=== PATIENT | female | born 1935 | race African-American/Black ===

== ENCOUNTER → 2017-11-21 10:13 | Outpatient (CLI) | payer MEDICARE, OTHER, SELFPAY ==
--- NOTE | 2017-11-21 10:17 | BI_ITS ---
MAMMOGRAPHY - BILATERAL SCREENING REASON FOR EXAM: Female, 82 years old. Routine annual screening examination. PERTINENT HISTORY: Non-contributory. Remote right excisional breast biopsy. TECHNIQUE: Digital bilateral breast paxton (3D mammographic acquisition) in the CC and MLO projections. 2-D mediolateral oblique (MLO) and craniocaudad (CC) views of both breasts were obtained. CAD: Full Field Digital Mammography with Computer Added Detection was performed. COMPARISON: Comparison is made with prior study dated October 03, 2016 and September 21, 2015. FINDINGS: Breast Composition: The breasts are almost entirely fatty. There are no dominant masses or suspicious calcifications. A battery pack from a pacemaker is seen in the left axillary region. Stable bilateral secretory calcifications. No other significant abnormalities are identified. There has been no significant change since the prior study. BI/SCREENING MAMM (CAD), BILAT IMPRESSION: Stable bilateral screening mammogram. Yearly follow-up mammogram recommended. (A) ASSESSMENT CATEGORY: BIRADS Category 2: Benign. A letter regarding these results will be sent to the patient by the facility within 30 days. Approximately 10% of breast cancers are not detected by mammography. A normal mammogram should not delay biopsy of a clinically suspicious abnormality. [id number] Electronically Signed: Tim Gabriel MD at 11:37 EDT Tel [phone], Service support ,
== END ==
PROVIDERS: Family Provider Family Medicine; PCP Family Medicine; Visit Provider Family Medicine
DX: Z12.31 Encounter for screening mammogram for malignant neoplasm of breast (principal)
CPT/HCPCS: 77063; 77067

== ENCOUNTER → 2017-12-25 08:49 | Outpatient (CLI) | payer MEDICARE, OTHER, SELFPAY ==
[2017-12-25 09:16] LABS: International Normalized Ratio 2.1; Prothrombin Time (Protime)PT. 23.6 SECONDS (11.7-14.9)
== END ==
PROVIDERS: Family Provider Family Medicine; PCP Family Medicine; Visit Provider Internal Medicine Cardiovascular Disease
DX: I48.91 Unspecified atrial fibrillation (principal)
CPT/HCPCS: 85610

== ENCOUNTER → 2018-01-20 14:30 | Outpatient (CLI) | payer MEDICARE, OTHER, SELFPAY | PROVIDERS: Family Provider Family Medicine; PCP Family Medicine; Visit Provider Family Medicine | DX: E55.9 Vitamin D deficiency, unspecified (principal); R63.4 Abnormal weight loss; R53.83 Other fatigue; Z51.81 Encounter for therapeutic drug level monitoring ==

== ENCOUNTER → 2018-01-21 13:55 | Outpatient (CLI) | payer MEDICARE, OTHER, SELFPAY | PROVIDERS: Family Provider Family Medicine; PCP Family Medicine; Visit Provider Family Medicine | DX: K44.9 Diaphragmatic hernia without obstruction or gangrene (principal) | CPT/HCPCS: 71046 ==

== ENCOUNTER 2018-06-10 11:36 | Emergency (ER) | payer MEDICARE, OTHER, SELFPAY ==
[2018-06-10] VITALS (7 sets, daily range): BP systolic 135–172; BP diastolic 70–85; PULSE 60–65; RESP 16–20; TEMP 36.6; O2SAT 97–100; BMI 35.4
--- NOTE | 2018-06-10 12:15 | EKG12_ITS ---
Test Reason : CHEST PAIN Blood Pressure : / mmHG Vent. Rate : 084 BPM Atrial Rate : 040 BPM P-R Int : 000 ms QRS Dur : 170 ms QT Int : 456 ms P-R-T Axes : 000 -75 092 degrees QTc Int : 538 ms Ventricular-paced rhythm with frequent Premature ventricular complexes Abnormal ECG Confirmed by CONSTANCE AGUIAR, KALE ([id number]), story editor SAMEERA WATKINS ([id number]) on 06/12/2018 3:41:21 PM Referred By: NEVIN Confirmed By:KALE NOLASCO MD
--- NOTE | 2018-06-10 12:15 | RAD_ITS ---
STUDY: X-RAY CHEST REASON FOR EXAM: Female, 83 years old. Chest pain TECHNIQUE: Single AP portable view of the chest. COMPARISON: 01/21/2018 FINDINGS: EKG leads overlie the chest The lungs are clear and expanded. There is no demonstrated pleural abnormality. Normal size heart. Normal mediastinum and arnol. Normal visualized pulmonary arteries. There is atherosclerotic calcification of the aortic arch with tortuosity. There are diffuse degenerative changes of the visualized thoracic spine. Normal visualized ribs, clavicles, and shoulders. There is no demonstrated abnormality of the visualized soft tissue structures of the upper abdomen. RAD/Chest 1 View (Portable) IMPRESSION: No acute pulmonary process Electronically Signed: Marcos Dudley MD at 12:47 EST , Service support ,
[2018-06-10 12:43] LABS: Absolute Lymphocyte Count 1.11 X10^3/ul (0.83-4.51); Absolute Neutrophil Count 1.6 X10^3/uL (2.0-7.7); Basophil# 0.01 X10^3/uL; Basophil% 0.2 % (0-1); Eosinophil# 0.12 X10^3/uL; Eosinophils% 2.6 % (0-5); Hemoglobin 12.3 g/dl (12.0-15.0); Lymphocyte # 1.11 X10^3/ul (4.0); Lymphocyte % 23.6 % (19-41); Mean Corp Hgb Conc 30.8 g/gl (32-36); Mean Corpuscular Hgb 29.7 pg (27.0-32.0); Mean Corpuscular Volume 96.6 fL (81-99); Mean Platelet Vol. 11.7 fl (6.2-12.0); Monocyte# 1.79 X10^3/uL; Monocyte% 38.1 % (0-10); Neutrophil # 1.64 X10^3/uL (2.7-7.7); Neutrophil % 34.9 % (47-70); Platelet Count 196 K/mm3 (150-450); RBC Distribution Width CV 14.2 % (11.6-14.6); RBC Distribution Width SD 49.8 fl (35.1-43.9); Red Blood Count 4.14 M/mm3 (4.2-5.4); White Blood Count 4.7 K/mm3 (4.4-11.0)
[2018-06-10 12:45] LABS: Differential Indicated SCAN CRITERIA MET; POSITIVE COUNT NO; POSITIVE DIFFERENTIAL YES; POSITIVE MORPHOLOGY NO
[2018-06-10 13:16] LABS: Anion Gap 10 (5-15); BUN 18 mg/dL (7-18); BUN/Creat Ratio 14.6 RATIO (10-20); Calcium,Total 8.1 mg/dL (8.5-10.1); Chloride 106 mmol/L (98-107); Creatinine, Serum 1.23 mg/dL (0.55-1.02); EST Glomerular Filtration Rate 44 mL/min (>60); Est Glom Filt Rate - Afr Amer 54 mL/min (>60); Estimated Creatinine Clearance 33.01 ml/min; Glucose 107 mg/dL (74-106); Potassium 3.4 mmol/L (3.5-5.1); Sodium Level 141 mmol/L (136-145)
[2018-06-10 13:42] LABS: Prothrombin Time (Protime)PT. 23.1 SECONDS (11.7-14.9)
--- NOTE | 2018-06-10 14:31 | ED.VISSUMM ---
- ER Visit Summary Date of Service: 06/10/18 Chief Complaint: Chest pain History of Present Illness: The patient is a 83 F with chest pain that started yesterday evening. It felt like a sharp pain over her right chest. It was intermittent and then recurred this morning. She did take an aspirin and felt better. Associated with some palpitations. She has a history of atrial fibrillation and a pacemaker. She takes warfarin. She denies any history of PE, coronary disease, [place], aortic disease. Physical Examination: Afebrile and vital signs are unremarkable. Alert and oriented. No acute distress. Heart was irregular. Rate controlled. Lungs clear bilaterally. Abdomen soft and nontender. Calves soft and supple. Pulses strong and equal. Skin appears normal. Test Results: EKG shows a paced rhythm at a rate of 84. CBC normal. Metabolic panel shows a potassium of 3.4, glucose 107, creatinine stable at 1.23. INR therapeutic at 2.0. Troponin normal. Chest x-ray showed no acute findings. Emergency Department Course and Treatment: Patient had an EKG, labs, chest x-ray. He was placed on a monitor. Patient felt some intermittent pain in her right chest while I was examining her that lasted several seconds. The monitor did not show any new dysrhythmias. No further pain. Her workup was all fairly unremarkable. She has no history of coronary disease. She would like to go home. I spoke with her package worker. He advised a repeat troponin and she has follow-up with him on . Patient voiced understanding and agreement. The oncoming doctor will check the results of the troponin. If it is normal, she will be discharged. Return for any new or worsening issues. Treatment Plan: As above Disposition: Discharge Impression: 1. Chest pain unclear etiology This note was generated with [employer] dictation software. It may contain incorrect words, spelling, and punctuation that were not noted in review of the chart prior to signing ED Disposition - Plan for ED Patient: Chief Complaint: Chest Pain Referrals: Radha Sigala DO [Primary Care Provider] -
--- NOTE | 2018-06-10 14:36 | ED.DCSUM_ITS ---
- ER Visit Summary Date of Service: 06/10/18 Chief Complaint: Chest pain History of Present Illness: The patient is a 83 F with chest pain that started yesterday evening. It felt like a sharp pain over her right chest. It was intermittent and then recurred this morning. She did take an aspirin and felt b taylor. Associated with some palpitations. She has a history of atrial fibrillation and a pacemaker. She takes warfarin. She denies any history of PE, coronary disease, [place], aortic disease. Physical Examination: Afebrile and vital signs are unremarkable. Alert and oriented. No acute distress. Heart was irregular. Rate controlled. Lungs clear bilaterally. Abdomen soft and nontender. Calves soft and supple. Pulses strong and equal. Skin appears normal. Test Results: EKG shows a paced rhythm at a rate of 84. CBC normal. Metabolic panel shows a potassium of 3.4, glucose 107, creatinine stable at 1.23. INR therapeutic at 2.0. Troponin normal. Chest x-ray showed no acute findings. Emergency Department Course and Treatment: Patient had an EKG, labs, chest x- ray. He was placed on a monitor. Patient felt some intermittent pain in her right chest while I was examining her that lasted several seconds. The monitor did not show any new dysrhythmias. No further pain. Her workup was all fairly unremarkable. She has no history of coronary disease. She would like to go home. I spoke with her prepared foods team leader. He advised a repeat troponin and she has follow-up with him on . Patient voiced understanding and agreement. The oncoming doctor will check the results of the troponin. If it is normal, she will be discharged. Return for any new or worsening issues. Treatment Plan: As above Disposition: Discharge Impression: 1. Chest pain unclear etiology This note was generated with [employer] dictation software. It may contain incorrect words, spelling, and punctuation that were not noted in review of the chart pr ior to signing ED Disposition - Plan for ED Patient: Chief Complaint: Chest Pain Referrals: Radha Sigala DO [Primary Care Provider] -
--- NOTE | 2018-06-10 14:36 | ED.DEP ---
ED Disposition - Plan for ED Patient: Chief Complaint: Chest Pain Instructions: ED Chest Pain Atypical Unkn Cause Referrals: Mustapha Smith MD [STAFF PHYSICIAN] -
== END 2018-06-10 17:12 | disposition home or self-care (01) ==
PROVIDERS: Emergency Provider Emergency Medicine; Family Provider Family Medicine; PCP Family Medicine
DX: R07.9 Chest pain, unspecified (principal); I48.91 Unspecified atrial fibrillation; I11.0 Hypertensive heart disease with heart failure; I50.9 Heart failure, unspecified; Z95.0 Presence of cardiac pacemaker; Z79.01 Long term (current) use of anticoagulants; Z79.82 Long term (current) use of aspirin; Z79.891 Long term (current) use of opiate analgesic; Z79.899 Other long term (current) drug therapy
CPT/HCPCS: 36415; 71045; 80048; 84484; 85025; 85610; 93005; 99285; A4216

== ENCOUNTER 2018-07-13 07:18 | Emergency (ER) | payer MEDICARE, OTHER, SELFPAY ==
[2018-06-10 11:37] VITALS: BMI 35.4
[2018-07-13 07:19] VITALS: BP 187/90; PULSE 57; RESP 20; TEMP 36.6; O2SAT 100; BMI 32.3
--- NOTE | 2018-07-13 07:28 | ED.RN ---
service secretary asked to call for ekg. pt to room 2
--- NOTE | 2018-07-13 07:33 | EKG12_ITS ---
Test Reason : CP Blood Pressure : / mmHG Vent. Rate : 070 BPM Atrial Rate : 059 BPM P-R Int : 000 ms QRS Dur : 144 ms QT Int : 446 ms P-R-T Axes : 000 -86 088 degrees QTc Int : 481 ms Ventricular-paced rhythm with frequent Premature ventricular complexes Abnormal ECG Confirmed by JESUSITA AGUIAR, DURAN ([id number]), script editor SAMEERA WATKINS ([id number]) on 07/15/2018 9:19:36 AM Referred By: OSVALDO Confirmed By:DURAN MC MD
--- NOTE | 2018-07-13 07:33 | RAD_ITS ---
STUDY: X-RAY CHEST REASON FOR EXAM: Female, 83 years old. Chest discomfort. TECHNIQUE: Single AP portable view of the chest. COMPARISON: June 10, 2018 FINDINGS: Patient has left-sided intracardiac pacemaker. Cardiac monitoring leads are present. The right lung is expanded. There is mild elevation of the left hemidiaphragm. Bronchovascular markings are prominent in both lungs. There is no demonstrated pleural abnormality. There is mild cardiac enlargement. Normal mediastinum and arnol. There is prominence of the pulmonary hilar arteries without peripheral pulmonary vascular congestion. There is atherosclerotic calcification of the aortic arch with tortuosity. There is a mild curvature of the thoracic spine with convexity towards the right. Normal visualized ribs, clavicles, and shoulders. There is no demonstrated abnormality of the visualized soft tissue structures of the upper abdomen. RAD/Chest 1 View (Portable) IMPRESSION: Mild cardiomegaly without evidence of acute cardiopulmonary disease. Electronically Signed: Mendy Goodman MD at 8:03 EST , Service support ,
[2018-07-13 07:52] VITALS: O2SAT 100
[2018-07-13] MEDS: Aspirin 81 MG TAB.CHEW 324 MG PO (07:56)
[2018-07-13 08:01] LABS: Absolute Lymphocyte Count 0.72 X10^3/ul (0.83-4.51); Absolute Neutrophil Count 1.5 X10^3/uL (2.0-7.7); Basophil# 0.01 X10^3/uL; Basophil% 0.3 % (0-1); Eosinophil# 0.07 X10^3/uL; Hematocrit 38.2 % (37-47); Hemoglobin 11.7 g/dl (12.0-15.0); Lymphocyte # 0.72 X10^3/ul (4.0); Lymphocyte % 20.3 % (19-41); Mean Corp Hgb Conc 30.6 g/gl (32-36); Mean Corpuscular Hgb 29.5 pg (27.0-32.0); Mean Corpuscular Volume 96.2 fL (81-99); Mean Platelet Vol. 11.4 fl (6.2-12.0); Monocyte# 1.27 X10^3/uL; Monocyte% 35.8 % (0-10); Neutrophil # 1.46 X10^3/uL (2.7-7.7); Platelet Count 156 K/mm3 (150-450); RBC Distribution Width CV 14.4 % (11.6-14.6); RBC Distribution Width SD 50.8 fl (35.1-43.9); Red Blood Count 3.97 M/mm3 (4.2-5.4); White Blood Count 3.6 K/mm3 (4.4-11.0)
[2018-07-13 08:02] LABS: POSITIVE COUNT NO; POSITIVE DIFFERENTIAL NO; POSITIVE MORPHOLOGY NO
--- NOTE | 2018-07-13 08:03 | ED.DCSUM_ITS ---
- ER Visit Summary Date of Service: 07/13/18 Chief Complaint: Palpitations History of Present Illness: The patient is a 83 F presenting with palpitations. Patient states intermittently for the last week when she lays down she has a shaking sensation in her chest. She denies pain with this. When she is sitting up and moving around she is asymptomatic. She denies chest pain with exertion. Denies shortness of breath. She states she is due for a pacemaker check on July 31. Denies fever or other complaints. Physical Examination: Vitals are stable. Patient is afebrile. Alert no acute distress. HEENT exam is unremarkable. Neck is supple. Lungs are clear and equal bilaterally. Heart is regular rate and rhythm. Abdomen is soft nontender nondistended. Extremities are unremarkable. Skin is warm and dry. No focal neurologic deficit. Remainder of exam is unremarkable. Emergency Department Course and Treatment: EKG is paced with PVCs rate of 70. CBC, chemistries unremarkable other than creatinine 1.25, this is at her baseline. INR 2.5. Troponin is negative. Chest x-ray shows mild cardiomegaly, no acute process. Delta troponin was obtained and is also negative. Multiple attempts were made to interrogate her pacemaker. Discussed with [employer] and their system is currently down. Discussed with Dr. Schneider and patient is advised to call the office in the morning for pacemaker check. She and family are agreeable with this plan. She is advised to return to ED for any worsening complaints. Disposition: Discharge home Impression: Palpitations This note was generated with [employer] dictation software. It may contain incorrect words, spelling, and punctuation that were not noted in review of the chart prior to signing ED Disposition - Plan for ED Patient: Instructions: ED Palpitations Referrals: Tyree Schneider MD [STAFF PHYSICIAN] - Radha Sigala DO [Primary Care Provider] -
[2018-07-13 08:09] LABS: International Normalized Ratio 2.5; Prothrombin Time (Protime)PT. 27.5 SECONDS (11.7-14.9)
[2018-07-13 08:15] LABS: Anion Gap 8 (5-15); BUN 12 mg/dL (7-18); BUN/Creat Ratio 9.6 RATIO (10-20); Calcium,Total 8.6 mg/dL (8.5-10.1); Chloride 106 mmol/L (98-107); Creatinine, Serum 1.25 mg/dL (0.55-1.02); EST Glomerular Filtration Rate 44 mL/min (>60); Est Glom Filt Rate - Afr Amer 53 mL/min (>60); Estimated Creatinine Clearance 32.48 ml/min; Glucose 115 mg/dL (74-106); Potassium 4.1 mmol/L (3.5-5.1); Sodium Level 137 mmol/L (136-145)
[2018-07-13 09:12] VITALS: BP 141/69; PULSE 61; RESP 15; O2SAT 99
--- NOTE | 2018-07-13 09:13 | ED.RN ---
ATTEMPTING TO ANALYZE PACEMAKER. HAVING ISSUES GETTING IT TO TRANSMIT TO [employer]. CALLED AND NO ASSISTANCE. THEN THE BATTERY SO NOW ANALYZING AGAIN AND WILL ATTEMPT TO SEND. PHYSICIAN AND PT AWARE OF PROCESS.
[2018-07-13 10:17] VITALS: BP 141/79; PULSE 60; RESP 14; O2SAT 100
--- NOTE | 2018-07-13 10:18 | ED.RN ---
PACEMAKER ANALYZING EQUIPMENT WAS UNSUCCESSFUL. PAGED REP AND AWAITING PHONE CALL.
--- NOTE | 2018-07-13 10:49 | EKGRS_ITS ---
Test Reason : CP Blood Pressure : / mmHG Vent. Rate : 062 BPM Atrial Rate : 054 BPM P-R Int : 000 ms QRS Dur : 142 ms QT Int : 480 ms P-R-T Axes : 000 -79 076 degrees QTc Int : 487 ms Atrial fibrillation with frequent ventricular-paced complexes Left axis deviation Non-specific intra-ventricular conduction block Cannot rule out Septal infarct , age undetermined Possible Lateral infarct , age undetermined Abnormal ECG Confirmed by JESUSITA AGUIAR, DURAN ([id number]), video editor SAMEERA WATKINS ([id number]) on 07/15/2018 9:19:51 AM Referred By: OSVALDO Confirmed By:DURAN MC MD
--- NOTE | 2018-07-13 12:29 | ED.DEP ---
ED Disposition - Plan for ED Patient: Instructions: ED Palpitations Referrals: Radha Sigala DO [Primary Care Provider] - Tyree Schneider MD [STAFF PHYSICIAN] -
[2018-07-13 12:31] VITALS: PULSE 64; RESP 18
[2018-07-13 12:47] VITALS: PULSE 68; RESP 18
== END 2018-07-13 12:47 | disposition home or self-care (01) ==
LOC: ED 08:24
PROVIDERS: Emergency Provider Emergency Medicine; Family Provider Family Medicine; PCP Family Medicine
DX: R00.2 Palpitations (principal); Z95.0 Presence of cardiac pacemaker; I48.91 Unspecified atrial fibrillation; Z72.0 Tobacco use
CPT/HCPCS: 71045; 80048; 84484; 85025; 85610; 93005; 99284; A4216

== ENCOUNTER → 2018-07-31 15:38 | Outpatient (CLI) | payer MEDICARE, OTHER, SELFPAY ==
[2018-07-23 14:08] VITALS: BMI 33.7
[2018-07-31 16:45] LABS: International Normalized Ratio 2.9; Prothrombin Time (Protime)PT. 30.2 SECONDS (11.7-14.9)
== END ==
PROVIDERS: Family Provider Family Medicine; PCP Family Medicine; Referring Provider Internal Medicine Cardiovascular Disease; Visit Provider Internal Medicine Cardiovascular Disease
DX: I48.91 Unspecified atrial fibrillation (principal)
CPT/HCPCS: 85610

== ENCOUNTER → 2018-08-06 13:12 | Outpatient (CLI) | payer MEDICARE, OTHER, SELFPAY ==
[2018-07-23 14:08] VITALS: BMI 33.7
--- NOTE | 2018-08-06 13:14 | ECHOD_ITS ---
Reason For Study: AFIB.FLUTTER Procedure This was a 2D Doppler, Color Flow transthoracic echocardiogram. The study was technically difficult. Exam performed in department. Left Ventricle Normal LV size. Left ventricular systolic function is normal. The estimated ejection fraction is 60 %. Stage 3 diastolic dysfunction. No regional wall motion abnormalities noted. Right Ventricle Normal RV size. ICD or pacer leads identified within the right ventricle. Normal systolic function. Atria The left atrium is moderately enlarged. The right atrium is mildly enlarged. Mitral Valve There is moderate mitral annular calcification. Moderate focal mitral valve thickening. Mild- Moderate (1-2+) eccentric mitral valve insufficiency. Tricuspid Valve Normal tricuspid valve. Moderate (2+) tricuspid valve insufficiency. Pulmonary artery systolic pressure is 63 mmHg. Moderate pulmonary hypertension. Aortic Valve Trisinus/trileaflet aortic valve. Pulmonic Valve Normal pulmonic valve. Great Vessels Calcified aortic root. The pulmonary artery is normal size. Normal inferior vena cava. Pericardium/Pleural No pericardial effusion. MMode/2D Measurements & Calculations LVIDd: 4.1 cm IVSd: 0.97 cm Ao root diam: 2.9 cm LVIDs: 2.9 cm LVPWd: 1.0 cm RVDd: 4.6 cm FS: 29.1 % LAV(MOD-bp): 110.2 ml LA A4 area: 31.5 cm2 RA A4 area: 23.5 cm2 LAV(MOD-bp) Indexed: 55.4 ml/m2 LAV(MOD-sp2): 94.9 ml LAV(MOD-sp4): 120.7 ml Doppler Measurements & Calculations MV E max leo: 146.2 cm/sec Ao V2 max: 124.5 cm/sec LV V1 max: 74.9 cm/sec MV A max leo: 66.2 cm/sec Ao max P.2 mmHg LV V1 max P.2 mmHg MV E/A: 2.2 PA V2 max: 102.0 cm/sec TR max leo: 372.7 cm/sec TR max P.6 mmHg Interpretation Summary Normal LV size. Left ventricular systolic function is normal. The estimated ejection fraction is 60 %. Stage 3 diastolic dysfunction. The left atrium is moderately enlarged. Mild-Moderate (1-2+) eccentric mitral valve insufficiency. Pulmonary artery systolic pressure is 63 mmHg. Moderate pulmonary hypertension. Compared to prior study, there is no significant change. Ordering Physician: Tyree Schneider Referring Physician: Radha Sigala Performed By: Micki Richmond, TITUS, RVT
== END ==
PROVIDERS: Family Provider Family Medicine; PCP Family Medicine; Referring Provider Internal Medicine Cardiovascular Disease; Visit Provider Internal Medicine Cardiovascular Disease
DX: I34.0 Nonrheumatic mitral (valve) insufficiency (principal)
CPT/HCPCS: 93306

== ENCOUNTER 2018-08-18 02:42 | Emergency (ER) | payer MEDICARE, OTHER, SELFPAY ==
[2018-07-23 14:08] VITALS: BMI 33.7
[2018-08-18 02:43] VITALS: BP 166/97; PULSE 62; RESP 18; TEMP 36.6; O2SAT 99; BMI 34.6
[2018-08-18 02:48] VITALS: RESP 18
--- NOTE | 2018-08-18 03:07 | ED.VIS.GEN ---
History of Present Illness Chief Complaint: Lower Extremity Injury Narrative: Patient stated she has chronic arthritis in her knees. She is on Coumadin for history of remote DVT. She wanted to make sure she did not have a DVT she is having worsening pain in her bilateral knees. Sometimes she feels nodules in the back side of her knees and wants to make sure they are not blood clots. She is noticed no swelling redness or warmth to her lower extremities. Comes in for further evaluation. She finished Stinnett given to her by her family doctor for chronic arthritis in her knees a few days ago. She thinks that might be related to her worsening pain. Current severity is moderate. Denies any other symptoms. No chest pain or shortness of breath. Coumadin levels were 2.9 approximately 2 and half weeks ago - Past Medical History (1) Arthritis of knee Status: Chronic (2) Chronic atrial fibrillation Status: Chronic (3) Chronic diastolic (congestive) heart failure Status: Chronic (4) Essential (primary) hypertension Status: Chronic (5) Hyperlipidemia Status: Chronic (6) Non-rheumatic tricuspid valve insufficiency Status: Chronic (7) Nonrheumatic mitral (valve) insufficiency Status: Chronic (8) Presence of permanent cardiac pacemaker Status: Chronic (9) Secondary pulmonary arterial hypertension Status: Chronic (10) Sick sinus syndrome Status: Chronic (11) History of radiofrequency ablation procedure for cardiac arrhythmia Status: Chronic Past Medical History - Allergies and Home Meds Allergies/Adverse Reactions: Allergies adhesive Allergy (Verified 08/18/18 02:47) PULLS SKIN OFF Iodinated Contrast- Oral and IV Dye [Iodinated Contrast Media - IV Dye] Allergy (Verified 08/18/18 02:47) EYES SWELL SHUT latex Adverse Reaction (Unknown, Verified 08/18/18 02:47) Unknown Primary Care Physician: Radha Sigala DO [Primary Care Provider] - Prior records reviewed: Yes Surgical History: - - Hysterectomy, cholecystectomy, partial hysterectomy, stomach surgery/hiatal hernia, pacemaker, ablation.heart cath in the past Lives: With Family Smoking Status: Never smoker Alcohol: None Drugs: None - Family History Maternal Family History: Reports: No pertinent history Paternal Family History: Reports: No pertinent history Review of Systems General: Denies: Chills, Fever, Sweats Eyes: Denies: Visual changes - bilaterally, Diplopia ENT: Denies: Rhinorrhea, Sore throat Cardiovascular: Denies: Chest pain, Palpitations Respiratory: Denies: Dyspnea, Cough, Dyspnea on exertion Gastrointestinal: Denies: Abdominal pain, Nausea, Vomiting, Diarrhea, Melena, Hematochezia Genitourinary: Denies: Dysuria, Hematuria, Frequency Musculoskeletal: Reports: Extremity Pain. Denies: Back pain, Swelling Skin: Denies: Rash, Wounds Neurological: Denies: Headache, Weakness, Numbness Physical Exam Vital Signs/Narrative: Vital Signs Temp Pulse Resp BP Pulse Ox 08/18/18 02:48 18 08/18/18 02:43 98 F 62 18 166/97 H 99 General: Well nourished, Well developed, No Acute Distress Head: Normocephalic, Atraumatic Eyes: Perrl, EOMI ENT: Moist mucous membranes, No rhinorrhea Neck: Supple, Nontender Cardiovascular: Regular rate, Regular rhythm, No murmurs Respiratory: No distress, CTA bilaterally, Chest nontender Abdomen: Soft, Nontender, Nondistended, Normal bowel sounds Back: Nontender, Normal Inspection Extremities: No edema, Tenderness - Tenderness to bilateral knees with arthritic changes seen. The areas in her popliteal region that she is feeling are varicose veins., - - No swelling or deformity. Negative Homans sign. No warmth to lower extremity. Normal pulses.. Negative for: Nontender, Edema, Calf Tenderness Skin: Normal color, No rash Neurological: Alert, Oriented x3, Cranial nerves II-XII grossly intact, Normal Strength, Normal Sensation Psychological: Normal affect, Normal Mood Diagnostic/Tx/Re-eval - Medical Decision Making Patient reassured at this time I think she is having arthritis related pains. What she is feeling her varicose veins. There is no evidence of DVT or superficial thrombophlebitis. I feel she can follow-up as an outpatient. Given one Stinnett and a short prescription ED Disposition - Plan for ED Patient: Disposition: [facility] Diagnosis: Arthritis of knee Instructions: What Is Arthritis? Prescriptions: Hydrocodone Bitart/Apap 5-325 [Stinnett 5MG-325MG] 1 tab PO Q6H PRN PRN 3 Days #10 tab PRN Reason: Pain Referrals: Radha Sigala DO [Primary Care Provider] -
[2018-08-18] MEDS: HYDROcodone Bitartrate/Apap 5/325 Tablet PO (03:17)
[2018-08-18 03:53] VITALS: BP 172/86; PULSE 60; RESP 18; O2SAT 100
== END 2018-08-18 03:54 | disposition home or self-care (01) ==
PROVIDERS: Emergency Provider Emergency Medicine; Family Provider Family Medicine; PCP Family Medicine
DX: M17.0 Bilateral primary osteoarthritis of knee (principal); Z79.01 Long term (current) use of anticoagulants; Z86.718 Personal history of other venous thrombosis and embolism; I48.2 Chronic atrial fibrillation; I11.0 Hypertensive heart disease with heart failure; I50.32 Chronic diastolic (congestive) heart failure; E78.5 Hyperlipidemia, unspecified; Z95.0 Presence of cardiac pacemaker; I15.9 Secondary hypertension, unspecified; I49.5 Sick sinus syndrome
CPT/HCPCS: 99284

== ENCOUNTER → 2018-08-21 12:00 | Outpatient (CLI) | payer MEDICARE, OTHER, SELFPAY ==
[2018-08-18 02:43] VITALS: BMI 34.6
[2018-08-21 12:26] LABS: International Normalized Ratio 2.1; Prothrombin Time (Protime)PT. 23.8 SECONDS (11.7-14.9)
== END ==
PROVIDERS: Family Provider Family Medicine; PCP Family Medicine; Referring Provider Internal Medicine Cardiovascular Disease; Visit Provider Internal Medicine Cardiovascular Disease
DX: I48.91 Unspecified atrial fibrillation (principal)
CPT/HCPCS: 85610

== ENCOUNTER → 2018-08-28 13:38 | Outpatient (CLI) | payer MEDICARE, OTHER, SELFPAY ==
[2018-08-22 10:35] VITALS: BMI 34.6
[2018-08-28 14:07] LABS: Prothrombin Time (Protime)PT. 22.6 SECONDS (11.7-14.9)
== END ==
PROVIDERS: Family Provider Family Medicine; PCP Family Medicine; Referring Provider Internal Medicine Cardiovascular Disease; Visit Provider Internal Medicine Cardiovascular Disease
DX: I48.91 Unspecified atrial fibrillation (principal)
CPT/HCPCS: 85610

== ENCOUNTER → 2018-09-25 | Outpatient (CLI) | payer MEDICARE, OTHER, SELFPAY ==
[2018-08-22 10:35] VITALS: BMI 34.6
[2018-09-25 16:22] LABS: International Normalized Ratio 2.1; Prothrombin Time (Protime)PT. 23.8 SECONDS (11.7-14.9)
== END | disposition home or self-care (01) ==
LOC: LABSPEC 15:44
PROVIDERS: Family Provider Family Medicine; PCP Family Medicine; Referring Provider Internal Medicine Cardiovascular Disease; Visit Provider Internal Medicine Cardiovascular Disease
DX: I48.91 Unspecified atrial fibrillation (principal)
CPT/HCPCS: 85610

== ENCOUNTER 2018-11-26 11:50 | Outpatient (RCR) | payer MEDICARE, OTHER, SELFPAY ==
[2018-08-22 10:35] VITALS: BMI 34.6
[2018-11-26 12:16] LABS: Prothrombin Time Fingerstick 26.5 SEC (11.9-14.4)
== END 2018-12-24 16:00 | disposition home or self-care (01) ==
LOC: LAB 11:50
PROVIDERS: Family Provider Family Medicine; PCP Family Medicine; Referring Provider Internal Medicine Cardiovascular Disease; Visit Provider Internal Medicine Cardiovascular Disease
DX: I48.2 Chronic atrial fibrillation (principal); Z79.01 Long term (current) use of anticoagulants
CPT/HCPCS: 36416; 85610

== ENCOUNTER → 2018-12-03 | Outpatient (CLI) | payer MEDICARE, OTHER, SELFPAY ==
[2018-08-22 10:35] VITALS: BMI 34.6
--- NOTE | 2018-12-03 12:55 | BI_ITS ---
MAMMOGRAPHY - BILATERAL SCREENING REASON FOR EXAM: Female, 83 years old. Routine annual screening examination. PERTINENT HISTORY: Non-contributory. Remote bilateral excisional breast biopsies. TECHNIQUE: Digital bilateral breast alfred (3D mammographic acquisition) in the CC and MLO projections. 2-D mediolateral oblique (MLO) and craniocaudad (CC) views of both breasts were obtained. CAD: Full Field Digital Mammography with Computer Added Detection was performed. COMPARISON: Comparison is made with prior study dated November 21, 2017 and October 03, 2016. FINDINGS: Breast Composition: The breasts are almost entirely fatty. There are no dominant masses or suspicious calcifications. Stable secretory type calcifications bilaterally. A battery pack from a pacemaker is seen in the left axillary region. No other significant abnormalities are identified. There has been no significant change since the prior study. BI/SCREEN MAMM (CAD) W/ALFRED BILAT IMPRESSION: Stable bilateral screening mammogram. Yearly follow-up mammogram recommended. (A) ASSESSMENT CATEGORY: BIRADS Category 2: Benign. A letter regarding these results will be sent to the patient by the facility within 30 days. Approximately 10% of breast cancers are not detected by mammography. A normal mammogram should not delay biopsy of a clinically suspicious abnormality. [id number] Electronically Signed: Tim Gabriel, at 14:36 EDT , Service support ,
== END | disposition home or self-care (01) ==
LOC: OPBI 12:54
PROVIDERS: Family Provider Family Medicine; PCP Family Medicine; Referring Provider Family Medicine; Visit Provider Family Medicine
DX: Z12.31 Encounter for screening mammogram for malignant neoplasm of breast (principal)
CPT/HCPCS: 77063; 77067

== ENCOUNTER 2019-01-07 09:45 | Outpatient (RCR) | payer MEDICARE, OTHER, SELFPAY ==
[2018-08-22 10:35] VITALS: BMI 34.6
[2019-01-07 16:30] LABS: Prothrombin Time Fingerstick 29.8 SEC (11.9-14.4)
== END 2019-01-07 11:00 | disposition home or self-care (01) ==
LOC: LAB 09:45
PROVIDERS: Family Provider Family Medicine; PCP Family Medicine; Referring Provider Internal Medicine Cardiovascular Disease; Visit Provider Internal Medicine Cardiovascular Disease
DX: I48.2 Chronic atrial fibrillation (principal); Z79.01 Long term (current) use of anticoagulants
CPT/HCPCS: 36416; 85610

== ENCOUNTER → 2019-01-15 | Outpatient (CLI) | payer MEDICARE, OTHER, SELFPAY ==
[2019-01-15 14:04] VITALS: BMI 33.3
--- NOTE | 2019-01-15 15:07 | RAD_ITS ---
STUDY: X-RAY CHEST REASON FOR EXAM: Female, 83 years old. Preop pacemaker generator change. TECHNIQUE: PA and lateral views of the chest. COMPARISON: Portable AP upright chest x-ray July 13, 2018. FINDINGS: The generator of the multilead cardiac pacemaker is again seen in the soft tissues of the left anterior chest wall. Its leads extend from the subclavian vein to the right atrium and ventricle. The lungs are clear and expanded. There is no demonstrated pleural abnormality. There is borderline cardiomegaly. Possible calcification in the mitral valve annulus. Normal mediastinum and arnol. Normal visualized pulmonary arteries. There is stable atherosclerotic ossification of the aortic arch and descending thoracic aorta. There is an increased kyphosis of the thoracic spine. Multilevel degenerative changes and mild levoscoliosis noted in the visualized lumbar spine. Normal visualized ribs, clavicles, and shoulders. A number surgical clips are again seen in the epigastrium. RAD/Chest PA and Lateral IMPRESSION: Borderline cardiac enlargement. No acute infiltrate or CHF. Multilead cardiac pacemaker unchanged. Electronically Signed: Marcos Dhillon MD at 16:30 EDT , Service support ,
== END | disposition home or self-care (01) ==
LOC: RAD 15:06
PROVIDERS: Family Provider Family Medicine; PCP Family Medicine; Referring Provider Internal Medicine Cardiovascular Disease; Visit Provider Internal Medicine Cardiovascular Disease
DX: I48.2 Chronic atrial fibrillation (principal); I49.5 Sick sinus syndrome; Z95.0 Presence of cardiac pacemaker
CPT/HCPCS: 71046

== ENCOUNTER → 2019-01-28 | Outpatient (CLI) | payer MEDICARE, OTHER, SELFPAY ==
[2019-01-15 14:04] VITALS: BMI 33.3
[2019-01-28 11:30] LABS: Bacteria 0 SEEN /hpf (None Seen); Mucous, Urine 0 SEEN /hpf (<or=2+); Red Blood Cells-Urine 0 SEEN /hpf (0-5); White Blood Cells 0 SEEN /hpf (0-5)
[2019-01-28 11:46] LABS: Color, Urine Straw (Yellow); Glucose, Dipstick Normal (Normal); Ketone-Dipstick Negative (Negative); Leukocyte Esterase-Dipstick Negative /ul (Negative); Nitrite-Dipstick Negative (Negative); Occult Blood-Urine Negative /ul (Negative); Protein-Dipstick Negative (Negative); Urine Bilirubin Dipstick Negative (Negative); Urine Clarity Clear (Clear); Urine Urobilinogen Normal (Normal)
[2019-01-28 11:55] LABS: Hematocrit 38.7 % (37-47); Hemoglobin 12.1 g/dL (12.0-15.0); Mean Corp Hgb Conc 31.3 g/dL (32-36); Mean Corpuscular Hgb 30.7 pg (27.0-32.0); Mean Corpuscular Volume 98.2 fL (81-99); Mean Platelet Vol. 11.6 fl (6.2-12.0); Platelet Count 131 K/mm3 (150-450); RBC Distribution Width CV 13.9 % (11.6-14.6); RBC Distribution Width SD 50.4 fl (35.1-43.9); Red Blood Count 3.94 M/mm3 (4.2-5.4); White Blood Count 4.2 K/mm3 (4.4-11.0)
[2019-01-28 11:59] LABS: Squamous Epithelial Cells - UA 0-5 SEEN /hpf (5-10)
[2019-01-28 12:04] LABS: International Normalized Ratio 2.1; Prothrombin Time (Protime)PT. 23.9 SECONDS (11.7-14.9)
[2019-01-28 12:30] LABS: AST(SGOT) 18 U/L (15-37); Alanine Aminotransfer ALT/SGPT 17 U/L (13-56); Albumin, Serum 4.2 g/dL (3.2-5.0); Alkaline Phosphatase 130 U/L (45-117); Anion Gap 9 (5-15); BUN 15 mg/dL (7-18); BUN/Creat Ratio 12.1 RATIO (10-20); Bilirubin, Direct 0.45 mg/dL (0.00-0.30); Calcium,Total 9.1 mg/dL (8.5-10.1); Chloride 106 mmol/L (98-107); Cholesterol 118 mg/dL (200); Creatinine, Serum 1.24 mg/dL (0.55-1.02); EST Glomerular Filtration Rate 44 mL/min (>60); Est Glom Filt Rate - Afr Amer 53 mL/min (>60); Globulin 3.4 g/dL (2.2-4.2); Glucose 109 mg/dL (74-106); High Density Lipoprotein 48 mg/dL; Potassium 4.3 mmol/L (3.5-5.1); Protein, Total 7.6 g/dL (6.4-8.2); Sodium Level 139 mmol/L (136-145); Triglycerides 59 mg/dL; Very Low Density Lipoprotein 12 mg/dL (5-40)
== END | disposition home or self-care (01) ==
LOC: LAB 10:23
PROVIDERS: Family Provider Family Medicine; PCP Family Medicine; Visit Provider Internal Medicine Cardiovascular Disease
DX: I49.5 Sick sinus syndrome (principal); I48.2 Chronic atrial fibrillation; I11.0 Hypertensive heart disease with heart failure; I50.32 Chronic diastolic (congestive) heart failure; E78.5 Hyperlipidemia, unspecified; I27.21 Secondary pulmonary arterial hypertension; I36.1 Nonrheumatic tricuspid (valve) insufficiency; Z95.0 Presence of cardiac pacemaker; Z79.01 Long term (current) use of anticoagulants
CPT/HCPCS: 36415; 80048; 80061; 80076; 81001; 83036; 85027; 85610

== ENCOUNTER 2019-02-02 09:44 | Day surgery (SDC) | payer MEDICARE, OTHER, SELFPAY ==
[2019-01-15 14:04] VITALS: BMI 33.3
--- NOTE | 2019-02-02 10:34 | PCM.HP.BLA ---
History and Physical Date of Admission: 02/02/19 History of Present Illness MARI MANUEL, is a 83 F who presents to the hospital today for a pacemaker generator change. Her PPM is nearing CHRISTOPH, recent interrogation demonstrated battery voltage of 2.82 V, CHRISTOPH is 2.81 V. She is a lady with a history of chronic persistent atrial fibrillation sick sinus syndrome status post radiofrequency ablation and permanent pacemaker implantation in 2008. She also has a history of hypertension, hyperlipidemia, and diabetes mellitus. She has not had any chest pain or shortness of breath or paroxysmal nocturnal dyspnea or pedal edema. Intake VS: See chart Allergies adhesive Allergy (Verified 01/15/19 12:48) PULLS SKIN OFF Iodinated Contrast Media [Iodinated Contrast Media - IV Dye] Allergy (Verified 01/15/19 12:48) EYES SWELL SHUT latex Adverse Reaction (Unknown, Verified 01/15/19 12:48) Unknown Medications Amlodipine [Norvasc] 10 mg PO DAILY 12/02/15 [History Confirmed 01/15/19] Aspirin [Aspirin, Baby] 81 mg PO DAILY@0800 12/02/15 [History Confirmed 01/15/19] Bimatoprost 0.01% [Lumigan 0.01%] 1 drp EACH EYE QHS 12/02/15 [History Confirmed 01/15/19] Brinzolamide [Azopt] 1 drp EACH EYE BID 12/02/15 [History Confirmed 01/15/19] Furosemide 40 mg PO DAILY 12/02/15 [History Confirmed 01/15/19] Lansoprazole [Prevacid] 30 mg PO DAILY 12/02/15 [History Confirmed 01/15/19] Lorazepam [Ativan] 1 mg PO Q8H PRN 12/02/15 [History Confirmed 01/15/19] Metoprolol Tartrate [Lopressor (beta demetrius)] 25 mg PO BID 12/02/15 [History Confirmed 01/15/19] Simvastatin [Zocor] 20 mg PO QHS 12/02/15 [History Confirmed 01/15/19] losartan 100 mg tablet PO 90 Days #90 tab 07/15/18 [History Confirmed 01/15/19] warfarin 2 mg tablet 2 mg PO Q OTHER DAY 09/26/18 [History Confirmed 01/15/19] warfarin 3 mg tablet 3 mg PO Q OTHER DAY #90 tab 11/17/18 [Rx Confirmed 01/15/19] [facility] Medical History 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) Chronic atrial fibrillation (Chronic) Non-rheumatic tricuspid valve insufficiency (Chronic) Secondary pulmonary arterial hypertension (Chronic) Sick sinus syndrome (Chronic) Essential (primary) hypertension (Chronic) Hyperlipidemia (Chronic) Arthritis (Chronic) Chronic diastolic (congestive) heart failure (Chronic) Glaucoma (Chronic) Nonrheumatic mitral (valve) insufficiency (Chronic) Obesity (Chronic) Type 2 diabetes mellitus (Chronic) 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) Cellulitis and abscess of leg (Resolved) Surgical History Presence of permanent cardiac pacemaker (Chronic 2008) History of radiofrequency ablation procedure for cardiac arrhythmia (Chronic 2008) History of herniorrhaphy (Resolved) History of hysterectomy (Resolved) Hx of cholecystectomy (Resolved) Social History (Updated 01/15/19 @ 14:25 by Tyree Schneider MD) Smoking Status: Never smoker ROS Const Const: Positive for other (little ambulation because of arthritis and decrease in vision); negative for fatigue, weakness, headache(s), frequent falls, difficulty sleeping or excessive sweating Eyes Eyes: Positive for change in vision; negative for loss of peripheral vision, transient loss of vision, blurry vision, double vision or tunnel vision ENT ENT: Negative for headache(s), dizziness, Nosebleed/epistaxis or balance problems Cardio Chest Pain: No Palpitations: No Edema: None Muscle aches with walking: None Resp Respiratory: Positive for SOB with activity; negative for SOB at rest, SOB orthopnea\SOB lying down, Cough or paroxysmal nocturnal dyspnea GI GI: Negative nausea, vomiting, heartburn or black,tarry stools : Negative for hematuria Musc Musc: Positive for joint pain; negative for muscle aches/ myalgia, muscle weakness or balance problems Skin Skin: Negative non-healing lesions, rash or unusual bruising Neuro Neuro: Negative for dizziness, lightheadedness, near syncope, syncope, orthostatic symptoms, frequent falls, headache(s), weakness, blurry vision, double vision or lack of coordination [place] Hematologic/Lymphatic: Negative for easy bleeding or easy bruising Endo Endo: Negative for fatigue, excessive sweating or increased thirst/drinking Psych Psych: Negative for anxiety or depression Allergy Allergy/Immunology: Negative for hives, Negative for rash Cardiology Exam Const Appearance: cooperative, healthy appearing, no acute distress, well developed and well groomed Nutritional Appearance: average body habitus and well nourished Orientation: alert, awake and oriented x3 Head Head: normal to inspection, normocephalic and atraumatic Ears: hearing grossly normal bilaterally and external ears normal Nose: external nose normal, nares normal, nasal mucous membranes and turbinates normal, septum normal, no nasal discharge Face and Sinus: face symmetric Mouth: oral mucosae normal, tongue normal, oropharynx normal and moist mucous membranes Teeth and gingiva: dentition normal Throat: posterior oropharynx normal, tonsils normal and uvula midline Eyes General: appearance normal, both eyes and all related structures Eyelids: eyelids normal Conjunctivae: conjunctivae normal Pupils: PERRL, normal by confrontation and accommodation normal EOM: EOM intact bilaterally Neck Neck: normal visual inspection, trachea midline and no JVD JVD: +5 Carotids: normal carotid upstroke and bounding pulses Chest Chest inspection: normal inspection of the chest, symmetric chest movement and normal respiratory effort Auscultation: Bilateral: Clear to Auscultation Cardio Palpation: normal PMI Rate: regular rate Rhythm: regular rhythm Heart sounds: S1 normal, S2 normal and normal, physiologic split S2; negative rub, gallop or murmur GI GI: normal to inspection, soft, no hepatosplenomegaly and bowel sounds present Neuro General: alert, awake, oriented x3, gait normal, moves all extremities and no focal sensory deficit Skin Skin: no rashes or lesions noted Extremities Pulses: Normal: Right Femoral Pulse, Left Femoral Pulse, Right Dorsalis Pedis Pulse, Left Dorsalis Pedis Pulse, Right Posterior Tibial Pulse, Left Posterior Tibial Pulse, Right Radial Pulse, Left Radial Pulse Lower Extremity Edema: None: Bilateral Musculoskel Musculoskeletal: No joint tenderness Psych Psychological: normal affect Assessment & Plan 1. Presence of permanent cardiac pacemaker Z95.0 Plan She does have a permanent pacemaker implanted. It was interrogated today and her presenting rhythm was atrial fibrillation and V paced at 60 bpm she was ventricular paced 92% of the time. Her battery voltage was 2.82 with elective replacement indicator at 2.81. Her generator will be changed out today. 2. Chronic atrial fibrillation I48.2 Plan She does have chronic persistent atrial fibrillation. She is on anticoagulation which she will continue on this will be held at the appropriate time prior to the generator change. 3. Essential (primary) hypertension I10 Plan This will continue to be monitored and adjusted accordingly. 4. Hyperlipidemia E78.5 Plan She does have a history of hyperlipidemia. She will continue on her current dose of statin. Lipid profile will be obtained as appropriate. 5. Diastolic dysfunction with chronic heart failure I50.32 Plan She does have a history of diastolic dysfunction and we will continue her with the Lasix 40 mg a day together with the beta-demetrius and the ARB.
[2019-02-02 11:05] LABS: Prothrombin Time Fingerstick 18.5 SEC (11.9-14.4)
--- NOTE | 2019-02-02 11:58 | CL.IE_ITS ---
Patient: MARI MANUEL Study Date: 02/02/2019 Performing: Tyree Schneider MD : [id number] Age: 83 Gender: female PROCEDURES PERFORMED [id number] REMOVAL+REPLACEMENT PACER-DUAL LEAD INDICATIONS Sinoatrial node dysfunction/Sick sinus syndrome PROCEDURE DETAILS The patient was brought to the Catheterization Lab in the postabsorptive nonsedated state. Infor med consent was obtained prior to the procedure. Local anesthetic was given subcutaneously to the le ft upper chest area with Lidocaine 2%. Incision was made to the left upper chest. PPM generator was r emoved. PPM generator was attached to the lead(s) and inserted into the pocket. PPM generator was the n interrogated by the sql programmer analyst. Device pocket was irrigated with antibiotic. Subcutaneous closure w as completed with 3-0 Vicryl. Skin closure was completed with 4-0 Vicryl. Steri-strips applied to Lt chest area. The patient tolerated the procedure well. Estimated Blood Loss: < 10 mls IMPLANTED / EX-PLANTED DEVICES EXPLANTED DEVICE(S): PPM Generator - Service Order Dispatcher Chief: [employer], Model # [id number] , Serial # [id number] IMPLANTED DEVICE(S): PPM Generator - Service Order Dispatcher Chief: [employer], Model # [id number] , Serial # [id number] DEVICE PARAMETERS DEVICE PARAMETERS: Mode - VVIR lower rate - 60 upper rate - 120 rate response off Mode- VVIR Lower rate- 60 Upper rate- 120 CONCLUSIONS / RECOMMENDATIONS Device Conclusions: Successful implantation of a dual chamber pacemaker battery change and replacemen t Device Recommendations: Follow up with Primary Care Physician PROCEDURE MEDICATIONS Versed 1 mg IV Fentanyl 25 mcg IV Versed 1 mg IV Oxygen: 2 L/min via nasal cannula Antibiotic given in appropriate timeframe. Ancef 2 Gm IV @ 02/02/2019 11:28:31 Signed By Tyree Schneider MD On 02/02/2019 11:58:56 Tyree Schneider MD
== END 2019-02-02 13:30 | disposition home or self-care (01) ==
LOC: CLSP 09:46
PROVIDERS: Family Provider Family Medicine; PCP Family Medicine; Referring Provider Internal Medicine Cardiovascular Disease; Visit Provider Internal Medicine Cardiovascular Disease
DX: Z95.0 Presence of cardiac pacemaker (principal); I48.2 Chronic atrial fibrillation; E78.5 Hyperlipidemia, unspecified; I13.0 Hypertensive heart and chronic kidney disease with heart failure and stage 1 through stage 4 chronic kidney disease, or unspecified chronic kidney disease; I50.32 Chronic diastolic (congestive) heart failure; E11.22 Type 2 diabetes mellitus with diabetic chronic kidney disease; N18.9 Chronic kidney disease, unspecified; M19.90 Unspecified osteoarthritis, unspecified site; E66.9 Obesity, unspecified; Z79.01 Long term (current) use of anticoagulants; Z79.82 Long term (current) use of aspirin; Z79.899 Other long term (current) drug therapy
CPT/HCPCS: 33228; 36416; 85610; 99152; 99153; J7040; J7050

== ENCOUNTER → 2019-02-16 | Outpatient (CLI) | payer MEDICARE, OTHER, SELFPAY ==
[2019-01-15 14:04] VITALS: BMI 33.3
[2019-02-16 12:05] LABS: Prothrombin Time (Protime)PT. 22.9 SECONDS (11.7-14.9)
[2019-02-16 12:24] LABS: ALB/GLOB Ratio 1.2 RATIO (0.9-2.4); AST(SGOT) 15 U/L (15-37); Alanine Aminotransfer ALT/SGPT 12 U/L (13-56); Albumin, Serum 4.1 g/dL (3.2-5.0); Alkaline Phosphatase 111 U/L (45-117); Anion Gap 8 (5-15); BUN 11 mg/dL (7-18); BUN/Creat Ratio 9.9 RATIO (10-20); Calcium,Total 8.9 mg/dL (8.5-10.1); Chloride 104 mmol/L (98-107); Creatinine, Serum 1.11 mg/dL (0.55-1.02); EST Glomerular Filtration Rate 50 mL/min (>60); Est Glom Filt Rate - Afr Amer 60 mL/min (>60); Globulin 3.3 g/dL (2.2-4.2); Glucose 110 mg/dL (74-106); Potassium 4.2 mmol/L (3.5-5.1); Protein, Total 7.4 g/dL (6.4-8.2); Sodium Level 140 mmol/L (136-145)
== END | disposition home or self-care (01) ==
PROVIDERS: Internal Medicine Cardiovascular Disease; Family Provider Family Medicine; PCP Family Medicine; Visit Provider Family Medicine
DX: R17 Unspecified jaundice (principal); R74.8 Abnormal levels of other serum enzymes; I48.2 Chronic atrial fibrillation; I50.32 Chronic diastolic (congestive) heart failure; I36.1 Nonrheumatic tricuspid (valve) insufficiency; I27.21 Secondary pulmonary arterial hypertension; Z79.01 Long term (current) use of anticoagulants
CPT/HCPCS: 36415; 80053; 85610

== ENCOUNTER → 2019-03-09 | Outpatient (CLI) | payer MEDICARE, OTHER, SELFPAY ==
[2019-01-15 14:04] VITALS: BMI 33.3
[2019-03-09 11:19] LABS: Prothrombin Time Fingerstick 28.6 SEC (11.9-14.4)
== END | disposition home or self-care (01) ==
LOC: LAB 08:50
PROVIDERS: Family Provider Family Medicine; PCP Family Medicine; Visit Provider Internal Medicine Cardiovascular Disease
DX: I48.20 Chronic atrial fibrillation, unspecified (principal); I50.32 Chronic diastolic (congestive) heart failure; I36.1 Nonrheumatic tricuspid (valve) insufficiency; I27.21 Secondary pulmonary arterial hypertension; Z79.01 Long term (current) use of anticoagulants
CPT/HCPCS: 36416; 85610

== ENCOUNTER 2019-03-13 09:12 | Inpatient (IN) | payer MEDICARE, OTHER, SELFPAY ==
[2019-01-15 14:04] VITALS: BMI 33.3
[2019-03-13 09:16] VITALS: BP 158/79; PULSE 76; RESP 16; TEMP 37; O2SAT 96; BMI 32.7
--- NOTE | 2019-03-13 09:36 | EKG12_ITS ---
Test Reason : WEAKNESS Blood Pressure : / mmHG Vent. Rate : 061 BPM Atrial Rate : 068 BPM P-R Int : 000 ms QRS Dur : 164 ms QT Int : 480 ms P-R-T Axes : 000 -76 099 degrees QTc Int : 483 ms Ventricular-paced rhythm Abnormal ECG Confirmed by IVELISSE AGUIAR, AVI ([id number]), video editor SAMEERA WATKINS ([id number]) on 03/20/2019 11:22:26 AM Referred By: Chucho Subramanian Confirmed By:DEMIAN OVIEDO MD
--- NOTE | 2019-03-13 09:36 | RAD_ITS ---
STUDY: X-RAY CHEST REASON FOR EXAM: Female, 83 years old. Weakness following a fall. TECHNIQUE: Single AP portable view of the chest. COMPARISON: Comparison is made with prior study January 15, 2019. FINDINGS: EKG electrodes are seen. Stable mild increased markings at the left lung base suggestive of left basilar scarring. There is no demonstrated pleural abnormality. There is borderline cardiomegaly. A left-sided dual-chamber pacemaker is seen. Normal mediastinum and arnol. Normal visualized pulmonary arteries. There is atherosclerotic calcification of the aortic arch with tortuosity. There are diffuse degenerative changes of the visualized thoracic spine. Dextroscoliosis. Normal visualized ribs, clavicles, and shoulders. There is no demonstrated abnormality of the visualized soft tissue structures of the upper abdomen. RAD/Chest 1 View (Portable) IMPRESSION: Mild stable increased markings at the left lung base suggestive of scarring. There has been no change since prior study. Electronically Signed: Tim Gabriel, at 10:25 EDT , Service support ,
--- NOTE | 2019-03-13 09:36 | CT_ITS ---
STUDY: CT BRAIN WITHOUT CONTRAST REASON FOR EXAM: Female, 83 years old. History of fall. RADIATION DOSAGE (If Supplied By Facility): CTDIvol = ( 44.99 ) mGy, DLP = ( 779.24 ) mGycm TECHNIQUE: Transaxial CT imaging of the brain was performed without administration of intravenous contrast material. Individualized dose optimization techniques were used for this CT. COMPARISON: No relevant priors. FINDINGS: Normal soft tissue structures. Normal calvarium. There is mild cerebral atrophy with widening of the extra-axial spaces and ventricular dilatation. There are areas of decreased attenuation within the white matter tracts of the supratentorial brain, consistent with microvascular disease changes. There are small punctate calcifications of the basal ganglia which are seen in the aging brain as a normal variant. Normal brainstem. Normal cerebellum. There is no intracranial hemorrhage. There are no findings of an acute ischemic infarction. Atherosclerotic calcification of the vertebral arteries and cavernous portions of the internal carotid arteries bilaterally. Normal visualized paranasal sinuses. CT/Brain/Head without Contrast IMPRESSION: Chronic involutional changes of the brain. Electronically Signed: Tim Gabriel, at 10:20 EDT , Service support ,
--- NOTE | 2019-03-13 09:37 | RAD_ITS ---
STUDY: X-RAY - RIGHT WRIST REASON FOR EXAM: Female, 83 years old. Pain following a fall. TECHNIQUE: 3 view(s) of the wrist were obtained. COMPARISON: Comparison is made with prior examination of August 30, 2016. FINDINGS: Normal visualized distal radius and ulna. There is degenerative arthrosis of the radiocarpal articulation. There is degenerative arthrosis of the distal radioulnar articulation. Avulsion fracture of the triquetrum. Normal carpal articulations. Normal carpometacarpal articulation of the thumb. Normal second through fifth carpometacarpal articulations. Normal visualized metacarpal bones. Soft tissue swelling. There are vascular calcifications. RAD/Wrist min 3 Views IMPRESSION: Avulsion fracture of the triquetrum. Electronically Signed: Tim Gabriel, at 10:32 EDT , Service support ,
--- NOTE | 2019-03-13 09:37 | CT_ITS ---
STUDY: CT CERVICAL SPINE WITHOUT CONTRAST REASON FOR EXAM: Female, 83 years old. Fall. Right leg pain. RADIATION DOSAGE (If Supplied By Facility): CTDIvol = ( 27.41 ) mGy, DLP = ( 586.91 ) mGycm TECHNIQUE: High resolution transaxial imaging was performed without contrast material. Sagittal and coronal images were reconstructed. Individualized dose optimization techniques were used for this CT. COMPARISON: None FINDINGS: Normal craniovertebral junction. Normal anterior atlantoaxial articulation. Normal odontoid process. Normal cervical lordosis. Normal vertebral bodies and posterior osseous elements. C2-3: Facet joint osteoarthritis and hypertrophy worse on the left side. Posterior spondylosis causing moderate degree of left neural foraminal stenosis. There is calcification of the posterior longitudinal ligament worse on the right side causing a mild degree of deformity of the thecal sac at that site. C3-4: Moderate degree of disc space narrowing with anterior spondylosis. Facet joint osteoarthritis and hypertrophy worse on the left side. Uncovertebral arthrosis. Moderate degree of bilateral neural foraminal stenosis worse on the left side. Calcification of the posterior longitudinal ligament worse on the right side of the midline causing deformity of the thecal sac at that site. C4-5: Minimal retrolisthesis of C4 on C5. Uncovertebral arthrosis. Bilateral neural foraminal stenosis. Calcification of the posterior longitudinal ligament worse on the left side causing a moderate degree of deformity of the thecal sac at that site. C5-6: Moderate degree of disc space narrowing. Spondylosis. Uncovertebral arthrosis. Moderate degree of bilateral neural foraminal stenosis. Calcification of the posterior longitudinal ligament causing moderate central canal stenosis. C6-7: Moderate degree of disc space narrowing and spondylosis. Bilateral neural foraminal stenosis and uncovertebral arthrosis. Central calcification of the posterior longitudinal ligament causing central spinal stenosis. Atherosclerotic changes of the carotid bifurcations bilaterally. CT/Spine Cervical without Contras IMPRESSION: Multilevel degenerative changes, as described above. Electronically Signed: Tim Gabriel, at 10:25 EDT , Service support ,
--- NOTE | 2019-03-13 09:37 | RAD_ITS ---
STUDY: X-RAY - PELVIS AND RIGHT HIP REASON FOR EXAM: Female, 83 years old. History of fall. Pain. TECHNIQUE: 3 views of the pelvis and hip. COMPARISON: None. FINDINGS: Moderate amount of fecal material is seen in the colon. Normal visualized soft tissue structures. There is narrowing with cortical sclerosis and osteophyte formation of the sacroiliac joint consistent with degenerative osteoarthritic changes. Normal bilateral superior and inferior pubic rami. There is narrowing with sclerosis of the pubic symphysis. Normal bilateral ischial tuberosities. Widening of the femoral neck. Femoral acetabular impingement should be ruled out. There is osteoarthritic spur formation of the acetabular rim. There is mild articular joint space narrowing of the hip. RAD/HIP, UNI W/ Pelvis 2-3 Views IMPRESSION: Degenerative changes. No fracture is seen. Electronically Signed: Tim Gabriel, at 10:34 EDT , Service support ,
--- NOTE | 2019-03-13 09:40 | ED.DCSUM_ITS ---
- ER Visit Summary Date of Service: 03/13/19 Chief Complaint: Frequent falls History of Present Illness: The patient is a 83 F presenting after frequent falls. Patient fell on Saturday. She states she slipped on the stairs and fell down one step. She did not hit her head or lose consciousness. She states her grandson tried to catch her and pulled on her right wrist. She was able to ambulate after the fall. This morning she states she slipped on her sheets and fell out of bed. She did not hit her head or lose consciousness. She had no injury from the fall today. She is on Coumadin. She complains of generalized weakness and fatigue. Denies chest pain or shortness of breath. Denies other c omplaints. Per EMS, patient's son is having difficulty caring for her at home. Physical Examination: Vitals are stable. Patient is afebrile. Alert no acute distress. HEENT exam is unremarkable. Neck is nontender Lungs are clear and equal bilaterally. Heart is regular rate and rhythm. Abdomen is soft nontender nondistended. Extremities diffuse right wrist tenderness, mild right anterior hip tenderness. Active full range of motion. Neurovascularly intact distally. Skin is warm and dry. No focal neurologic deficit. Remainder of exam is unremarkable. Emergency Department Course and Treatment: EKG is paced at rate of 61. CBC, chemistries unremarkable. INR 3.0. Troponin is negative. Chest x-ray shows chronic changes. CT head and neck show no acute process. Right hip x-ray shows no fracture. Right wrist x-ray shows avulsion fracture of the triquetrum. She was put in Ortho-Glass splint. She will follow-up with Dr. Gamboa. She has a scheduled upcoming appointment. She was given [place] x1. Patient was seen by social work in the ED. Family is at bedside. They feel patient may go home. She has home health care. Patient also agrees and would like to go home. Advised to follow-up with primary care physician. Advised return to ED for worsening complaints. Disposition: Discharge home Impression: Right triquetrum fracture status post fall This note was generated with [employer] dictation software. It may contain incorrect words, spelling, and punctuation that were not noted in review of the chart prior to signing ED Disposition - Plan for ED Patient: Referrals: Radha Sigala DO [Primary Care Provider] -
[2019-03-13 10:08] LABS: Absolute Lymphocyte Count 0.57 X10^3/uL (0.83-4.51); Absolute Neutrophil Count 4.1 X10^3/uL (2.0-7.7); Basophil# 0.02 X10^3/uL; Basophil% 0.2 % (0-1); Eosinophil# 0.06 X10^3/uL; Eosinophils% 0.7 % (0-5); Hematocrit 39.9 % (37-47); Hemoglobin 12.5 g/dL (12.0-15.0); Lymphocyte # 0.57 X10^3/ul (4.0); Mean Corp Hgb Conc 31.3 g/dL (32-36); Mean Corpuscular Hgb 30.1 pg (27.0-32.0); Mean Corpuscular Volume 96.1 fL (81-99); Mean Platelet Vol. 11.2 fl (6.2-12.0); Monocyte# 3.42 X10^3/uL; Monocyte% 41.7 % (0-10); NRBC Flagged by Analyzer 0 % (0-5); Neutrophil # 4.06 X10^3/uL (2.7-7.7); Neutrophil % 49.5 % (47-70); POSITIVE DIFFERENTIAL YES; Platelet Count 158 K/mm3 (150-450); RBC Distribution Width CV 12.8 % (11.6-14.6); RBC Distribution Width SD 45.3 fl (35.1-43.9); Red Blood Count 4.15 M/mm3 (4.2-5.4); White Blood Count 8.2 K/mm3 (4.4-11.0)
[2019-03-13 10:15] LABS: Prothrombin Time (Protime)PT. 31.5 SECONDS (11.7-14.9)
[2019-03-13 10:23] LABS: Anion Gap 9 (5-15); BUN 13 mg/dL (7-18); BUN/Creat Ratio 13.5 RATIO (10-20); Calcium,Total 8.9 mg/dL (8.5-10.1); Chloride 99 mmol/L (98-107); Creatinine, Serum 0.97 mg/dL (0.55-1.02); EST Glomerular Filtration Rate 59 mL/min (>60); Est Glom Filt Rate - Afr Amer 71 mL/min (>60); Estimated Creatinine Clearance 41.86 ml/min; Glucose 146 mg/dL (74-106); Potassium 3.6 mmol/L (3.5-5.1); Sodium Level 133 mmol/L (136-145)
[2019-03-13 10:35] LABS: Platelet Estimate ADEQUATE (ADEQ); Platelet Morphology LARGE; Red Cell Morphology NORM C+C NORMAL (NORM C&C)
[2019-03-13 10:42] LABS: Differential Indicated SCAN CRITERIA MET
--- NOTE | 2019-03-13 11:00 | CM.ED ---
SOCIAL WORK INFORMANT: DR. RILEY REASON FOR REFERRAL: D/C PLANNING LIVING SITUATION: PATIENT LIVES HOME WITH SON, EYAD. HOME SET UP IS 2 STORY, PATIENT HAS 1ST FLOOR SET UP. DME: WALKER, CANE, GRAB BARS, LIFE ALERT SUPPORTS/RESOURCES: OUTREACH LAB, FAMILY PRIMARY CARE/SPECIALISTS: DR. GARAZ, DR. MC, AND DR. LEONARDO MENTAL HEALTH HISTORY: NONE PER PATIENT SUBSTANCE ABUSE HISTORY: NONE PER PATIENT ASSESSMENT: MET WITH PATIENT, DAUGHTER, AND SON-IN-LAW IN ROOM. INTRODUCED ROLE AND REASON FOR REFERRAL. PATIENT STATES FELL SATURDAY ON WAY TO [facility] APPOINT[facility] AND THIS MORNING WAS UNABLE TO GET OUT OF BED D/T HER ARTHRITIS AND SILK SHEETS. PATIENT STATES I KEPT SLIDING AND MY SON HAD TO HELP ME UP. PATIENT REPORTS BED IS NOT FAR FROM THE GROUND. DISCUSSED D/C PLANNING AND PATIENT AND FAMILY REQUEST PATIENT RETURN HOME WITH HOME HEALTH SERVICES. REQUESTING REFERRAL TO [facility]. DISCUSSED WITH DR. RILEY WHO IS IN AGREEMENT WITH PLAN. REFERRAL TO BE CALLED AND FAXED TO [facility]. PLAN: HOME WITH HOME HEALTH REFERRAL Christiano BARRERA MSW, FIRE SERVICES PLUMBER.
[2019-03-13 11:20] VITALS: PULSE 82; RESP 16; O2SAT 98
--- NOTE | 2019-03-13 11:25 | CM.ED ---
SOCIAL WORK REFERRAL FOR HOME HEALTH CALLED AND FAXED TO GR[facility] WITH [facility]. Christiano BARRERA, ROOFING APPRENTICE, PROOFREADER.
[2019-03-13] MEDS: HYDROcodone Bitartrate/Apap 5/325 Tablet PO ×2 (11:33→21:07)
--- NOTE | 2019-03-13 11:35 | ED.DEP ---
ED Disposition - Plan for ED Patient: Instructions: WEAKNESS, Unk Cause, FRACTURE, Wrist [General] Referrals: Radha Sigala DO [Primary Care Provider] - Sally Gamboa DO [STAFF PHYSICIAN] -
--- NOTE | 2019-03-13 12:24 | ED.RN ---
karen hospitalist for admission pt was unable to get herself up and down to go to the bathroom
--- NOTE | 2019-03-13 12:30 | CM.ED ---
SOCIAL WORK UPDATED BY NURSING STAFF, PATIENT WAS GETTING READY TO BE DISCHARGED AND WAS UNABLE TO GET OUT OF BED BY SELF AND PUTTING WEIGHT ON FRACTURED WRIST. NURSING ALSO REPORTS WHILE IN THE RESTROOM, PATIENT WAS UNABLE TO GET OFF TOILET OR PULL UP UNDERWEAR WITHOUT ASSISTANCE. MANY CONCERNS WITH PATIENT RETURNING HOME. MET WITH PATIENT AND PATIENT'S DAUGHTER AT BEDSIDE. BOTH STATE DO NOT HAVE MONEY TO PRIVATELY PAY FOR [facility]. DISCUSSED OPTIONS. DAUGHTER FEELS PATIENT WOULD BENEFIT FROM REHAB. REQUESTING REFERRAL TO TCU. CALL TO TCU TO UPDATE ON REFERRAL, SPOKE WITH CHRISTINE. CALL TO [facility] WITH HOME HEALTH LEFT MESSAGE TO UPDATE ON PATIENT'S STATUS POST REFERRAL. PLAN: ADMIT
--- NOTE | 2019-03-13 13:04 | NURSING ---
[facility] [place], DEBILITY
--- NOTE | 2019-03-13 13:10 | HP.PCM_ITS ---
Problem List (1) Triquetral chip fracture Status: Acute Qualifiers: Encounter type: initial encounter Fracture type: closed Laterality: right Qualified Code(s): S62.111A - Displaced fracture of triquetrum [cuneiform] bone, right wrist, initial encounter for closed fracture (2) Debility Status: Acute History of Present Illness Date of Admission: 03/13/19 Chief Complaint: wrist pain The patient is a 83 year old F presents with right wrist pain. Proximately 2 days ago, patient was going on the steps of her house and then missed steps and then fell landing on her right wrist. Did okay but then yesterday pain became much more intense and today, the patient decided come to the emergency room. P rosa had an x-ray that showed a avulsion fracture of the triquetrium on the right. Is splinted in the emergency room and they were going to send the patient home but they are concerned about the patient's not be able to care for herself effectively at home and the hospital service was contacted for bring the patient in for evaluation for the transitional care unit. Patient states that is been years since she is fallen previously and has been able to care for herself at home. 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 2008, gen change 02/02/19 Essential (primary) hypertension (Chronic) Hyperlipidemia (Chronic) Medical History: Medical History (Last Reviewed 03/13/19 @ 13:15 by Chucho Subramanian DO) 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) I50.32 Chronic atrial fibrillation (Chronic) I48.2 Non-rheumatic tricuspid valve insufficiency (Chronic) I36.1 Secondary pulmonary arterial hypertension (Chronic) I27.21 Sick sinus syndrome (Chronic) I49.5 Essential (primary) hypertension (Chronic) I10 Hyperlipidemia (Chronic) E78.5 Arthritis M19.90 Chronic diastolic (congestive) heart failure I50.32 Glaucoma H40.9 Nonrheumatic mitral (valve) insufficiency I34.0 Obesity E66.9 Type 2 diabetes mellitus 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 Cellulitis and abscess of leg L03.119, L02.419 Allergies adhesive Allergy (Verified 03/13/19 09:21) PULLS SKIN OFF Iodinated Contrast Media [Iodinated Contrast Media - IV Dye] Allergy (Verified 03/13/19 09:21) EYES SWELL SHUT latex Adverse Reaction (Unknown, Verified 03/13/19 09:21) Unknown Home Medications: Ambulatory Orders Medication Instructions Recorded Amlodipine [Norvasc] 10 mg PO DAILY 12/02/15 Aspirin [Aspirin, Baby] 81 mg PO DAILY@0800 12/02/15 Bimatoprost 0.01% [Lumigan 0.01%] 1 drp EACH EYE QHS 12/02/15 Brinzolamide [Azopt] 1 drp EACH EYE BID 12/02/15 Furosemide 40 mg PO DAILY 12/02/15 Lansoprazole [Prevacid] 30 mg PO DAILY 12/02/15 Lorazepam [Ativan] 1 mg PO Q8H PRN 12/02/15 Metoprolol Tartrate [Lopressor 25 mg PO BID 12/02/15 (beta demetrius)] Simvastatin [Zocor] 20 mg PO QHS 12/02/15 losartan 100 mg tablet 100 mg PO DAILY 90 Days #90 tab 07/15/18 warfarin 3 mg tablet 3 mg PO Q OTHER DAY #90 tab 11/17/18 warfarin 2 mg tablet 2 mg PO Q OTHER DAY #90 tab 03/02/19 Surgical History: Surgical History (Last Reviewed 03/13/19 @ 13:15 by Chucho Subramanian DO) Presence of permanent cardiac pacemaker (Chronic) Onset Date: 02/02/19 Z95.0 Implant 2008, gen change 02/02/19 History of radiofrequency ablation procedure for cardiac arrhythmia Onset Date: 2008 Z98.890 History of herniorrhaphy Z98.890, Z87.19 History of hysterectomy Z90.710 Hx of cholecystectomy Z90.49 Surgical History: - - Hysterectomy, cholecystectomy, partial hysterectomy, stomach surgery/hiatal hernia, pacemaker, ablation.heart cath in the past Psychiatric History: No pertinent psych hx [employer] History: No pertinent [employer] history Smoking Status: Never smoker Tobacco Use: Secondhand - *Family History Maternal History Items: No pertinent history Paternal History Items: Heart Disease Review of Systems Constitutional: Denies: Anorexia, Chills, Fever Eyes: Denies: Blurred vision, Cataracts, Conjunctivae Inflammation, Double vision HEENT: Denies: Head Aches, Sinus Congestion, Sinus Drainage Cardiovascular: Denies: Chest Pain, Palpitations Respiratory: Denies: Cough, Shortness of breath at rest, Sputum production Gastrointestinal: Denies: Abdominal Pain, Nausea, Vomiting Genitourinary: Denies: Dysuria Musculoskeletal: Denies: Joint Pain, Joint Tenderness Skin: Denies: Dryness, Jaundice Neurological: Denies: Numbness, Tingling, Focal weakness Psychiatric: Denies: Anxiety, Depression Hematologic/ Lymphatic: Denies: Easy Bruising, Easy Bleeding Comment: All review systems are otherwise negative except for as mentioned above and in HPI. VTE Information - Inpt Only VTE Present on Admission: No VTE Mechan Device Prophylaxis: None VTE Pharm Prophylaxis ordered?: No Reason prophylaxis not ordered:: Procedure Not Indicated Patient Problems: Active and Suspected Problems (Last Reviewed 01/15/19 @ 14:21 by Tyree Schneider MD) Triquetral chip fracture (Acute) Debility (Acute) - Physical Exam General: Alert, Cooperative, No apparent distress, Well developed, Well nourished, - - Appears younger than stated age HEENT: Atraumatic, Normocephalic Oral: Moist Mucosa, No Gingival or Mucosal Lesions/ Ulcerations Neck: No Nodes, Thyroid Normal Size and Texture Lungs: Clear to auscultation, Normal air movement, No rhonchi, No wheeze, No rales Cardiovascular: Regular rate, Regular Rhythm, Normal S1, Normal S2, No murmurs Abdomen: Bowel Sounds Present, Soft, Non Tender, Non-Distended, No Hepato- splenomegaly Extremities: No edema, No Calf Tenderness, - - Redundant tissue in the lower extremities particularly in her thighs. Right wrist in a splint Skin: No rashes, No breakdown Musculoskeletal: No Muscle Wasting, Arthritic Changes Neurological: - - Moves all extremities spontaneously Psych/Mental Status: Normal Affect, Appropriate Vital Signs Temp Pulse Resp BP Pulse Ox 37.0 C 82 16 158/79 H 98 03/13/19 09:16 03/13/19 11:20 03/13/19 11:20 03/13/19 09:16 03/13/19 11:20 Oxygen Delivery Method Room Air Weight: 91.9 kg Body Mass Index (BMI) 32.7 Finger Stick Blood Glucose 141 Laboratory Tests Past 24 Hrs 03/13/19 03/13/19 03/13/19 09:54 09:54 09:54 WBC 8.2 RBC 4.15 L Hgb 12.5 Hct 39.9 MCV 96.1 MCH 30.1 MCHC 31.3 L RDW Std Deviation 45.3 H RDW Coeff of Vlad 12.8 Plt Count 158 MPV 11.2 Immature Gran % (Auto) 0.900 Neut % (Auto) 49.5 Lymph % (Auto) 7.0 L Bennett % (Auto) 41.7 H Eos % (Auto) 0.7 Baso % (Auto) 0.2 Absolute Neuts (auto) 4.1 Absolute Lymphs (auto) 0.57 L Nucleated RBC % 0 Platelet Estimate ADEQUATE Plt Morphology Comment LARGE RBC Morphology NORM C+C PT 31.5 H INR 3.0 Sodium 133 L Potassium 3.6 Chloride 99 Carbon Dioxide 25.0 Anion Gap 9 BUN 13 Creatinine 0.97 Estim Creat Clear Calc 41.86 Est GFR (MDRD) Af Amer 71 Est GFR (MDRD) Non-Af 59 L BUN/Creatinine Ratio 13.5 Glucose 146 H Calcium 8.9 Troponin I < 0.015 Assessment/Plan All Active Problems (Last Reviewed 01/15/19 @ 14:21 by Tyree Schneider MD) Triquetral chip fracture (Acute) Debility (Acute) Cellulitis of right lower leg (Resolved) 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 Triquetrium avulsion fracture * Status post mechanical fall * Splinted in the emergency room * Nonweightbearing at this point time. I have reached out to orthopedics to see about their recommendations. 2. Debility * Concern for the patient be able to care for herself effectively given her not be able to use her right wrist at this time. Patient being brought under observation status to be evaluated by a therapy services to see if she may be a candidate for a fdc facility * Discussed with patient and her daughter that she is being brought under observation status is there is no obvious medical necessity to warrant an admission status at this time. * Case management to further assess and determine disposition * Patient and daughter aware that case management will not be seeing her until the . 3. Atrial fibrillation: Stable. Anticoagulated on Coumadin. Continue with metoprolol. 4. VTE prophylaxis: Low risk as patient is observation status and already anticoagulated. 5. Advanced care planning: Discussed with the patient, patient wishes to be full CODE STATUS at this time. Case discussed with the patient's daughter at bedside. Code Visit OBSV E&M: 30805 Initial observation care L3
[2019-03-13 13:20] VITALS: BMI 32.1; BMI 32.7
[2019-03-13 14:06] VITALS: BP 150/69; PULSE 70; RESP 18; TEMP 36.8; O2SAT 100
[2019-03-13 17:45] LABS: Bedside Glucose 161 mg/dL (70-110)
[2019-03-13 19:37] VITALS: BP 146/68; PULSE 73; RESP 16; TEMP 36.8; O2SAT 100
[2019-03-13] MEDS: Acetaminophen 325 MG Tablet 650 MG PO (19:45)
[2019-03-13 21:02] VITALS: PULSE 80
[2019-03-13] MEDS: Metoprolol Tartrate 25 MG Tablet PO (21:02)
[2019-03-13] MEDS: Atorvastatin Calcium 10 MG Tablet PO (21:02)
[2019-03-13] MEDS: Timolol 0.5% 5ML OPTH.BTL 1 DRP EACH EYE (21:06)
[2019-03-13] MEDS: Latanoprost 0.005% 1 Bottle 1 DRP EACH EYE (21:06)
[2019-03-13 21:21] LABS: Bedside Glucose 135 mg/dL (70-110)
[2019-03-14] VITALS (7 sets, daily range): BP systolic 126–164; BP diastolic 59–79; PULSE 60–87; RESP 16; TEMP 36.5–36.9; O2SAT 95–100
[2019-03-14 02:16] LABS: Bedside Glucose 110 mg/dL (70-110)
[2019-03-14] MEDS: HYDROcodone Bitartrate/Apap 5/325 Tablet PO ×4 (04:20→23:19)
[2019-03-14 08:00] LABS: Bedside Glucose 99 mg/dL (70-110)
--- NOTE | 2019-03-14 09:29 | PN_ITS ---
Patient Problems: Active and Suspected Problems (Last Reviewed 03/13/19 @ 13:15 by Chucho Subramanian DO) Triquetral chip fracture (Acute) Debility (Acute) Subjective: Still with pain in her right wrist and forearm. Vitals/I&O's: Vital Signs Temp Pulse Resp BP Pulse Ox 36.5 C L 84 16 164/66 H 100 03/14/19 08:04 03/14/19 08:04 03/14/19 08:04 03/14/19 08:04 03/14/19 08:04 Oxygen Delivery Method Room Air Weight: 90.378 kg Body Mass Index (BMI) 32.1 Finger Stick Blood Glucose 141 Intake and Output for Last 24 Hours 03/12/19 03/13/19 03/14/19 23:59 23:59 23:59 Intake Total 200 / 200 400 / 400 Output Total 250 / 250 Balance -50 / -50 400 / 400 General: Alert, No apparent distress HEENT: Atraumatic, Normocephalic Oral: Moist Mucosa, No Gingival or Mucosal Lesions/ Ulcerations Extremities: No edema, No Calf Tenderness Skin: No rashes, No breakdown Musculoskeletal: Tenderness - and swelling palpated through right wrist Psych/Mental Status: Normal Affect, Appropriate Laboratory Results 03/13/19 09:54: WBC 8.2, RBC 4.15 L, Hgb 12.5, Hct 39.9, MCV 96.1, MCH 30.1, MCHC 31.3 L, RDW Std Deviation 45.3 H, RDW Coeff of Vlad 12.8, Plt Count 158, MPV 11.2, Immature Gran % (Auto) 0.900, Neut % (Auto) 49.5, Lymph % (Auto) 7.0 L, Terry % (Auto) 41.7 H, Eos % (Auto) 0.7, Baso % (Auto) 0.2, Absolute Neuts (auto) 4.1, Absolute Lymphs (auto) 0.57 L, Nucleated RBC % 0, Platelet Estimate ADEQUATE, Plt Morphology Comment LARGE, RBC Morphology NORM C+C 03/13/19 09:54: PT 31.5 H, INR 3.0 03/13/19 09:54: Sodium 133 L, Potassium 3.6, Chloride 99, Carbon Dioxide 25.0, Anion Gap 9, BUN 13, Creatinine 0.97, Estim Creat Clear Calc 41.86, Est GFR (MDRD) Af Amer 71, Est GFR (MDRD) Non-Af 59 L, BUN/Creatinine Ratio 13.5, Glucose 146 H, Calcium 8.9, Troponin I < 0.015 03/13/19 17:37: POC Glucose 161 H 03/13/19 21:15: POC Glucose 135 H 03/14/19 02:11: POC Glucose 110 03/14/19 07:53: POC Glucose 99 Current Medications Acetaminophen (Tylenol) 650 mg PO Q6H PRN PRN PRN Reason: Mild Pain (1-3)/Temp > 100.7 F Last Admin: 03/13/19 19:45 Dose: 650 mg Documented by: Hydrocodone Bitart/Acetaminophen ([place] 5mg-325mg) 1 tablet PO Q6H PRN PRN PRN Reason: moderate and severe pain Last Admin: 03/14/19 04:20 Dose: 1 tablet Documented by: Amlodipine Besylate (Norvasc) 10 mg PO DAILY [facility] Aspirin (Aspirin, Baby) 81 mg PO DAILY@0800 [facility] Atorvastatin Calcium (Lipitor) 10 mg PO QHS [facility] Last Admin: 03/13/19 21:02 Dose: 10 mg Documented by: Dextrose (D50w Syringe) 0 gm IV X1 PRN; Protocol PRN Reason: Hypoglycemia Furosemide (Lasix) 40 mg PO DAILY [facility] Glucagon () 1 mg IM .X1 PRN PRN Reason: Hypoglycemia Insulin Human Lispro (Humalog Kwikpen (Bkc)) 0 unit SC TIDAC [facility]; Protocol Last Admin: 03/14/19 08:03 Dose: Not Given Documented by: Latanoprost (Xalatan Opthalmic) 1 drop EACH EYE QHS [facility] Last Admin: 03/13/19 21:06 Dose: 1 drop Documented by: Lorazepam (Ativan) 1 mg PO Q8H PRN PRN PRN Reason: ANXIETY Losartan Potassium (Cozaar) 100 mg PO DAILY [facility] Metoprolol Tartrate (Lopressor (Beta Carlos Manuel)) 25 mg PO BID [facility] Last Admin: 03/13/19 21:02 Dose: 25 mg Documented by: Ondansetron HCl (Zofran) 4 mg IV Q8H PRN PRN PRN Reason: NAUSEA/VOMITING Pantoprazole Sodium (Protonix) 40 mg PO DAILY [facility] Senna/Docusate Sodium (Senokot-S, Rimma-Colace) 2 tablet PO BID PRN PRN PRN Reason: Constipation Timolol Maleate (Timoptic) 1 drop EACH EYE BID [facility] Last Admin: 03/13/19 21:06 Dose: 1 drop Documented by: Warfarin Sodium (Coumadin (Pbkc)) 2 mg PO MoWeSa@1700 [facility]; Protocol Warfarin Sodium (Coumadin (Pbkc)) 3 mg PO SuTuThFr@1700 [facility]; Protocol Last Admin: 03/13/19 17:15 Dose: 3 mg Documented by: STROKE Vital Signs/Narrative: Vital Signs Temp Pulse Resp BP Pulse Ox 03/14/19 08:04 36.5 C L 84 16 164/66 H 100 Medical Necessity - Tobacco Use Smoking Status: Never smoker Tobacco Use: Secondhand Assessment/Plan All Active Problems (Last Reviewed 03/13/19 @ 13:15 by Chucho Subramanian DO) Triquetral chip fracture (Acute) Debility (Acute) Cellulitis of right lower leg (Resolved) 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 Triquetrium avulsion fracture * Status post mechanical fall * Splinted in the emergency room * Nonweightbearing at this point time. * Follow-up with orthopedics as outpatient 2. Debility * Concern for the patient be able to care for herself effectively given her not be able to use her right wrist at this time. Patient being brought under observation status to be evaluated by a therapy services to see if she may be a candidate for a care home facility * Discussed with patient and her daughter that she is being brought under observation status is there is no obvious medical necessity to warrant an admission status at this time. * Case management to further assess and determine disposition * Patient and daughter aware that case management will not be seeing her until the . 3. Atrial fibrillation: Stable. Anticoagulated on Coumadin. Continue with metoprolol. 4. VTE prophylaxis: Low risk as patient is observation status and already anticoagulated. 5. Advanced care planning: Discussed with the patient, patient wishes to be full CODE STATUS at this time. Spent 35 minutes of which greater than 50% of time was counseling patient at bedside about the wrist fracture and plan for that. Also discussed in great detail about her decision on where she wishes ago. I reviewed the therapy notes that said that she was minimal assist with ambulation and transfers but though they did recommend additional therapy for her. Patient states that her daughter states that she has no choice about where to go but she disagrees with her daughter and I agree with the patient that patient is able to make her own decisions about where she wants to go. I informed patient that that if she wishes to go to a care home facility then I would keep her in the hospital until case management could run things through the insurance company to see if insurance authorization could be completed which would take her likely until next week, the . However, I told patient if she wants to go home with home care then I would not have any reason to keep her in the hospital and would need to discharge her today. Patient wishes to think about it and discuss further with her family. Code Visit OBSV E&M: 04807 Subsequent observation care L3
[2019-03-14] MEDS: amLODIPine 10 MG Tablet PO (10:39)
[2019-03-14] MEDS: Losartan Potassium 100 MG Tablet PO (10:39)
[2019-03-14] MEDS: Furosemide 40 MG Tablet PO (10:39)
[2019-03-14] MEDS: Aspirin 81 MG TAB.CHEW PO (10:40)
[2019-03-14] MEDS: Metoprolol Tartrate 25 MG Tablet PO ×2 (10:40→21:04)
[2019-03-14] MEDS: Pantoprazole Sodium 40 MG Tablet PO (10:44)
[2019-03-14] MEDS: Timolol 0.5% 5ML OPTH.BTL 1 DRP EACH EYE ×2 (10:44→21:04)
[2019-03-14 11:36] LABS: Bedside Glucose 148 mg/dL (70-110)
--- NOTE | 2019-03-14 12:33 | NURSING ---
pt on bsc and stated she is not able to have bowel movement pt using hand to assist in having a bm. nursing checked pt and stool is soft. enema given per dr urszula canales.
--- NOTE | 2019-03-14 13:54 | CM.UR ---
MS 3 Charge nurse had rounded with Linsey Subramanian, prior to my arrival to the floor this am. States that plan is to admit to SNF. has needed assistance with most ADLs. Patient changed to IP. Gaudencio Felix RN, CCM.
[2019-03-14 16:16] LABS: Bedside Glucose 133 mg/dL (70-110)
[2019-03-14] MEDS: Atorvastatin Calcium 10 MG Tablet PO (21:04)
[2019-03-14] MEDS: Latanoprost 0.005% 1 Bottle 1 DRP EACH EYE (21:05)
[2019-03-14 21:20] LABS: Bedside Glucose 142 mg/dL (70-110)
[2019-03-15] VITALS (7 sets, daily range): BP systolic 116–137; BP diastolic 53–82; PULSE 65–75; RESP 16; TEMP 36.4–36.9; O2SAT 94–100
[2019-03-15] MEDS: HYDROcodone Bitartrate/Apap 5/325 Tablet PO ×3 (06:19→22:10)
[2019-03-15 06:45] LABS: Bedside Glucose 111 mg/dL (70-110)
--- NOTE | 2019-03-15 07:54 | PN_ITS ---
Patient Problems: Active and Suspected Problems (Last Reviewed 03/13/19 @ 13:15 by Chucho Subramanian DO) Triquetral chip fracture (Acute) Debility (Acute) Subjective: Complains of left knee pain post fall. States that it is difficult to extend. Said her daughter said her knee had a bruise on it. Vitals/I&O's: Vital Signs Temp Pulse Resp BP Pulse Ox 36.8 C 65 16 116/56 L 100 03/15/19 07:51 03/15/19 07:51 03/15/19 07:51 03/15/19 07:51 03/15/19 07:51 Oxygen Delivery Method Room Air Weight: 90.378 kg Body Mass Index (BMI) 32.1 Finger Stick Blood Glucose 141 Intake and Output for Last 24 Hours 03/13/19 03/14/19 03/15/19 23:59 23:59 23:59 Intake Total 200 / 200 1200 / 1200 100 / 100 Output Total 250 / 250 Balance -50 / -50 1200 / 1200 100 / 100 General: Alert, No apparent distress HEENT: Atraumatic, Normocephalic Oral: Moist Mucosa, No Gingival or Mucosal Lesions/ Ulcerations Extremities: No edema, No Calf Tenderness, - - left wrist spinted and securred with KIMBERLEY wrap. Skin: No rashes, No breakdown Musculoskeletal: - - left knee TTP laterally Neurological: Neuro grossly intact, Sensory exam intact to light touch and pain Psych/Mental Status: Normal Affect, Appropriate Laboratory Results 03/14/19 07:53: POC Glucose 99 03/14/19 11:25: POC Glucose 148 H 03/14/19 16:09: POC Glucose 133 H 03/14/19 21:15: POC Glucose 142 H 03/15/19 06:33: POC Glucose 111 H Current Medications Acetaminophen (Tylenol) 650 mg PO Q6H PRN PRN PRN Reason: Mild Pain (1-3)/Temp > 100.7 F Last Admin: 03/13/19 19:45 Dose: 650 mg Documented by: Hydrocodone Bitart/Acetaminophen ([place] 5mg-325mg) 2 tablet PO Q6H PRN PRN PRN Reason: moderate and severe pain Last Admin: 03/15/19 06:19 Dose: 2 tablet Documented by: Amlodipine Besylate (Norvasc) 10 mg PO DAILY [facility] Last Admin: 03/14/19 10:39 Dose: 10 mg Documented by: Aspirin (Aspirin, Baby) 81 mg PO DAILY@0800 [facility] [place] Last Admin: 03/14/19 10:40 Dose: 81 mg Documented by: Atorvastatin Calcium (Lipitor) 10 mg PO QHS [facility] [place] Last Admin: 03/14/19 21:04 Dose: 10 mg Documented by: Dextrose (D50w Syringe) 0 gm IV X1 PRN; Protocol PRN Reason: Hypoglycemia Furosemide (Lasix) 40 mg PO DAILY [facility] [place] Last Admin: 03/14/19 10:39 Dose: 40 mg Documented by: Glucagon () 1 mg IM .X1 PRN PRN Reason: Hypoglycemia Insulin Human Lispro (Humalog Kwikpen (Bkc)) 0 unit SC TIDAC [facility] [place]; Protocol Last Admin: 03/15/19 06:48 Dose: Not Given Documented by: Latanoprost (Xalatan Opthalmic) 1 drop EACH EYE QHS [facility] [place] Last Admin: 03/14/19 21:05 Dose: 1 drop Documented by: Lorazepam (Ativan) 1 mg PO Q8H PRN PRN PRN Reason: ANXIETY Losartan Potassium (Cozaar) 100 mg PO DAILY [facility] [place] Last Admin: 03/14/19 10:39 Dose: 100 mg Documented by: Metoprolol Tartrate (Lopressor (Beta Carlos Manuel)) 25 mg PO BID [facility] [place] Last Admin: 03/14/19 21:04 Dose: 25 mg Documented by: Ondansetron HCl (Zofran) 4 mg IV Q8H PRN PRN PRN Reason: NAUSEA/VOMITING Pantoprazole Sodium (Protonix) 40 mg PO DAILY [facility] [place] Last Admin: 03/14/19 10:44 Dose: 40 mg Documented by: Senna/Docusate Sodium (Senokot-S, Rimma-Colace) 2 tablet PO BID PRN PRN PRN Reason: Constipation Timolol Maleate (Timoptic) 1 drop EACH EYE BID [facility] [place] Last Admin: 03/14/19 21:04 Dose: 1 drop Documented by: Warfarin Sodium (Coumadin (Pbkc)) 2 mg PO MoWeSa@1700 [facility]; Protocol Last Admin: 03/14/19 17:12 Dose: 2 mg Documented by: Warfarin Sodium (Coumadin (Pbkc)) 3 mg PO SuTuThFr@1700 [facility]; Protocol Last Admin: 03/13/19 17:15 Dose: 3 mg Documented by: STROKE Vital Signs/Narrative: Vital Signs Temp Pulse Resp BP Pulse Ox 03/15/19 07:51 36.8 C 65 16 116/56 L 100 03/15/19 06:15 36.4 C L 73 16 137/73 H 94 Medical Necessity - Tobacco Use Smoking Status: Never smoker Tobacco Use: Secondhand Assessment/Plan All Active Problems (Last Reviewed 03/13/19 @ 13:15 by Chucho Subramanian DO) Triquetral chip fracture (Acute) Debility (Acute) Cellulitis of right lower leg (Resolved) 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 Triquetrium avulsion fracture * Status post mechanical fall * Splinted in the emergency room * Nonweightbearing at this point time. * Follow-up with orthopedics as outpatient 2. Debility * Concern for the patient be able to care for herself effectively given her not be able to use her right wrist at this time. Patient being brought under observation status to be evaluated by a therapy services to see if she may be a candidate for a snf facility 3. Atrial fibrillation: Stable. Anticoagulated on Coumadin. Continue with metoprolol. 4. VTE prophylaxis: Low risk as patient is observation status and already anti coagulated. 5. Advanced care planning: Discussed with the patient, patient wishes to be full CODE STATUS at this time. 6. Left knee pain: states she had this after fall. Will check xray. Doubt frac ture since she has been able to bear weight. Will check xray 7. Dispostion: patient now decided on SNF. Patient changed to inpatient by CM on 03/14--no medical necessity warrants inpatient status. Awaiting on placement, which won't occur at least until 03/15. Patient preferring to go to TCU. Code Visit Inpatient E&M: 06415 Subs Hosp L2
--- NOTE | 2019-03-15 07:54 | RAD_ITS ---
STUDY: X-RAY - LEFT KNEE REASON FOR EXAM: Female, 83 years old. Left knee pain after falling 4 days ago TECHNIQUE: 2 view(s) of the knee. COMPARISON: None. FINDINGS: Normal visualized distal femur. Normal visualized proximal tibia and fibula. Normal proximal tibiofibular articulation. There is moderate degenerative arthrosis of the medial femorotibial compartment with moderate joint space narrowing. There is moderate degenerative arthrosis of the lateral femorotibial compartment with moderate joint space narrowing. There is severe degenerative arthrosis of the patellofemoral articulation. There is a soft tissue prominence in the suprapatellar region suggesting a small volume joint effusion. There are atherosclerotic calcifications. RAD/Knee 1 or 2 Views IMPRESSION: No fracture or malalignment. Tricompartmental osteoarthrosis. Small joint effusion. Electronically Signed: Boris Dos Santos MD ([place]) at 13:42 EDT , Service support ,
[2019-03-15] MEDS: Metoprolol Tartrate 25 MG Tablet PO ×2 (09:22→22:11)
[2019-03-15] MEDS: Timolol 0.5% 5ML OPTH.BTL 1 DRP EACH EYE ×2 (09:22→22:10)
[2019-03-15] MEDS: Losartan Potassium 100 MG Tablet PO (09:22)
[2019-03-15] MEDS: Furosemide 40 MG Tablet PO (09:22)
[2019-03-15] MEDS: amLODIPine 10 MG Tablet PO (09:23)
[2019-03-15] MEDS: Pantoprazole Sodium 40 MG Tablet PO (09:23)
[2019-03-15] MEDS: Aspirin 81 MG TAB.CHEW PO (09:23)
[2019-03-15 11:06] LABS: Bedside Glucose 147 mg/dL (70-110)
[2019-03-15 16:05] LABS: Bedside Glucose 131 mg/dL (70-110)
[2019-03-15] MEDS: Latanoprost 0.005% 1 Bottle 1 DRP EACH EYE (22:10)
[2019-03-15] MEDS: Atorvastatin Calcium 10 MG Tablet PO (22:11)
[2019-03-15 22:25] LABS: Bedside Glucose 130 mg/dL (70-110)
[2019-03-16 02:44] VITALS: BP 136/64; PULSE 53; RESP 16; TEMP 36.4; O2SAT 99
[2019-03-16] MEDS: HYDROcodone Bitartrate/Apap 5/325 Tablet PO ×2 (05:36→12:35)
[2019-03-16 06:26] LABS: Bedside Glucose 136 mg/dL (70-110)
[2019-03-16 08:10] VITALS: BP 139/61; PULSE 62; RESP 20; TEMP 37.1; O2SAT 100
--- NOTE | 2019-03-16 08:27 | PCM.PN.HOSP ---
Patient Problems: Active and Suspected Problems (Last Reviewed 03/13/19 @ 13:15 by Chucho Subramanian DO) Triquetral chip fracture (Acute) Debility (Acute) Subjective: Patient has chronic bone and joint disease with diffuse degenerative joint disease of knees, hands and wrist. Patient admitted with fall and then right wrist pain. Patient denies burning micturition but has a urinary incontinence increased frequency urgency probably secondary to diabetes mellitus type 2 Last A1c 6.0 on 01/28/2019. It was 6.6 in December 2014 and 6.7 in September 2012 Vitals/I&O's: Vital Signs Temp Pulse Resp BP Pulse Ox 97.6 F L 53 L 16 136/64 H 99 03/16/19 02:44 03/16/19 02:44 03/16/19 02:44 03/16/19 02:44 03/16/19 02:44 Oxygen Delivery Method Room Air Weight: 199 lb 4 oz Body Mass Index (BMI) 32.1 Finger Stick Blood Glucose 141 Intake and Output for Last 24 Hours 03/14/19 03/15/19 03/16/19 23:59 23:59 23:59 Intake Total 1200 / 1200 1000 / 1000 Balance 1200 / 1200 1000 / 1000 General: Alert, Oriented x3, Cooperative HEENT: Atraumatic, PERRLA, EOMI, Normocephalic Neck: Supple, No JVD, Negative Carotid Bruits Lungs: Clear to auscultation, Normal air movement, No rhonchi, No wheeze, No rales Cardiovascular: Regular rate, Regular Rhythm, Normal S1, Normal S2, Murmur - Systolic murmur over left lower sternal border [place] Abdomen: Bowel Sounds Present, Soft, Non Tender, Non-Distended Extremities: No edema, Capillary Refill Less than 3 Seconds Skin: No rashes, No breakdown Musculoskeletal: No Tenderness to Palpation of Joints or Extremities, Arthritic Changes - Bilateral knee joint valgus deformity., Tenderness - Right hand and forearm under Fernie wrap bandage Neurological: Cranial nerves II-XII grossly intact, Deep Tendon Reflexes 2+/4 and Symmetrical, Neuro grossly intact Psych/Mental Status: Normal Affect, Appropriate Laboratory Results 03/15/19 11:00: POC Glucose 147 H 03/15/19 16:00: POC Glucose 131 H 03/15/19 21:57: POC Glucose 130 H 03/16/19 06:18: POC Glucose 136 H Current Medications Acetaminophen (Tylenol) 650 mg PO Q6H PRN PRN PRN Reason: Mild Pain (1-3)/Temp > 100.7 F Last Admin: 03/13/19 19:45 Dose: 650 mg Documented by: Hydrocodone Bitart/Acetaminophen ([place] 5mg-325mg) 2 tablet PO Q6H PRN PRN PRN Reason: moderate and severe pain Last Admin: 03/16/19 05:36 Dose: 2 tablet Documented by: Amlodipine Besylate (Norvasc) 10 mg PO DAILY [facility] Last Admin: 03/15/19 09:23 Dose: 10 mg Documented by: Aspirin (Aspirin, Baby) 81 mg PO DAILY@0800 [facility] Last Admin: 03/15/19 09:23 Dose: 81 mg Documented by: Atorvastatin Calcium (Lipitor) 10 mg PO QHS [facility] Last Admin: 03/15/19 22:11 Dose: 10 mg Documented by: Dextrose (D50w Syringe) 0 gm IV X1 PRN; Protocol PRN Reason: Hypoglycemia Furosemide (Lasix) 40 mg PO DAILY [facility] Last Admin: 03/15/19 09:22 Dose: 40 mg Documented by: Glucagon () 1 mg IM .X1 PRN PRN Reason: Hypoglycemia Insulin Human Lispro (Humalog Kwikpen (Bkc)) 0 unit SC TIDAC [facility]; Protocol Last Admin: 03/16/19 06:22 Dose: Not Given Documented by: Latanoprost (Xalatan Opthalmic) 1 drop EACH EYE QHS [facility] Last Admin: 03/15/19 22:10 Dose: 1 drop Documented by: Lorazepam (Ativan) 1 mg PO Q8H PRN PRN PRN Reason: ANXIETY Losartan Potassium (Cozaar) 100 mg PO DAILY [facility] Last Admin: 03/15/19 09:22 Dose: 100 mg Documented by: Metoprolol Tartrate (Lopressor (Beta Carlos Manuel)) 25 mg PO BID [facility] Last Admin: 03/15/19 22:11 Dose: 25 mg Documented by: Ondansetron HCl (Zofran) 4 mg IV Q8H PRN PRN PRN Reason: NAUSEA/VOMITING Pantoprazole Sodium (Protonix) 40 mg PO DAILY [facility] Last Admin: 03/15/19 09:23 Dose: 40 mg Documented by: Senna/Docusate Sodium (Senokot-S, Rimma-Colace) 2 tablet PO BID PRN PRN PRN Reason: Constipation Timolol Maleate (Timoptic) 1 drop EACH EYE BID [facility] Last Admin: 03/15/19 22:10 Dose: 1 drop Documented by: Warfarin Sodium (Coumadin (Pbkc)) 2 mg PO MoWeSa@1700 [facility]; Protocol Last Admin: 03/14/19 17:12 Dose: 2 mg Documented by: Warfarin Sodium (Coumadin (Pbkc)) 3 mg PO SuTuThFr@1700 [facility]; Protocol Last Admin: 03/15/19 17:50 Dose: 3 mg Documented by: Medical Necessity - Tobacco Use Smoking Status: Never smoker Tobacco Use: Secondhand Assessment/Plan All Active Problems (Last Reviewed 03/13/19 @ 13:15 by Chucho Subramanian DO) Triquetral chip fracture (Acute) Debility (Acute) Cellulitis of right lower leg (Resolved) Diabetic ulcer 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 (Resolved) Hematoma (Resolved) Nonhealing ulcer 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 (Resolved) Open wound of right lower leg (Resolved) Traumatic hematoma of right lower leg with infection (Resolved) This 83-year-old female admitted with fall and subsequent triquetral chip fracture on right wrist, debility. 1. Triquetrium avulsion fracture secondary to mechanical fall: Right wrist and forearm splinted in the ER. Pain control. PT and OT. Follow-up orthopedics as an outpatient. 2. Debility SNF placement. Patient prefers TCU. Change to inpatient on 03/14 by ed case manager; awaiting for SNF placement. 3. Atrial fibrillation: Stable. Anticoagulated on Coumadin. Continue with metoprolol. 4. Diabetes mellitus type 2: Well controlled. Last A1c 6.0 in January 2019. VTE prophylaxis:already anticoagulated. 5. Advanced care planning: Discussed with the patient, patient wishes to be full CODE STATUS at this time. 6. Left knee pain with advanced degenerative joint disease: [place]ut tricompartmental arthrosis on knee x-ray. It also shows multilevel DJD changes on cervical spine CT. 7. Dispostion: patient now decided on SNF. Laboratory Results 03/15/19 11:00: POC Glucose 147 H 03/15/19 16:00: POC Glucose 131 H 03/15/19 21:57: POC Glucose 130 H 03/16/19 06:18: POC Glucose 136 H Clinical Impression(s) from Imaging Studies Brain CT 03/13/19 09:36 IMPRESSION: Chronic involutional changes of the brain. Electronically Signed: Tim Nery, at 10:20 EDT , Service support , Chest X-Ray 03/13/19 09:36 IMPRESSION: Mild stable increased markings at the left lung base suggestive of scarring. There has been no change since prior study. Electronically Signed: Tim Gabriel, at 10:25 EDT , Service support , Cervical Spine CT 03/13/19 09:37 IMPRESSION: Multilevel degenerative changes, as described above. Electronically Signed: Tim Gabriel, at 10:25 EDT , Service support , Hip/Pelvis X-Ray 03/13/19 09:37 IMPRESSION: Degenerative changes. No fracture is seen. Wrist X-Ray 03/13/19 09:37 IMPRESSION: Avulsion fracture of the triquetrum. Knee X-Ray 03/15/19 07:54 IMPRESSION: No fracture or malalignment. Tricompartmental osteoarthrosis. Small joint effusion. Code Visit Inpatient E&M: 71703 Subs Hosp L2
--- NOTE | 2019-03-16 09:57 | CASEMGMT ---
Addendum entered by Jonna Stanley 03/16/19 09:59: Physician updated on plan for TCU tomorrow. Original Note: Social Work Note Plan is for pt to admit to TCU tomorrow. ALLEGRA placed a call to Connie in TCU and confirmed with Connie that TCU is able to accept pt tomorrow. ALLEGRA met with pt and introduced self and role at [facility]. Pt is alert and orientated x3. SW informed pt that TCU is able to accept pt tomorrow. Pt states understanding, denied additional needs or concerns at this time. Plan: TCU tomorrow Jonna Stanley RECEIVER DISPATCHER, CAPITAL EQUIPMENT SPECIALIST
[2019-03-16 10:26] VITALS: PULSE 62
[2019-03-16] MEDS: Pantoprazole Sodium 40 MG Tablet PO (10:26)
[2019-03-16] MEDS: amLODIPine 10 MG Tablet PO (10:26)
[2019-03-16] MEDS: Metoprolol Tartrate 25 MG Tablet PO ×2 (10:26→20:59)
[2019-03-16] MEDS: Furosemide 40 MG Tablet PO (10:26)
[2019-03-16] MEDS: Losartan Potassium 100 MG Tablet PO (10:26)
[2019-03-16] MEDS: Timolol 0.5% 5ML OPTH.BTL 1 DRP EACH EYE ×2 (10:27→21:00)
[2019-03-16] MEDS: Aspirin 81 MG TAB.CHEW PO (10:28)
[2019-03-16 12:46] LABS: Bedside Glucose 137 mg/dL (70-110)
[2019-03-16 14:06] VITALS: BP 129/64; PULSE 77; RESP 18; TEMP 37.2; O2SAT 100
[2019-03-16] MEDS: oxyCODONE 5 MG Tablet 10 MG PO (16:30)
[2019-03-16] MEDS: Polyethylene Glycol 3350 17 GM PACKET PO (16:32)
[2019-03-16] MEDS: Insulin Lispro 100 UNIT/ML INSULN.PEN SC (16:40)
[2019-03-16 16:41] LABS: Bedside Glucose 196 mg/dL (70-110)
[2019-03-16 20:00] VITALS: BP 130/53; PULSE 83; RESP 16; TEMP 36.7; O2SAT 96
[2019-03-16 20:59] VITALS: PULSE 78
[2019-03-16] MEDS: Atorvastatin Calcium 10 MG Tablet PO (20:59)
[2019-03-16] MEDS: Latanoprost 0.005% 1 Bottle 1 DRP EACH EYE (21:00)
[2019-03-16 22:16] LABS: Bedside Glucose 159 mg/dL (70-110)
[2019-03-17 01:45] VITALS: BP 142/70; PULSE 90; RESP 16; TEMP 36.7; O2SAT 97
[2019-03-17] MEDS: Ondansetron ODT 4 MG Tablet PO (02:02)
[2019-03-17] MEDS: oxyCODONE 5 MG Tablet 10 MG PO (02:07)
[2019-03-17 06:14] LABS: ALB/GLOB Ratio 0.7 RATIO (0.9-2.4); AST(SGOT) 28 U/L (15-37); Alanine Aminotransfer ALT/SGPT 25 U/L (13-56); Albumin, Serum 2.9 g/dL (3.2-5.0); Alkaline Phosphatase 133 U/L (45-117); Anion Gap 9 (5-15); BUN 17 mg/dL (7-18); BUN/Creat Ratio 15.5 RATIO (10-20); Calcium,Total 8.3 mg/dL (8.5-10.1); Chloride 96 mmol/L (98-107); EST Glomerular Filtration Rate 50 mL/min (>60); Est Glom Filt Rate - Afr Amer 61 mL/min (>60); Estimated Creatinine Clearance 36.91 ml/min; Glucose 137 mg/dL (74-106); Potassium 3.4 mmol/L (3.5-5.1); Protein, Total 6.9 g/dL (6.4-8.2); Sodium Level 132 mmol/L (136-145)
[2019-03-17 06:51] LABS: Bedside Glucose 124 mg/dL (70-110)
[2019-03-17] MEDS: Aspirin 81 MG TAB.CHEW PO (07:48)
[2019-03-17 07:55] VITALS: BP 134/67; PULSE 98; RESP 18; TEMP 37.1; O2SAT 93
[2019-03-17 07:56] VITALS: PULSE 98
--- NOTE | 2019-03-17 08:24 | PCM.TXEXTCAR ---
- Diet 03/13/19 13:11 Diet: Cardiac/Low Cholesterol Food consistency:: Regular Liquid Consistency:: Regular/Thin - Routine Orders/Code Status Suppository Type: Dulcolax 10mg Suppository Frequency: Daily PRN Routine Lab Work: BMP - monthly, INR - daily unitl INR therapeuctic Code Status: Full Code - Therapies Weight Bearing: Non weight bearing Extremity Affected:: Right Upper Physical Therapy: Eval and Treat Occupational Therapy: Eval and Treat - Allergies/Procedures Done in Hospital Allergies/Adverse Reactions: Allergies adhesive Allergy (Verified 03/13/19 13:42) PULLS SKIN OFF Iodinated Contrast Media [Iodinated Contrast Media - IV Dye] Allergy (Verified 03/13/19 13:42) EYES SWELL SHUT latex Adverse Reaction (Unknown, Verified 03/13/19 13:42) Unknown - Type of Care/Length of Stay Estimated LOS: Convalescent Care Less Than 30 days Type of Care Needed: Skilled Rehab Potential: Good Prognosis: Good - Additional Orders/Day of Discharge Day of Discharge: 03/17/19 - Follow Up Care Primary Care Physician: Sally Gamboa DO [STAFF PHYSICIAN] - Radha Sigala DO [Primary Care Provider] - Please Follow Up With: Belinda Monsivais MD When: in 2 weeks for Knee pain/wrist pain
[2019-03-17] MEDS: oxyCODONE 5 MG Tablet PO (08:29)
[2019-03-17] MEDS: Acetaminophen 325 MG Tablet 650 MG PO (08:30)
[2019-03-17 08:45] LABS: International Normalized Ratio 3.2
[2019-03-17] MEDS: Losartan Potassium 100 MG Tablet PO (10:09)
--- NOTE | 2019-03-17 10:09 | CASEMGMT ---
Social Work Note Pt is discharging to TCU today. Plan: TCU today Jonna Stanley MSW, TECHNICAL ADVISOR
[2019-03-17 10:10] VITALS: PULSE 98
[2019-03-17] MEDS: Polyethylene Glycol 3350 17 GM PACKET PO (10:10)
[2019-03-17] MEDS: amLODIPine 10 MG Tablet PO (10:10)
[2019-03-17] MEDS: Metoprolol Tartrate 25 MG Tablet PO (10:10)
[2019-03-17] MEDS: Furosemide 40 MG Tablet PO (10:10)
[2019-03-17] MEDS: Pantoprazole Sodium 40 MG Tablet PO (10:11)
[2019-03-17] MEDS: Timolol 0.5% 5ML OPTH.BTL 1 DRP EACH EYE (10:11)
--- NOTE | 2019-03-17 10:41 | NURSING ---
REPORT CALLED TO LETA ON TCU
--- NOTE | 2019-03-17 15:43 | DS.PCM_ITS ---
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 The patient also has severe bilateral knee arthritis with valgus deformity 1. Triquetrium avulsion fracture secondary to mechanical fall: Right wrist and forearm splinted in the ER. Pain control. PT and OT. Follow-up orthopedics as an outpatient. 2. Debility * SNF placement. Patient is being transferred to SNF, TCU today 3. Atrial fibrillation: Stable. Anticoagulated on Coumadin. Continue with metoprolol. 4. Diabetes mellitus type 2: Well controlled. Last A1c 6.0 in January 2019. VTE prophylaxis:already anticoagulated. 5. Advanced care planning: Discussed with the patient, patient wishes to be full CODE STATUS at this time. 6. Left knee pain with advanced degenerative joint disease: Bilateral tricompartmental arthrosis on knee x-ray. This might be the reason for her fall. It also shows multilevel DJD changes on cervical spine CT. Discharge medication reconciliation done. Discharge follow-up instructions completed. Discharge process discussed with the patient and all questions were answered to patient's satisfaction. Prescriptions were given for [place] along with senna S and Dulcolax suppository Total time spent, exact 35 minutes on discharge meds reconciliation, examination, review of imaging and blood test and discussion with the patient on follow-up instructions. Subjective: Patient is still complaining of bilateral knee joint pain and right wrist pain. Objective: General: Alert, Oriented x3, Cooperative HEENT: Atraumatic, PERRLA, EOMI, Normocephalic Neck: Supple, No JVD, Negative Carotid Bruits Lungs: Clear to auscultation, Normal air movement, No rhonchi, No wheeze, No rales Cardiovascular: Regular rate, Regular Rhythm, Normal S1, Normal S2,Systolic murmur over left lower sternal border and cardiac apex Abdomen: Bowel Sounds Present, Soft, Non Tender, Non-Distended Extremities: No edema, Capillary Refill Less than 3 Seconds Skin: No rashes, No breakdown Musculoskeletal: Bilateral knee joint valgus deformity with arthritis changes, Tenderness over bilateral knees and right hand and forearm under Fernie wrap bandage Neurological: Cranial nerves II-XII grossly intact, Deep Tendon Reflexes 2+/4 and Symmetrical, Neuro grossly intact Psych/Mental Status: Normal Affect, Appropriate - Physical Exam Vitals/I&O's: Vital Signs Temp Pulse Resp BP Pulse Ox 98.7 F 98 18 134/67 H 93 03/17/19 07:55 03/17/19 10:10 03/17/19 07:55 03/17/19 07:55 03/17/19 07:55 Oxygen Delivery Method Room Air Weight: 199 lb 4 oz Body Mass Index (BMI) 32.1 Finger Stick Blood Glucose 141 Intake and Output for Last 24 Hours 03/15/19 03/16/19 03/17/19 23:59 23:59 23:59 Intake Total 1000 / 1000 600 / 600 Output Total 200 / 200 Balance 1000 / 1000 400 / 400 Laboratory Results 03/16/19 16:36: POC Glucose 196 H 03/16/19 20:56: POC Glucose 159 H 03/17/19 05:20: Sodium 132 L, Potassium 3.4 L, Chloride 96 L, Carbon Dioxide 27. 0, Anion Gap 9, BUN 17, Creatinine 1.10 H, Estim Creat Clear Calc 36.91, Est GFR (MDRD) Af Amer 61, Est GFR (MDRD) Non-Af 50 L, BUN/Creatinine Ratio 15.5, Glucose 137 H, Calcium 8.3 L, Total Bilirubin 2.40 H, AST 28, ALT 25, Alkaline Phosphatase 133 H, Total Protein 6.9, Albumin 2.9 L, Globulin 4.0, Albumin/Globulin Ratio 0.7 L 03/17/19 06:44: POC Glucose 124 H 03/17/19 08:15: PT 33.0 H, INR 3.2 Home Medications: Medications to take at Discharge Amlodipine [Norvasc] 10 mg PO DAILY 12/02/15 Aspirin [Aspirin, Baby] 81 mg PO DAILY@0800 12/02/15 Bimatoprost 0.01% [Lumigan 0.01%] 1 drp EACH EYE QHS 12/02/15 Furosemide 40 mg PO DAILY 12/02/15 Lansoprazole [Prevacid] 30 mg PO DAILY 12/02/15 Lorazepam [Ativan] 1 mg PO BID PRN 12/02/15 Metoprolol Tartrate [Lopressor (beta demetrius)] 25 mg PO BID 12/02/15 Simvastatin [Zocor] 20 mg PO QHS 12/02/15 Timolol 0.5% 1 drp EACHEYE BID 03/13/19 Bisacodyl [Dulcolax] 10 mg RECTAL DAILY PRN #0 suppos. 03/17/19 Hydrocodone/Acetaminophen [Hydrocodon-Acetaminophen 5-325] 1 ea PO Q6H PRN #10 tab 03/17/19 Losartan Potassium [Cozaar] 100 mg PO DAILY 03/17/19 Polyethylene Glycol 3350 [Miralax] 17 gm PO DAILY 03/17/19 Senna/Docusate Sodium [Senokot-S] 2 tab PO BID PRN PRN tab 03/17/19 Warfarin Sodium 2 mg PO Q OTHER DAY 03/17/19 Warfarin Sodium 3 mg PO Q OTHER DAY 03/17/19 Following Prescrptions Were Given to Patient: Hydrocodone/Acetaminophen [Hydrocodon-Acetaminophen 5-325] 1 ea PO Q6H PRN #10 tab PRN Reason: Pain Score 6-10/10 Prescription Printed Primary Care Physician: Sally Gamboa DO [STAFF PHYSICIAN] - Radha Sigala DO [Primary Care Provider] - Please Follow Up With: Belinda Monsivais MD When: in 2 weeks for Knee pain/wrist pain Patient Instructions: WEAKNESS, Unk Cause, FRACTURE, Wrist [General] Medical Necessity - Tobacco Use Smoking Status: Never smoker Tobacco Use: Secondhand Meaningful Use Info Meaningful Use Diagnoses (Choose all that apply): None applicable Code Visit Inpatient E&M: 97593 [facility] Hosp
== END 2019-03-17 11:35 | DRG 563 ==
LOC: ED 09:43 → MS3 12:54
PROVIDERS: Emergency Provider Emergency Medicine; Family Provider Family Medicine; PCP Family Medicine; Visit Provider Internal Medicine
DX: S62.111A Displaced fracture of triquetrum [cuneiform] bone, right wrist, initial encounter for closed fracture (principal); I48.20 Chronic atrial fibrillation, unspecified; I50.32 Chronic diastolic (congestive) heart failure; I13.0 Hypertensive heart and chronic kidney disease with heart failure and stage 1 through stage 4 chronic kidney disease, or unspecified chronic kidney disease; W10.8XXA Fall (on) (from) other stairs and steps, initial encounter; Y92.019 Unspecified place in single-family (private) house as the place of occurrence of the external cause; R53.81 Other malaise; M17.0 Bilateral primary osteoarthritis of knee; E78.5 Hyperlipidemia, unspecified; I49.5 Sick sinus syndrome; I36.1 Nonrheumatic tricuspid (valve) insufficiency; I27.21 Secondary pulmonary arterial hypertension; Z95.0 Presence of cardiac pacemaker; Z79.01 Long term (current) use of anticoagulants; N18.9 Chronic kidney disease, unspecified; H40.9 Unspecified glaucoma; E11.22 Type 2 diabetes mellitus with diabetic chronic kidney disease
CPT/HCPCS: 36415; 70450; 71045; 72125; 73110; 73502; 73560; 80048; 80053; 82962; 84484; 85025; 85610; 93005; 97110; 97162; 97165; 99285; A4216

== ENCOUNTER 2019-03-17 11:40 | Inpatient (IN) | payer MEDICARE, OTHER, SELFPAY ==
[2019-03-17 11:47] VITALS: BMI 32.7
[2019-03-17 12:11] VITALS: BP 119/66; PULSE 61; RESP 16; TEMP 36.7; O2SAT 96
[2019-03-17 12:18] VITALS: BMI 32.1
[2019-03-17 12:21] VITALS: BMI 32.2
[2019-03-17] MEDS: HYDROcodone Bitartrate/Apap 5/325 Tablet PO ×2 (14:44→21:00)
[2019-03-17 15:05] VITALS: BP 129/65; PULSE 83; RESP 19; TEMP 37.1; O2SAT 95
--- NOTE | 2019-03-17 16:00 | NURSING ---
arrived from [facility] via bed
--- NOTE | 2019-03-17 18:09 | NURSING ---
INR 3.[address] pearson aware. Orders given to TYE Fenton to give 2 mg of coumadin instead of the scheduled 3 mg.
[2019-03-17 18:13] VITALS: PULSE 83
[2019-03-17] MEDS: Metoprolol Tartrate 25 MG Tablet PO (18:13)
[2019-03-17] MEDS: Timolol 0.5% 5ML OPTH.BTL 1 DRP EACH EYE (18:13)
--- NOTE | 2019-03-17 18:50 | NURSING ---
Dr. Ruiz notified of INR, NO to administer 2mg today and he will adjust orders this evening
--- NOTE | 2019-03-17 18:52 | NURSING ---
Dr. Ruiz aware of pt's pain, stated he will review medications and adjust accordingly
[2019-03-17] MEDS: Atorvastatin Calcium 10 MG Tablet PO (20:51)
[2019-03-17] MEDS: Latanoprost 0.005% 1 Bottle 1 DRP EACH EYE (20:52)
[2019-03-17] MEDS: Nystatin Powder 15gm Bottle 1 APPLIC TOPICAL (20:54)
[2019-03-17 21:26] LABS: Bedside Glucose 146 mg/dL (70-110)
--- NOTE | 2019-03-17 21:55 | HP.PCM_ITS ---
Problem List (1) Frequent falls Status: Acute (2) Chronic diastolic heart failure Status: Chronic (3) Atrial fibrillation Status: Chronic (4) Pulmonary HTN Status: Chronic (5) Hypertension Status: Chronic (6) Glaucoma Status: Chronic (7) GERD (gastroesophageal reflux disease) Status: Chronic (8) Anxiety Status: Chronic (9) Osteoarthritis of left knee Status: Chronic (10) Triquetral chip fracture Status: Acute Qualifiers: (11) Debility Status: Acute (12) Sick sinus syndrome Status: Chronic (13) Hyperlipidemia Status: Chronic History of Present Illness Date of Admission: 03/17/19 Chief Complaint: Here for rehabilitation, strengthening, prior to discharge home with family. The patient is a 83 year old Female with below past medical history presented to [facility] Emergency Department 03/13/2019 with frequent falls. 03/13/2019 CT brain chronic involutional changes of brain. 03/13/2019 Chest X-ray left base scarring. 03/13/2019 CT cervical spine multilevel degenerative changes. 03/13/2019 X-ray pelvis, right hip showed degenerative changes, no fracture, no dislocation. 03/13/2019 X-ray right wrist, triquetrum avulsion fracture. Fell down 1 step, grandson pulled on right wrist to try and catch her. Weakness, fatigue. EKG paced heart rate 61, CBC, BMP okay. INR 3.0, Troponin negative. Ortho glass splint applied to right wrist. Unable to care for self at home. 03/13/2019 Admit to Hospital. PT/OT for debility. 03/15/2019 X-ray left knee showed tricompartmental arthritis, small joint effusion. 03/17/2019 Admit to TCU with debility, here for rehabilitation, strengthening, prior to discharge home with family. Past Medical History Past Medical History (Chronic Problems): Chronic Problems (Last Reviewed 03/13/19 @ 13:15 by Chucho Subramanian DO) Chronic diastolic heart failure (Chronic) Atrial fibrillation (Chronic) Pulmonary HTN (Chronic) Hypertension (Chronic) Glaucoma (Chronic) GERD (gastroesophageal reflux disease) (Chronic) Anxiety (Chronic) Osteoarthritis of left knee (Chronic) 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) senior care (current) use of anticoagulants (Chronic) Chronic atrial fibrillation (Chronic) Non-rheumatic tricuspid valve insufficiency (Chronic) Secondary pulmonary arterial hypertension (Chronic) Sick sinus syndrome (Chronic) 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 2008, gen change 02/02/19 Essential (primary) hypertension (Chronic) Hyperlipidemia (Chronic) Medical History: Medical History (Last Reviewed 03/13/19 @ 13:15 by Chucho Subramanian DO) 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) I50.32 Chronic atrial fibrillation (Chronic) I48.2 Non-rheumatic tricuspid valve insufficiency (Chronic) I36.1 Secondary pulmonary arterial hypertension (Chronic) I27.21 Sick sinus syndrome (Chronic) I49.5 Essential (primary) hypertension (Chronic) I10 Hyperlipidemia (Chronic) E78.5 Arthritis M19.90 Chronic diastolic (congestive) heart failure I50.32 Glaucoma H40.9 Nonrheumatic mitral (valve) insufficiency I34.0 Obesity E66.9 Type 2 diabetes mellitus 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 Cellulitis and abscess of leg L03.119, L02.419 Allergies adhesive Allergy (Verified 03/13/19 13:42) PULLS SKIN OFF Iodinated Contrast Media [Iodinated Contrast Media - IV Dye] Allergy (Verified 03/13/19 13:42) EYES SWELL SHUT latex Adverse Reaction (Unknown, Verified 03/13/19 13:42) Unknown Home Medications: Ambulatory Orders Medication Instructions Recorded Amlodipine [Norvasc] 10 mg PO DAILY 12/02/15 Aspirin [Aspirin, Baby] 81 mg PO DAILY@0800 12/02/15 Bimatoprost 0.01% [Lumigan 0.01%] 1 drp EACH EYE QHS 12/02/15 Furosemide 40 mg PO DAILY 12/02/15 Lansoprazole [Prevacid] 30 mg PO DAILY 12/02/15 Lorazepam [Ativan] 1 mg PO BID PRN 12/02/15 Metoprolol Tartrate [Lopressor 25 mg PO BID 12/02/15 (beta carlos manuel)] Simvastatin [Zocor] 20 mg PO QHS 12/02/15 Timolol 0.5% 1 drp EACHEYE BID 03/13/19 Bisacodyl [Dulcolax] 10 mg RECTAL DAILY PRN #0 suppos. 03/17/19 Hydrocodone/Acetaminophen 1 ea PO Q6H PRN #10 tab 03/17/19 [Hydrocodon-Acetaminophen 5-325] Losartan Potassium [Cozaar] 100 mg PO DAILY 03/17/19 Polyethylene Glycol 3350 [Miralax] 17 gm PO DAILY 03/17/19 Senna/Docusate Sodium [Senokot-S] 2 tab PO BID PRN PRN tab 03/17/19 Warfarin Sodium 2 mg PO Q OTHER DAY 03/17/19 Warfarin Sodium 3 mg PO Q OTHER DAY 03/17/19 Surgical History: Surgical History (Last Reviewed 03/13/19 @ 13:15 by Chucho Subramanian DO) Presence of permanent cardiac pacemaker (Chronic) Onset Date: 02/02/19 Z95.0 Implant 2008, gen change 02/02/19 History of radiofrequency ablation procedure for cardiac arrhythmia Onset Date: 2008 Z98.89 History of herniorrhaphy Z98.890, Z87. History of hysterectomy Z90.710 Hx of cholecystectomy Z90.49 Surgical History: cholecystectomy, hysterectomy, pacemaker implantation, - - stomach surgery/hiatal hernia, ablation Psychiatric History: Anxiety ACTUARY History: No pertinent ACTUARY history Lives: With Family Smoking Status: Never smoker Tobacco Use: Secondhand Alcohol: None Drugs: None - *Family History Paternal History Items: Heart Disease Maternal History Items: No pertinent history Review of Systems Constitutional: Denies: Chills, Fever, Weight Change HEENT: Denies: Head Aches, Sinus Congestion, Sinus Drainage Cardiovascular: Denies: Chest Pain, Palpitations Respiratory: Denies: Cough, Shortness of breath at rest, Sputum production Gastrointestinal: Denies: Abdominal Pain, Nausea, Vomiting Genitourinary: Denies: Dysuria Musculoskeletal: Denies: Joint Pain, Joint Tenderness Skin: Denies: Rash, Wounds Neurological: Denies: Numbness, Tingling, Focal weakness Psychiatric: Denies: Anxiety, Depression, Homicidal Ideations, Suicidal Ideations Hematologic/ Lymphatic: Denies: Easy Bruising, Easy Bleeding VTE Information - Inpt Only VTE Present on Admission: No VTE Mechan Device Prophylaxis: Knee High DELORES Hose VTE Pharm Prophylaxis ordered?: No Reason prophylaxis not ordered:: Treatment Not Indicated Patient Problems: Active and Suspected Problems (Last Reviewed 03/13/19 @ 13:15 by Chucho Subramanian DO) Frequent falls (Acute) - Physical Exam Vitals/I&O's: Vital Signs Temp Pulse Resp BP Pulse Ox 98.7 F 83 19 H 129/65 H 95 03/17/19 15:05 03/17/19 18:13 03/17/19 15:05 03/17/19 15:05 03/17/19 15:05 Oxygen Delivery Method Room Air Weight: 90.37 kg Body Mass Index (BMI) 32.1 Finger Stick Blood Glucose 141 Intake and Output for Last 24 Hours 03/15/19 03/16/19 03/17/19 23:59 23:59 23:59 Intake Total 222 / 222 Balance 222 / 222 General: Alert, Oriented x3, Cooperative HEENT: Atraumatic, PERRLA, EOMI, Normocephalic Neck: Supple, No JVD, Negative Carotid Bruits Lungs: Clear to auscultation, Normal air movement Cardiovascular: Regular rate, No murmurs Abdomen: Bowel Sounds Present, Soft, Non Tender Extremities: No edema, Capillary Refill Less than 3 Seconds, - - Right wrist splint. Skin: No rashes, No breakdown Musculoskeletal: No Tenderness to Palpation of Joints or Extremities Neurological: Cranial nerves II-XII grossly intact Psych/Mental Status: Normal Affect, Appropriate Laboratory Results 03/17/19 21:20: POC Glucose 146 H Current Medications Hydrocodone Bitart/Acetaminophen (Lynn 5mg-325mg) 1 tablet PO Q6H PRN PRN Reason: Pain Score 6-10/10 Last Admin: 03/17/19 21:00 Dose: 1 tablet Documented by: Amlodipine Besylate (Norvasc) 10 mg PO DAILY [facility] Aspirin (Aspirin, Baby) 81 mg PO DAILY@0800 [facility] Atorvastatin Calcium (Lipitor) 10 mg PO QHS [facility] Last Admin: 03/17/19 20:51 Dose: 10 mg Documented by: Bisacodyl (Dulcolax) 10 mg RECTAL DAILY PRN PRN Reason: Severe constipation Furosemide (Lasix) 40 mg PO DAILY [facility] Latanoprost (Xalatan Opthalmic) 1 drop EACH EYE QHS [facility] Last Admin: 03/17/19 20:52 Dose: 1 drop Documented by: Lorazepam (Ativan) 1 mg PO BID PRN PRN Reason: ANXIETY Losartan Potassium (Cozaar) 100 mg PO DAILY [facility] Menthol (Bengay Vanishing Scent) 1 applic TOPICAL TID PRN PRN PRN Reason: pain Metoprolol Tartrate (Lopressor (Beta Carlos Manuel)) 25 mg PO BID [facility] Last Admin: 03/17/19 18:13 Dose: 25 mg Documented by: Nystatin (Mycostatin Powder) 1 applic TOPICAL BID [facility]; Protocol Last Admin: 03/17/19 20:54 Dose: 1 applicatio Documented by: Pantoprazole Sodium (Protonix) 40 mg PO DAILY [facility] Polyethylene Glycol (Miralax) 17 gm PO DAILY [facility] Senna/Docusate Sodium (Senokot-S, Rimma-Colace) 2 tablet PO BID PRN PRN PRN Reason: Constipation Timolol Maleate (Timoptic) 1 drop EACH EYE BID [facility] Last Admin: 03/17/19 18:13 Dose: 1 drop Documented by: Tuberculin PPD (Tubersol, Aplisol, Ppd) 5 tu ID X1 ONE Stop: 03/18/19 10:01 Tuberculin PPD (Tubersol, Aplisol, Ppd) 5 tu ID X1 ONE Stop: 03/25/19 10:01 Warfarin Sodium (Coumadin (Pbkc)) 2 mg PO MoWeSa@1700 [facility]; Protocol Warfarin Sodium (Coumadin (Pbkc)) 3 mg PO SuTuThFr@1700 [facility]; Protocol Last Admin: 03/17/19 18:03 Dose: Not Given Documented by: Assessment/Plan All Active Problems (Last Reviewed 03/13/19 @ 13:15 by Chucho Subramanian DO) Triquetral chip fracture (Acute) Debility (Acute) Frequent falls (Acute) Cellulitis of right lower leg (Resolved) Diabetic ulcer 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 (Resolved) Hematoma (Resolved) Nonhealing ulcer 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 (Resolved) Open wound of right lower leg (Resolved) Traumatic hematoma of right lower leg with infection (Resolved) 83 year old female with below past medical history hospitalized for right wrist fracture, admitted to TCU with debility, here for rehabilitation, strengthening, prior to discharge home with family. * Debility - PT/OT. * Pain - Bc Buckley topical TID PRN, Tylenol 1000MG Q6H PRN pain (1-3), Tramadol 50MG Q6H PRN pain (4-5), Oxycodone 5MG Q4H pain (6-10). * Bowel - Miralax 17GM daily, Senna/colace 2 tablets BID, Dulcolax 10MG daily PRN. * Pneumonia vaccination - Administer Prevnar 13 and/or Pneumovax 23 as necessary. * DVT prophylaxis - Not necessary, already on warfarin. * Hypertension - Metoprolol 25MG BID, Losartan 100MG daily, Amlodipine 10MG daily. * Coronary Artery Disease - Metoprolol 25MG BID, Losartan 100MG daily, Aspirin 81MG daily. * Hyperlipidemia - Atorvastatin 10MG QHS. * Chronic diastolic heart failure - Metoprolol 25MG BID, Lasix 40MG daily. * Glaucoma Xalatan 1GTT OU QHS, Timoptic 1GTT OU BID. * Anxiety - Lorazepam 1MG BID PRN. * Atrial Fibrillation - Metoprolol 25MG BID, INR 3.2, lower warfarin to 2.5MG daily, monitor INR. * Tinea Corporis - Nystatin powder BID. * GERD - Pantoprazole 40MG daily.
[2019-03-18 05:59] LABS: Absolute Lymphocyte Count 0.76 X10^3/uL (0.83-4.51); Absolute Neutrophil Count 3.7 X10^3/uL (2.0-7.7); Basophil# 0.02 X10^3/uL; Basophil% 0.2 % (0-1); Eosinophil# 0.01 X10^3/uL; Eosinophils% 0.1 % (0-5); Hematocrit 34.3 % (37-47); Hemoglobin 11.2 g/dL (12.0-15.0); Lymphocyte # 0.76 X10^3/ul (4.0); Lymphocyte % 8.1 % (19-41); Mean Corp Hgb Conc 32.7 g/dL (32-36); Mean Corpuscular Hgb 30.1 pg (27.0-32.0); Mean Corpuscular Volume 92.2 fL (81-99); Mean Platelet Vol. 10.9 fl (6.2-12.0); Monocyte# 4.82 X10^3/uL; Monocyte% 51.2 % (0-10); NRBC Flagged by Analyzer 0 % (0-5); Neutrophil # 3.68 X10^3/uL (2.7-7.7); Neutrophil % 39.1 % (47-70); POSITIVE DIFFERENTIAL YES; POSITIVE MORPHOLOGY YES; Platelet Count 193 K/mm3 (150-450); RBC Distribution Width CV 12.5 % (11.6-14.6); RBC Distribution Width SD 42.2 fl (35.1-43.9); Red Blood Count 3.72 M/mm3 (4.2-5.4); White Blood Count 9.4 K/mm3 (4.4-11.0)
[2019-03-18 06:13] LABS: Anion Gap 8 (5-15); BUN 20 mg/dL (7-18); BUN/Creat Ratio 16.7 RATIO (10-20); Calcium,Total 8.4 mg/dL (8.5-10.1); Chloride 93 mmol/L (98-107); Differential Indicated SCAN CRITERIA MET; EST Glomerular Filtration Rate 46 mL/min (>60); Est Glom Filt Rate - Afr Amer 55 mL/min (>60); Estimated Creatinine Clearance 33.84 ml/min; Glucose 107 mg/dL (74-106); Potassium 3.6 mmol/L (3.5-5.1); Sodium Level 129 mmol/L (136-145)
[2019-03-18] MEDS: Polyethylene Glycol 3350 17 GM PACKET PO (06:17)
[2019-03-18] MEDS: Senna/Docusate Sodium 1 Tablet 2 TABLET PO ×2 (06:19→17:51)
[2019-03-18] MEDS: Acetaminophen 500 MG Tablet 1000 MG PO ×2 (06:19→17:56)
[2019-03-18] MEDS: Timolol 0.5% 5ML OPTH.BTL 1 DRP EACH EYE ×2 (06:20→17:52)
[2019-03-18] MEDS: Furosemide 40 MG Tablet PO (06:20)
[2019-03-18] MEDS: oxyCODONE 5 MG Tablet PO ×3 (06:20→17:56)
[2019-03-18] MEDS: amLODIPine 10 MG Tablet PO (06:20)
[2019-03-18 06:21] VITALS: BP 132/71; PULSE 69
[2019-03-18] MEDS: Metoprolol Tartrate 25 MG Tablet PO ×2 (06:21→17:51)
[2019-03-18] MEDS: Pantoprazole Sodium 40 MG Tablet PO (06:21)
[2019-03-18] MEDS: Nystatin Powder 15gm Bottle 1 APPLIC TOPICAL ×2 (06:21→17:52)
[2019-03-18] MEDS: Losartan Potassium 100 MG Tablet PO (06:21)
[2019-03-18 06:31] LABS: Bedside Glucose 114 mg/dL (70-110)
[2019-03-18] MEDS: Aspirin 81 MG TAB.CHEW PO (07:48)
[2019-03-18] MEDS: Tuberculin,Purif.prot.deriv. 50 TU/ML Vial 5 ML ID (10:36)
[2019-03-18 11:51] LABS: Bedside Glucose 118 mg/dL (70-110)
--- NOTE | 2019-03-18 13:21 | CONS.ORTHO ---
Problem List (1) Triquetral chip fracture Status: Acute Qualifiers: Encounter type: initial encounter Fracture type: closed Laterality: right Qualified Code(s): S62.111A - Displaced fracture of triquetrum [cuneiform] bone, right wrist, initial encounter for closed fracture Comment: Dorsal avulsion of the triquetrum - Consult Date of Consult: 03/18/19 Patient is seated upright in bed in no distress or discomfort. Patient is wearing a volar wrist splint that encompasses MCP and PIP joints of the finger. She has minimal swelling noted at this time. She has intact sensation throughout the hand and intact motor function of the wrist and all of the fingers. She has normal distal radial pulses. There is tenderness on palpation of the distal ulna as well as on the dorsum of the wrist over the triquetrum. Radiographs shows evident arthritic changes noted throughout the wrist along with osteopenic changes. There is a small dorsal avulsion of the triquetrum noted (acuteness difficult to determine). At this time patient will be placed in a volar wrist splint with MP joints free for immobilization. With the amt of arthritis and other changes we are going to avoid casting at this time. Patient will follow-up in our office in one week for re-evaluation. - Reason for Consult Patient consulted for right carpal bone avulsion fracture. Patient presented to the ED following a fall off of her front step. It had been raining and was slippery and there was uneven step and she fell forward reaching out she thinks to brace herself. She noticed pain in the wrist at that time but states that she actually has had wrist pains prior to this as well. She had been told she had chippedor cracked a bone of the wrist previously and states that she also has had injections due to pain. Patient had been having problems with frequent falls and thus was admitted to TCU for strengthening and rehabilitation.
[2019-03-18 15:17] VITALS: BP 143/62; PULSE 68; RESP 21; TEMP 36.5; O2SAT 100
[2019-03-18 15:57] LABS: Bacteria 0 SEEN /hpf (None Seen); Mucous, Urine 0 SEEN /hpf (<or=2+)
[2019-03-18 16:28] LABS: Color, Urine Amber (Yellow); Glucose, Dipstick Normal (Normal); Ketone-Dipstick 5 mg/dl (Negative); Leukocyte Esterase-Dipstick 25 /ul (Negative); Nitrite-Dipstick Negative (Negative); Occult Blood-Urine 10 /ul (Negative); Protein-Dipstick 30 mg/dl (Negative); Specific Gravity, Urine 1.015 (1.002-1.030); Urine Bilirubin Dipstick 1 mg/dL (Negative); Urine Clarity Clear (Clear); Urine Urobilinogen 8 mg/dl (Normal)
[2019-03-18 16:29] LABS: Hyaline Cast 5-10 SEEN /lpf (0-5); Red Blood Cells-Urine 0-5 SEEN /hpf (0-5); Squamous Epithelial Cells - UA 0-5 SEEN /hpf (5-10); White Blood Cells 0-5 SEEN /hpf (0-5)
[2019-03-18 16:41] LABS: Bedside Glucose 115 mg/dL (70-110)
[2019-03-18 17:51] VITALS: BP 143/62; PULSE 68
--- NOTE | 2019-03-18 18:49 | NURSING ---
URINE DARK, HEMATURIA AND PT C/O BURNING, NEW ORDER FOR [facility] C&S. DR OROZCO REVIEWED RESULTS, NO NEW ORDERS, AWAITING CULTURE
[2019-03-18] MEDS: Atorvastatin Calcium 10 MG Tablet PO (19:44)
[2019-03-18] MEDS: Latanoprost 0.005% 1 Bottle 1 DRP EACH EYE (19:45)
[2019-03-18 21:26] LABS: Bedside Glucose 152 mg/dL (70-110)
[2019-03-19] MEDS: Acetaminophen 500 MG Tablet 1000 MG PO ×3 (03:00→22:54)
[2019-03-19] MEDS: oxyCODONE 5 MG Tablet PO ×4 (03:01→22:54)
[2019-03-19 04:19] VITALS: BP 137/57; PULSE 65
[2019-03-19] MEDS: Bisacodyl 5 MG Tablet 10 MG PO (04:19)
[2019-03-19] MEDS: Metoprolol Tartrate 25 MG Tablet PO ×2 (04:19→16:49)
[2019-03-19] MEDS: Senna/Docusate Sodium 1 Tablet 2 TABLET PO ×2 (04:20→16:49)
[2019-03-19] MEDS: amLODIPine 10 MG Tablet PO (04:20)
[2019-03-19] MEDS: Pantoprazole Sodium 40 MG Tablet PO (04:20)
[2019-03-19] MEDS: Polyethylene Glycol 3350 17 GM PACKET PO (04:20)
[2019-03-19] MEDS: Losartan Potassium 100 MG Tablet PO (04:21)
[2019-03-19] MEDS: Furosemide 40 MG Tablet PO (04:21)
[2019-03-19] MEDS: Nystatin Powder 15gm Bottle 1 APPLIC TOPICAL ×2 (04:24→13:18)
[2019-03-19] MEDS: Timolol 0.5% 5ML OPTH.BTL 1 DRP EACH EYE ×2 (04:24→16:50)
[2019-03-19 05:56] LABS: Prothrombin Time (Protime)PT. 36.9 SECONDS (11.7-14.9)
[2019-03-19 06:26] LABS: International Normalized Ratio 3.7
[2019-03-19 06:36] LABS: Bedside Glucose 119 mg/dL (70-110)
--- NOTE | 2019-03-19 06:39 | NURSING ---
Will update Dr Schmidt Pt INR 3.7.
[2019-03-19] MEDS: Aspirin 81 MG TAB.CHEW PO (07:34)
[2019-03-19 11:26] LABS: Bedside Glucose 98 mg/dL (70-110)
--- NOTE | 2019-03-19 11:35 | PHA.CONS_ITS ---
<Yuli Crum - Last Filed: 03/19/19 11:35> Progress Note - Pharmacy Subjective: TCU Admission Objective: Allergies adhesive Allergy (Verified 03/13/19 13:42) PULLS SKIN OFF Iodinated Contrast Media [Iodinated Contrast Media - IV Dye] Allergy (Verified 03/13/19 13:42) EYES SWELL SHUT latex Adverse Reaction (Unknown, Verified 03/13/19 13:42) Unknown Current Medications Generic Name Dose Route Start Last Admin Trade Name Freq PRN Reason Stop Dose Admin Acetaminophen 1,000 mg 03/17/19 22:17 03/19/19 03:00 Tylenol PO 1,000 mg Q6H PRN PRN Administration Pain Score 1-3/10 Amlodipine Besylate 10 mg 03/18/19 06:00 03/19/19 04:20 Norvasc PO 10 mg DAILY [facility] Administration Aspirin 81 mg 03/18/19 08:00 03/19/19 07:34 Aspirin, Baby PO 81 mg DAILY@0800 [facility] Administration Atorvastatin Calcium 10 mg 03/17/19 22:00 03/18/19 19:44 Lipitor PO 10 mg QHS [facility] Administration Bisacodyl 10 mg 03/17/19 22:18 03/19/19 04:19 Dulcolax PO 10 mg DAILY PRN Administration Constipation Furosemide 40 mg 03/18/19 06:00 03/19/19 04:21 Lasix PO 40 mg DAILY [facility] Administration Latanoprost 1 drop 03/17/19 22:00 03/18/19 19:45 Xalatan Opthalmic EACH EYE 1 drop QHS [facility] Administration Lorazepam 1 mg 03/17/19 12:25 Ativan PO BID PRN ANXIETY Losartan Potassium 100 mg 03/18/19 06:00 03/19/19 04:21 Cozaar PO 100 mg DAILY [facility] Administration Menthol 1 applic 03/17/19 18:53 Bengay Vanishing Scent TOPICAL TID PRN PRN pain Metoprolol Tartrate 25 mg 03/17/19 18:00 03/19/19 04:19 Lopressor (Beta Carlos Manuel) PO 25 mg BID [facility] Administration Multi-Ingredient Cream 1 applic 03/18/19 22:00 03/18/19 19:46 Eucerin TOPICAL 1 applicatio QHS [facility] Administration Protocol Nystatin 1 applic 03/17/19 18:00 03/19/19 04:24 Mycostatin Powder TOPICAL 1 applicatio BID [facility] Administration Protocol Oxycodone HCl 5 mg 03/17/19 22:18 03/19/19 09:51 Oxyir PO 5 mg Q4H PRN PRN Administration Pain Score 6-10/10 Pantoprazole Sodium 40 mg 03/18/19 06:00 03/19/19 04:20 Protonix PO 40 mg DAILY [facility] Administration Polyethylene Glycol 17 gm 03/18/19 06:00 03/19/19 04:20 Miralax PO 17 gm DAILY [facility] Administration Senna/Docusate Sodium 2 tablet 03/18/19 06:00 03/19/19 04:20 Senokot-S, Rimma-Colace PO 2 tablet BID [facility] Administration Timolol Maleate 1 drop 03/17/19 18:00 03/19/19 04:24 Timoptic EACH EYE 1 drop BID [facility] Administration Tramadol HCl 50 mg 03/17/19 22:18 Ultram PO Q6H PRN PRN Pain Score 4-5/10 Tuberculin PPD 5 tu 03/25/19 10:00 Tubersol, Aplisol, Ppd ID 03/25/19 10:01 X1 ONE Warfarin Sodium 1 mg/ Warfarin 1.5 mg 03/19/19 17:00 Sodium 0.5 mg PO DAILY@1700 [facility] Problem List (Last Reviewed 03/13/19 @ 13:15 by Chucho Subramanian DO) Frequent falls (Acute) Chronic diastolic heart failure (Chronic) Atrial fibrillation (Chronic) Pulmonary HTN (Chronic) Hypertension (Chronic) Glaucoma (Chronic) GERD (gastroesophageal reflux disease) (Chronic) Anxiety (Chronic) Osteoarthritis of left knee (Chronic) Vital Signs Temp Pulse Resp BP Pulse Ox 97.7 F L 65 21 H 137/57 H 100 03/18/19 15:17 03/19/19 04:19 03/18/19 15:17 03/19/19 04:19 03/18/19 15:17 Oxygen Delivery Method Room Air Weight: 90.37 kg Body Mass Index (BMI) 32.1 Finger Stick Blood Glucose 141 Sodium 129 mmol/L (136-145) L 03/18/19 05:10 Potassium 3.6 mmol/L (3.5-5.1) 03/18/19 05:10 Chloride 93 mmol/L (98-107) L 03/18/19 05:10 Carbon Dioxide 28.0 mmol/L (21.0-32.0) 03/18/19 05:10 Anion Gap 8 (5-15) 03/18/19 05:10 BUN 20 mg/dL (7-18) H 03/18/19 05:10 Creatinine 1.20 mg/dL (0.55-1.02) H 03/18/19 05:10 Est GFR (MDRD) Af Amer 55 mL/min (>60) L 03/18/19 05:10 Est GFR (MDRD) Non-Af 46 mL/min (>60) L 03/18/19 05:10 BUN/Creatinine Ratio 16.7 RATIO (10-20) 03/18/19 05:10 Glucose 107 mg/dL (74-106) H 03/18/19 05:10 Assessment/Plan: *1. Pain: Bengay cream 1 application topically TID PRN pain, acetaminophen 1000mg PO Q6H PRN pain (1-08/03), tramadol 50mg PO Q6H PRN pain (4-10/03), oxycodone 5mg PO Q4H PRN pain (6-03/05). Patient has been receiving regular doses of oxycodone. Please consider scheduling acetaminophen to help decrease opioid use. Please continue to monitor for increased pain, PRN usage, respiratory depression and constipation. 2. Hypertension/coronary artery disease: metoprolol tartrate 25mg PO BID, losartan 100mg PO daily, amlodipine 10mg PO daily, aspirin 81mg PO DAILYCM. Please continue to monitor BP, HR, renal function, and S/S of bleeding. *3. Chronic diastolic heart failure/atrial fibrillation: metoprolol tartrate 25mg PO BID, furosemide 40mg PO daily, and warfarin 1.5mg PO daily. Patient's INR is 3.7 and has been increasing for 2 days. Today's dose of warfarin was decreased to 1.5mg from 2.5mg. Please consider holding a dose if tomorrow's INR is still elevated. Please monitor for S/S of bleeding, daily INR, potassium, and renal function. 4. Hyperlipidemia: atorvastatin 10mg PO QHS. Recent lipid panel in chart. Please continue to monitor for muscle pain. 5. GERD: pantoprazole 40mg PO daily. Please continue to monitor for S/S GERD. 6. Glaucoma: Latanoprost 0.005% 1gtt OU QHS and timolol 0.5% 1gtt OU BID. Please continue to monitor for S/S glaucoma. 7. Tinea corporis: nystatin topical powder 1 application topically BID to abdominal folds. Please continue to monitor for S/S of worsening rash and/or burning. Psychotropic Medications: 1. Anxiety: lorazepam 1mg PO BID PRN anxiety. Patient has not received any doses so far this admission. Please continue to monitor PRN usage. Unnecessary Medications: None Bowel Regimen: Miralax 17gm PO daily, senna/docusate 2T PO BID, bisacodyl 10mg PO daily PRN constipation. Please continue to monitor for constipation and PRN usage. Date of Note:: 03/19/19 - Provider Comments Provider responsibility: Provider responsible to enter orders to implement recommendations <Jose Ruiz Chi - Last Filed: 03/19/19 17:42> Progress Note - Pharmacy Subjective: [] Objective: Allergies adhesive Allergy (Verified 03/13/19 13:42) PULLS SKIN OFF Iodinated Contrast Media [Iodinated Contrast Media - IV Dye] Allergy (Verified 03/13/19 13:42) EYES SWELL SHUT latex Adverse Reaction (Unknown, Verified 03/13/19 13:42) Unknown Current Medications Generic Name Dose Route Start Last Admin Trade Name Freq PRN Reason Stop Dose Admin Acetaminophen 1,000 mg 03/17/19 22:17 03/19/19 16:07 Tylenol PO 1,000 mg Q6H PRN PRN Administration Pain Score 1-3/10 Amlodipine Besylate 10 mg 03/18/19 06:00 03/19/19 04:20 Norvasc PO 10 mg DAILY [facility] Administration Aspirin 81 mg 03/18/19 08:00 03/19/19 07:34 Aspirin, Baby PO 81 mg DAILY@0800 [facility] Administration Atorvastatin Calcium 10 mg 03/17/19 22:00 03/18/19 19:44 Lipitor PO 10 mg QHS [facility] Administration Bisacodyl 10 mg 03/17/19 22:18 03/19/19 04:19 Dulcolax PO 10 mg DAILY PRN Administration Constipation Furosemide 40 mg 03/18/19 06:00 03/19/19 04:21 Lasix PO 40 mg DAILY [facility] Administration Latanoprost 1 drop 03/17/19 22:00 03/18/19 19:45 Xalatan Opthalmic EACH EYE 1 drop QHS [facility] Administration Lorazepam 1 mg 03/17/19 12:25 Ativan PO BID PRN ANXIETY Losartan Potassium 100 mg 03/18/19 06:00 03/19/19 04:21 Cozaar PO 100 mg DAILY [facility] Administration Menthol 1 applic 03/17/19 18:53 Bengay Vanishing Scent TOPICAL TID PRN PRN pain Metoprolol Tartrate 25 mg 03/17/19 18:00 03/19/19 16:49 Lopressor (Beta Carlos Manuel) PO 25 mg BID [facility] Administration Multi-Ingredient Cream 1 applic 03/18/19 22:00 03/18/19 19:46 Eucerin TOPICAL 1 applicatio QHS [facility] Administration Protocol Nystatin 1 applic 03/17/19 18:00 03/19/19 13:18 Mycostatin Powder TOPICAL 1 applicatio BID [facility] Administration Protocol Oxycodone HCl 5 mg 03/17/19 22:18 03/19/19 16:07 Oxyir PO 5 mg Q4H PRN PRN Administration Pain Score 6-10/10 Pantoprazole Sodium 40 mg 03/18/19 06:00 03/19/19 04:20 Protonix PO 40 mg DAILY [facility] Administration Polyethylene Glycol 17 gm 03/18/19 06:00 03/19/19 04:20 Miralax PO 17 gm DAILY [facility] Administration Senna/Docusate Sodium 2 tablet 03/18/19 06:00 03/19/19 16:49 Senokot-S, Rimma-Colace PO 2 tablet BID [facility] Administration Timolol Maleate 1 drop 03/17/19 18:00 03/19/19 16:50 Timoptic EACH EYE 1 drop BID [facility] Administration Tramadol HCl 50 mg 03/17/19 22:18 03/19/19 13:29 Ultram PO 50 mg Q6H PRN PRN Administration Pain Score 4-5/10 Tuberculin PPD 5 tu 03/25/19 10:00 Tubersol, Aplisol, Ppd ID 03/25/19 10:01 X1 ONE Warfarin Sodium 1 mg/ Warfarin 1.5 mg 03/19/19 17:00 03/19/19 16:48 Sodium 0.5 mg PO 1.5 mg DAILY@1700 [facility] Administration Problem List (Last Reviewed 03/13/19 @ 13:15 by Chucho Subramanian DO) Frequent falls (Acute) Chronic diastolic heart failure (Chronic) Atrial fibrillation (Chronic) Pulmonary HTN (Chronic) Hypertension (Chronic) Glaucoma (Chronic) GERD (gastroesophageal reflux disease) (Chronic) Anxiety (Chronic) Osteoarthritis of left knee (Chronic) Vital Signs Temp Pulse Resp BP Pulse Ox 97.5 F L 72 14 137/69 H 97 03/19/19 16:00 03/19/19 16:49 03/19/19 16:00 03/19/19 16:49 03/19/19 16:00 Oxygen Delivery Method Room Air Weight: 90.37 kg Body Mass Index (BMI) 32.1 Finger Stick Blood Glucose 141 Sodium 129 mmol/L (136-145) L 03/18/19 05:10 Potassium 3.6 mmol/L (3.5-5.1) 03/18/19 05:10 Chloride 93 mmol/L (98-107) L 03/18/19 05:10 Carbon Dioxide 28.0 mmol/L (21.0-32.0) 03/18/19 05:10 Anion Gap 8 (5-15) 03/18/19 05:10 BUN 20 mg/dL (7-18) H 03/18/19 05:10 Creatinine 1.20 mg/dL (0.55-1.02) H 03/18/19 05:10 Est GFR (MDRD) Af Amer 55 mL/min (>60) L 03/18/19 05:10 Est GFR (MDRD) Non-Af 46 mL/min (>60) L 03/18/19 05:10 BUN/Creatinine Ratio 16.7 RATIO (10-20) 03/18/19 05:10 Glucose 107 mg/dL (74-106) H 03/18/19 05:10 Assessment/Plan: Psychotropic Medications: Unnecessary Medications: Bowel Regimen: - Provider Comments Provider responsibility: Provider responsible to enter orders to implement recommendations Provider Comments to Recommendations by Pharmacy: Agree
[2019-03-19] MEDS: traMADol 50 MG Tablet PO ×2 (13:29→21:35)
[2019-03-19 16:00] VITALS: BP 137/69; PULSE 72; RESP 14; TEMP 36.4; O2SAT 97
[2019-03-19] MEDS: Warfarin 1 MG, Warfarin 0.5 MG 1.5 MG PO (16:48)
[2019-03-19 16:49] VITALS: BP 137/69; PULSE 72
[2019-03-19 17:31] LABS: Bedside Glucose 148 mg/dL (70-110)
[2019-03-19] MEDS: Atorvastatin Calcium 10 MG Tablet PO (20:29)
[2019-03-19] MEDS: Latanoprost 0.005% 1 Bottle 1 DRP EACH EYE (20:29)
[2019-03-19] MEDS: NYSTATIN 500,000 UNIT/5 ML UDC 500000 UNIT PO (20:29)
[2019-03-19 21:21] LABS: Bedside Glucose 141 mg/dL (70-110)
[2019-03-20] MEDS: oxyCODONE 5 MG Tablet PO ×3 (03:48→21:22)
[2019-03-20] MEDS: Timolol 0.5% 5ML OPTH.BTL 1 DRP EACH EYE ×2 (05:55→18:17)
[2019-03-20 05:56] VITALS: BP 120/60; PULSE 60
[2019-03-20] MEDS: amLODIPine 10 MG Tablet PO (05:56)
[2019-03-20] MEDS: Polyethylene Glycol 3350 17 GM PACKET PO (05:56)
[2019-03-20] MEDS: Metoprolol Tartrate 25 MG Tablet PO ×2 (05:56→18:16)
[2019-03-20] MEDS: Furosemide 40 MG Tablet PO (05:56)
[2019-03-20] MEDS: Pantoprazole Sodium 40 MG Tablet PO (05:56)
[2019-03-20] MEDS: Senna/Docusate Sodium 1 Tablet 2 TABLET PO ×2 (05:56→18:16)
[2019-03-20] MEDS: NYSTATIN 500,000 UNIT/5 ML UDC 500000 UNIT PO ×4 (05:57→21:17)
[2019-03-20] MEDS: Nystatin Powder 15gm Bottle 1 APPLIC TOPICAL ×2 (05:57→18:16)
[2019-03-20] MEDS: Losartan Potassium 100 MG Tablet PO (06:05)
[2019-03-20 06:36] LABS: Bedside Glucose 135 mg/dL (70-110)
[2019-03-20 07:32] LABS: Prothrombin Time (Protime)PT. 35.1 SECONDS (11.7-14.9)
[2019-03-20 07:38] LABS: International Normalized Ratio 3.5
[2019-03-20] MEDS: Aspirin 81 MG TAB.CHEW PO (08:08)
[2019-03-20 11:36] LABS: Bedside Glucose 151 mg/dL (70-110)
--- NOTE | 2019-03-20 13:51 | NURSING ---
DR. OROZCO AWARE OF INR. NO NEW ORDERS. RECHECK INR SATURDAY.
[2019-03-20] MEDS: Acetaminophen 500 MG Tablet 1000 MG PO ×2 (14:34→21:22)
[2019-03-20 15:33] VITALS: BP 121/56; PULSE 70; RESP 16; TEMP 37.2; O2SAT 98
[2019-03-20 16:46] LABS: Bedside Glucose 109 mg/dL (70-110)
[2019-03-20 18:16] VITALS: BP 121/56; PULSE 70
[2019-03-20] MEDS: Warfarin 1 MG, Warfarin 0.5 MG 1.5 MG PO (18:17)
[2019-03-20 21:11] LABS: Bedside Glucose 113 mg/dL (70-110)
[2019-03-20] MEDS: Latanoprost 0.005% 1 Bottle 1 DRP EACH EYE (21:16)
[2019-03-20] MEDS: Atorvastatin Calcium 10 MG Tablet PO (21:17)
[2019-03-21 06:43] VITALS: BP 128/58; PULSE 62
[2019-03-21] MEDS: Metoprolol Tartrate 25 MG Tablet PO ×2 (06:43→17:11)
[2019-03-21] MEDS: NYSTATIN 500,000 UNIT/5 ML UDC 500000 UNIT PO ×4 (06:43→20:42)
[2019-03-21] MEDS: Losartan Potassium 100 MG Tablet PO (06:43)
[2019-03-21] MEDS: Furosemide 40 MG Tablet PO (06:43)
[2019-03-21] MEDS: amLODIPine 10 MG Tablet PO (06:44)
[2019-03-21] MEDS: Pantoprazole Sodium 40 MG Tablet PO (06:44)
[2019-03-21 06:45] LABS: Bedside Glucose 109 mg/dL (70-110)
[2019-03-21] MEDS: Senna/Docusate Sodium 1 Tablet 2 TABLET PO (06:45)
[2019-03-21] MEDS: Timolol 0.5% 5ML OPTH.BTL 1 DRP EACH EYE ×2 (06:45→17:11)
[2019-03-21] MEDS: Polyethylene Glycol 3350 17 GM PACKET PO (06:46)
[2019-03-21] MEDS: Nystatin Powder 15gm Bottle 1 APPLIC TOPICAL ×2 (06:47→17:12)
[2019-03-21] MEDS: Aspirin 81 MG TAB.CHEW PO (09:45)
[2019-03-21] MEDS: Acetaminophen 500 MG Tablet 1000 MG PO ×2 (09:45→23:35)
[2019-03-21] MEDS: oxyCODONE 5 MG Tablet PO ×3 (09:45→23:33)
[2019-03-21 10:50] LABS: Bedside Glucose 128 mg/dL (70-110)
[2019-03-21 15:27] VITALS: BP 136/52; PULSE 92; RESP 16; TEMP 36.8; O2SAT 96
[2019-03-21 17:05] LABS: Bedside Glucose 104 mg/dL (70-110)
[2019-03-21 17:11] VITALS: BP 136/52; PULSE 92
[2019-03-21] MEDS: Warfarin 1 MG, Warfarin 0.5 MG 1.5 MG PO (17:11)
[2019-03-21] MEDS: Atorvastatin Calcium 10 MG Tablet PO (20:42)
[2019-03-21] MEDS: Latanoprost 0.005% 1 Bottle 1 DRP EACH EYE (20:42)
[2019-03-21 21:00] LABS: Bedside Glucose 119 mg/dL (70-110)
[2019-03-22] MEDS: Timolol 0.5% 5ML OPTH.BTL 1 DRP EACH EYE ×2 (05:27→17:38)
[2019-03-22 05:28] VITALS: BP 131/59; PULSE 69
[2019-03-22] MEDS: Metoprolol Tartrate 25 MG Tablet PO ×2 (05:28→17:38)
[2019-03-22] MEDS: Furosemide 40 MG Tablet PO (05:28)
[2019-03-22] MEDS: Losartan Potassium 100 MG Tablet PO (05:28)
[2019-03-22] MEDS: Pantoprazole Sodium 40 MG Tablet PO (05:28)
[2019-03-22] MEDS: NYSTATIN 500,000 UNIT/5 ML UDC 500000 UNIT PO ×4 (05:28→21:32)
[2019-03-22] MEDS: amLODIPine 10 MG Tablet PO (05:29)
[2019-03-22] MEDS: Nystatin Powder 15gm Bottle 1 APPLIC TOPICAL ×2 (05:35→17:44)
[2019-03-22 06:30] LABS: Bedside Glucose 115 mg/dL (70-110)
[2019-03-22] MEDS: Aspirin 81 MG TAB.CHEW PO (07:35)
[2019-03-22 10:51] LABS: Bedside Glucose 118 mg/dL (70-110)
[2019-03-22] MEDS: oxyCODONE 5 MG Tablet PO ×2 (13:44→21:37)
[2019-03-22] MEDS: Acetaminophen 500 MG Tablet 1000 MG PO ×2 (13:44→21:37)
[2019-03-22 15:39] VITALS: BP 121/64; PULSE 66; RESP 18; TEMP 36.8; O2SAT 94
[2019-03-22 16:50] LABS: Bedside Glucose 115 mg/dL (70-110)
[2019-03-22 17:38] VITALS: BP 121/64; PULSE 66
[2019-03-22] MEDS: Warfarin 1 MG, Warfarin 0.5 MG 1.5 MG PO (17:38)
[2019-03-22] MEDS: Latanoprost 0.005% 1 Bottle 1 DRP EACH EYE (21:32)
[2019-03-22] MEDS: Atorvastatin Calcium 10 MG Tablet PO (21:32)
[2019-03-22 21:51] LABS: Bedside Glucose 104 mg/dL (70-110)
[2019-03-23 04:58] VITALS: BP 131/52; PULSE 60
[2019-03-23] MEDS: Metoprolol Tartrate 25 MG Tablet PO ×2 (04:58→17:23)
[2019-03-23] MEDS: Losartan Potassium 100 MG Tablet PO (04:59)
[2019-03-23] MEDS: Furosemide 40 MG Tablet PO (04:59)
[2019-03-23] MEDS: Pantoprazole Sodium 40 MG Tablet PO (04:59)
[2019-03-23] MEDS: Senna/Docusate Sodium 1 Tablet 2 TABLET PO ×2 (04:59→17:24)
[2019-03-23] MEDS: amLODIPine 10 MG Tablet PO (04:59)
[2019-03-23] MEDS: Timolol 0.5% 5ML OPTH.BTL 1 DRP EACH EYE ×2 (04:59→17:22)
[2019-03-23] MEDS: NYSTATIN 500,000 UNIT/5 ML UDC 500000 UNIT PO ×4 (04:59→19:54)
[2019-03-23] MEDS: Nystatin Powder 15gm Bottle 1 APPLIC TOPICAL ×2 (04:59→17:25)
[2019-03-23 05:58] LABS: International Normalized Ratio 3.1; Prothrombin Time (Protime)PT. 31.8 SECONDS (11.7-14.9)
[2019-03-23 06:41] LABS: Bedside Glucose 113 mg/dL (70-110)
[2019-03-23] MEDS: oxyCODONE 5 MG Tablet PO ×3 (08:21→19:54)
[2019-03-23] MEDS: Acetaminophen 500 MG Tablet 1000 MG PO ×2 (08:22→19:55)
[2019-03-23] MEDS: Aspirin 81 MG TAB.CHEW PO (08:23)
[2019-03-23 11:01] LABS: Bedside Glucose 128 mg/dL (70-110)
--- NOTE | 2019-03-23 15:58 | CHAPLAIN ---
Type of Pastoral Visit _x__ Initial Visit ___ Follow-up Visit ___ On-call Visit ___ General Patient Visit ___ Spiritual Assessment ___ Family Conference ___ Bereavement ___ Rapid Response ___ Code Blue ___ Other (describe below) Pastoral Care Referral From _x__ Patient ___ Family ___ Nurse ___ Physician ___ Gas System Operator ___ Veterinary Nurse ___ Other (describe below) Sacrament/Intervention _x__ Active listening ___ Anointing ___ Shinto ___ Bereavement ___ Communion _x__ Cate exploration ___ _x__ Life review _x__ Prayer ___ Reconciliation ___ Sacrament of Sick _x__ Supportive presence ___ Wedding ___ Other (describe below) Pastoral Comments patient loves to talk about spiritual things and about her own life history
--- NOTE | 2019-03-23 15:59 | NURSING ---
Addendum entered by Jeannette Sánchez 03/24/19 14:43: [facility] office returned call regarding splint. Ok to apply any removable splint. updated therapy and will check into it. pt may need to go to office for outpt appt to obtain this type of splint. Original Note: [facility] office called to be sure that we saw the OT order from Deni Hogue regarding wrist splint, spoke with OT and they relayed that therapy does not make these splints here, pt will need to have done at [facility]. Called office back and left message, awaiting return call.
[2019-03-23 16:00] VITALS: BP 112/57; PULSE 61; RESP 18; TEMP 36.6; O2SAT 99
[2019-03-23 17:11] LABS: Bedside Glucose 109 mg/dL (70-110)
[2019-03-23 17:23] VITALS: BP 112/57; PULSE 61
[2019-03-23] MEDS: Warfarin 1 MG, Warfarin 0.5 MG 1.5 MG PO (17:23)
[2019-03-23] MEDS: Atorvastatin Calcium 10 MG Tablet PO (19:54)
[2019-03-23] MEDS: Latanoprost 0.005% 1 Bottle 1 DRP EACH EYE (19:54)
[2019-03-23 20:51] LABS: Bedside Glucose 132 mg/dL (70-110)
[2019-03-24] MEDS: Timolol 0.5% 5ML OPTH.BTL 1 DRP EACH EYE ×2 (04:17→16:37)
[2019-03-24 04:18] VITALS: BP 148/73; PULSE 66
[2019-03-24] MEDS: Pantoprazole Sodium 40 MG Tablet PO (04:18)
[2019-03-24] MEDS: Senna/Docusate Sodium 1 Tablet 2 TABLET PO ×2 (04:18→16:36)
[2019-03-24] MEDS: NYSTATIN 500,000 UNIT/5 ML UDC 500000 UNIT PO ×4 (04:18→21:09)
[2019-03-24] MEDS: Metoprolol Tartrate 25 MG Tablet PO ×2 (04:18→16:36)
[2019-03-24] MEDS: Furosemide 40 MG Tablet PO (04:18)
[2019-03-24] MEDS: Losartan Potassium 100 MG Tablet PO (04:18)
[2019-03-24] MEDS: amLODIPine 10 MG Tablet PO (04:18)
[2019-03-24] MEDS: Nystatin Powder 15gm Bottle 1 APPLIC TOPICAL ×2 (04:21→12:44)
[2019-03-24 06:36] LABS: Bedside Glucose 117 mg/dL (70-110)
[2019-03-24] MEDS: Aspirin 81 MG TAB.CHEW PO (07:55)
[2019-03-24] MEDS: oxyCODONE 5 MG Tablet PO ×2 (10:05→21:09)
[2019-03-24] MEDS: Acetaminophen 500 MG Tablet 1000 MG PO ×2 (10:06→21:09)
[2019-03-24 11:30] LABS: Bedside Glucose 123 mg/dL (70-110)
--- NOTE | 2019-03-24 14:35 | CASEMGMT ---
Social Work Completed Living Will and HPOA. Pt named both daughters as equal POA. Copies placed on chart. Jenny Pritchett, FLOOR INSTALLATION MECHANIC CLINICAL RESEARCH MANAGER
[2019-03-24 15:27] VITALS: BP 105/52; PULSE 62; RESP 14; TEMP 36.6; O2SAT 97
[2019-03-24] MEDS: Warfarin 1 MG, Warfarin 0.5 MG 1.5 MG PO (16:35)
[2019-03-24 16:36] VITALS: PULSE 62
[2019-03-24 16:56] LABS: Bedside Glucose 117 mg/dL (70-110)
[2019-03-24] MEDS: Latanoprost 0.005% 1 Bottle 1 DRP EACH EYE (21:08)
[2019-03-24] MEDS: Atorvastatin Calcium 10 MG Tablet PO (21:09)
[2019-03-24 21:35] LABS: Bedside Glucose 126 mg/dL (70-110)
[2019-03-25 05:47] LABS: Hematocrit 28.8 % (37-47); Hemoglobin 9.1 g/dL (12.0-15.0); Mean Corp Hgb Conc 31.6 g/dL (32-36); Mean Corpuscular Hgb 29.4 pg (27.0-32.0); Mean Corpuscular Volume 93.2 fL (81-99); Mean Platelet Vol. 9.7 fl (6.2-12.0); POSITIVE COUNT YES; POSITIVE DIFFERENTIAL YES; POSITIVE MORPHOLOGY YES; Platelet Count 275 K/mm3 (150-450); RBC Distribution Width CV 13.3 % (11.6-14.6); RBC Distribution Width SD 45.4 fl (35.1-43.9); Red Blood Count 3.09 M/mm3 (4.2-5.4); White Blood Count 6.9 K/mm3 (4.4-11.0)
[2019-03-25 05:54] LABS: Differential Indicated MANUAL DIFF
[2019-03-25 05:57] VITALS: BP 121/71; PULSE 70
[2019-03-25] MEDS: Losartan Potassium 100 MG Tablet PO (05:57)
[2019-03-25] MEDS: Metoprolol Tartrate 25 MG Tablet PO ×2 (05:57→16:51)
[2019-03-25] MEDS: Senna/Docusate Sodium 1 Tablet 2 TABLET PO ×2 (05:57→16:51)
[2019-03-25] MEDS: oxyCODONE 5 MG Tablet PO ×3 (05:58→22:06)
[2019-03-25] MEDS: NYSTATIN 500,000 UNIT/5 ML UDC 500000 UNIT PO ×4 (05:58→19:43)
[2019-03-25] MEDS: Furosemide 40 MG Tablet PO (05:58)
[2019-03-25] MEDS: amLODIPine 10 MG Tablet PO (05:58)
[2019-03-25] MEDS: Timolol 0.5% 5ML OPTH.BTL 1 DRP EACH EYE ×2 (05:58→16:50)
[2019-03-25] MEDS: Pantoprazole Sodium 40 MG Tablet PO (05:58)
[2019-03-25] MEDS: Nystatin Powder 15gm Bottle 1 APPLIC TOPICAL ×2 (05:59→16:54)
[2019-03-25 06:14] LABS: Anion Gap 6 (5-15); BUN 20 mg/dL (7-18); BUN/Creat Ratio 19.8 RATIO (10-20); Calcium,Total 8.2 mg/dL (8.5-10.1); Chloride 95 mmol/L (98-107); Creatinine, Serum 1.01 mg/dL (0.55-1.02); EST Glomerular Filtration Rate 56 mL/min (>60); Est Glom Filt Rate - Afr Amer 67 mL/min (>60); Glucose 103 mg/dL (74-106); Potassium 3.7 mmol/L (3.5-5.1); Sodium Level 131 mmol/L (136-145)
[2019-03-25 06:18] LABS: Basophil 1 % (0-1); Lymphocyte 11 % (19-41); Metamyelocyte 2 % (0-1); Monocyte 24 % (0-10); Neutrophil-Segmented 62 % (47-70); Platelet Estimate ADEQUATE (ADEQ); Red Cell Morphology NORM C+C NORMAL (NORM C&C); Total Cells Counted 100 (MANUAL DIFF)
[2019-03-25 06:19] LABS: Absolute Lymphocyte Count 0.75 X10^3/uL (0.83-4.51); Absolute Neutrophil Count 4.2 X10^3/uL (2.0-7.7); Lymphocyte # 0.75 X10^3/ul (4.0); Neutrophil # 4.23 X10^3/uL (2.7-7.7)
[2019-03-25 06:31] LABS: Bedside Glucose 115 mg/dL (70-110)
[2019-03-25 11:15] LABS: Pathologist Review Reviewed
[2019-03-25 11:26] LABS: Bedside Glucose 119 mg/dL (70-110)
[2019-03-25] MEDS: Tuberculin,Purif.prot.deriv. 50 TU/ML Vial 5 ML ID (12:11)
[2019-03-25] MEDS: Acetaminophen 500 MG Tablet 1000 MG PO ×2 (12:16→22:06)
--- NOTE | 2019-03-25 12:16 | CASEMGMT ---
Social Work IDT met with patient for care plan meeting. Discussed patient's progress in therapy. Pt is SBA for UE ADLs, walking 200 ft with platform FWW at [facility]. D/t NWBS on right wrist, pt is mod to max x1-2 assist for transfers, max to total for LE ADLs and toileting tasks. Pt has poor balance as she cannot use right arm to steady. Pt is receiving Glucerna shake and getting meats cut up. Patient's goal is to DC home. Will continue to follow. Jenny Pritchett, MOTOR VEHICLE EMISSIONS INSPECTOR SCALE RECLAMATION TENDER
[2019-03-25 15:53] VITALS: BP 116/73; PULSE 68; RESP 17; TEMP 36.8; O2SAT 100
[2019-03-25 16:50] LABS: Bedside Glucose 113 mg/dL (70-110)
[2019-03-25 16:51] VITALS: BP 116/73; PULSE 68
[2019-03-25] MEDS: Warfarin 1 MG, Warfarin 0.5 MG 1.5 MG PO (16:52)
[2019-03-25] MEDS: Atorvastatin Calcium 10 MG Tablet PO (19:43)
[2019-03-25] MEDS: Latanoprost 0.005% 1 Bottle 1 DRP EACH EYE (19:43)
[2019-03-25 21:20] LABS: Bedside Glucose 127 mg/dL (70-110)
[2019-03-26] MEDS: oxyCODONE 5 MG Tablet PO ×3 (03:11→20:39)
[2019-03-26] MEDS: NYSTATIN 500,000 UNIT/5 ML UDC 500000 UNIT PO ×4 (05:41→20:39)
[2019-03-26] MEDS: Timolol 0.5% 5ML OPTH.BTL 1 DRP EACH EYE ×2 (05:41→16:45)
[2019-03-26] MEDS: Senna/Docusate Sodium 1 Tablet 2 TABLET PO ×2 (05:42→16:44)
[2019-03-26] MEDS: Pantoprazole Sodium 40 MG Tablet PO (05:42)
[2019-03-26 05:43] VITALS: BP 119/46; PULSE 60
[2019-03-26] MEDS: Losartan Potassium 100 MG Tablet PO (05:43)
[2019-03-26] MEDS: amLODIPine 10 MG Tablet PO (05:43)
[2019-03-26] MEDS: Furosemide 40 MG Tablet PO (05:43)
[2019-03-26] MEDS: Metoprolol Tartrate 25 MG Tablet PO ×2 (05:43→16:44)
[2019-03-26] MEDS: Acetaminophen 500 MG Tablet 1000 MG PO ×3 (05:43→20:39)
[2019-03-26] MEDS: Nystatin Powder 15gm Bottle 1 APPLIC TOPICAL ×2 (05:57→16:45)
[2019-03-26 06:01] LABS: Prothrombin Time (Protime)PT. 22.5 SECONDS (11.7-14.9)
[2019-03-26 06:31] LABS: Bedside Glucose 121 mg/dL (70-110)
[2019-03-26] MEDS: Iron Polysaccharide Complex 150 MG CAPSULE PO (08:28)
[2019-03-26 10:46] LABS: Bedside Glucose 122 mg/dL (70-110)
--- NOTE | 2019-03-26 15:19 | NURSING ---
spoke with dr. denton and ok to use any splintfor comfort for right wrist. therapy notified, r' will bring in splint from home.
[2019-03-26 16:00] VITALS: BP 118/54; PULSE 67; RESP 17; TEMP 36.9; O2SAT 97
[2019-03-26 16:44] VITALS: PULSE 67
[2019-03-26] MEDS: Warfarin 1 MG, Warfarin 0.5 MG 1.5 MG PO (16:44)
[2019-03-26] MEDS: traMADol 50 MG Tablet PO (16:50)
[2019-03-26 17:16] LABS: Bedside Glucose 128 mg/dL (70-110)
[2019-03-26] MEDS: Atorvastatin Calcium 10 MG Tablet PO (20:40)
[2019-03-26] MEDS: Latanoprost 0.005% 1 Bottle 1 DRP EACH EYE (20:42)
[2019-03-26 21:41] LABS: Bedside Glucose 114 mg/dL (70-110)
[2019-03-27] MEDS: amLODIPine 10 MG Tablet PO (04:40)
[2019-03-27] MEDS: Furosemide 40 MG Tablet PO (04:40)
[2019-03-27 04:41] VITALS: BP 140/81; PULSE 64
[2019-03-27] MEDS: Losartan Potassium 100 MG Tablet PO (04:41)
[2019-03-27] MEDS: Metoprolol Tartrate 25 MG Tablet PO ×2 (04:41→16:58)
[2019-03-27] MEDS: Pantoprazole Sodium 40 MG Tablet PO (04:41)
[2019-03-27] MEDS: Timolol 0.5% 5ML OPTH.BTL 1 DRP EACH EYE ×2 (04:41→16:59)
[2019-03-27] MEDS: Senna/Docusate Sodium 1 Tablet 2 TABLET PO ×2 (04:41→16:58)
[2019-03-27] MEDS: Nystatin Powder 15gm Bottle 1 APPLIC TOPICAL ×2 (04:42→17:00)
[2019-03-27 05:43] LABS: Hematocrit 28.3 % (37-47); Hemoglobin 8.9 g/dL (12.0-15.0)
[2019-03-27 07:01] LABS: Bedside Glucose 108 mg/dL (70-110)
[2019-03-27] MEDS: Iron Polysaccharide Complex 150 MG CAPSULE PO (08:02)
[2019-03-27] MEDS: oxyCODONE 5 MG Tablet PO ×2 (08:11→17:05)
[2019-03-27] MEDS: Acetaminophen 500 MG Tablet 1000 MG PO ×2 (08:12→17:05)
[2019-03-27 10:41] LABS: Bedside Glucose 125 mg/dL (70-110)
[2019-03-27 16:00] VITALS: BP 109/46; PULSE 60; RESP 14; TEMP 36.9; O2SAT 99
[2019-03-27 16:58] VITALS: BP 109/46; PULSE 60
[2019-03-27] MEDS: Warfarin 1 MG, Warfarin 0.5 MG 1.5 MG PO (16:58)
[2019-03-27 17:05] LABS: Bedside Glucose 150 mg/dL (70-110)
--- NOTE | 2019-03-27 19:03 | NURSING ---
PT C/O RECTAL PAIN, HEMORRHOIDS NOTED, NEW ORDER FOR ANUSOL GIVEN FROM DR OROZCO
[2019-03-27] MEDS: Latanoprost 0.005% 1 Bottle 1 DRP EACH EYE (19:56)
[2019-03-27] MEDS: Atorvastatin Calcium 10 MG Tablet PO (19:58)
[2019-03-27 21:31] LABS: Bedside Glucose 113 mg/dL (70-110)
[2019-03-28 04:14] VITALS: BP 132/46; PULSE 60; RESP 18; O2SAT 97
[2019-03-28] MEDS: oxyCODONE 5 MG Tablet PO ×3 (04:15→17:26)
[2019-03-28] MEDS: Senna/Docusate Sodium 1 Tablet 2 TABLET PO (04:16)
[2019-03-28 04:17] VITALS: BP 132/46; PULSE 60
[2019-03-28] MEDS: Pantoprazole Sodium 40 MG Tablet PO (04:17)
[2019-03-28] MEDS: Timolol 0.5% 5ML OPTH.BTL 1 DRP EACH EYE ×2 (04:17→16:56)
[2019-03-28] MEDS: Furosemide 40 MG Tablet PO (04:17)
[2019-03-28] MEDS: Metoprolol Tartrate 25 MG Tablet PO ×2 (04:17→16:56)
[2019-03-28] MEDS: amLODIPine 10 MG Tablet PO (04:18)
[2019-03-28] MEDS: Losartan Potassium 100 MG Tablet PO (04:18)
[2019-03-28] MEDS: Nystatin Powder 15gm Bottle 1 APPLIC TOPICAL ×2 (04:19→17:01)
[2019-03-28 06:35] LABS: Bedside Glucose 110 mg/dL (70-110)
[2019-03-28] MEDS: Iron Polysaccharide Complex 150 MG CAPSULE PO (08:26)
[2019-03-28 11:16] LABS: Bedside Glucose 129 mg/dL (70-110)
[2019-03-28 15:27] VITALS: BP 104/49; PULSE 60; RESP 20; TEMP 37.2; O2SAT 98
[2019-03-28 16:52] LABS: Bedside Glucose 104 mg/dL (70-110)
[2019-03-28] MEDS: Warfarin 1 MG, Warfarin 0.5 MG 1.5 MG PO (16:55)
[2019-03-28 16:56] VITALS: PULSE 64
[2019-03-28] MEDS: Acetaminophen 500 MG Tablet 1000 MG PO (18:09)
[2019-03-28 21:15] LABS: Bedside Glucose 119 mg/dL (70-110)
[2019-03-28] MEDS: Latanoprost 0.005% 1 Bottle 1 DRP EACH EYE (21:23)
[2019-03-28] MEDS: Atorvastatin Calcium 10 MG Tablet PO (21:23)
[2019-03-29 06:20] VITALS: BP 126/41; PULSE 60
[2019-03-29] MEDS: Furosemide 40 MG Tablet PO (06:20)
[2019-03-29] MEDS: Metoprolol Tartrate 25 MG Tablet PO ×2 (06:20→17:14)
[2019-03-29] MEDS: amLODIPine 10 MG Tablet PO (06:20)
[2019-03-29] MEDS: Timolol 0.5% 5ML OPTH.BTL 1 DRP EACH EYE ×2 (06:20→17:17)
[2019-03-29] MEDS: Pantoprazole Sodium 40 MG Tablet PO (06:20)
[2019-03-29] MEDS: Losartan Potassium 100 MG Tablet PO (06:20)
[2019-03-29] MEDS: Senna/Docusate Sodium 1 Tablet 2 TABLET PO (06:20)
[2019-03-29] MEDS: Nystatin Powder 15gm Bottle 1 APPLIC TOPICAL ×2 (06:24→17:17)
[2019-03-29 06:31] LABS: Hematocrit 28.8 % (37-47); Hemoglobin 8.9 g/dL (12.0-15.0)
[2019-03-29 06:31] LABS: Bedside Glucose 95 mg/dL (70-110)
[2019-03-29] MEDS: Iron Polysaccharide Complex 150 MG CAPSULE PO (07:58)
[2019-03-29] MEDS: oxyCODONE 5 MG Tablet PO ×2 (09:50→17:21)
[2019-03-29 12:05] LABS: Bedside Glucose 124 mg/dL (70-110)
[2019-03-29 15:52] VITALS: BP 150/66; PULSE 65; RESP 20; TEMP 36.2; O2SAT 96
[2019-03-29 16:45] LABS: Bedside Glucose 115 mg/dL (70-110)
[2019-03-29 17:14] VITALS: BP 150/66; PULSE 65
[2019-03-29] MEDS: Warfarin 1 MG, Warfarin 0.5 MG 1.5 MG PO (17:15)
[2019-03-29] MEDS: Acetaminophen 500 MG Tablet 1000 MG PO (17:22)
[2019-03-29] MEDS: Atorvastatin Calcium 10 MG Tablet PO (19:50)
[2019-03-29] MEDS: Latanoprost 0.005% 1 Bottle 1 DRP EACH EYE (19:50)
[2019-03-29 21:06] LABS: Bedside Glucose 120 mg/dL (70-110)
[2019-03-30] MEDS: oxyCODONE 5 MG Tablet PO ×4 (00:30→23:47)
[2019-03-30] MEDS: Acetaminophen 500 MG Tablet 1000 MG PO ×4 (00:31→23:47)
[2019-03-30 05:54] LABS: International Normalized Ratio 1.6
[2019-03-30 06:26] LABS: Bedside Glucose 118 mg/dL (70-110)
[2019-03-30 06:27] VITALS: BP 124/41; PULSE 59
[2019-03-30] MEDS: Pantoprazole Sodium 40 MG Tablet PO (06:27)
[2019-03-30] MEDS: Senna/Docusate Sodium 1 Tablet 2 TABLET PO (06:27)
[2019-03-30] MEDS: amLODIPine 10 MG Tablet PO (06:27)
[2019-03-30] MEDS: Metoprolol Tartrate 25 MG Tablet PO ×2 (06:27→17:07)
[2019-03-30] MEDS: Timolol 0.5% 5ML OPTH.BTL 1 DRP EACH EYE ×2 (06:27→17:08)
[2019-03-30] MEDS: Losartan Potassium 100 MG Tablet PO (06:28)
[2019-03-30] MEDS: Furosemide 40 MG Tablet PO (06:28)
[2019-03-30] MEDS: Nystatin Powder 15gm Bottle 1 APPLIC TOPICAL ×2 (06:29→17:09)
[2019-03-30] MEDS: Iron Polysaccharide Complex 150 MG CAPSULE PO (08:13)
[2019-03-30 11:00] LABS: Bedside Glucose 113 mg/dL (70-110)
--- NOTE | 2019-03-30 12:14 | MDS.RN ---
Information for the mds was obtained from review of the clinical record, interview of resident, staff, and direct observation of resident's care.
[2019-03-30 15:42] VITALS: BP 130/55; PULSE 61; RESP 19; TEMP 36.8; O2SAT 95
[2019-03-30 16:41] LABS: Bedside Glucose 120 mg/dL (70-110)
[2019-03-30 17:07] VITALS: PULSE 61
[2019-03-30] MEDS: Atorvastatin Calcium 10 MG Tablet PO (20:11)
[2019-03-30] MEDS: Latanoprost 0.005% 1 Bottle 1 DRP EACH EYE (20:12)
[2019-03-30 21:21] LABS: Bedside Glucose 121 mg/dL (70-110)
[2019-03-31 05:47] VITALS: BP 141/54; PULSE 60
[2019-03-31] MEDS: Losartan Potassium 100 MG Tablet PO (05:47)
[2019-03-31] MEDS: Pantoprazole Sodium 40 MG Tablet PO (05:47)
[2019-03-31] MEDS: Senna/Docusate Sodium 1 Tablet 2 TABLET PO ×2 (05:47→17:02)
[2019-03-31] MEDS: Metoprolol Tartrate 25 MG Tablet PO ×2 (05:47→17:02)
[2019-03-31] MEDS: Nystatin Powder 15gm Bottle 1 APPLIC TOPICAL ×2 (05:47→22:13)
[2019-03-31] MEDS: amLODIPine 10 MG Tablet PO (05:47)
[2019-03-31] MEDS: Furosemide 40 MG Tablet PO (05:47)
[2019-03-31] MEDS: Timolol 0.5% 5ML OPTH.BTL 1 DRP EACH EYE ×2 (05:49→17:03)
[2019-03-31 06:30] LABS: Bedside Glucose 108 mg/dL (70-110)
[2019-03-31] MEDS: Iron Polysaccharide Complex 150 MG CAPSULE PO (08:05)
[2019-03-31 11:25] LABS: Bedside Glucose 113 mg/dL (70-110)
[2019-03-31] MEDS: oxyCODONE 5 MG Tablet PO ×3 (11:56→21:07)
[2019-03-31] MEDS: Acetaminophen 500 MG Tablet 1000 MG PO ×2 (11:56→21:06)
--- NOTE | 2019-03-31 14:22 | CHAPLAIN ---
Type of Pastoral Visit ___ Initial Visit _x__ Follow-up Visit ___ On-call Visit ___ General Patient Visit ___ Spiritual Assessment ___ Family Conference ___ Bereavement ___ Rapid Response ___ Code Blue ___ Other (describe below) Pastoral Care Referral From _x__ Patient ___ Family ___ Nurse ___ Physician ___ Traffic And Transport Planner ___ Traffic Observer ___ Other (describe below) Sacrament/Intervention _x__ Active listening ___ Anointing ___ Rastafari ___ Bereavement ___ Communion ___ Cate exploration ___ ___ Life review _x__ Prayer ___ Reconciliation ___ Sacrament of Sick ___ Supportive presence ___ Wedding ___ Other (describe below) Pastoral Comments
[2019-03-31 15:53] VITALS: BP 114/54; PULSE 60; RESP 17; TEMP 36.2; O2SAT 100
[2019-03-31 17:01] LABS: Bedside Glucose 109 mg/dL (70-110)
[2019-03-31 17:02] VITALS: PULSE 60
[2019-03-31] MEDS: Atorvastatin Calcium 10 MG Tablet PO (21:03)
[2019-03-31] MEDS: Latanoprost 0.005% 1 Bottle 1 DRP EACH EYE (21:03)
[2019-03-31] MEDS: BMX LIQUID 180 ML 15 ML PO (21:08)
[2019-03-31 21:36] LABS: Bedside Glucose 123 mg/dL (70-110)
[2019-04-01] MEDS: Timolol 0.5% 5ML OPTH.BTL 1 DRP EACH EYE ×2 (05:42→17:02)
[2019-04-01 05:43] VITALS: BP 141/47; PULSE 61
[2019-04-01] MEDS: amLODIPine 10 MG Tablet PO (05:43)
[2019-04-01] MEDS: Losartan Potassium 100 MG Tablet PO (05:43)
[2019-04-01] MEDS: Metoprolol Tartrate 25 MG Tablet PO ×2 (05:43→17:01)
[2019-04-01] MEDS: Furosemide 40 MG Tablet PO (05:43)
[2019-04-01] MEDS: Pantoprazole Sodium 40 MG Tablet PO (05:43)
[2019-04-01] MEDS: Senna/Docusate Sodium 1 Tablet 2 TABLET PO ×2 (05:43→17:01)
[2019-04-01] MEDS: Nystatin Powder 15gm Bottle 1 APPLIC TOPICAL ×2 (05:45→20:43)
[2019-04-01 06:16] LABS: Absolute Lymphocyte Count 0.64 X10^3/uL (0.83-4.51); Absolute Neutrophil Count 2.8 X10^3/uL (2.0-7.7); Basophil# 0.01 X10^3/uL; Basophil% 0.2 % (0-1); Eosinophil# 0.03 X10^3/uL; Eosinophils% 0.5 % (0-5); Hemoglobin 9.6 g/dL (12.0-15.0); Lymphocyte # 0.64 X10^3/ul (4.0); Lymphocyte % 11.6 % (19-41); Mean Corpuscular Hgb 30.9 pg (27.0-32.0); Mean Corpuscular Volume 96.5 fL (81-99); Mean Platelet Vol. 9.7 fl (6.2-12.0); Monocyte# 1.88 X10^3/uL; Monocyte% 34.1 % (0-10); NRBC Flagged by Analyzer 0 % (0-5); Neutrophil # 2.84 X10^3/uL (2.7-7.7); Neutrophil % 51.4 % (47-70); POSITIVE DIFFERENTIAL YES; Platelet Count 210 K/mm3 (150-450); RBC Distribution Width CV 15.5 % (11.6-14.6); RBC Distribution Width SD 52.6 fl (35.1-43.9); Red Blood Count 3.11 M/mm3 (4.2-5.4); White Blood Count 5.5 K/mm3 (4.4-11.0)
[2019-04-01 06:19] LABS: Differential Indicated SCAN CRITERIA MET
[2019-04-01 06:29] LABS: Anion Gap 12 (5-15); BUN 22 mg/dL (7-18); BUN/Creat Ratio 19.5 RATIO (10-20); Calcium,Total 8.3 mg/dL (8.5-10.1); Chloride 92 mmol/L (98-107); Creatinine, Serum 1.13 mg/dL (0.55-1.02); EST Glomerular Filtration Rate 49 mL/min (>60); Est Glom Filt Rate - Afr Amer 59 mL/min (>60); Estimated Creatinine Clearance 35.93 ml/min; Glucose 115 mg/dL (74-106); Potassium 4.1 mmol/L (3.5-5.1); Sodium Level 129 mmol/L (136-145)
[2019-04-01 06:41] LABS: Bedside Glucose 109 mg/dL (70-110)
[2019-04-01] MEDS: oxyCODONE 5 MG Tablet PO ×2 (06:41→16:58)
[2019-04-01] MEDS: Acetaminophen 500 MG Tablet 1000 MG PO ×2 (06:41→16:58)
[2019-04-01] MEDS: Iron Polysaccharide Complex 150 MG CAPSULE PO (07:59)
[2019-04-01 10:00] VITALS: RESP 18; O2SAT 96
[2019-04-01 11:51] LABS: Bedside Glucose 117 mg/dL (70-110)
[2019-04-01 15:16] VITALS: BP 124/50; PULSE 61; RESP 16; TEMP 36.8; O2SAT 97
[2019-04-01 17:01] VITALS: BP 133/60; PULSE 60
[2019-04-01 17:06] LABS: Bedside Glucose 113 mg/dL (70-110)
[2019-04-01] MEDS: Latanoprost 0.005% 1 Bottle 1 DRP EACH EYE (20:39)
[2019-04-01] MEDS: Atorvastatin Calcium 10 MG Tablet PO (20:39)
[2019-04-01 21:06] LABS: Bedside Glucose 114 mg/dL (70-110)
[2019-04-02] MEDS: oxyCODONE 5 MG Tablet PO ×3 (05:47→18:00)
[2019-04-02] MEDS: Acetaminophen 500 MG Tablet 1000 MG PO (05:47)
[2019-04-02] MEDS: Timolol 0.5% 5ML OPTH.BTL 1 DRP EACH EYE ×2 (05:47→17:57)
[2019-04-02 05:48] VITALS: BP 120/63; PULSE 62
[2019-04-02] MEDS: Losartan Potassium 100 MG Tablet PO (05:48)
[2019-04-02] MEDS: Furosemide 40 MG Tablet PO (05:48)
[2019-04-02] MEDS: Metoprolol Tartrate 25 MG Tablet PO ×2 (05:48→17:56)
[2019-04-02] MEDS: Pantoprazole Sodium 40 MG Tablet PO (05:48)
[2019-04-02] MEDS: amLODIPine 10 MG Tablet PO (05:48)
[2019-04-02] MEDS: Senna/Docusate Sodium 1 Tablet 2 TABLET PO (05:48)
[2019-04-02 05:50] LABS: International Normalized Ratio 1.6; Prothrombin Time (Protime)PT. 18.7 SECONDS (11.7-14.9)
[2019-04-02] MEDS: Nystatin Powder 15gm Bottle 1 APPLIC TOPICAL ×2 (05:52→21:23)
[2019-04-02 06:31] LABS: Bedside Glucose 101 mg/dL (70-110)
[2019-04-02] MEDS: Iron Polysaccharide Complex 150 MG CAPSULE PO (09:30)
[2019-04-02 10:41] LABS: Bedside Glucose 117 mg/dL (70-110)
[2019-04-02] MEDS: traMADol 50 MG Tablet PO ×2 (10:44→21:22)
[2019-04-02 15:20] VITALS: BP 116/35; PULSE 61; RESP 19; TEMP 35.7; O2SAT 99
[2019-04-02] MEDS: Ondansetron ODT 4 MG Tablet PO (15:29)
[2019-04-02 17:05] LABS: Bedside Glucose 116 mg/dL (70-110)
[2019-04-02 17:56] VITALS: BP 116/35; PULSE 61
[2019-04-02 20:50] LABS: Bedside Glucose 117 mg/dL (70-110)
[2019-04-02] MEDS: Latanoprost 0.005% 1 Bottle 1 DRP EACH EYE (21:22)
[2019-04-02] MEDS: Atorvastatin Calcium 10 MG Tablet PO (21:22)
[2019-04-03] MEDS: Acetaminophen 500 MG Tablet 1000 MG PO ×3 (03:43→22:34)
[2019-04-03] MEDS: oxyCODONE 5 MG Tablet PO ×2 (03:43→22:33)
[2019-04-03] MEDS: Furosemide 40 MG Tablet PO (05:25)
[2019-04-03] MEDS: amLODIPine 10 MG Tablet PO (05:25)
[2019-04-03] MEDS: Pantoprazole Sodium 40 MG Tablet PO (05:25)
[2019-04-03] MEDS: Senna/Docusate Sodium 1 Tablet 2 TABLET PO (05:25)
[2019-04-03 05:26] VITALS: PULSE 72
[2019-04-03] MEDS: Metoprolol Tartrate 25 MG Tablet PO ×2 (05:26→17:51)
[2019-04-03] MEDS: Losartan Potassium 100 MG Tablet PO (05:26)
[2019-04-03] MEDS: Nystatin Powder 15gm Bottle 1 APPLIC TOPICAL ×2 (05:29→20:40)
[2019-04-03] MEDS: Timolol 0.5% 5ML OPTH.BTL 1 DRP EACH EYE ×2 (05:30→17:52)
[2019-04-03 06:31] LABS: Bedside Glucose 98 mg/dL (70-110)
[2019-04-03] MEDS: Iron Polysaccharide Complex 150 MG CAPSULE PO (09:01)
[2019-04-03] MEDS: Ondansetron ODT 4 MG Tablet PO (09:03)
[2019-04-03] MEDS: traMADol 50 MG Tablet PO ×2 (09:31→15:07)
[2019-04-03 11:06] LABS: Bedside Glucose 93 mg/dL (70-110)
[2019-04-03 15:42] VITALS: BP 140/60; PULSE 77; RESP 21; TEMP 36.6; O2SAT 96
[2019-04-03 16:46] LABS: Bedside Glucose 102 mg/dL (70-110)
[2019-04-03 17:51] VITALS: BP 140/60; PULSE 77
[2019-04-03] MEDS: Latanoprost 0.005% 1 Bottle 1 DRP EACH EYE (20:36)
[2019-04-03] MEDS: Atorvastatin Calcium 10 MG Tablet PO (20:38)
[2019-04-03 20:55] LABS: Bedside Glucose 116 mg/dL (70-110)
[2019-04-04 06:15] VITALS: BP 115/67; PULSE 62
[2019-04-04] MEDS: Timolol 0.5% 5ML OPTH.BTL 1 DRP EACH EYE ×2 (06:15→17:13)
[2019-04-04] MEDS: Metoprolol Tartrate 25 MG Tablet PO ×2 (06:15→17:13)
[2019-04-04] MEDS: amLODIPine 10 MG Tablet PO (06:16)
[2019-04-04] MEDS: Furosemide 40 MG Tablet PO (06:16)
[2019-04-04] MEDS: Senna/Docusate Sodium 1 Tablet 2 TABLET PO ×2 (06:16→17:13)
[2019-04-04] MEDS: Pantoprazole Sodium 40 MG Tablet PO (06:16)
[2019-04-04] MEDS: Losartan Potassium 100 MG Tablet PO (06:17)
[2019-04-04] MEDS: Acetaminophen 500 MG Tablet 1000 MG PO ×3 (06:19→22:44)
[2019-04-04] MEDS: oxyCODONE 5 MG Tablet PO ×3 (06:19→22:44)
[2019-04-04] MEDS: Nystatin Powder 15gm Bottle 1 APPLIC TOPICAL ×2 (06:20→20:30)
[2019-04-04 06:31] LABS: Bedside Glucose 102 mg/dL (70-110)
[2019-04-04] MEDS: Iron Polysaccharide Complex 150 MG CAPSULE PO (07:59)
[2019-04-04 09:07] VITALS: PULSE 62; RESP 18; O2SAT 97
[2019-04-04 10:36] LABS: Bedside Glucose 105 mg/dL (70-110)
[2019-04-04 15:49] VITALS: BP 113/56; PULSE 60; RESP 16; TEMP 36.6; O2SAT 96
[2019-04-04 17:00] LABS: Bedside Glucose 116 mg/dL (70-110)
[2019-04-04 17:13] VITALS: PULSE 60
[2019-04-04] MEDS: Latanoprost 0.005% 1 Bottle 1 DRP EACH EYE (20:26)
[2019-04-04] MEDS: Atorvastatin Calcium 10 MG Tablet PO (20:28)
[2019-04-04] MEDS: Menthol/Lanolin/Calamine/Znox 113 GM Tube 1 APPLIC TOPICAL (20:31)
[2019-04-04 21:05] LABS: Bedside Glucose 116 mg/dL (70-110)
[2019-04-05 06:15] VITALS: BP 121/69; PULSE 65
[2019-04-05] MEDS: Metoprolol Tartrate 25 MG Tablet PO ×2 (06:15→16:54)
[2019-04-05] MEDS: Pantoprazole Sodium 40 MG Tablet PO (06:15)
[2019-04-05] MEDS: Senna/Docusate Sodium 1 Tablet 2 TABLET PO ×2 (06:15→17:57)
[2019-04-05] MEDS: Furosemide 40 MG Tablet PO (06:15)
[2019-04-05] MEDS: amLODIPine 10 MG Tablet PO (06:15)
[2019-04-05] MEDS: Losartan Potassium 100 MG Tablet PO (06:15)
[2019-04-05] MEDS: Menthol/Lanolin/Calamine/Znox 113 GM Tube 1 APPLIC TOPICAL ×2 (06:16→21:15)
[2019-04-05] MEDS: Nystatin Powder 15gm Bottle 1 APPLIC TOPICAL ×2 (06:16→21:15)
[2019-04-05] MEDS: Timolol 0.5% 5ML OPTH.BTL 1 DRP EACH EYE ×2 (06:17→16:52)
[2019-04-05 06:46] LABS: Bedside Glucose 103 mg/dL (70-110)
[2019-04-05] MEDS: Iron Polysaccharide Complex 150 MG CAPSULE PO (08:38)
[2019-04-05] MEDS: oxyCODONE 5 MG Tablet PO ×3 (08:39→23:15)
[2019-04-05] MEDS: Acetaminophen 500 MG Tablet 1000 MG PO ×3 (08:40→23:15)
[2019-04-05] MEDS: Ondansetron ODT 4 MG Tablet PO (08:47)
[2019-04-05 10:41] LABS: Bedside Glucose 103 mg/dL (70-110)
[2019-04-05 15:34] VITALS: BP 117/51; PULSE 60; RESP 16; TEMP 36.8; O2SAT 99
[2019-04-05 16:50] LABS: Bedside Glucose 99 mg/dL (70-110)
[2019-04-05 16:54] VITALS: BP 117/51; PULSE 60
[2019-04-05] MEDS: Atorvastatin Calcium 10 MG Tablet PO (21:07)
[2019-04-05] MEDS: Latanoprost 0.005% 1 Bottle 1 DRP EACH EYE (21:07)
[2019-04-05 21:26] LABS: Bedside Glucose 113 mg/dL (70-110)
[2019-04-06 05:21] VITALS: BP 125/71; PULSE 64
[2019-04-06] MEDS: Losartan Potassium 100 MG Tablet PO (05:21)
[2019-04-06] MEDS: Timolol 0.5% 5ML OPTH.BTL 1 DRP EACH EYE ×2 (05:21→17:21)
[2019-04-06] MEDS: amLODIPine 10 MG Tablet PO (05:21)
[2019-04-06] MEDS: Metoprolol Tartrate 25 MG Tablet PO ×2 (05:21→17:22)
[2019-04-06] MEDS: Pantoprazole Sodium 40 MG Tablet PO (05:21)
[2019-04-06] MEDS: Senna/Docusate Sodium 1 Tablet 2 TABLET PO ×2 (05:21→17:22)
[2019-04-06] MEDS: Furosemide 40 MG Tablet PO (05:21)
[2019-04-06] MEDS: Menthol/Lanolin/Calamine/Znox 113 GM Tube 1 APPLIC TOPICAL ×2 (05:21→19:47)
[2019-04-06] MEDS: Nystatin Powder 15gm Bottle 1 APPLIC TOPICAL ×2 (05:22→19:49)
[2019-04-06 06:04] LABS: International Normalized Ratio 1.4; Prothrombin Time (Protime)PT. 17.4 SECONDS (11.7-14.9)
[2019-04-06] MEDS: oxyCODONE 5 MG Tablet PO ×2 (06:38→17:56)
[2019-04-06] MEDS: Acetaminophen 500 MG Tablet 1000 MG PO ×2 (06:38→17:56)
[2019-04-06 07:02] LABS: Bedside Glucose 103 mg/dL (70-110)
[2019-04-06] MEDS: Iron Polysaccharide Complex 150 MG CAPSULE PO (08:53)
[2019-04-06 11:55] LABS: Bedside Glucose 112 mg/dL (70-110)
[2019-04-06] MEDS: Ondansetron ODT 4 MG Tablet PO (12:26)
[2019-04-06 16:00] VITALS: BP 136/52; PULSE 61; RESP 17; TEMP 36.6; O2SAT 99
[2019-04-06 17:01] LABS: Bedside Glucose 110 mg/dL (70-110)
[2019-04-06 17:22] VITALS: BP 136/52; PULSE 61
[2019-04-06] MEDS: Latanoprost 0.005% 1 Bottle 1 DRP EACH EYE (21:12)
[2019-04-06] MEDS: Atorvastatin Calcium 10 MG Tablet PO (21:12)
[2019-04-06 21:21] LABS: Bedside Glucose 124 mg/dL (70-110)
[2019-04-07] MEDS: Menthol/Lanolin/Calamine/Znox 113 GM Tube 1 APPLIC TOPICAL ×2 (05:12→20:39)
[2019-04-07 05:14] VITALS: BP 133/57; PULSE 60
[2019-04-07] MEDS: Pantoprazole Sodium 40 MG Tablet PO (05:14)
[2019-04-07] MEDS: Furosemide 40 MG Tablet PO (05:14)
[2019-04-07] MEDS: Metoprolol Tartrate 25 MG Tablet PO ×2 (05:14→17:17)
[2019-04-07] MEDS: amLODIPine 10 MG Tablet PO (05:14)
[2019-04-07] MEDS: Losartan Potassium 100 MG Tablet PO (05:14)
[2019-04-07] MEDS: Nystatin Powder 15gm Bottle 1 APPLIC TOPICAL ×2 (05:15→20:39)
[2019-04-07] MEDS: Timolol 0.5% 5ML OPTH.BTL 1 DRP EACH EYE ×2 (05:15→17:12)
[2019-04-07] MEDS: Ondansetron ODT 4 MG Tablet PO (05:19)
[2019-04-07 06:41] LABS: Bedside Glucose 108 mg/dL (70-110)
[2019-04-07] MEDS: oxyCODONE 5 MG Tablet PO ×2 (09:11→17:16)
[2019-04-07] MEDS: Iron Polysaccharide Complex 150 MG CAPSULE PO (09:11)
[2019-04-07] MEDS: Acetaminophen 500 MG Tablet 1000 MG PO ×2 (09:11→17:16)
[2019-04-07 11:06] LABS: Bedside Glucose 105 mg/dL (70-110)
[2019-04-07 15:19] VITALS: BP 131/56; PULSE 61; RESP 20; TEMP 36.9; O2SAT 100
--- NOTE | 2019-04-07 15:39 | CASEMGMT ---
Social Work Spoke with patient about therapy setting DC date 04/14 and discharge plans. Pt will DC home with [facility] PT/OT, as pt was active prior. Pt requesting hospital bed and right platform attachment to FWW for wrist. [place] [facility] [place] Referred to [facility]. Left message with dtr, per pt request, to discuss discharge. Plan: DC home 04/14 with [facility] PT/OT, hospital bed, right platform attachment to FWW. NATANAEL ChauW
[2019-04-07 16:56] LABS: Bedside Glucose 111 mg/dL (70-110)
[2019-04-07 17:17] VITALS: PULSE 61
[2019-04-07] MEDS: Latanoprost 0.005% 1 Bottle 1 DRP EACH EYE (20:37)
[2019-04-07] MEDS: Atorvastatin Calcium 10 MG Tablet PO (20:38)
--- NOTE | 2019-04-07 21:41 | DCINST_ITS ---
- Discharge Diagnoses Current Active Problems: Current Active and Chronic Problems (Last Reviewed 03/13/19 @ 13:15 by Chucho Subramanian DO) Frequent falls (Acute) Chronic diastolic heart failure (Chronic) Atrial fibrillation (Chronic) Pulmonary HTN (Chronic) Hypertension (Chronic) Glaucoma (Chronic) GERD (gastroesophageal reflux disease) (Chronic) Anxiety (Chronic) Osteoarthritis of left knee (Chronic) You will use the following diet at home:: No restrictions, Regular Your food should be the consistency of: Regular Your liquids should be the consistency of: Regular/Thin Discharge Activity: May Shower, Use Walker Weight Bearing Status: No weight bearing - Right upper extremity. Call your doctor if you observe: Fever of 101 or Higher, Inability to urinate, Inability to have a bowel movement, Shortness of breath, Chest pain, Uncontrolled pain Allergies/Adverse Reactions: Allergies adhesive Allergy (Verified 03/13/19 13:42) PULLS SKIN OFF Iodinated Contrast Media [Iodinated Contrast Media - IV Dye] Allergy (Verified 03/13/19 13:42) EYES SWELL SHUT latex Adverse Reaction (Unknown, Verified 03/13/19 13:42) Unknown Medications to take at Discharge Amlodipine [Norvasc] 10 mg PO DAILY 12/02/15 Bimatoprost 0.01% [Lumigan 0.01%] 1 drp EACH EYE QHS 12/02/15 Furosemide 40 mg PO DAILY 12/02/15 Lansoprazole [Prevacid] 30 mg PO DAILY 12/02/15 Lorazepam [Ativan] 1 mg PO BID PRN 12/02/15 Metoprolol Tartrate [Lopressor (beta demetrius)] 25 mg PO BID 12/02/15 Simvastatin [Zocor] 20 mg PO QHS 12/02/15 Timolol 0.5% 1 drp EACHEYE BID 03/13/19 Losartan Potassium [Cozaar] 100 mg PO DAILY 03/17/19 Warfarin Sodium 2 mg PO Q OTHER DAY 03/17/19 Warfarin Sodium 3 mg PO Q OTHER DAY 03/17/19 Acetaminophen [Tylenol] 1,000 mg PO Q6H PRN PRN tab 04/07/19 Iron Polysaccharide Complex [Ferrex 150] 150 mg PO DAILYCM #30 cap 04/07/19 Menthol [Bengay Vanishing Scent] 1 applic TOPICAL TID PRN PRN tube 04/07/19 Menthol/Lanolin/Calamine/Znox [Calmoseptine Ointment] 1 applic TOPICAL 0600,2200 tube 04/07/19 Mineral Oil/Petrolatum,White [Eucerin] 1 applic TOPICAL QHS jar 04/07/19 Nystatin Powder [Mycostatin Powder] 1 applic TOPICAL 0600,2200 bottle 04/07/19 Ondansetron [Zofran Odt] 4 mg PO Q8H PRN PRN #21 tab 04/07/19 Oxycodone [Oxyir] 5 mg PO Q4H PRN PRN 7 Days #42 tablet 04/07/19 Polyethylene Glycol 3350 [Miralax] 17 gm PO DAILY #30 packet 04/07/19 The following prescriptions were given: Iron Polysaccharide Complex [Ferrex 150] 150 mg PO DAILYCM #30 cap Transmission Status: Pending to [facility] #30 Polyethylene Glycol 3350 [Miralax] 17 gm PO DAILY #30 packet Transmission Status: Pending to [facility] #30 Oxycodone [Oxyir] 5 mg PO Q4H PRN PRN 7 Days #42 tablet PRN Reason: Pain Score 6-10/10 Transmission Status: Sent to [facility] #30 Ondansetron [Zofran Odt] 4 mg PO Q8H PRN PRN #21 tab PRN Reason: NAUSEA Transmission Status: Pending to [facility] #30 Orders to be completed after discharge: Prothrombin Time w/INR Time Frame: 1 Day, Facility: [facility], Location: Laboratory Primary Care Physician: Radha Sigala DO [Primary Care Provider] - Please follow up with your Primary Care Physician in: 1 week. Test Results: Test results from this visit will be discussed in further detail at your follow- up appointment, if applicable. Please Follow Up With: Belinda Monsivais MD When: F/U after D/C from TCU Please Follow Up With: Sally Gamboa DO When: 2 weeks. Please Follow Up With: Radha Sigala DO When: After D/C from TCU Proposed Discharge Date: 04/14/19
--- NOTE | 2019-04-07 21:43 | DS.PCM_ITS ---
Discharge Date and Diagnosis - Problem List Patient Problems: Active and Suspected Problems (Last Reviewed 03/13/19 @ 13:15 by Chucho Subramanian DO) Frequent falls (Acute) Date of Admission: 03/17/19 Date of Discharge: 04/14/19 - Primary Discharge Diagnosis Active and Suspected Problems (Last Reviewed 03/13/19 @ 13:15 by Chucho Subramanian DO) Frequent falls (Acute) - Secondary Discharge Diagnosis Chronic Problems (Last Reviewed 03/13/19 @ 13:15 by Chucho Subramanian DO) Chronic diastolic heart failure (Chronic) Atrial fibrillation (Chronic) Pulmonary HTN (Chronic) Hypertension (Chronic) Glaucoma (Chronic) GERD (gastroesophageal reflux disease) (Chronic) Anxiety (Chronic) Osteoarthritis of left knee (Chronic) 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) 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) Chronic atrial fibrillation (Chronic) Non-rheumatic tricuspid valve insufficiency (Chronic) Secondary pulmonary arterial hypertension (Chronic) Sick sinus syndrome (Chronic) 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 2008, gen change 02/02/19 Essential (primary) hypertension (Chronic) Hyperlipidemia (Chronic) Hospital Course and Treatment Imaging Results: 03/17/19 12:23 Diet: Cardiac/Low Cholesterol Food consistency:: Regular Liquid Consistency:: Regular/Thin Diet Comments: Gatorade any flavor with meals Labs (Last 48 Hours) 04/06/19 04/06/19 04/06/19 05:15 06:54 11:51 PT 17.4 H INR 1.4 POC Glucose 103 112 H 04/06/19 04/06/19 04/07/19 16:52 21:18 06:19 PT INR POC Glucose 110 124 H 108 04/07/19 04/07/19 10:51 16:49 PT INR POC Glucose 105 111 H Operations: None, - Procedures: None Summary of Care Provided: The patient is a 83 year old Female with below past medical history hospitalized for right wrist fracture, admitted to TCU with debility, here for rehabilitation, strengthening, prior to discharge home with family. Resident requires head of the bed to be elevated more than 30 degrees most of the time due to congestive heart failure. Requires hospital bed. Discharge home with family, [facility] for [facility]; Hospital Bed, right platform attachment to front wheeled walker. Patient Problems: Active and Suspected Problems (Last Reviewed 03/13/19 @ 13:15 by Chucho Subramanian DO) Frequent falls (Acute) - Physical Exam Vitals/I&O's: Vital Signs Temp Pulse Resp BP Pulse Ox 98.5 F 61 20 H 131/56 H 100 04/07/19 15:19 04/07/19 17:17 04/07/19 15:19 04/07/19 15:19 04/07/19 15:19 Oxygen Flow Rate (L/min) 1 Oxygen Delivery Method Room Air Weight: 98.6 kg Body Mass Index (BMI) 32.1 Finger Stick Blood Glucose 141 Intake and Output for Last 24 Hours 04/05/19 04/06/19 04/07/19 23:59 23:59 23:59 Intake Total 1080 / 1080 600 / 600 740 / 740 Balance 1080 / 1080 600 / 600 740 / 740 Laboratory Results 04/07/19 06:19: POC Glucose 108 04/07/19 10:51: POC Glucose 105 04/07/19 16:49: POC Glucose 111 H Current Medications Acetaminophen (Tylenol) 1,000 mg PO Q6H PRN PRN PRN Reason: Pain Score 1-3/10 Last Admin: 04/07/19 17:16 Dose: 1,000 mg Documented by: Amlodipine Besylate (Norvasc) 10 mg PO DAILY [facility] Last Admin: 04/07/19 05:14 Dose: 10 mg Documented by: Atorvastatin Calcium (Lipitor) 10 mg PO QHS [facility] Last Admin: 04/07/19 20:38 Dose: 10 mg Documented by: Bisacodyl (Dulcolax) 10 mg PO DAILY PRN PRN Reason: Constipation Last Admin: 03/19/19 04:19 Dose: 10 mg Documented by: Calamine/Phenol (Calmoseptine Ointment) 1 applic TOPICAL 0600,2200 [facility]; Protocol Last Admin: 04/07/19 20:39 Dose: 1 applicatio Documented by: Dextrose (D50w Syringe) 0 gm IV X1 PRN; Protocol PRN Reason: Hypoglycemia Furosemide (Lasix) 40 mg PO DAILY [facility] Last Admin: 04/07/19 05:14 Dose: 40 mg Documented by: Glucagon () 1 mg IM .X1 PRN PRN Reason: Hypoglycemia Hydrocortisone Acetate (Anusol Hc) 25 mg RECTAL TID PRN PRN PRN Reason: Hemorrhoids Latanoprost (Xalatan Opthalmic) 1 drop EACH EYE QHS [facility] Last Admin: 04/07/19 20:37 Dose: 1 drop Documented by: Lidocaine/Diphenhydr/Alum/Mg/Simeth () 15 ml PO Q3H PRN PRN PRN Reason: mouth sore Last Admin: 03/31/19 21:08 Dose: 15 ml Documented by: Lorazepam (Ativan) 1 mg PO BID PRN PRN Reason: ANXIETY Losartan Potassium (Cozaar) 100 mg PO DAILY [facility] Last Admin: 04/07/19 05:14 Dose: 100 mg Documented by: Menthol (Bengay Vanishing Scent) 1 applic TOPICAL TID PRN PRN PRN Reason: pain Last Admin: 04/06/19 19:47 Dose: 1 applic Documented by: Metoprolol Tartrate (Lopressor (Beta Carlos Manuel)) 25 mg PO BID [facility] Last Admin: 04/07/19 17:17 Dose: 25 mg Documented by: Multi-Ingredient Cream (Eucerin) 1 applic TOPICAL QHS [facility]; Protocol Last Admin: 04/07/19 20:39 Dose: 1 applicatio Documented by: Nystatin (Mycostatin Powder) 1 applic TOPICAL 0600,2200 [facility]; Protocol Last Admin: 04/07/19 20:39 Dose: 1 applicatio Documented by: Ondansetron HCl (Zofran Odt) 4 mg PO Q8H PRN PRN PRN Reason: NAUSEA Last Admin: 04/07/19 05:19 Dose: 4 mg Documented by: Oxycodone HCl (Oxyir) 5 mg PO Q4H PRN PRN PRN Reason: Pain Score 6-10/10 Last Admin: 04/07/19 17:16 Dose: 5 mg Documented by: Pantoprazole Sodium (Protonix) 40 mg PO DAILY [facility] Last Admin: 04/07/19 05:14 Dose: 40 mg Documented by: Polyethylene Glycol (Miralax) 17 gm PO DAILY [facility] Last Admin: 04/07/19 05:14 Dose: Not Given Documented by: Pol[facility]accharide [facility] ([facility] 150) [facility] Last Admin: 04/07/19 09:11 Dose: 150 mg Documented by: Senna/Docusate Sodium (Senokot-S, Rimma-Colace) 2 tablet PO BID [facility] Last Admin: 04/07/19 17:17 Dose: Not Given Documented by: Timolol Maleate (Timoptic) 1 drop EACH EYE BID [facility] Last Admin: 04/07/19 17:12 Dose: 1 drop Documented by: Tramadol HCl (Ultram) 50 mg PO Q6H PRN PRN PRN Reason: Pain Score 4-5/10 Last Admin: 04/03/19 15:07 Dose: 50 mg Documented by: Warfarin Sodium (Coumadin (Pbkc)) 2.5 mg PO DAILY@1700 [facility] Last Admin: 04/07/19 17:10 Dose: 2.5 mg Documented by: Warfarin Sodium (Coumadin (Pbkc)) 1 mg PO DAILY@1700 [facility] Last Admin: 04/07/19 17:10 Dose: 1 mg Documented by: Discharge Diet: No Restrictions Discharge Activity: May Shower, Use Walker Weight Bearing Status: No weight bearing - Right upper extremity. Call your doctor if you observe: Fever of 101 or Higher, Inability to urinate, Inability to have a bowel movement, Shortness of breath, Chest pain, Uncontrolled pain Home Medications: Medications to take at Discharge Amlodipine [Norvasc] 10 mg PO DAILY 12/02/15 Bimatoprost 0.01% [Lumigan 0.01%] 1 drp EACH EYE QHS 12/02/15 Furosemide 40 mg PO DAILY 12/02/15 Lansoprazole [Prevacid] 30 mg PO DAILY 12/02/15 Lorazepam [Ativan] 1 mg PO BID PRN 12/02/15 Metoprolol Tartrate [Lopressor (beta carlos manuel)] 25 mg PO BID 12/02/15 Simvastatin [Zocor] 20 mg PO QHS 12/02/15 Timolol 0.5% 1 drp EACHEYE BID 03/13/19 Losartan Potassium [Cozaar] 100 mg PO DAILY 03/17/19 Warfarin Sodium 2 mg PO Q OTHER DAY 03/17/19 Warfarin Sodium 3 mg PO Q OTHER DAY 03/17/19 Acetaminophen [Tylenol] 1,000 mg PO Q6H PRN PRN tab 04/07/19 Iron Polysaccharide Complex [Ferrex 150] 150 mg PO DAILYCM #30 cap 04/07/19 Menthol [Bengay Vanishing Scent] 1 applic TOPICAL TID PRN PRN tube 04/07/19 Menthol/Lanolin/Calamine/Znox [Calmoseptine Ointment] 1 applic TOPICAL 0600,2200 tube 04/07/19 Mineral Oil/Petrolatum,White [Eucerin] 1 applic TOPICAL QHS jar 04/07/19 Nystatin Powder [Mycostatin Powder] 1 applic TOPICAL 0600,2200 bottle 04/07/19 Ondansetron [Zofran Odt] 4 mg PO Q8H PRN PRN #21 tab 04/07/19 Oxycodone [Oxyir] 5 mg PO Q4H PRN PRN 7 Days #42 tablet 04/07/19 Polyethylene Glycol 3350 [Miralax] 17 gm PO DAILY #30 packet 04/07/19 Following Prescrptions Were Given to Patient: Iron Polysaccharide Complex [Ferrex 150] 150 mg PO DAILYCM #30 cap Transmission Status: Pending to [facility] #30 Polyethylene Glycol 3350 [Miralax] 17 gm PO DAILY #30 packet Transmission Status: Pending to [facility] #30 Oxycodone [Oxyir] 5 mg PO Q4H PRN PRN 7 Days #42 tablet PRN Reason: Pain Score 6-10/10 Transmission Status: Sent to [facility] #30 Ondansetron [Zofran Odt] 4 mg PO Q8H PRN PRN #21 tab PRN Reason: NAUSEA Transmission Status: Pending to [facility] #30 Other Amb Orders: Prothrombin Time w/INR Time Frame: 1 Day, Facility: [facility], Location: Laboratory Primary Care Physician: Radha Sigala DO [Primary Care Provider] - Please follow up with your Primary Care Physician in: 1 week. Please Follow Up With: Belinda Monsivais MD When: F/U after D/C from TCU Please Follow Up With: Sally Gamboa DO When: 2 weeks. Please Follow Up With: Radha Sigala DO When: After D/C from TCU Disposition: Home with Home Health Minutes spent on discharge:: 35 Patient Condition:: Stable Medical Necessity - Tobacco Use Smoking Status: Never smoker Tobacco Use: Secondhand Meaningful Use Info Meaningful Use Diagnoses (Choose all that apply): None applicable
--- NOTE | 2019-04-07 21:45 | HHNOTE_ITS ---
Home Health Note - Plan Overview of reason of hospitalization: The patient is a 83 year old Female with below past medical history hospitalized for right wrist fracture, admitted to TCU with debility, here for rehabilitation, strengthening, prior to discharge home with family. Resident requires head of the bed to be elevated more than 30 degrees most of the time due to congestive heart failure. Requires hospital bed. Discharge home with family, [facility] for PT /OT; Hospital Bed, right platform attachment to front wheeled walker. Problems: Patient was seen for (Last Reviewed 03/13/19 @ 13:15 by Chucho Subramanian DO) Frequent falls (Acute) Chronic diastolic heart failure (Chronic) Atrial fibrillation (Chronic) Pulmonary HTN (Chronic) Hypertension (Chronic) Glaucoma (Chronic) GERD (gastroesophageal reflux disease) (Chronic) Anxiety (Chronic) Osteoarthritis of left knee (Chronic) Complete List of Medical Problems (Last Reviewed 03/13/19 @ 13:15 by Chucho Subramanian DO) Triquetral chip fracture (Acute) Debility (Acute) Frequent falls (Acute) Chronic diastolic heart failure (Chronic) Atrial fibrillation (Chronic) Pulmonary HTN (Chronic) Hypertension (Chronic) Glaucoma (Chronic) GERD (gastroesophageal reflux disease) (Chronic) Anxiety (Chronic) Osteoarthritis of left knee (Chronic) 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) 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) Chronic atrial fibrillation (Chronic) Non-rheumatic tricuspid valve insufficiency (Chronic) Secondary pulmonary arterial hypertension (Chronic) Sick sinus syndrome (Chronic) 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) Essential (primary) hypertension (Chronic) Hyperlipidemia (Chronic) - Requirements and Reasons Disciplines Needed/Ordered: Physical Therapy Reason for Disciplines: Labs for Short Term Therapeutic Monitoring, Gait Training, Stair Training, Fall Prevention, Home Safety/Equipment Instruction, Balance and/or Posture Training, Transfer Training Related To: Change in Medical Treatment Plan, Limited/Poor Endurance, Shortness of Breath with Activity, Physical Impairments, Unsteady Gait/Balance, Intractable Pain, Fall Risk Patient is unable to leave the home: Without Aid of Supportive Devices (crutches, cane, wheelchair, walker), Without the assistance of another person, Because it is medically contraindicated Medically Contraindicated related to: Weight Bearing Status - Additional Disciplines Additional Disciplines Needed/Ordered: Occupational Therapy
[2019-04-07 21:46] LABS: Bedside Glucose 109 mg/dL (70-110)
[2019-04-08] MEDS: traMADol 50 MG Tablet PO (02:58)
[2019-04-08] MEDS: Acetaminophen 500 MG Tablet 1000 MG PO ×3 (02:59→21:45)
[2019-04-08] MEDS: Nystatin Powder 15gm Bottle 1 APPLIC TOPICAL ×2 (05:12→21:49)
[2019-04-08] MEDS: Losartan Potassium 100 MG Tablet PO (05:12)
[2019-04-08] MEDS: Pantoprazole Sodium 40 MG Tablet PO (05:12)
[2019-04-08] MEDS: Furosemide 40 MG Tablet PO ×2 (05:12→18:03)
[2019-04-08] MEDS: amLODIPine 10 MG Tablet PO (05:12)
[2019-04-08] MEDS: Menthol/Lanolin/Calamine/Znox 113 GM Tube 1 APPLIC TOPICAL ×2 (05:12→21:50)
[2019-04-08] MEDS: Timolol 0.5% 5ML OPTH.BTL 1 DRP EACH EYE ×2 (05:14→16:40)
[2019-04-08 05:20] VITALS: BP 129/49; PULSE 69
[2019-04-08] MEDS: Metoprolol Tartrate 25 MG Tablet PO ×2 (05:20→16:40)
[2019-04-08 06:31] LABS: Bedside Glucose 100 mg/dL (70-110)
[2019-04-08] MEDS: Iron Polysaccharide Complex 150 MG CAPSULE PO (08:15)
[2019-04-08 09:30] VITALS: PULSE 68; RESP 16; O2SAT 97
[2019-04-08 11:20] LABS: Bedside Glucose 95 mg/dL (70-110)
[2019-04-08] MEDS: oxyCODONE 5 MG Tablet PO ×2 (13:30→21:45)
[2019-04-08 15:51] VITALS: BP 109/42; PULSE 60; RESP 19; TEMP 36.7; O2SAT 100
[2019-04-08] MEDS: Senna/Docusate Sodium 1 Tablet 2 TABLET PO (16:39)
[2019-04-08 16:40] VITALS: PULSE 60
[2019-04-08 16:50] LABS: Bedside Glucose 119 mg/dL (70-110)
--- NOTE | 2019-04-08 17:21 | NURSING ---
Addendum entered by Jonna Modi 04/08/19 18:04: R' NOTIFIED OF NEW ORDER FOR INCREASED LASIX. AGREEABLE. Addendum entered by Jeannette Shane Gonzalo 04/08/19 17:49: Dr Orozco updated, new order to increase lasix BID x3 days and recheck BMP Original Note: R' C/O INCREASED BLE EDEMA AND SOB. LEGS HAVE +1 PITTING EDEMA. ELEVATED LE'S. LUNGS SOUNDS DIMINISHED T/O. CONCERNED THAT SHE NEEDS INCREASED LASIX. WILL UPDATE DR. OROZCO.
[2019-04-08 21:06] LABS: Bedside Glucose 134 mg/dL (70-110)
[2019-04-08] MEDS: Latanoprost 0.005% 1 Bottle 1 DRP EACH EYE (21:45)
[2019-04-08] MEDS: Atorvastatin Calcium 10 MG Tablet PO (21:46)
[2019-04-09] MEDS: oxyCODONE 5 MG Tablet PO ×2 (05:14→20:47)
[2019-04-09 05:15] VITALS: BP 115/71; PULSE 69
[2019-04-09] MEDS: Pantoprazole Sodium 40 MG Tablet PO (05:15)
[2019-04-09] MEDS: Acetaminophen 500 MG Tablet 1000 MG PO ×2 (05:15→20:47)
[2019-04-09] MEDS: Losartan Potassium 100 MG Tablet PO (05:15)
[2019-04-09] MEDS: amLODIPine 10 MG Tablet PO (05:15)
[2019-04-09] MEDS: Metoprolol Tartrate 25 MG Tablet PO ×2 (05:15→17:04)
[2019-04-09] MEDS: Timolol 0.5% 5ML OPTH.BTL 1 DRP EACH EYE ×2 (05:16→17:03)
[2019-04-09] MEDS: Menthol/Lanolin/Calamine/Znox 113 GM Tube 1 APPLIC TOPICAL ×2 (05:18→20:54)
[2019-04-09] MEDS: Nystatin Powder 15gm Bottle 1 APPLIC TOPICAL ×2 (05:18→20:49)
[2019-04-09 05:39] LABS: International Normalized Ratio 1.7; Prothrombin Time (Protime)PT. 20.2 SECONDS (11.7-14.9)
[2019-04-09 06:26] LABS: Bedside Glucose 106 mg/dL (70-110)
[2019-04-09] MEDS: Iron Polysaccharide Complex 150 MG CAPSULE PO (07:56)
[2019-04-09] MEDS: Furosemide 40 MG Tablet PO ×2 (08:24→14:05)
[2019-04-09 10:40] LABS: Bedside Glucose 117 mg/dL (70-110)
[2019-04-09 15:25] VITALS: BP 115/57; PULSE 60; RESP 14; TEMP 36.4; O2SAT 96
[2019-04-09 16:51] LABS: Bedside Glucose 112 mg/dL (70-110)
[2019-04-09] MEDS: Senna/Docusate Sodium 1 Tablet 2 TABLET PO (17:03)
[2019-04-09 17:04] VITALS: BP 133/66; PULSE 69
[2019-04-09] MEDS: Atorvastatin Calcium 10 MG Tablet PO (20:47)
[2019-04-09] MEDS: Latanoprost 0.005% 1 Bottle 1 DRP EACH EYE (20:48)
[2019-04-10 06:15] LABS: Bedside Glucose 111 mg/dL (70-110)
[2019-04-10] MEDS: Menthol/Lanolin/Calamine/Znox 113 GM Tube 1 APPLIC TOPICAL ×2 (06:20→20:32)
[2019-04-10] MEDS: Nystatin Powder 15gm Bottle 1 APPLIC TOPICAL ×2 (06:21→20:31)
[2019-04-10 06:22] VITALS: BP 123/50; PULSE 60
[2019-04-10] MEDS: Furosemide 40 MG Tablet PO ×2 (06:22→13:16)
[2019-04-10] MEDS: Losartan Potassium 100 MG Tablet PO (06:22)
[2019-04-10] MEDS: amLODIPine 10 MG Tablet PO (06:22)
[2019-04-10] MEDS: Pantoprazole Sodium 40 MG Tablet PO (06:22)
[2019-04-10] MEDS: Metoprolol Tartrate 25 MG Tablet PO ×2 (06:22→17:29)
[2019-04-10] MEDS: Timolol 0.5% 5ML OPTH.BTL 1 DRP EACH EYE ×2 (06:23→17:29)
[2019-04-10] MEDS: Iron Polysaccharide Complex 150 MG CAPSULE PO (09:09)
[2019-04-10] MEDS: oxyCODONE 5 MG Tablet PO (13:14)
[2019-04-10] MEDS: Acetaminophen 500 MG Tablet 1000 MG PO (13:15)
[2019-04-10] MEDS: Ondansetron ODT 4 MG Tablet PO (13:16)
[2019-04-10 16:00] VITALS: BP 139/46; PULSE 60; RESP 19; TEMP 36.9; O2SAT 100
[2019-04-10 17:00] LABS: Bedside Glucose 111 mg/dL (70-110)
[2019-04-10 17:29] VITALS: PULSE 60
[2019-04-10] MEDS: Senna/Docusate Sodium 1 Tablet 2 TABLET PO (17:29)
[2019-04-10] MEDS: Atorvastatin Calcium 10 MG Tablet PO (20:31)
[2019-04-10] MEDS: Latanoprost 0.005% 1 Bottle 1 DRP EACH EYE (20:31)
[2019-04-11] MEDS: Nystatin Powder 15gm Bottle 1 APPLIC TOPICAL ×2 (05:14→21:03)
[2019-04-11] MEDS: oxyCODONE 5 MG Tablet PO ×2 (05:14→15:00)
[2019-04-11] MEDS: Timolol 0.5% 5ML OPTH.BTL 1 DRP EACH EYE ×2 (05:14→17:55)
[2019-04-11] MEDS: Menthol/Lanolin/Calamine/Znox 113 GM Tube 1 APPLIC TOPICAL (05:14)
[2019-04-11] MEDS: Pantoprazole Sodium 40 MG Tablet PO (05:15)
[2019-04-11] MEDS: Senna/Docusate Sodium 1 Tablet 2 TABLET PO (05:15)
[2019-04-11] MEDS: Acetaminophen 500 MG Tablet 1000 MG PO ×2 (05:15→15:00)
[2019-04-11] MEDS: Furosemide 40 MG Tablet PO ×2 (05:15→12:16)
[2019-04-11 05:16] VITALS: PULSE 60
[2019-04-11] MEDS: Losartan Potassium 100 MG Tablet PO (05:16)
[2019-04-11] MEDS: amLODIPine 10 MG Tablet PO (05:16)
[2019-04-11] MEDS: Metoprolol Tartrate 25 MG Tablet PO ×2 (05:16→17:54)
[2019-04-11 06:51] LABS: Bedside Glucose 126 mg/dL (70-110)
[2019-04-11 08:00] LABS: Anion Gap 7 (5-15); BUN 19 mg/dL (7-18); BUN/Creat Ratio 16.8 RATIO (10-20); Calcium,Total 8.4 mg/dL (8.5-10.1); Chloride 97 mmol/L (98-107); Creatinine, Serum 1.13 mg/dL (0.55-1.02); EST Glomerular Filtration Rate 49 mL/min (>60); Est Glom Filt Rate - Afr Amer 59 mL/min (>60); Estimated Creatinine Clearance 35.93 ml/min; Glucose 110 mg/dL (74-106); Potassium 3.8 mmol/L (3.5-5.1); Sodium Level 131 mmol/L (136-145)
[2019-04-11] MEDS: Iron Polysaccharide Complex 150 MG CAPSULE PO (08:08)
[2019-04-11 16:00] VITALS: BP 127/60; PULSE 60; RESP 19; TEMP 36.7; O2SAT 100
[2019-04-11 17:00] LABS: Bedside Glucose 110 mg/dL (70-110)
[2019-04-11 17:54] VITALS: BP 127/60; PULSE 60
[2019-04-11] MEDS: Atorvastatin Calcium 10 MG Tablet PO (21:05)
[2019-04-11] MEDS: Latanoprost 0.005% 1 Bottle 1 DRP EACH EYE (21:07)
[2019-04-12] MEDS: Acetaminophen 500 MG Tablet 1000 MG PO ×2 (04:40→16:49)
[2019-04-12] MEDS: oxyCODONE 5 MG Tablet PO ×2 (04:40→16:49)
[2019-04-12] MEDS: Timolol 0.5% 5ML OPTH.BTL 1 DRP EACH EYE ×2 (04:42→16:43)
[2019-04-12] MEDS: Furosemide 40 MG Tablet PO ×2 (04:43→13:58)
[2019-04-12 04:44] VITALS: BP 140/65; PULSE 60
[2019-04-12] MEDS: Metoprolol Tartrate 25 MG Tablet PO ×2 (04:44→16:43)
[2019-04-12] MEDS: Losartan Potassium 100 MG Tablet PO (04:44)
[2019-04-12] MEDS: Pantoprazole Sodium 40 MG Tablet PO (04:45)
[2019-04-12] MEDS: amLODIPine 10 MG Tablet PO (04:45)
[2019-04-12] MEDS: Senna/Docusate Sodium 1 Tablet 2 TABLET PO (04:46)
[2019-04-12] MEDS: Nystatin Powder 15gm Bottle 1 APPLIC TOPICAL ×2 (04:49→21:27)
[2019-04-12 05:00] VITALS: BP 140/65; PULSE 60; RESP 20; TEMP 37; O2SAT 100
[2019-04-12 06:36] LABS: Bedside Glucose 112 mg/dL (70-110)
[2019-04-12] MEDS: Iron Polysaccharide Complex 150 MG CAPSULE PO (08:29)
[2019-04-12 15:41] VITALS: BP 119/46; PULSE 61; RESP 19; TEMP 36.5; O2SAT 100
[2019-04-12 16:43] VITALS: BP 119/46; PULSE 61
[2019-04-12 17:15] LABS: Bedside Glucose 142 mg/dL (70-110)
[2019-04-12] MEDS: Menthol/Lanolin/Calamine/Znox 113 GM Tube 1 APPLIC TOPICAL (21:25)
[2019-04-12] MEDS: Atorvastatin Calcium 10 MG Tablet PO (21:26)
[2019-04-12] MEDS: Latanoprost 0.005% 1 Bottle 1 DRP EACH EYE (21:27)
[2019-04-13 04:52] VITALS: BP 149/57; PULSE 66; O2SAT 100
[2019-04-13] MEDS: Timolol 0.5% 5ML OPTH.BTL 1 DRP EACH EYE ×2 (04:55→16:39)
[2019-04-13 04:56] VITALS: PULSE 66
[2019-04-13] MEDS: amLODIPine 10 MG Tablet PO (04:56)
[2019-04-13] MEDS: Metoprolol Tartrate 25 MG Tablet PO ×2 (04:56→16:39)
[2019-04-13] MEDS: Losartan Potassium 100 MG Tablet PO (04:56)
[2019-04-13] MEDS: Pantoprazole Sodium 40 MG Tablet PO (04:56)
[2019-04-13] MEDS: Senna/Docusate Sodium 1 Tablet 2 TABLET PO (04:56)
[2019-04-13] MEDS: Menthol/Lanolin/Calamine/Znox 113 GM Tube 1 APPLIC TOPICAL ×2 (04:57→20:33)
[2019-04-13] MEDS: Nystatin Powder 15gm Bottle 1 APPLIC TOPICAL ×2 (04:58→20:34)
[2019-04-13 06:11] LABS: International Normalized Ratio 2.2; Prothrombin Time (Protime)PT. 24.8 SECONDS (11.7-14.9)
[2019-04-13 06:21] LABS: Bedside Glucose 102 mg/dL (70-110)
[2019-04-13] MEDS: Acetaminophen 500 MG Tablet 1000 MG PO ×2 (08:28→20:36)
[2019-04-13] MEDS: Iron Polysaccharide Complex 150 MG CAPSULE PO (08:28)
[2019-04-13] MEDS: oxyCODONE 5 MG Tablet PO ×2 (08:29→20:37)
[2019-04-13 15:50] VITALS: BP 133/70; PULSE 61; RESP 16; TEMP 36.9; O2SAT 100
[2019-04-13 16:39] VITALS: BP 133/70; PULSE 61
[2019-04-13 17:10] LABS: Bedside Glucose 116 mg/dL (70-110)
[2019-04-13] MEDS: Atorvastatin Calcium 10 MG Tablet PO (20:30)
[2019-04-13] MEDS: Latanoprost 0.005% 1 Bottle 1 DRP EACH EYE (20:31)
[2019-04-14 06:25] LABS: Bedside Glucose 98 mg/dL (70-110)
[2019-04-14] MEDS: Timolol 0.5% 5ML OPTH.BTL 1 DRP EACH EYE (06:41)
[2019-04-14 06:46] VITALS: BP 145/74; PULSE 62
[2019-04-14] MEDS: Pantoprazole Sodium 40 MG Tablet PO (06:46)
[2019-04-14] MEDS: Metoprolol Tartrate 25 MG Tablet PO (06:46)
[2019-04-14] MEDS: Furosemide 40 MG Tablet PO (06:46)
[2019-04-14] MEDS: Senna/Docusate Sodium 1 Tablet 2 TABLET PO (06:46)
[2019-04-14] MEDS: Losartan Potassium 100 MG Tablet PO (06:46)
[2019-04-14] MEDS: amLODIPine 10 MG Tablet PO (06:47)
[2019-04-14] MEDS: oxyCODONE 5 MG Tablet PO (07:45)
[2019-04-14] MEDS: Acetaminophen 500 MG Tablet 1000 MG PO (07:45)
[2019-04-14] MEDS: Iron Polysaccharide Complex 150 MG CAPSULE PO (07:46)
[2019-04-14 08:02] VITALS: PULSE 61; RESP 18; TEMP 36.7; O2SAT 98
[2019-04-14 08:08] VITALS: PULSE 61; RESP 18
== END 2019-04-14 09:55 | disposition home health service (06) | DRG 560 ==
PROVIDERS: Admitting Provider Family Medicine Geriatric Medicine; Family Provider Family Medicine; PCP Family Medicine; Referring Provider Family Medicine Geriatric Medicine; Visit Provider Family Medicine Geriatric Medicine
DX: S62.111D Displaced fracture of triquetrum [cuneiform] bone, right wrist, subsequent encounter for fracture with routine healing (principal); I50.32 Chronic diastolic (congestive) heart failure; I13.0 Hypertensive heart and chronic kidney disease with heart failure and stage 1 through stage 4 chronic kidney disease, or unspecified chronic kidney disease; I48.20 Chronic atrial fibrillation, unspecified; W10.9XXD Fall (on) (from) unspecified stairs and steps, subsequent encounter; E78.5 Hyperlipidemia, unspecified; M17.12 Unilateral primary osteoarthritis, left knee; K21.9 Gastro-esophageal reflux disease without esophagitis; F41.9 Anxiety disorder, unspecified; I27.21 Secondary pulmonary arterial hypertension; E11.22 Type 2 diabetes mellitus with diabetic chronic kidney disease; N18.9 Chronic kidney disease, unspecified; B35.4 Tinea corporis; I25.10 Atherosclerotic heart disease of native coronary artery without angina pectoris; H40.9 Unspecified glaucoma; Z91.81 History of falling; E66.9 Obesity, unspecified; Z68.34 Body mass index [BMI] 34.0-34.9, adult; Z71.3 Dietary counseling and surveillance
CPT/HCPCS: 36415; 80048; 81001; 82962; 85014; 85018; 85025; 85610; 87086; 97110; 97116; 97162; 97166; 97530; 97535; 97802

== ENCOUNTER 2019-04-21 15:34 | Emergency (ER) | payer MEDICARE, OTHER, SELFPAY ==
[2019-04-21 15:35] VITALS: BP 122/69; PULSE 73; PULSE 76; RESP 16; RESP 18; TEMP 36.6; O2SAT 97; O2SAT 98; BMI 37.5
--- NOTE | 2019-04-21 15:49 | EKG12_ITS ---
Test Reason : SOB Blood Pressure : / mmHG Vent. Rate : 061 BPM Atrial Rate : 234 BPM P-R Int : 000 ms QRS Dur : 146 ms QT Int : 470 ms P-R-T Axes : 000 263 109 degrees QTc Int : 473 ms Ventricular-paced rhythm Abnormal ECG Confirmed by MIMI NEWBERRY ([id number]), desk editor SAMEERA WATKINS ([id number]) on 04/24/2019 11:25:26 AM Referred By: HEATHER Confirmed By:MIMI NEWBERRY
--- NOTE | 2019-04-21 15:53 | ED.VIS.GEN ---
History of Present Illness Chief Complaint: Shortness of Breath Informant: Patient, Family Onset: Weeks - 1 Narrative: Patient here with family 1 week progressive symptoms of increased leg swelling and dyspnea worse with exertion. No chest pains. Reports history of CHF along with chronic A. fib with pacemaker. Patient on Coumadin. Is on Lasix 40 mg daily, has been taking her medications yesterday reports took it twice a day. Was told to take extra if she gains 4 to 5 pounds, she has not weighed herself since being discharged from rehab a week ago. She had right wrist fracture last month. She is currently using a walker for assistance since her injury. Nonproductive cough, no fevers. No vomiting or diarrhea. Patient does not wear oxygen. Last dose of Lasix this morning, was told her renal function is being monitored. No dialysis. [facility] Staff is Dr. Schneider. Past Medical History - Allergies and Home Meds Allergies/Adverse Reactions: Allergies adhesive Allergy (Verified 03/13/19 13:42) PULLS SKIN OFF Iodinated Contrast Media [Iodinated Contrast Media - IV Dye] Allergy (Verified 03/13/19 13:42) EYES SWELL SHUT latex Adverse Reaction (Unknown, Verified 03/13/19 13:42) Unknown Primary Care Physician: Radha Sigala DO [Primary Care Provider] - Surgical History: cholecystectomy, hysterectomy, pacemaker implantation, - - stomach surgery/hiatal hernia, ablation Smoking Status: Never smoker - Family History Paternal Family History: Reports: Heart Disease Maternal Family History: Reports: No pertinent history Review of Systems General: Denies: Chills, Fever, Sweats Eyes: Denies: Visual changes - bilaterally, Diplopia ENT: Denies: Rhinorrhea, Sore throat Cardiovascular: Denies: Chest pain, Palpitations Respiratory: Reports: Dyspnea, Cough. Denies: Sputum, Dyspnea on exertion Gastrointestinal: Denies: Abdominal pain, Nausea, Vomiting, Diarrhea, Melena, Hematochezia Genitourinary: Denies: Dysuria, Hematuria, Frequency Musculoskeletal: Reports: Swelling. Denies: Back pain, Extremity Pain Skin: Denies: Rash, Wounds Neurological: Denies: Headache, Weakness, Numbness Physical Exam Vital Signs/Narrative: Vital Signs Temp Pulse Resp BP Pulse Ox 04/21/19 15:35 97.9 F 73 18 122/69 H 98 Inital Vital Signs reviewed: Yes General: Well nourished, Well developed, No Acute Distress Head: Normocephalic, Atraumatic Eyes: Perrl, EOMI ENT: Moist mucous membranes, No rhinorrhea Neck: Supple, Nontender Cardiovascular: Regular rate, No murmurs, Irregular Respiratory: No distress, CTA bilaterally, Chest nontender Abdomen: Soft, Nontender, Nondistended, Normal bowel sounds Back: Nontender, Normal Inspection Extremities: Nontender, - - 1+ symmetric lower extremity edema. No pitting edema in the thighs or lower abdomen. There is Velcro wrist splint to the right upper extremity. Neurovascular intact distally. Skin: Normal color, No rash Neurological: Alert, Oriented x3, Cranial nerves II-XII grossly intact, Normal Strength, Normal Sensation Psychological: Normal affect, Normal Mood Diagnostic/Tx/Re-eval Clinical Impression(s) from Imaging Studies Chest X-Ray 04/21/19 16:15 IMPRESSION: 1. Stable borderline to mild cardiac enlargement with calcified thoracic aorta. No CHF. 2. Multilead left subclavian cardiac pacemaker again noted. 3. Minor subsegmental atelectasis in the medial left base. Electronically Signed: Marcos Dhillon MD at 16:47 EST , Service support , Abnormal Lab Results 04/21/19 04/21/19 04/21/19 15:45 15:45 15:45 WBC 4.0 L RBC 3.29 L Hgb 10.4 L Hct 32.7 L MCV 99.4 H MCH 31.6 MCHC 31.8 L RDW Std Deviation 60.0 H RDW Coeff of Vlad 16.6 H Plt Count 135 L MPV 11.0 Immature Gran % (Auto) 0.800 Neut % (Auto) 53.6 Lymph % (Auto) 12.3 L [place] % (Auto) 32.0 H Eos % (Auto) 1.0 Baso % (Auto) 0.3 Absolute Neuts (auto) 2.2 Absolute Lymphs (auto) 0.49 L Nucleated RBC % 0 Differential Comment Diff Path Review May foll Platelet Estimate SLT APR PT 32.0 H INR 3.1 Sodium 136 Potassium 3.2 L Chloride 101 Carbon Dioxide 25.0 Anion Gap 10 BUN 10 Creatinine 1.18 H Estim Creat Clear Calc 33.08 Est GFR (MDRD) Af Amer 56 L Est GFR (MDRD) Non-Af 47 L BUN/Creatinine Ratio 8.5 L Glucose 163 H Calcium 8.5 Troponin I < 0.015 B-Natriuretic Peptide 04/21/19 15:45 WBC RBC Hgb Hct MCV MCH MCHC RDW Std Deviation RDW Coeff of Vlad Plt Count MPV Immature Gran % (Auto) Neut % (Auto) Lymph % (Auto) [place] % (Auto) Eos % (Auto) Baso % (Auto) Absolute Neuts (auto) Absolute Lymphs (auto) Nucleated RBC % Differential Comment Diff Path Review Platelet Estimate PT INR Sodium Potassium Chloride Carbon Dioxide Anion Gap BUN Creatinine Estim Creat Clear Calc Est GFR (MDRD) Af Amer Est GFR (MDRD) Non-Af BUN/Creatinine Ratio Glucose Calcium Troponin I B-Natriuretic Peptide 477.7 H - Medical Decision Making 3 patient EKG ventricular paced 61 with no acute changes. Chest x-ray negative for effusions, labs are stable with a creatinine stable, BNP slightly elevated at 477. She is ambulated room air transiently 89% however quickly aroused up. She is not dyspneic. She will increase her Lasix twice a day for the next 3 days, she will follow-up with her security attendant. Signs and symptoms discussed return. All questions were answered. ED Disposition - Plan for ED Patient: Disposition: Home or Assisted Living Diagnosis: CHF (congestive heart failure) Instructions: CHF, General Referrals: Radha Sigala DO [Primary Care Provider] - Tyree Schneider MD [STAFF PHYSICIAN] - 3-5 Days Additional Instructions: Take your Lasix 40 mg twice a day for the next 3 days then daily. Follow-up with Dr. Schneider.
[2019-04-21 16:13] LABS: Absolute Lymphocyte Count 0.49 X10^3/uL (0.83-4.51); Absolute Neutrophil Count 2.2 X10^3/uL (2.0-7.7); Basophil# 0.01 X10^3/uL; Basophil% 0.3 % (0-1); Eosinophil# 0.04 X10^3/uL; Hematocrit 32.7 % (37-47); Hemoglobin 10.4 g/dL (12.0-15.0); Lymphocyte # 0.49 X10^3/ul (4.0); Lymphocyte % 12.3 % (19-41); Mean Corp Hgb Conc 31.8 g/dL (32-36); Mean Corpuscular Hgb 31.6 pg (27.0-32.0); Mean Corpuscular Volume 99.4 fL (81-99); Monocyte# 1.28 X10^3/uL; NRBC Flagged by Analyzer 0 % (0-5); Neutrophil # 2.15 X10^3/uL (2.7-7.7); Neutrophil % 53.6 % (47-70); POSITIVE DIFFERENTIAL YES; Platelet Count 135 K/mm3 (150-450); RBC Distribution Width CV 16.6 % (11.6-14.6); Red Blood Count 3.29 M/mm3 (4.2-5.4)
--- NOTE | 2019-04-21 16:15 | RAD_ITS ---
STUDY: X-RAY CHEST REASON FOR EXAM: Female, 83 years old. Shortness of breath with exertion. Edema. History of CHF and atrial fibrillation. Weight gain. TECHNIQUE: Upright AP and lateral views of the chest. COMPARISON: Portable AP supine chest x-ray March 13, 2019 FINDINGS: The multilead left subclavian cardiac pacemaker is unchanged. The lungs are mildly under expanded, and there is subsegmental atelectasis in the medial left base. There is no demonstrated pleural abnormality. There is stable borderline to mild cardiac enlargement. Normal mediastinum and arnol. Normal visualized pulmonary arteries. There is stable atherosclerotic calcification of the aortic arch and descending thoracic aorta. Normal visualized thoracic spine. Normal visualized ribs, clavicles, and shoulders. There is no demonstrated abnormality of the visualized soft tissue structures of the upper abdomen. RAD/Chest PA and Lateral IMPRESSION: 1. Stable borderline to mild cardiac enlargement with calcified thoracic aorta. No CHF. 2. Multilead left subclavian cardiac pacemaker again noted. 3. Minor subsegmental atelectasis in the medial left base. Electronically Signed: Marcos Dhillon MD at 16:47 EST , Service support ,
[2019-04-21 16:17] LABS: International Normalized Ratio 3.1
[2019-04-21 16:26] LABS: Differential Indicated SCAN CRITERIA MET
[2019-04-21 16:31] LABS: Anion Gap 10 (5-15); BUN 10 mg/dL (7-18); BUN/Creat Ratio 8.5 RATIO (10-20); Calcium,Total 8.5 mg/dL (8.5-10.1); Chloride 101 mmol/L (98-107); Creatinine, Serum 1.18 mg/dL (0.55-1.02); EST Glomerular Filtration Rate 47 mL/min (>60); Est Glom Filt Rate - Afr Amer 56 mL/min (>60); Estimated Creatinine Clearance 33.08 ml/min; Glucose 163 mg/dL (74-106); Potassium 3.2 mmol/L (3.5-5.1); Sodium Level 136 mmol/L (136-145)
[2019-04-21 16:37] VITALS: BP 102/43; PULSE 61; RESP 20; O2SAT 99
[2019-04-21 17:01] LABS: Pathologist Review May foll; Platelet Estimate SLT DEC (ADEQ)
[2019-04-21 17:08] LABS: BNP,B-Type NATRIURETIC PEPTIDE 477.7 pg/mL (0-100)
[2019-04-21 18:45] VITALS: BP 117/63; PULSE 60; RESP 16; O2SAT 99
[2019-04-21] MEDS: Furosemide 40 MG/4 ML Vial IV (18:46)
[2019-04-21 19:00] VITALS: BP 115/58; PULSE 89; RESP 18; O2SAT 100; O2SAT 94
[2019-04-21 19:56] VITALS: RESP 18
== END 2019-04-21 19:57 | disposition home or self-care (01) ==
PROVIDERS: Emergency Provider Emergency Medicine; Family Provider Family Medicine; PCP Family Medicine
DX: I50.9 Heart failure, unspecified (principal); I48.20 Chronic atrial fibrillation, unspecified; Z79.01 Long term (current) use of anticoagulants; Z95.0 Presence of cardiac pacemaker; Z79.899 Other long term (current) drug therapy
CPT/HCPCS: 71046; 80048; 83880; 84484; 85025; 85610; 93005; 96374; 99285; J1940

== ENCOUNTER → 2019-04-28 10:37 | Outpatient (CLI) | payer MEDICARE, OTHER, SELFPAY ==
[2019-04-28 10:19] VITALS: BMI 37.5
--- NOTE | 2019-04-28 10:39 | RAD_ITS ---
STUDY: X-RAY - RIGHT WRIST REASON FOR EXAM: Pain. TECHNIQUE: 3 view(s) of the wrist were obtained. COMPARISON: Radiographs 03/13/2019 and 08/30/2016. FINDINGS: There is osteopenia. There is widening of the scapholunate interval and joint space narrowing of the radiocarpal compartment of the wrist with erosion of the distal radius consistent with scapholunate advanced collapse as on the prior study. 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 There is a healing small nondisplaced fracture of the dorsal ulnar aspect of the hamate. 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 Normal carpometacarpal articulation of the thumb. Normal second through fifth carpometacarpal articulations. Normal visualized metacarpal bones. There is vascular calcification. There is a well-defined ossification at the dorsal aspect of the proximal carpal row unchanged since 2017. RAD/Wrist min 3 Views IMPRESSION: Small healing nondisplaced fracture of the dorsal ulnar aspect of the hamate. 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 Electronically Signed: Bryon Goodrich MD at 14:05 EST Tel , Service support ,
== END ==
PROVIDERS: Family Provider Family Medicine; PCP Family Medicine; Referring Provider Orthopaedic Surgery; Visit Provider Orthopaedic Surgery
DX: M25.531 Pain in right wrist (principal)
CPT/HCPCS: 73110

== ENCOUNTER → 2019-04-30 10:14 | Outpatient (CLI) | payer MEDICARE, OTHER, SELFPAY ==
[2019-04-28 10:19] VITALS: BMI 37.5
[2019-04-30 11:10] LABS: Prothrombin Time Fingerstick 45.4 SEC (11.9-14.4)
[2019-04-30 11:30] LABS: Prothrombin Time (Protime)PT. 35.7 SECONDS (11.7-14.9)
[2019-04-30 11:44] LABS: International Normalized Ratio 3.5
== END ==
PROVIDERS: Family Provider Family Medicine; PCP Family Medicine; Visit Provider Internal Medicine Cardiovascular Disease
DX: I50.32 Chronic diastolic (congestive) heart failure (principal); I48.20 Chronic atrial fibrillation, unspecified; Z79.01 Long term (current) use of anticoagulants; I36.1 Nonrheumatic tricuspid (valve) insufficiency; I27.21 Secondary pulmonary arterial hypertension
CPT/HCPCS: 36416; 85610

== ENCOUNTER 2019-05-05 03:54 | Inpatient (IN) | payer MEDICARE, OTHER, SELFPAY ==
[2019-04-28 10:19] VITALS: BMI 37.5
[2019-05-05] VITALS (20 sets, daily range): BP systolic 128–173; BP diastolic 57–105; PULSE 73–97; RESP 17–26; TEMP 36.2–37.1; O2SAT 86–98; BMI 35.3; BMI 33.7
--- NOTE | 2019-05-05 03:57 | EKG12_ITS ---
Test Reason : NAUSEA/VOMITING Blood Pressure : / mmHG Vent. Rate : 081 BPM Atrial Rate : 082 BPM P-R Int : 000 ms QRS Dur : 138 ms QT Int : 462 ms P-R-T Axes : 000 238 093 degrees QTc Int : 536 ms Atrial fibrillation Non-specific intra-ventricular conduction block Possible Anterolateral infarct , age undetermined Abnormal ECG Confirmed by JESUSITA AGUIAR, DURAN ([id number]), videotape editor SAMEERA WATKINS ([id number]) on 05/06/2019 11:49:14 AM Referred By: KEON Confirmed By:DURAN MC MD
--- NOTE | 2019-05-05 04:02 | ED.DCSUM_ITS ---
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 She has had some vomiting and dry heaves. She states overall she just feels very weak. She has some upper abdominal pain. She has not noted a fever or chills at home. She denies cough. She does report some dysuria. 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 (10) Presence of permanent cardiac pacemaker Status: Chronic Comment: Implant 2008, gen change 02/02/19 (11) Pulmonary HTN Status: Chronic (12) Sick sinus syndrome Status: Chronic Past Medical History - Allergies and Home Meds Allergies/Adverse Reactions: Allergies adhesive Allergy (Verified 05/05/19 04:00) PULLS SKIN OFF Iodinated Contrast Media [Iodinated Contrast Media - IV Dye] Allergy (Verified 05/05/19 04:00) EYES SWELL SHUT latex Adverse Reaction (Unknown, Verified 05/05/19 04:00) Unknown Primary Care Physician: Radha Sigala DO [Primary Care Provider] - Prior records reviewed: Yes Surgical History: cholecystectomy, hysterectomy, pacemaker implantation, - - stomach surgery/hiatal hernia, ablation Smoking Status: Unknown if ever smoked - Family History Paternal Family History: Reports: Heart Disease Maternal Family History: Reports: No pertinent history Review of Systems General: Denies: Chills, Fever Eyes: Denies: Visual changes - bilaterally ENT: Denies: Bilateral ear pain Cardiovascular: Denies: Chest pain Respiratory: Denies: Dyspnea, Cough Gastrointestinal: Reports: Abdominal pain, Nausea, Vomiting. Denies: Diarrhea Genitourinary: Reports: Dysuria Musculoskeletal: Denies: Back pain, Extremity Pain Skin: Denies: Rash Neurological: Reports: Weakness - Generalized weakness Hematologic: Denies: Easy bruising Allergy: Denies: Uticaria Physical Exam Vital Signs/Narrative: Vital Signs Temp Pulse Resp BP Pulse Ox 05/05/19 03:55 98.2 F 83 18 168/74 H 94 Inital Vital Signs reviewed: Yes General: Well nourished, Well developed Head: Normocephalic ENT: Dry mucous membranes - Mildly dry mucous membranes, - - Edentulous Cardiovascular: Irregular Respiratory: No distress, CTA bilaterally Abdomen: Soft, Tender - Mild epigastric tenderness, Hypoactive bowel sounds. Negative for: Guarding, Rebound tenderness Extremities: No edema Skin: Normal color, No rash Neurological: Alert, Oriented x3 Psychological: Normal affect Diagnostic/Tx/Re-eval Laboratory Results 05/05/19 05/05/19 05/05/19 04:20 04:20 04:20 WBC 12.3 H RBC 3.48 L Hgb 10.8 L Hct 34.1 L MCV 98.0 MCH 31.0 MCHC 31.7 L RDW Std Deviation 55.9 H RDW Coeff of Vlad 15.7 H Plt Count 157 MPV 11.2 Immature Gran % (Auto) 2.300 H Neut % (Auto) 60.8 Lymph % (Auto) 3.2 L [place] % (Auto) 33.5 H Eos % (Auto) 0.1 Baso % (Auto) 0.1 Absolute Neuts (auto) 7.5 Absolute Lymphs (auto) 0.39 L Nucleated RBC % 0 Differential Comment Diff Path Review May foll PT INR Sodium 135 L Potassium 2.5 L* Chloride 93 L Carbon Dioxide 30.0 Anion Gap 12 BUN 11 Creatinine 1.17 H Estim Creat Clear Calc 34.70 Est GFR (MDRD) Af Amer 57 L Est GFR (MDRD) Non-Af 47 L BUN/Creatinine Ratio 9.4 L Glucose 137 H Lactic Acid 2.3 H* Calcium 8.2 L Total Bilirubin 4.10 H Direct Bilirubin 1.12 H AST 20 ALT 11 L Alkaline Phosphatase 93 Total Protein 7.6 Albumin 4.0 Globulin 3.6 Lipase 71 L Urine Color Urine Clarity Urine pH Ur Specific [place] Urine Protein Urine Glucose (UA) Urine Ketones Urine Occult Blood Urine Nitrite Urine Bilirubin Urine Urobilinogen Ur Leukocyte Esterase Urine RBC Urine WBC Ur Squamous Epith Cells Urine Bacteria Urine Mucus 05/05/19 05/05/19 04:20 05:00 WBC RBC Hgb Hct MCV MCH MCHC RDW Std Deviation RDW Coeff of Vlad Plt Count MPV Immature Gran % (Auto) Neut % (Auto) Lymph % (Auto) [place] % (Auto) Eos % (Auto) Baso % (Auto) Absolute Neuts (auto) Absolute Lymphs (auto) Nucleated RBC % Differential Comment Diff Path Review PT 39.7 H INR 4.0 H* Sodium Potassium Chloride Carbon Dioxide Anion Gap BUN Creatinine Estim Creat Clear Calc Est GFR (MDRD) Af Amer Est GFR (MDRD) Non-Af BUN/Creatinine Ratio Glucose Lactic Acid Calcium Total Bilirubin Direct Bilirubin AST ALT Alkaline Phosphatase Total Protein Albumin Globulin Lipase Urine Color [place] Urine Clarity Sl. Cloudy Urine pH 6.0 Ur Specific [place] 1.020 Urine Protein 100 H Urine Glucose (UA) Normal Urine Ketones 50 H Urine Occult Blood 150 H Urine Nitrite Positive H Urine Bilirubin 3 H Urine Urobilinogen 8 H Ur Leukocyte Esterase 25 H Urine RBC 0-5 SEEN Urine WBC 0-5 SEEN Ur Squamous Epith Cells 0-5 SEEN Urine Bacteria 3+ Urine Mucus 0 SEEN - EKG Initial EKG Interpretation: Atrial Fibrillation - A. fib at 81 with no acute ischemia. - Medical Decision Making Patient was given Zofran and IV fluids. Nausea is improving. She still complains of epigastric pain. She will be given a dose of Protonix. She does have positive nitrites and 3+ bacteria in her urine with symptoms of a UTI. She will be given a dose of Rocephin. Urine culture has been sent. Due to the patient's low potassium IV replacement has been ordered and started. It is noted that lab called and talked with patient's nurse. He stated that the patient's white count was only slightly elevated, but the white cells did not look typical on microscopic examination and would be sent to pathology for further evaluation. ED Disposition - Plan for ED Patient: Disposition: Acute Care Hospital [facility] Diagnosis: Hypokalemia, Cystitis Referrals: Radha Sigala DO [Primary Care Provider] -
[2019-05-05] MEDS: 0.9% Normal Saline 1,000 ML 150 ML IV (04:25)
[2019-05-05] MEDS: Ondansetron 4 MG/2 ML Vial IV ×3 (04:25→21:04)
[2019-05-05 04:49] LABS: Absolute Lymphocyte Count 0.39 X10^3/uL (0.83-4.51); Absolute Neutrophil Count 7.5 X10^3/uL (2.0-7.7); Basophil# 0.01 X10^3/uL; Basophil% 0.1 % (0-1); Eosinophil# 0.01 X10^3/uL; Eosinophils% 0.1 % (0-5); Hematocrit 34.1 % (37-47); Hemoglobin 10.8 g/dL (12.0-15.0); Lymphocyte # 0.39 X10^3/ul (4.0); Lymphocyte % 3.2 % (19-41); Mean Corp Hgb Conc 31.7 g/dL (32-36); Mean Platelet Vol. 11.2 fl (6.2-12.0); Monocyte# 4.14 X10^3/uL; Monocyte% 33.5 % (0-10); NRBC Flagged by Analyzer 0 % (0-5); Neutrophil # 7.51 X10^3/uL (2.7-7.7); Neutrophil % 60.8 % (47-70); POSITIVE DIFFERENTIAL YES; Platelet Count 157 K/mm3 (150-450); RBC Distribution Width CV 15.7 % (11.6-14.6); RBC Distribution Width SD 55.9 fl (35.1-43.9); Red Blood Count 3.48 M/mm3 (4.2-5.4); White Blood Count 12.3 K/mm3 (4.4-11.0)
[2019-05-05 05:03] LABS: Differential Indicated SCAN CRITERIA MET
[2019-05-05 05:04] LABS: Mucous, Urine 0 SEEN /hpf (<or=2+)
[2019-05-05 05:07] LABS: Prothrombin Time (Protime)PT. 39.7 SECONDS (11.7-14.9)
[2019-05-05 05:17] LABS: Color, Urine Amber (Yellow); Glucose, Dipstick Normal (Normal); Ketone-Dipstick 50 mg/dl (Negative); Leukocyte Esterase-Dipstick 25 /ul (Negative); Nitrite-Dipstick Positive (Negative); Occult Blood-Urine 150 /ul (Negative); Protein-Dipstick 100 mg/dl (Negative); Urine Bilirubin Dipstick 3 mg/dL (Negative); Urine Clarity Sl. Cloudy (Clear); Urine Urobilinogen 8 mg/dl (Normal)
[2019-05-05 05:25] LABS: AST(SGOT) 20 U/L (15-37); Alanine Aminotransfer ALT/SGPT 11 U/L (13-56); Alkaline Phosphatase 93 U/L (45-117); Anion Gap 12 (5-15); BUN 11 mg/dL (7-18); BUN/Creat Ratio 9.4 RATIO (10-20); Bilirubin, Direct 1.12 mg/dL (0.00-0.30); Calcium,Total 8.2 mg/dL (8.5-10.1); Chloride 93 mmol/L (98-107); Creatinine, Serum 1.17 mg/dL (0.55-1.02); EST Glomerular Filtration Rate 47 mL/min (>60); Est Glom Filt Rate - Afr Amer 57 mL/min (>60); Globulin 3.6 g/dL (2.2-4.2); Glucose 137 mg/dL (74-106); Lactic Acid 2.3 mmol/L (0.4-1.9); Lipase 71 U/L (73-393); Potassium 2.5 mmol/L (3.5-5.1); Protein, Total 7.6 g/dL (6.4-8.2); Sodium Level 135 mmol/L (136-145)
[2019-05-05 05:38] LABS: Bacteria 3+ /hpf (None Seen); Red Blood Cells-Urine 0-5 SEEN /hpf (0-5); Squamous Epithelial Cells - UA 0-5 SEEN /hpf (5-10); White Blood Cells 0-5 SEEN /hpf (0-5)
[2019-05-05] MEDS: Potassium Chloride 10mEq/100mL 10 MEQ/100 ML IV.SOLN. 100 MEQ IV BOLUS ×4 (05:51→08:55)
--- NOTE | 2019-05-05 08:05 | EKG12_ITS ---
Test Reason : RHYTHM CHANGE Blood Pressure : / mmHG Vent. Rate : 094 BPM Atrial Rate : 084 BPM P-R Int : 000 ms QRS Dur : 140 ms QT Int : 438 ms P-R-T Axes : 000 249 080 degrees QTc Int : 547 ms Atrial fibrillation Non-specific intra-ventricular conduction block Cannot rule out Septal infarct , age undetermined Possible Lateral infarct , age undetermined Abnormal ECG Confirmed by JESUSITA AGUIAR, DURAN ([id number]), pictures editor SAMEERA WATKINS ([id number]) on 05/06/2019 11:50:54 AM Referred By: TIANA Confirmed By:DURAN MC MD
[2019-05-05 08:45] LABS: Reflex Lactate? Y
[2019-05-05] MEDS: Ceftriaxone 1 GM/50 ML BAG IV (08:50)
--- NOTE | 2019-05-05 09:02 | CON.PCM_ITS ---
<Ashwin Beltran - Last Filed: 05/05/19 10:52> Problem List (1) Epigastric pain Status: Acute Reason for Consult Date of Consultation: 05/05/19 History of Present Illness: I have interviewed and examined this patient along with physician warehouse assistant Christen Pickering. I concur with her findings. The hyper bilirubinemia is in part a chronic finding albeit not to this level. She does not have any elevation of her alkaline phosphatase suggesting that she does not have a biliary obstructive process. She is complaining severe epigastric pain. She has had a history of a hiatal hernia repair with some type of fundoplication. That was done at [facility] by Dr. Cortes. Patient states that she can swallow water but otherwise has pain and is nauseated. She is over anticoagulated on Coumadin. She has a mild leukocytosis with a marked monocytosis. Initially there was felt to be hairy cells but that has not been interpreted by the pathologist. Her abdomen is soft, bowel sounds diminished. She is mildly tender to palpation in the epigastrium. She has not markedly abnormal urinalysis Etiology of the epigastric pain not clear. Whether she could have a UTI and ill from that which then exacerbated nausea and then with chronic vomiting has caused a problem with her hiatal hernia repair is indeterminate. I have a lower degree of suspicion that she has a primarily extrahepatic biliary tract obstruction. She is elderly at age 83 and does look older than stated age. She looks to be chronically debilitated. I recommend that we obtain a abdominal CT with very careful inspection of the diaphragmatic and gastric area. We will then provide additional input as to how to proceed. This patient clearly would carry increased operative intervention. I appreciate the opportunity of assisting with her surgical care Ashwin Beltran M.D., F.A.C.S. 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 (Chronic) Chronic diastolic heart failure (Chronic) Atrial fibrillation (Chronic) Pulmonary HTN (Chronic) Hypertension (Chronic) Glaucoma (Chronic) GERD (gastroesophageal reflux disease) (Chronic) Anxiety (Chronic) Osteoarthritis of left knee (Chronic) 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) Chronic atrial fibrillation (Chronic) Non-rheumatic tricuspid valve insufficiency (Chronic) Secondary pulmonary arterial hypertension (Chronic) Sick sinus syndrome (Chronic) 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 2008, gen change 02/02/19 Essential (primary) hypertension (Chronic) Hyperlipidemia (Chronic) Medical History: Medical History (Last Reviewed 03/13/19 @ 13:15 by Chucho Subramanian DO) 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) I50.32 Chronic atrial fibrillation (Chronic) I48.2 Non-rheumatic tricuspid valve insufficiency (Chronic) I36.1 Secondary pulmonary arterial hypertension (Chronic) I27.21 Sick sinus syndrome (Chronic) I49.5 Essential (primary) hypertension (Chronic) I10 Hyperlipidemia (Chronic) E78.5 Arthritis M19.90 Chronic diastolic (congestive) heart failure I50.32 Glaucoma H40.9 Nonrheumatic mitral (valve) insufficiency I34.0 Obesity E66.9 Type 2 diabetes mellitus 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 Cellulitis and abscess of leg L03.119, L02.419 Allergies adhesive Allergy (Verified 05/05/19 04:00) PULLS SKIN OFF Iodinated Contrast Media [Iodinated Contrast Media - IV Dye] Allergy (Verified 05/05/19 04:00) EYES SWELL SHUT latex Adverse Reaction (Unknown, Verified 05/05/19 04:00) Unknown Home Medications: Ambulatory Orders Medication Instructions Recorded Amlodipine [Norvasc] 10 mg PO DAILY 12/02/15 Bimatoprost 0.01% [Lumigan 0.01%] 1 drp EACH EYE QHS 12/02/15 Furosemide 40 mg PO DAILY 12/02/15 Lansoprazole [Prevacid] 30 mg PO DAILY 12/02/15 Lorazepam [Ativan] 1 mg PO BID PRN 12/02/15 Metoprolol Tartrate [Lopressor 25 mg PO BID 12/02/15 (beta demetrius)] Simvastatin [Zocor] 20 mg PO QHS 12/02/15 Timolol 0.5% 1 drp EACHEYE BID 03/13/19 Losartan Potassium [Cozaar] 100 mg PO DAILY 03/17/19 Warfarin Sodium 2 mg PO MOTUWETHFR 03/17/19 Warfarin Sodium 3 mg PO UD 03/17/19 Acetaminophen [Tylenol] 1,000 mg PO Q6H PRN PRN tab 04/07/19 Iron Polysaccharide Complex 150 mg PO DAILYCM #30 cap 04/07/19 [Ferrex 150] Menthol [Bengay Vanishing Scent] 1 applic TOPICAL TID PRN PRN tube 04/07/19 Menthol/Lanolin/Calamine/Znox 1 applic TOPICAL 0600,2200 tube 04/07/19 [Calmoseptine Ointment] Mineral Oil/Petrolatum,White 1 applic TOPICAL QHS jar 04/07/19 [Eucerin] Nystatin Powder [Mycostatin Powder] 1 applic TOPICAL 0600,2200 bottle 04/07/19 Ondansetron [Zofran Odt] 4 mg PO Q8H PRN PRN #21 tab 04/07/19 Polyethylene Glycol 3350 [Miralax] 17 gm PO DAILY #30 packet 04/07/19 Senna/Docusate Sodium [Senokot-S] 2 tab PO BID #120 tab 04/11/19 Surgical History: Surgical History (Last Reviewed 03/13/19 @ 13:15 by Chucho Subramanian DO) Presence of permanent cardiac pacemaker (Chronic) Onset Date: 02/02/19 Z95.0 Implant 2008, gen change 02/02/19 History of radiofrequency ablation procedure for cardiac arrhythmia Onset Date: 2008 Z98.890 History of herniorrhaphy Z98.890, Z87.19 History of hysterectomy Z90.710 Hx of cholecystectomy Z90.49 Patient Problems: Active and Suspected Problems (Last Reviewed 05/05/19 @ 11:20 by Christen Pickering PA-C) Hypokalemia (Acute) Cystitis (Acute) Abdominal pain (Acute) Epigastric pain (Acute) - Physical Exam Vitals/I&O's: Vital Signs Temp Pulse Resp BP Pulse Ox 98.8 F 81 25 H 161/85 H 95 05/05/19 06:00 05/05/19 07:11 05/05/19 07:11 05/05/19 07:11 05/05/19 07:11 Oxygen Delivery Method Room Air Weight: 218 lb 14.704 oz Body Mass Index (BMI) 35.3 Finger Stick Blood Glucose 141 Intake and Output for Last 24 Hours 05/03/19 05/04/19 05/05/19 23:59 23:59 23:59 Intake Total 291.67 / 291.67 Balance 291.67 / 291.67 Laboratory Results 05/05/19 04:20: WBC 12.3 H, RBC 3.48 L, Hgb 10.8 L, Hct 34.1 L, MCV 98.0, MCH 31.0, MCHC 31.7 L, RDW Std Deviation 55.9 H, RDW Coeff of Vlad 15.7 H, Plt Count 157, MPV 11.2, Immature Gran % (Auto) 2.300 H, Neut % (Auto) 60.8, Lymph % (Auto) 3.2 L, Carlton % (Auto) 33.5 H, Eos % (Auto) 0.1, Baso % (Auto) 0.1, Absolute Neuts (auto) 7.5, Absolute Lymphs (auto) 0.39 L, Nucleated RBC % 0, Differential Comment , Diff Path Review September05/05/19 04:20: Sodium 135 L, Potassium 2.5 L*, Chloride 93 L, Carbon Dioxide 30.0, Anion Gap 12, BUN 11, Creatinine 1.17 H, Estim Creat Clear Calc 34.70, Est GFR (MDRD) Af Amer 57 L, Est GFR (MDRD) Non-Af 47 L, BUN/Creatinine Ratio 9.4 L, Glucose 137 H, Calcium 8.2 L, Total Bilirubin 4.10 H, Direct Bilirubin 1.12 H, AST 20, ALT 11 L, Alkaline Phosphatase 93, Total Protein 7.6, Albumin 4.0, Globulin 3.6, Lipase 71 L 05/05/19 04:20: Lactic Acid 2.3 H* 05/05/19 04:20: PT 39.7 H, INR 4.0 H* 05/05/19 05:00: Urine Color Aminata, Urine Clarity Sl. Cloudy, Urine pH 6.0, Ur Specific Lerna 1.020, Urine Protein 100 H, Urine Glucose (UA) Normal, Urine Ketones 50 H, Urine Occult Blood 150 H, Urine Nitrite Positive H, Urine B ilirubin 3 H, Urine Urobilinogen 8 H, Ur Leukocyte Esterase 25 H, Urine RBC 0-5 SEEN, Urine WBC 0-5 SEEN, Ur Squamous Epith Cells 0-5 SEEN, Urine Bacteria 3+, Urine Mucus 0 SEEN 05/05/19 09:05: Lactic Acid Pending Current Medications Sodium Chloride () 1,000 mls @ 150 mls/hr IV .Q6H40M [facility] Last Admin: 05/05/19 04:25 Dose: 150 mls/hr Documented by: Potassium Chloride () 10 meq in 100 mls @ 100 mls/hr IV BOLUS Q1H [facility] Stop: 05/05/19 09:29 Last Admin: 05/05/19 08:55 Dose: 100 mls/hr Documented by: Assessment/Plan All Active Problems (Last Reviewed 05/05/19 @ 11:20 by Christen Pickering PA-C) Triquetral chip fracture (Acute) Debility (Acute) Frequent falls (Acute) Hypokalemia (Acute) Cystitis (Acute) Abdominal pain (Acute) Epigastric pain (Acute) Cellulitis of right lower leg (Resolved) Diabetic ulcer 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 (Resolved) Hematoma (Resolved) Nonhealing ulcer 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 (Resolved) Open wound of right lower leg (Resolved) Traumatic hematoma of right lower leg with infection (Resolved) <Christen Pickering - Last Filed: 05/05/19 11:26> Problem List (1) Abdominal pain Status: Acute Reason for Consult Reason for Consultation: Abdominal pain. Hyperbilirubinemia. History of Present Illness: The patient is a 83 year old F who presented with a 3 day history of general weakness, nausea, dry heaving and lack of appetite. Patient also notes epigastric pain. She notes this has increased within the last 3 days. Patient denies previous abdominal pain such as this previously. Her last EGD and colonoscopy were in [address] Leonard for rectal bleeding. Her upper scope was unremarkable with chronic minimal active gastritis. Patient notes she takes a Prilosec daily. Her colonoscopy demonstrated ulceration with inflammation at the cecum and a healing erosion at the hepatic flexure. Patient was referred to Dr. Finley at [facility] for resolving ischemic colitis. It was recommended the patient continue to stay hydrated and observe for any rectal bleeding. Patient has not had another scope sine this time. Patient notes she has had a previous hiatal hernia repair by Dr. Schwartz at [facility] in approximately 2005. She denies difficulty swallowing. She has a history of sick sinus syndrome and has a pacemaker which was last checked on 02/12/19. Dr. Schneider is her radiation therapist. She is maintained on Coumadin daily for A Fib. She has pulmonary hypertension. Other abdominal surgeries include cholecystectomy (long, long, long time ago) and hysterectomy. Patient is a poor historian. She was recently hospitalized after a fall which resulted in a fractured right wrist in TCU. She was discharged from TCU on 04/07/19 to home. It appears looking back into records she has had hyperbilirubinemia without biliary obstruction. Past Medical History Medical History: Medical History (Last Reviewed 05/05/19 @ 11:20 by Christen Pickering PA-C) 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) I50.32 Chronic atrial fibrillation (Chronic) I48.2 Non-rheumatic tricuspid valve insufficiency (Chronic) I36.1 Secondary pulmonary arterial hypertension (Chronic) I27.21 Sick sinus syndrome (Chronic) I49.5 Essential (primary) hypertension (Chronic) I10 Hyperlipidemia (Chronic) E78.5 Arthritis M19.90 Chronic diastolic (congestive) heart failure I50.32 Glaucoma H40.9 Nonrheumatic mitral (valve) insufficiency I34.0 Obesity E66.9 Type 2 diabetes mellitus 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 Cellulitis and abscess of leg L03.119, L02.419 Allergies adhesive Allergy (Verified 05/05/19 04:00) PULLS SKIN OFF Iodinated Contrast Media [Iodinated Contrast Media - IV Dye] Allergy (Verified 05/05/19 04:00) EYES SWELL SHUT latex Adverse Reaction (Unknown, Verified 05/05/19 04:00) Unknown Surgical History: Surgical History (Last Reviewed 05/05/19 @ 11:21 by Christen Pickering PA-C) Presence of permanent cardiac pacemaker (Chronic) Onset Date: 02/02/19 Z95.0 Implant 2008, gen change 02/02/19 History of radiofrequency ablation procedure for cardiac arrhythmia Onset Date: 2008 Z98.890 History of herniorrhaphy Z98.890, Z87.19 Hiatal hernia repair approx 2005, Dr. Sophia Mclain [facility] History of hysterectomy Z90.710 Hx of cholecystectomy Z90.49 Unknown date Surgical History: cholecystectomy, hysterectomy, pacemaker implantation, - - stomach surgery/hiatal hernia, ablation Psychiatric History: Anxiety [employer] History: No pertinent [employer] history Lives: With Family Smoking Status: Unknown if ever smoked - *Family History Maternal History Items: No pertinent history Paternal History Items: Heart Disease Review of Systems Constitutional: Reports: Anorexia, Weakness, Fatigue HEENT: Denies: Head Aches, Sinus Congestion, Sinus Drainage Cardiovascular: Reports: Chest Pain Respiratory: Denies: Cough, Shortness of breath at rest, Sputum production Gastrointestinal: Reports: Abdominal Pain, Nausea, Vomiting. Denies: Constipation, Diarrhea, Hematemesis, Hematochezia Genitourinary: Reports: Frequency, Urgency Musculoskeletal: Denies: Joint Pain, Joint Tenderness Skin: Reports: Jaundice Neurological: Reports: Balance problems Psychiatric: Reports: Anxiety, Depression Hematologic/ Lymphatic: Reports: Anemia, Easy Bruising, Easy Bleeding, Hx of blood clot - Physical Exam Vitals/I&O's: Vital Signs Temp Pulse Resp BP Pulse Ox 98.8 F 81 25 H 161/85 H 95 05/05/19 06:00 05/05/19 07:11 05/05/19 07:11 05/05/19 07:11 05/05/19 07:11 Oxygen Delivery Method Room Air Weight: 218 lb 14.704 oz Body Mass Index (BMI) 35.3 Finger Stick Blood Glucose 141 Intake and Output for Last 24 Hours 05/03/19 05/04/19 05/05/19 23:59 23:59 23:59 Intake Total 291.67 / 291.67 Balance 291.67 / 291.67 General: Alert, Oriented x3, Cooperative HEENT: Atraumatic, PERRLA, EOMI, Normocephalic Neck: Supple, No JVD, Negative Carotid Bruits Lungs: Clear to auscultation, Normal air movement Cardiovascular: Regular rate Abdomen: Bowel Sounds Present, Soft, Tender - epigastric region Extremities: No edema, Capillary Refill Less than 3 Seconds Skin: No rashes, No breakdown Musculoskeletal: No Tenderness to Palpation of Joints or Extremities Neurological: Neuro grossly intact Psych/Mental Status: Anxious Laboratory Results 05/05/19 04:20: WBC 12.3 H, RBC 3.48 L, Hgb 10.8 L, Hct 34.1 L, MCV 98.0, MCH 31.0, MCHC 31.7 L, RDW Std Deviation 55.9 H, RDW Coeff of Lvad 15.7 H, Plt Count 157, MPV 11.2, Immature Gran % (Auto) 2.300 H, Neut % (Auto) 60.8, Lymph % (Auto) 3.2 L, Carlton % (Auto) 33.5 H, Eos % (Auto) 0.1, Baso % (Auto) 0.1, Absolute Neuts (auto) 7.5, Absolute Lymphs (auto) 0.39 L, Nucleated RBC % 0, Differential Comment , Diff Path Review September05/05/19 04:20: Sodium 135 L, Potassium 2.5 L*, Chloride 93 L, Carbon Dioxide 30.0, Anion Gap 12, BUN 11, Creatinine 1.17 H, Estim Creat Clear Calc 34.70, Est GFR (MDRD) Af Amer 57 L, Est GFR (MDRD) Non-Af 47 L, BUN/Creatinine Ratio 9.4 L, Glucose 137 H, Calcium 8.2 L, Total Bilirubin 4.10 H, Direct Bilirubin 1.12 H, AST 20, ALT 11 L, Alkaline Phosphatase 93, Total Protein 7.6, Albumin 4.0, Globulin 3.6, Lipase 71 L 05/05/19 04:20: Lactic Acid 2.3 H* 05/05/19 04:20: PT 39.7 H, INR 4.0 H* 05/05/19 05:00: Urine Color Aminata, Urine Clarity Sl. Cloudy, Urine pH 6.0, Ur Specific Lerna 1.020, Urine Protein 100 H, Urine Glucose (UA) Normal, Urine Ketones 50 H, Urine Occult Blood 150 H, Urine Nitrite Positive H, Urine Bilirubin 3 H, Urine Urobilinogen 8 H, Ur Leukocyte Esterase 25 H, Urine RBC 0-5 SEEN, Urine WBC 0-5 SEEN, Ur Squamous Epith Cells 0-5 SEEN, Urine Bacteria 3+, Urine Mucus 0 SEEN Current Medications Sodium Chloride () 1,000 mls @ 150 mls/hr IV .Q6H40M [facility] Last Admin: 05/05/19 04:25 Dose: 150 mls/hr Documented by: Potassium Chloride () 10 meq in 100 mls @ 100 mls/hr IV BOLUS Q1H [facility] Stop: 05/05/19 09:29 Last Admin: 05/05/19 08:55 Dose: 100 mls/hr Documented by: Pantoprazole Sodium 40 mg/ (Sodium Chloride) 25 mls @ 420 mls/hr IV BOLUS X1 ONE Stop: 05/05/19 09:04 Assessment/Plan I have been consulted in conjunction with Dr. Beltran. Impression: Abdominal pain, unknown etiology. Hyperbilirubinemia. Plan: Discussed patient with Dr. Beltran, who has also evaluated the patient in conjunction with myself. Recommend a CT scan of the abdomen/pelvis small amount of oral contrast. If patient unable to tolerate then CT scan of the ab/pel can be completed without contrast. Patient does have an allergy to contrast dye and also has an elevated creatinine level. Unsure if abdominal pain is related to hiatal hernia repair versus loop of small bowel kinked versus ischemia. At this time will await the images as not clear if surgical intervention is needed at this time. Patient and family have had the opportunity to ask and have questions answered. Patient verbally understands and agrees with the plan. Thanks you for allowing us to participate in this patient's care. We will continue to monitor this patient closely. Code Visit Office Visits / Consults: [id number] IP Consult L3
--- NOTE | 2019-05-05 09:10 | CT_ITS ---
STUDY: CT ABDOMEN AND PELVIS WITHOUT CONTRAST REASON FOR EXAM: Female, 83 years old. ABD PAIN, SEVERE SEPSIS, HYPERKALEMIA RADIATION DOSAGE (If Supplied By Facility): CTDIvol = ( 24.16 ) mGy, DLP = ( 1101.38 ) mGycm TECHNIQUE: Transaxial images were obtained from the dome of the diaphragm to the symphysis pubis with oral contrast, and without intravenous contrast. Sagittal and coronal images were reconstructed. Individualized dose optimization techniques were used for this CT. COMPARISON: None. FINDINGS: Motion artifact limits evaluation. Moderate body wall edema/anasarca is present. Small bilateral pleural effusions are present, right greater than left. Mild pulmonary edema and subsegmental atelectasis is also seen in the bilateral lung bases. Intracardiac leads are seen. The liver appears slightly small and lobular possibly due to cirrhosis or another nonspecified a hepatic process. No obvious lesions seen. No intrahepatic biliary duct dilatation or liver mass. There are surgical clips in the gallbladder fossa consistent with a prior cholecystectomy. Normal spleen. Normal pancreas. Normal bilateral adrenal glands. Normal right kidney. Normal left kidney. No hydronephrosis or renal masses. No large stones. There is a small hiatal hernia. Normal small intestine. Mild thickening of the mucosa of the wall of the proximal and transverse and some regions of the descending colon compatible with colitis not otherwise specified. No bowel dilatation or obstruction. No free air or free fluid. Mild diffuse mesenteric edema is present throughout the abdomen and pelvis which appears to be slightly increased from the prior study. The appendix is visualized and appears normal. There is diffuse atherosclerotic calcification of the abdominal aorta with elongation and tortuosity, but without a demonstrated aneurysm. Normal inferior vena cava. Normal retroperitoneum. Normal urinary bladder. Normal abdominal wall. There are diffuse degenerative changes of the visualized lumbar spine. CT/Abdomen/Pel W ORAL Cont Only IMPRESSION: 1. Mild thickening of the mucosa of the wall of the proximal and transverse and some regions of the descending colon compatible with colitis not otherwise specified. 2. The liver appears slightly small and lobular possibly due to cirrhosis or another nonspecified a hepatic process. No obvious lesions seen. 3. Diffuse body wall edema and mild intra-abdominal or intrapelvic mesenteric edema. 4. Small bilateral pleural effusions. Electronically Signed: Daron Dominguez MD at 12:44 EST , Service support ,
[2019-05-05 09:39] LABS: Lactic Acid 1.5 mmol/L (0.4-1.9)
[2019-05-05 09:55] LABS: Pathologist Review Reviewed
[2019-05-05] MEDS: Morphine 4 MG/ML Syringe IV ×4 (11:11→22:16)
[2019-05-05] MEDS: 0.9% Saline Lock 10 ML Syringe IV ×7 (11:11→22:16)
[2019-05-05] MEDS: 0.9% Normal Saline 1,000 ML 125 ML IV (11:17)
[2019-05-05] MEDS: Losartan Potassium 100 MG Tablet PO (12:29)
[2019-05-05] MEDS: Timolol 0.5% 5ML OPTH.BTL 1 DRP OPHTHALMIC ×2 (12:29→22:08)
[2019-05-05] MEDS: Metoprolol Tartrate 25 MG Tablet PO ×2 (12:29→22:06)
[2019-05-05] MEDS: Senna/Docusate Sodium 1 Tablet 2 TABLET PO (12:29)
[2019-05-05] MEDS: Iron Polysaccharide Complex 150 MG CAPSULE PO (12:29)
[2019-05-05] MEDS: amLODIPine 10 MG Tablet PO (12:30)
--- NOTE | 2019-05-05 18:01 | PCM.PN.BLA ---
Progress Note Spoke with Dr Kaur. CT suggests colitis and pt gives report of previous colitis. She is chronically ill and at higher risk for any type of surgical intervention. I concur with Dr Kaur's attempt to obtain previous records re: her previous colitis. I would treat with PPI for h/o UGI surgery with HH repair and gortex mesh and I would treat for suspected colitis. I do not recommend endoscopic evaluation unless symptoms fail to improve on management for most likely etiologies to her presentation. [facility] outlook appears poor. Freddy STROKE Vital Signs/Narrative: Vital Signs Temp Pulse Resp BP Pulse Ox 05/05/19 17:30 24 H 98 05/05/19 17:25 26 H 86 05/05/19 15:21 75 05/05/19 14:53 96 05/05/19 14:49 98.0 F 83 24 H 133/76 H 96
--- NOTE | 2019-05-05 20:10 | PCM.HP.STD ---
Problem List (1) Nausea and vomiting Status: Acute Qualifiers: Vomiting type: unspecified Vomiting Intractability: non-intractable Qualified Code(s): R11.2 - Nausea with vomiting, unspecified (2) Generalized abdominal discomfort Status: Acute (3) Generalized weakness Status: Acute History of Present Illness Date of Admission: 05/05/19 Chief Complaint: Nausea and vomiting, generalized mid abdominal pain, generalized weakness The patient is a 83 year old F who was seen in the emergency room today at [facility] with a chief complaint of persistent nausea and vomiting x2 days along with mid abdominal pain and generalized weakness. Patient also complained of some dysuria. Patient not complain of any chest pain or shortness of breath. She did not complain of any fever, chills, or diaphoresis. Work-up in the emergency room included labs, her white blood cell count was elevated at 12.3, INR was elevated at 4, potassium was low at 2.5, lactic acid was elevated at 2.3, and her bilirubin is elevated at 4.1 however alkaline phosphatase was normal. Patient's urinalysis revealed positive nitrite, +3 bacteria, but 0-5 RBCs and 0-5 WBCs. No imaging studies were performed on the patient's abdomen. I was called to admit this patient for hypokalemia and acute cystitis, I became concerned because patient complained of generalized abdominal pain along with persistent nausea and vomiting over the last 2 days however. Patient will be admitted for severe sepsis from acute cystitis, she will be seen by general surgery due to her elevated bilirubin and persistent nausea and vomiting, and she will be given IV Lasix and labs will be monitored. I will place the patient on a clear liquid diet and administer fluids at least initially. 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) Chronic diastolic heart failure (Chronic) Atrial fibrillation (Chronic) Pulmonary HTN (Chronic) Hypertension (Chronic) Glaucoma (Chronic) GERD (gastroesophageal reflux disease) (Chronic) Anxiety (Chronic) Osteoarthritis of left knee (Chronic) 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) Chronic atrial fibrillation (Chronic) Non-rheumatic tricuspid valve insufficiency (Chronic) Secondary pulmonary arterial hypertension (Chronic) Sick sinus syndrome (Chronic) 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 2008, gen change 02/02/19 Essential (primary) hypertension (Chronic) Hyperlipidemia (Chronic) Medical History: Medical History (Last Reviewed 05/05/19 @ 11:20 by Christen Pickering PA-C) 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) I50.32 Chronic atrial fibrillation (Chronic) I48.2 Non-rheumatic tricuspid valve insufficiency (Chronic) I36.1 Secondary pulmonary arterial hypertension (Chronic) I27.21 Sick sinus syndrome (Chronic) I49.5 Essential (primary) hypertension (Chronic) I10 Hyperlipidemia (Chronic) E78.5 Arthritis M19.90 Chronic diastolic (congestive) heart failure I50.32 Glaucoma H40.9 Nonrheumatic mitral (valve) insufficiency I34.0 Obesity E66.9 Type 2 diabetes mellitus 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 Cellulitis and abscess of leg L03.119, L02.419 Allergies adhesive Allergy (Verified 05/05/19 04:00) PULLS SKIN OFF Iodinated Contrast Media [Iodinated Contrast Media - IV Dye] Allergy (Verified 05/05/19 04:00) EYES SWELL SHUT latex Adverse Reaction (Unknown, Verified 05/05/19 04:00) Unknown Home Medications: Ambulatory Orders Medication Instructions Recorded Amlodipine [Norvasc] 10 mg PO DAILY 12/02/15 Bimatoprost 0.01% [Lumigan 0.01%] 1 drp EACH EYE QHS 12/02/15 Furosemide 40 mg PO DAILY 12/02/15 Lansoprazole [Prevacid] 30 mg PO DAILY 12/02/15 Lorazepam [Ativan] 1 mg PO BID PRN 12/02/15 Metoprolol Tartrate [Lopressor 25 mg PO BID 12/02/15 (beta carlos manuel)] Simvastatin [Zocor] 20 mg PO QHS 12/02/15 Timolol 0.5% 1 drp EACHEYE BID 03/13/19 Losartan Potassium [Cozaar] 100 mg PO DAILY 03/17/19 Warfarin Sodium 2 mg PO MOTUWETHFR 03/17/19 Warfarin Sodium 3 mg PO UD 03/17/19 Acetaminophen [Tylenol] 1,000 mg PO Q6H PRN PRN tab 04/07/19 Iron Polysaccharide Complex 150 mg PO DAILYCM #30 cap 11/12/19 [Ferrex 150] Menthol [Bengay Vanishing Scent] 1 applic TOPICAL TID PRN PRN tube 04/07/19 Menthol/Lanolin/Calamine/Znox 1 applic TOPICAL 0600,2200 tube 04/07/19 [Calmoseptine Ointment] Mineral Oil/Petrolatum,White 1 applic TOPICAL QHS jar 04/07/19 [Eucerin] Nystatin Powder [Mycostatin Powder] 1 applic TOPICAL 0600,2200 bottle 04/07/19 Ondansetron [Zofran Odt] 4 mg PO Q8H PRN PRN #21 tab 04/07/19 Polyethylene Glycol 3350 [Miralax] 17 gm PO DAILY #30 packet 04/07/19 Senna/Docusate Sodium [Senokot-S] 2 tab PO BID #120 tab 04/11/19 Surgical History: Surgical History (Last Reviewed 05/05/19 @ 11:21 by Christen Pickering PA-C) Presence of permanent cardiac pacemaker (Chronic) Onset Date: 02/02/19 Z95.0 Implant 2008, gen change 02/02/19 History of radiofrequency ablation procedure for cardiac arrhythmia Onset Date: 2008 Z98.890 History of herniorrhaphy Z98.890, Z87.19 Hiatal hernia repair approx 2005, Dr. 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 Denies: Anorexia, Chills, Fever, Night Sweats, Weight Change Eyes: Denies: Cataracts, Conjunctivae Inflammation, Double vision, Drainage HEENT: Denies: Difficulty Swallowing, Dysphasia, Ear Pain, Eye Pain, Hearing Changes, Nasal bleeding, Nasal Congestion, Post Nasal Drip Cardiovascular: Denies: Chest Pain, Claudication, Chest Pressure, Chest Tightness, Edema, Palpitations Respiratory: Denies: Cough, Hemoptysis, Pleuritic Pain, Shortness of Breath, Shortness of breath at rest, Shortness of breath upon exertion Gastrointestinal: Reports: Abdominal Pain, Nausea, Vomiting. Denies: Constipation, Diarrhea, Hematemesis, Hematochezia, Melena Genitourinary: Reports: Dysuria. Denies: Frequency, Hematuria, Hesitancy, Urgency Gynecological: Denies: Breast symptoms Musculoskeletal: Denies: Back Pain, Joint Pain, Joint stiffness, Joint swelling, Joint Tenderness, Leg Pain Skin: Denies: Dryness, Jaundice, Pruritis, Rash Neurological: Denies: Blurred vision, Double vision, Change in Speech, Slurred speech, Difficulty swallowing, Focal weakness, Headaches, Incoordination, Numbness, Tingling Psychiatric: Denies: Anxiety, Depression, Homicidal Ideations, Suicidal Ideations Endocrine: Denies: Change in Body Habitus, Heat/ Cold Intolerance, Polydipsia, Polyuria Hematologic/ Lymphatic: Denies: Adenopathy, Anemia, Easy Bruising, Easy Bleeding, Petechiae, Purpura VTE Information - Inpt Only VTE Present on Admission: No VTE Mechan Device Prophylaxis: None VTE Pharm Prophylaxis ordered?: Yes Patient Problems: Active and Suspected Problems (Last Reviewed 05/05/19 @ 11:20 by Christen Pickering PA-C) Hypokalemia (Acute) Cystitis (Acute) Abdominal pain (Acute) Epigastric pain (Acute) Nausea and vomiting (Acute) Generalized abdominal discomfort (Acute) Generalized weakness (Acute) - Physical Exam Vitals/I&O's: Vital Signs Temp Pulse Resp BP Pulse Ox 97.1 F L 73 24 H 128/80 H 98 05/05/19 18:27 05/05/19 18:27 05/05/19 18:27 05/05/19 18:27 05/05/19 18:27 Oxygen Flow Rate (L/min) 2 Oxygen Delivery Method Nasal Cannula Weight: 95.2 kg Body Mass Index (BMI) 33.7 Finger Stick Blood Glucose 141 Intake and Output for Last 24 Hours 05/03/19 05/04/19 05/05/19 23:59 23:59 23:59 Intake Total 2655.01 / 2655.01 Balance 2655.01 / 2655.01 General: Alert, Oriented x3, Cooperative, Well developed, Well nourished HEENT: Atraumatic, PERRLA, EOMI, Normocephalic Oral: Moist Mucosa Neck: Supple, No JVD, Negative Carotid Bruits, Trachea Midline, Thyroid Normal Size and Texture Lungs: Clear to auscultation, Normal air movement, No rhonchi, No wheeze, No rales Cardiovascular: No murmurs, PMI Normal, Irregular Rate, No rub noted Abdomen: Bowel Sounds Present, Soft, Non-Distended, Tender - Mild mid abdominal tenderness is noted to palpation, no rebound abdominal tenderness was noted Extremities: No clubbing, No cyanosis, Capillary Refill Less than 3 Seconds, Edema - Mild edema which is nonpitting is noted in the upper legs bilaterally Skin: No rashes, No breakdown Musculoskeletal: No Tenderness to Palpation of Joints or Extremities Neurological: Cranial nerves II-XII grossly intact, Neuro grossly intact, Sensory exam intact to light touch and pain Psych/Mental Status: Normal Affect, Appropriate, Alert and oriented to time, place, person, mood and affect Laboratory Results 05/05/19 04:20: WBC 12.3 H, RBC 3.48 L, Hgb 10.8 L, Hct 34.1 L, MCV 98.0, MCH 31.0, MCHC 31.7 L, RDW Std Deviation 55.9 H, RDW Coeff of Vlad 15.7 H, Plt Count 157, MPV 11.2, Immature Gran % (Auto) 2.300 H, Neut % (Auto) 60.8, Lymph % (Auto) 3.2 L, Dyer % (Auto) 33.5 H, Eos % (Auto) 0.1, Baso % (Auto) 0.1, Absolute Neuts (auto) 7.5, Absolute Lymphs (auto) 0.39 L, Nucleated RBC % 0, Differential Comment , Diff Path Review Reviewed 05/05/19 04:20: Sodium 135 L, Potassium 2.5 L*, Chloride 93 L, Carbon Dioxide 30.0, Anion Gap 12, BUN 11, Creatinine 1.17 H, Estim Creat Clear Calc 34.70, Est GFR (MDRD) Af Amer 57 L, Est GFR (MDRD) Non-Af 47 L, BUN/Creatinine Ratio 9.4 L, Glucose 137 H, Calcium 8.2 L, Total Bilirubin 4.10 H, Direct Bilirubin 1.12 H, AST 20, ALT 11 L, Alkaline Phosphatase 93, Total Protein 7.6, Albumin 4.0, Globulin 3.6, Lipase 71 L 05/05/19 04:20: Lactic Acid 2.3 H* 05/05/19 04:20: PT 39.7 H, INR 4.0 H* 05/05/19 05:00: Urine Color Aminata, Urine Clarity Sl. Cloudy, Urine pH 6.0, Ur Specific Belden 1.020, Urine Protein 100 H, Urine Glucose (UA) Normal, Urine Ketones 50 H, Urine Occult Blood 150 H, Urine Nitrite Positive H, Urine Bilirubin 3 H, Urine Urobilinogen 8 H, Ur Leukocyte Esterase 25 H, Urine RBC 0-5 SEEN, Urine WBC 0-5 SEEN, Ur Squamous Epith Cells 0-5 SEEN, Urine Bacteria 3+, Urine Mucus 0 SEEN 05/05/19 09:05: Lactic Acid 1.5 05/05/19 11:54: Troponin I 0.035 Current Medications Acetaminophen (Tylenol) 1,000 mg PO Q6H PRN PRN PRN Reason: Pain Score 1-3/10 Amlodipine Besylate (Norvasc) 10 mg PO DAILY [facility] Last Admin: 05/05/19 12:30 Dose: 10 mg Documented by: Atorvastatin Calcium (Lipitor) 10 mg PO QHS [facility] Furosemide (Lasix) 40 mg PO DAILY [facility] Sodium Chloride () 250 mls @ 15 mls/hr IV .[id number] PRN PRN Reason: Saline Flush Metronidazole (Flagyl) 500 mg in 100 mls @ 100 mls/hr IV Q8 [facility] Ampicillin Sodium/Sulbactam (Sodium 3 gm/ Sodium Chloride) 112 mls @ 150 mls/hr IV Q8 [facility] Latanoprost (Xalatan Opthalmic) 1 drop EACH EYE QHS [facility] Lorazepam (Ativan) 1 mg PO BID PRN PRN PRN Reason: ANXIETY Losartan Potassium (Cozaar) 100 mg PO DAILY [facility] Last Admin: 05/05/19 12:29 Dose: 100 mg Documented by: Metoprolol Tartrate (Lopressor (Beta Carlos Manuel)) 25 mg PO BID [facility] Last Admin: 05/05/19 12:29 Dose: 25 mg Documented by: Morphine Sulfate () 4 mg IV Q3H PRN PRN PRN Reason: Pain Score 6-10/10 Last Admin: 05/05/19 18:53 Dose: 4 mg Documented by: Ondansetron HCl (Zofran) 4 mg IV Q6H PRN PRN PRN Reason: NAUSEA/VOMITING Last Admin: 05/05/19 15:03 Dose: 4 mg Documented by: Pantoprazole Sodium (Protonix) 40 mg PO BID [facility] Polyethylene Glycol (Miralax) 17 gm PO DAILY [facility] Last Admin: 05/05/19 12:26 Dose: Not Given Documented by: Polysaccharide [facility] ([facility]rex 150) [facility] Last Admin: 05/05/19 12:29 Dose: 150 mg Documented by: Senna/Docusate Sodium (Senokot-S, Rimma-Colace) 2 tablet PO BID [facility] Last Admin: 05/05/19 12:29 Dose: 2 tablet Documented by: Sodium Chloride () 10 - 40 ml IV UD PRN PRN Reason: SALINE FLUSH Last Admin: 05/05/19 18:54 Dose: 5 ml Documented by: Timolol Maleate (Timoptic) 1 drop OPHTHALMIC BID [facility] Last Admin: 05/05/19 12:29 Dose: 1 drop Documented by: Assessment/Plan All Active Problems (Last Reviewed 05/05/19 @ 11:20 by Christen Pickering PA-C) Triquetral chip fracture (Resolved) Debility (Resolved) Frequent falls (Resolved) Hypokalemia (Acute) Cystitis (Acute) Abdominal pain (Acute) Epigastric pain (Acute) Nausea and vomiting (Acute) Generalized abdominal discomfort (Acute) Generalized weakness (Acute) Cellulitis of right lower leg (Resolved) Diabetic ulcer 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 (Resolved) Hematoma (Resolved) Nonhealing ulcer 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 (Resolved) Open wound of right lower leg (Resolved) Traumatic hematoma of right lower leg with infection (Resolved) #1 severe sepsis secondary to acute cystitis-patient will be admitted to PCU, lactic acid will be repeated, patient will be placed on IV antibiotics for cystitis, labs will be monitored #2 hypokalemia-patient will be given IV potassium supplementation and labs will be rechecked #3 nausea and vomiting-etiology unclear, patient will be placed on clear liquids and will see general surgery in consultation, PPI will be administered #4 acute cystitis #5 hyperbilirubinemia-etiology unclear, patient will be seen by general surgery, CMP will be rechecked tomorrow #6 chronic atrial fibrillation #7 supratherapeutic INR-patient is on Coumadin chronically for atrial fib, Coumadin will be held and INR will be rechecked tomorrow #8 essential hypertension #9 hyperlipidemia Code Visit Inpatient E&M: 72213 Init Hosp L3
[2019-05-05] MEDS: Pantoprazole Sodium 40 MG Tablet PO (22:05)
[2019-05-05] MEDS: Atorvastatin Calcium 10 MG Tablet PO (22:06)
[2019-05-05] MEDS: Latanoprost 0.005% 1 Bottle 1 DRP EACH EYE (22:08)
[2019-05-05] MEDS: metroNIDAZOLE 500 MG/100 ML BAG 100 MG IV (22:16)
--- NOTE | 2019-05-05 23:18 | NURSING ---
called report to TYE Gonzalez on MS2
[2019-05-06] VITALS (15 sets, daily range): BP systolic 96–145; BP diastolic 21–96; PULSE 39–88; RESP 18–29; TEMP 36.3–36.8; O2SAT 92–99
[2019-05-06] MEDS: Morphine 4 MG/ML Syringe IV ×2 (05:17→20:05)
--- NOTE | 2019-05-06 05:47 | PN.SURG_ITS ---
Patient Problems: Active and Suspected Problems (Last Reviewed 05/05/19 @ 11:20 by Christen Pickering PA-C) Hypokalemia (Acute) Cystitis (Acute) Abdominal pain (Acute) Epigastric pain (Acute) Nausea and vomiting (Acute) Generalized abdominal discomfort (Acute) Generalized weakness (Acute) Subjective: Patient continues complaint of nausea and inability to vomit. She is complaining much less of any epigastric pain. - Physical Exam Vitals/I&O's: Vital Signs Temp Pulse Resp BP Pulse Ox 97.6 F L 79 18 145/96 H 99 05/06/19 02:00 05/06/19 02:00 05/06/19 02:00 05/06/19 02:00 05/06/19 02:00 Oxygen Flow Rate (L/min) 2 Oxygen Delivery Method Nasal Cannula Weight: 209 lb 14.081 oz Body Mass Index (BMI) 33.7 Finger Stick Blood Glucose 141 Intake and Output for Last 24 Hours 05/04/19 05/05/19 05/06/19 23:59 23:59 23:59 Intake Total 2867.01 / 2867.01 Balance 2867.01 / 2867.01 Abdomen: Bowel Sounds Present, Soft, Non Tender Laboratory Results 05/05/19 04:20: Differential Comment , Diff Path Review Reviewed 05/05/19 09:05: Lactic Acid 1.5 05/05/19 11:54: Troponin I 0.035 Current Medications Acetaminophen (Tylenol) 1,000 mg PO Q6H PRN PRN PRN Reason: Pain Score 1-3/10 Amlodipine Besylate (Norvasc) 10 mg PO DAILY [facility] Last Admin: 05/05/19 12:30 Dose: 10 mg Documented by: Atorvastatin Calcium (Lipitor) 10 mg PO QHS [facility] Last Admin: 05/05/19 22:06 Dose: 10 mg Documented by: Furosemide (Lasix) 40 mg PO DAILY [facility] Sodium Chloride () 250 mls @ 15 mls/hr IV .[id number] PRN PRN Reason: Saline Flush Metronidazole (Flagyl) 500 mg in 100 mls @ 100 mls/hr IV Q8 [facility] Last Infusion: 05/05/19 23:16 Dose: Infused Documented by: Ampicillin Sodium/Sulbactam (Sodium 3 gm/ Sodium Chloride) 112 mls @ 150 mls/hr IV Q8 [facility] Last Admin: 05/06/19 05:17 Dose: 150 mls/hr Documented by: Latanoprost (Xalatan Opthalmic) 1 drop EACH EYE QHS [facility] Last Admin: 05/05/19 22:08 Dose: 1 drop Documented by: Lorazepam (Ativan) 1 mg PO BID PRN PRN PRN Reason: ANXIETY Losartan Potassium (Cozaar) 100 mg PO DAILY [facility] Last Admin: 05/05/19 12:29 Dose: 100 mg Documented by: Metoprolol Tartrate (Lopressor (Beta Carlos Manuel)) 25 mg PO BID [facility] Last Admin: 05/05/19 22:06 Dose: 25 mg Documented by: Morphine Sulfate () 4 mg IV Q3H PRN PRN PRN Reason: Pain Score 6-10 Last Admin: 05/06/19 05:17 Dose: 4 mg Documented by: Ondansetron HCl (Zofran) 4 mg IV Q6H PRN PRN PRN Reason: NAUSEA/VOMITING Last Admin: 05/05/19 21:04 Dose: 4 mg Documented by: Pantoprazole Sodium (Protonix) 40 mg PO BID [facility] Last Admin: 05/05/19 22:05 Dose: 40 mg Documented by: Polyethylene Glycol (Miralax) 17 gm PO DAILY [facility] Last Admin: 05/05/19 12:26 Dose: Not Given Documented by: Polysaccharide [facility] ([facility]rex 150) [facility] Last Admin: 05/05/19 12:29 Dose: 150 mg Documented by: Senna/Docusate Sodium (Senokot-S, Rimma-Colace) 2 tablet PO BID [facility] Last Admin: 05/05/19 22:06 Dose: Not Given Documented by: Sodium Chloride () 10 - 40 ml IV UD PRN PRN Reason: SALINE FLUSH Last Admin: 05/05/19 22:16 Dose: 10 ml Documented by: Timolol Maleate (Timoptic) 1 drop OPHTHALMIC BID [facility] Last Admin: 05/05/19 22:08 Dose: 1 drop Documented by: Medical Necessity - Tobacco Use Smoking Status: Unknown if ever smoked Tobacco Use: Non-smoker Assessment/Plan All Active Problems (Last Reviewed 05/05/19 @ 11:20 by Christen Pickering PA-C) Triquetral chip fracture (Resolved) Debility (Resolved) Frequent falls (Resolved) Hypokalemia (Acute) Cystitis (Acute) Abdominal pain (Acute) Epigastric pain (Acute) Nausea and vomiting (Acute) Generalized abdominal discomfort (Acute) Generalized weakness (Acute) Cellulitis of right lower leg (Resolved) 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 She clearly does not have an acute surgical abdomen. Vital signs and laboratory all improved. She was over anticoagulated yesterday with an INR of 4. I propose a esophagogastroduodenoscopy with possible biopsy tomorrow for her. This will be pending her ongoing progress. This will be to evaluate her primary complaint of nausea and inability to vomit. I will be observing her anticoagulation status if this will impact our ability to do her scope. She clearly is not capable of tolerating a bowel prep. Her clinical examination is benign and so I would not pursue the risk of a colonoscopy in poorly prepped bowel at this time. Ashwin Beltran M.D., F.A.C.S.
--- NOTE | 2019-05-06 05:55 | RAD_ITS ---
STUDY: X-RAY CHEST REASON FOR EXAM: Female, 83 years old. Shortness of breath and weakness. TECHNIQUE: AP and lateral views of the chest. COMPARISON: Comparison is made with prior study dated April 21, 2019. FINDINGS: There now is evidence of blunting of both cuts stephanie angles with the fascia congestion and increased markings at the lung bases suggestive of bibasilar atelectasis. There is moderate cardiac enlargement. A left-sided dual-chamber pacemaker is seen. Normal mediastinum and arnol. Normal visualized pulmonary arteries. There is atherosclerotic calcification of the aortic arch with tortuosity. There are diffuse degenerative changes of the visualized thoracic spine. Normal visualized ribs, clavicles, and shoulders. There is no demonstrated abnormality of the visualized soft tissue structures of the upper abdomen. RAD/Chest PA and Lateral IMPRESSION: Interval mild CHF with bibasilar atelectasis and blunting of both costophrenic angles. Electronically Signed: Tim Gabriel, at 11:30 EST , Service support ,
[2019-05-06] MEDS: metroNIDAZOLE 500 MG/100 ML BAG 100 MG IV (06:21)
[2019-05-06 07:21] LABS: Absolute Neutrophil Count 20.4 X10^3/uL (2.0-7.7); Basophil# 0.03 X10^3/uL; Basophil% 0.1 % (0-1); Hematocrit 32.6 % (37-47); Hemoglobin 10.2 g/dL (12.0-15.0); Lymphocyte % 2.1 % (19-41); Mean Corp Hgb Conc 31.3 g/dL (32-36); Mean Corpuscular Hgb 31.3 pg (27.0-32.0); Mean Platelet Vol. 10.9 fl (6.2-12.0); Monocyte# 7.47 X10^3/uL; Monocyte% 25.6 % (0-10); NRBC Flagged by Analyzer 0.1 % (0-5); Neutrophil % 69.8 % (47-70); POSITIVE DIFFERENTIAL YES; Platelet Count 148 K/mm3 (150-450); RBC Distribution Width CV 16.1 % (11.6-14.6); RBC Distribution Width SD 59.2 fl (35.1-43.9); Red Blood Count 3.26 M/mm3 (4.2-5.4); White Blood Count 29.2 K/mm3 (4.4-11.0)
[2019-05-06 07:24] LABS: Prothrombin Time (Protime)PT. 91.9 SECONDS (11.7-14.9)
[2019-05-06 07:31] LABS: Differential Indicated SCAN CRITERIA MET
[2019-05-06 07:34] LABS: International Normalized Ratio 11.5
--- NOTE | 2019-05-06 07:35 | NURSING ---
TERESA FROM LAB CALLED WITH CRITICAL VALUE INR AT 11.5- CORI NOTIFIED AND WILL LET T KNOW
[2019-05-06 07:44] LABS: ALB/GLOB Ratio 1.1 RATIO (0.9-2.4); AST(SGOT) 34 U/L (15-37); Alanine Aminotransfer ALT/SGPT 15 U/L (13-56); Albumin, Serum 3.7 g/dL (3.2-5.0); Alkaline Phosphatase 84 U/L (45-117); Anion Gap 15 (5-15); BUN 19 mg/dL (7-18); BUN/Creat Ratio 8.7 RATIO (10-20); Calcium,Total 7.7 mg/dL (8.5-10.1); Chloride 96 mmol/L (98-107); Creatinine, Serum 2.18 mg/dL (0.55-1.02); EST Glomerular Filtration Rate 23 mL/min (>60); Est Glom Filt Rate - Afr Amer 28 mL/min (>60); Estimated Creatinine Clearance 18.63 ml/min; Globulin 3.3 g/dL (2.2-4.2); Glucose 101 mg/dL (74-106); Potassium 3.1 mmol/L (3.5-5.1); Sodium Level 136 mmol/L (136-145)
[2019-05-06] MEDS: Senna/Docusate Sodium 1 Tablet 2 TABLET PO (09:01)
[2019-05-06] MEDS: Timolol 0.5% 5ML OPTH.BTL 1 DRP OPHTHALMIC (09:02)
[2019-05-06] MEDS: Iron Polysaccharide Complex 150 MG CAPSULE PO (09:03)
[2019-05-06] MEDS: Losartan Potassium 100 MG Tablet PO (09:03)
[2019-05-06] MEDS: amLODIPine 10 MG Tablet PO (09:03)
[2019-05-06] MEDS: Metoprolol Tartrate 25 MG Tablet PO (09:03)
[2019-05-06] MEDS: Pantoprazole Sodium 40 MG Tablet PO (09:04)
[2019-05-06] MEDS: Polyethylene Glycol 3350 17 GM PACKET PO (09:04)
[2019-05-06] MEDS: Ensure Clear 120 ML Liquid PO ×2 (09:06→13:38)
[2019-05-06] MEDS: Furosemide 40 MG Tablet PO (09:07)
[2019-05-06 09:22] LABS: Differential Comment SCANNED
[2019-05-06 09:27] LABS: Reactive Lymphocyte 2+
[2019-05-06 09:30] LABS: Lactic Acid 3.2 mmol/L (0.4-1.9)
--- NOTE | 2019-05-06 11:35 | CASEMGMT ---
SW met w/pt's daughter Nat in room, pt was sleeping during most of the conversation. SW reviewed w/daughter pt's prior level of function and possible discharge options. PCP: Dr. Sigala Specialists: Dr. Schneider, Dr. Gamboa Insurance/Prescription benefit: Medicare, [employer] Pharmacy: [facility] LW/POA: Daughters Nat Escobar and Kori Solis are healthcare POAs. POA and LW in summary tab of echart. LNOK: PT has two daughters and son Living arrangements/prior level of function: Pt lives w/son Magdi in a two story home, has a 1st floor set up. Family helps pt with many ADLs including cooking, cleaning, transportation, bathing. Daughter Nta explains that as pt's wrist was getting better pt was getting more independent. She did have a difficult time initially when she went home from [facility]CU, and was needing more help at that time. DME/HHC: Walker, cane, grab bars, bedside commode, hospital bed. Pt got a platform for the walker but did not end up using it. Pt also had [facility] HH set up after leaving TCU. Daughter does not think she currently has home health. Pt was in [facility]CU after a wrist fracture from 03/17-04/14. Pt has not been to any other SNF. SW spoke w/daughter about discharge plan. They would like to take pt home at discharge. SW spoke w/her about the possibility of pt needing to go to a group home again, and did give her a list of nursing homes in the area should it be needed. SW did review coverage for SNF depends on pt having a three day qualifying stay. SW also reviewed that pt has not been out of TCU for 60 days, so the group home benefit would shrimp picker on the day it left off, and pt has used about 28 days . Daughter states understanding. SW explained will follow up w/pt and family again tomorrow, once pt has had PT, to see if pt is able to return home or if a group home stay may be again warranted. Daughter states understanding. Plan: TBD, home vs. SNF. CAROLINA Vyas
[2019-05-06 12:57] LABS: Reflex Lactate? Y
[2019-05-06 13:56] LABS: Lactic Acid 5.2 mmol/L (0.4-1.9)
--- NOTE | 2019-05-06 13:59 | CASEMGMT ---
TYE FLEMING NOTE: Call received from pt's daughter, Maria Fernanda, voicing concerns re: pt condition and asking if her mother needs to be transferred to another hospital/bigger facility and how to start the process. She states her sister Nat informed her that a doctor was in to talk with them and mentioned that pt may need to be transferred. She stated she would like her transferred if needed. This TYE FLEMING and Loida DINH, to room to talk with pt, Nat, and her fiance who is at bedside. They were made aware if pt needs to be transferred that it would be families decision on where pt would be transferred to and that arrangements would be made by [facility]. They were informed that Dr Barnes would be up to talk with them shortly to talk with them. They voiced appreciation of information. Ann MARTINS RN, CM
[2019-05-06 14:33] LABS: LDH 321 U/L (84-246)
--- NOTE | 2019-05-06 14:56 | CON.PCM_ITS ---
Problem List (1) FDC (current) use of anticoagulants Status: Chronic (2) Debility Status: Chronic (3) Frequent falls Status: Chronic (4) Chronic diastolic heart failure Status: Chronic (5) Atrial fibrillation Status: Chronic (6) Pulmonary HTN Status: Chronic (7) Hypertension Status: Chronic (8) GERD (gastroesophageal reflux disease) Status: Chronic (9) Osteoarthritis of left knee Status: Chronic (10) Epigastric pain Status: Acute (11) Generalized abdominal discomfort Status: Acute (12) Non-rheumatic tricuspid valve insufficiency Status: Chronic (13) Sick sinus syndrome Status: Chronic (14) Presence of permanent cardiac pacemaker Status: Chronic Comment: Implant 2008, gen change 02/02/19 (15) Essential (primary) hypertension Status: Chronic Reason for Consult Date of Consultation: 05/06/19 Reason for Consultation: Elevated lactate History of Present Illness: The patient is a 83 year old F, with past medical history listed below, who presented to [facility] on 05/05/2019 secondary to 1 week history of nausea and poor appetite. Patient reportedly had had some dry heaves and felt overall weak. Patient had a complaint of upper abdominal pain, but did not report any fevers or chills. No cough has been reported. Patient did report some dysuria. Patient is on Coumadin therapy secondary to A. fib, but denied any bleeding complications. In the ER, patient was given Zofran and IV fluids. Patient had still complained of epigastric pain and was given some Protonix. Urinalysis was consistent with a UTI, so patient was given Rocephin and admitted to the floor for further timmy luation. Over the course of the next 24 hours, patient had significant elevation in INR, white blood cell count and lactate. Patient was being seen by surgery and there is concern the patient needed transferred to a tertiary center. I was asked to see the patient for evaluation. Patient has remained normotensive and requiring only 1 L nasal cannula oxygen to maintain saturations. Patient states that she does not feel that she is improving on current therapy. Patient denied any bleeding that was obvious such as epistaxis or hemoptysis. Patient continues to report nausea that is worsened with palpation of the epigastrium. Patient does report that 2 days ago she started to notice that her stool was sticking to the bowl. Patient does have dark stools at baseline secondary to iron supplementation. Patient reports that she had a Rome fundoplication approximately 10 years ago at [facility]. Long conversation with the patient about goals of therapy. After review of the various CODE STATUS, patient has stated that she would want to be a DNR Comfort Care arrest without intubation. Review of systems otherwise negative from a constitutional, HEENT, respiratory, cardiovascular, GI, genitourinary, musculoskeletal, skin, neurologic, psychiatric and hematologic system unless stated above. Past Medical History Past Medical History (Chronic Problems): Chronic Problems (Last Reviewed 05/05/19 @ 11:20 by Christen Pickering PA-C) FDC (current) use of anticoagulants (Chronic) Debility (Chronic) Frequent falls (Chronic) Chronic diastolic heart failure (Chronic) Atrial fibrillation (Chronic) Pulmonary HTN (Chronic) Hypertension (Chronic) Glaucoma (Chronic) GERD (gastroesophageal reflux disease) (Chronic) Anxiety (Chronic) Osteoarthritis of left knee (Chronic) 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) Chronic atrial fibrillation (Chronic) Non-rheumatic tricuspid valve insufficiency (Chronic) Secondary pulmonary arterial hypertension (Chronic) Sick sinus syndrome (Chronic) 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 2008, gen change 02/02/19 Essential (primary) hypertension (Chronic) Hyperlipidemia (Chronic) Medical History: Medical History (Last Reviewed 05/05/19 @ 11:20 by Christen Pickering PA-C) 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) I50.32 Chronic atrial fibrillation (Chronic) I48.2 Non-rheumatic tricuspid valve insufficiency (Chronic) I36.1 Secondary pulmonary arterial hypertension (Chronic) I27.21 Sick sinus syndrome (Chronic) I49.5 Essential (primary) hypertension (Chronic) I10 Hyperlipidemia (Chronic) E78.5 Arthritis M19.90 Chronic diastolic (congestive) heart failure I50.32 Glaucoma H40.9 Nonrheumatic mitral (valve) insufficiency I34.0 Obesity E66.9 Type 2 diabetes mellitus 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 Cellulitis and abscess of leg L03.119, L02.419 Allergies adhesive Allergy (Verified 05/05/19 04:00) PULLS SKIN OFF Iodinated Contrast Media [Iodinated Contrast Media - IV Dye] Allergy (Verified 05/05/19 04:00) EYES SWELL SHUT latex Adverse Reaction (Unknown, Verified 05/05/19 04:00) Unknown Home Medications: Ambulatory Orders Medication Instructions Recorded Amlodipine [Norvasc] 10 mg PO DAILY 12/02/15 Bimatoprost 0.01% [Lumigan 0.01%] 1 drp EACH EYE QHS 12/02/15 Furosemide 40 mg PO DAILY 12/02/15 Lansoprazole [Prevacid] 30 mg PO DAILY 12/02/15 Lorazepam [Ativan] 1 mg PO BID PRN 12/02/15 Metoprolol Tartrate [Lopressor 25 mg PO BID 12/02/15 (beta carlos manuel)] Simvastatin [Zocor] 20 mg PO QHS 12/02/15 Timolol 0.5% 1 drp EACHEYE BID 03/13/19 Losartan Potassium [Cozaar] 100 mg PO DAILY 03/17/19 Warfarin Sodium 2 mg PO MOTUWETHFR 03/17/19 Warfarin Sodium 3 mg PO UD 03/17/19 Acetaminophen [Tylenol] 1,000 mg PO Q6H PRN PRN tab 04/07/19 Iron Polysaccharide Complex 150 mg PO DAILYCM #30 cap 04/07/19 [Ferrex 150] Menthol [Bengay Vanishing Scent] 1 applic TOPICAL TID PRN PRN tube 04/07/19 Menthol/Lanolin/Calamine/Znox 1 applic TOPICAL 0600,2200 tube 04/07/19 [Calmoseptine Ointment] Mineral Oil/Petrolatum,White 1 applic TOPICAL QHS jar 04/07/19 [Eucerin] Nystatin Powder [Mycostatin Powder] 1 applic TOPICAL 0600,2200 bottle 04/07/19 Ondansetron [Zofran Odt] 4 mg PO Q8H PRN PRN #21 tab 04/07/19 Polyethylene Glycol 3350 [Miralax] 17 gm PO DAILY #30 packet 04/07/19 Senna/Docusate Sodium [Senokot-S] 2 tab PO BID #120 tab 04/11/19 Surgical History: Surgical History (Last Reviewed 05/05/19 @ 11:21 by Christen Pickering PA-C) Presence of permanent cardiac pacemaker (Chronic) Onset Date: 02/02/19 Z95.0 Implant 2008, gen change 02/02/19 History of radiofrequency ablation procedure for cardiac arrhythmia Onset Date: 2008 Z History of herniorrhaphy Z890, Z87.19 Hiatal hernia repair approx 2005, Dr. 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 Chest x-ray shows a right pleural effusion with fluid in the fissure. CT of the abdomen does show contrast through the rectum, but nonspecific bowel gas pattern. No IV contrast was obtained secondary to renal function. - Physical Exam Vitals/I&O's: Vital Signs Temp Pulse Resp BP Pulse Ox 36.6 C 81 18 118/70 95 05/06/19 13:33 05/06/19 13:33 05/06/19 13:33 05/06/19 13:33 05/06/19 13:33 Oxygen Flow Rate (L/min) 1 Oxygen Delivery Method Nasal Cannula Weight: 95.2 kg Body Mass Index (BMI) 33.7 Finger Stick Blood Glucose 141 Intake and Output for Last 24 Hours 05/04/19 05/05/19 05/06/19 23:59 23:59 23:59 Intake Total 2867.01 / 2867.01 375 / 375 Output Total 250 / 250 Balance 2867.01 / 2867.01 125 / 125 General: Alert, Oriented x3, Cooperative, Well developed, Well nourished, - - Mild distress. HEENT: Atraumatic, PERRLA, EOMI, Normocephalic, - - No scleral edema or icterus Oral: No Gingival or Mucosal Lesions/ Ulcerations, Dry Mucosa Neck: Supple, No JVD, No Nodes, Trachea Midline Lungs: No wheeze, No rales, Diminished, Rhonchi - Right base, - - Symmetric expansion anteriorly Cardiovascular: Normal S1, Normal S2, Irregular Rate, Murmur - Grade 2 out of 6 diastolic murmur at the left sternal border. Questionable rub noted., No Gallop Abdomen: Bowel Sounds Present, Soft, Tender - More nausea than tenderness at the epigastric area. No rebound or guarding appreciated. Extremities: No clubbing, No cyanosis, Edema Skin: No rashes, No breakdown Musculoskeletal: No Tenderness to Palpation of Joints or Extremities Lymphatic: No Cervical, Supraclavicular, or Inguinal Adenopathy Neurological: Cranial nerves II-XII grossly intact, Neuro grossly intact, Motor Exam 5/5 strength throughout Psych/Mental Status: Anxious, Restless Microbiology Past 72 Hours 05/05/19 05:00 Urine, Catheterized Urine Culture - Preliminary Presumptive E. coli Laboratory Results 05/06/19 07:00: WBC 29.2 H, RBC 3.26 L, Hgb 10.2 L, Hct 32.6 L, MCV 100.0 H, MCH 31.3, MCHC 31.3 L, RDW Std Deviation 59.2 H, RDW Coeff of Vlad 16.1 H, Plt Count 148 L, MPV 10.9, Immature Gran % (Auto) 2.400 H, Neut % (Auto) 69.8, Lymph % (Au to) 2.1 L, Walker % (Auto) 25.6 H, Eos % (Auto) 0.0, Baso % (Auto) 0.1, Absolute Neuts (auto) 20.4 H, Absolute Lymphs (auto) 0.60 L, Nucleated RBC % 0.1, Differential Comment SCANNED, Diff Path Review September foll, Reactive Lymphocytes 2+ 05/06/19 07:00: PT 91.9 H, INR 11.5 H* 05/06/19 07:00: Sodium 136, Potassium 3.1 L, Chloride 96 L, Carbon Dioxide 25.0, Anion Gap 15, BUN 19 H, Creatinine 2.18 H, Estim Creat Clear Calc 18.63, Est GFR (MDRD) Af Amer 28 L, Est GFR (MDRD) Non-Af 23 L, BUN/Creatinine Ratio 8.7 L, Glucose 101, Calcium 7.7 L, Total Bilirubin 5.20 H, AST 34, ALT 15, Alkaline Phosphatase 84, Total Protein 7.0, Albumin 3.7, Globulin 3.3, Albumin/Globulin Ratio 1.1 05/06/19 07:00: Lactate Dehydrogenase 321 H 05/06/19 08:53: Lactic Acid 3.2 H* 05/06/19 13:05: Lactic Acid 5.2 H* Current Medications Acetaminophen (Tylenol) 1,000 mg PO Q6H PRN PRN PRN Reason: Pain Score 1-3/10 Amlodipine Besylate (Norvasc) 10 mg PO DAILY [facility] Last Admin: 05/06/19 09:03 Dose: 10 mg Documented by: Atorvastatin Calcium (Lipitor) 10 mg PO QHS [facility] Last Admin: 05/05/19 22:06 Dose: 10 mg Documented by: Sodium Chloride () 250 mls @ 15 mls/hr IV .[id number] PRN PRN Reason: Saline Flush Piperacillin Sod/Tazobactam (Sod 3.375 gm/ Sodium Chloride) 50 mls @ 12.5 mls/hr IV Q8 [facility] Latanoprost (Xalatan Opthalmic) 1 drop EACH EYE QHS [facility] Last Admin: 05/05/19 22:08 Dose: 1 drop Documented by: Lorazepam (Ativan) 1 mg PO BID PRN PRN PRN Reason: ANXIETY Losartan Potassium (Cozaar) 100 mg PO DAILY [facility] Last Admin: 05/06/19 09:03 Dose: 100 mg Documented by: Metoprolol Tartrate (Lopressor (Beta Carlos Manuel)) 25 mg PO BID [facility] Last Admin: 05/06/19 09:03 Dose: 25 mg Documented by: Morphine Sulfate () 4 mg IV Q3H PRN PRN PRN Reason: Pain Score 6-10/10 Last Admin: 05/06/19 05:17 Dose: 4 mg Documented by: Nutritional Formula (Lactose Free) (Ensure Clear) 120 ml PO 4X/DAY [facility] Last Admin: 05/06/19 13:38 Dose: 120 ml Documented by: Ondansetron HCl (Zofran) 4 mg IV Q6H PRN PRN PRN Reason: NAUSEA/VOMITING Last Admin: 05/05/19 21:04 Dose: 4 mg Documented by: Pantoprazole Sodium (Protonix) 40 mg PO BID [facility] Last Admin: 05/06/19 09:04 Dose: 40 mg Documented by: Polyethylene Glycol (Miralax) 17 gm PO DAILY [facility] Last Admin: 05/06/19 09:04 Dose: 17 gm Documented by: Polysaccharide Iron Complex (Ferrex 150) 150 mg PO DAILYCM [facility] Last Admin: 05/06/19 09:03 Dose: 150 mg Documented by: Senna/Docusate Sodium (Senokot-S, Rimma-Colace) 2 tablet PO BID [facility] Last Admin: 05/06/19 09:01 Dose: 2 tablet Documented by: Sodium Chloride () 10 - 40 ml IV UD PRN PRN Reason: SALINE FLUSH Last Admin: 05/05/19 22:16 Dose: 10 ml Documented by: Timolol Maleate (Timoptic) 1 drop OPHTHALMIC BID [facility] Last Admin: 05/06/19 09:02 Dose: 1 drop Documented by: Clinical Impression(s) from Imaging Studies Abdomen CT 05/05/19 09:10 IMPRESSION: 1. Mild thickening of the mucosa of the wall of the proximal and transverse and some regions of the descending colon compatible with colitis not otherwise specified. 2. The liver appears slightly small and lobular possibly due to cirrhosis or another nonspecified a hepatic process. No obvious lesions seen. 3. Diffuse body wall edema and mild intra-abdominal or intrapelvic mesenteric edema. 4. Small bilateral pleural effusions. Electronically Signed: Daron Dominguez MD at 12:44 EST , Service support , Chest X-Ray 05/06/19 05:55 IMPRESSION: Interval mild CHF with bibasilar atelectasis and blunting of both costophrenic angles. Electronically Signed: Tim Gabriel, at 11:30 EST , Service support , Assessment/Plan Active and Suspected Problems (Last Reviewed 05/05/19 @ 11:20 by Christen Pickering PA-C) Hypokalemia (Acute) Cystitis (Acute) Abdominal pain (Acute) Epigastric pain (Acute) Nausea and vomiting (Acute) Generalized abdominal discomfort (Acute) Generalized weakness (Acute) RECOMMENDATIONS: 1. Type and screen 2. Repeat CBC and INR 3. Administer FFP for INR greater than 4 4. Consider transfer to a tertiary center 5. Broaden antibiotic spectrum IMPRESSIONS: 1. Elevated lactate Unclear etiology at this time. Patient has had a Rome fundoplication in the past, so emesis is likely not an option. Patient is reporting stool sticking to the bowl over the last 2 days indicating a possible melena in the setting of iron replacement. We will recheck a CBC. Patient does have a significantly elevated INR at this time. Patient was given vitamin K this morning, but if INR is greater than 4, would administer FFP. Bowel ischemia would be another consideration, but patient does not appear to have an acute abdomen at this time. Patient has not been hypotensive during hospitalization. We will hold on fluid bolus as patient does have a history of stage III diastolic dysfunction and type II pulmonary hypertension with a pulmonary artery pressure of 63 mmHg. Patient would be at high risk for development of flash pulmonary edema. If there will be an extended period of time before transfer to a tertiary center, recommend transfer to the intensive care unit for closer monitoring. 2. Acute kidney injury Unclear etiology at this time. Patient received only p.o. contrast yesterday, but appears to be having increasing creatinine. Ratio is consistent with ATN. Patient does have hypokalemia with a normal anion gap. Patient does appear to have an E. coli urinary tract infection and may be having an element of pyelonephritis leading to significant leukocytosis. Patient does not have flank tenderness at this time, which makes this less likely. Patient did not appear to have hydronephrosis on CT scan, but intravenous contrast was not used. 3. Chronic stage III diastolic CHF/type II pulmonary hypertension/A. fib/sick sinus syndrome Patient currently on only 1 L nasal cannula oxygen and heart rate is relatively controlled. Would hold on 30 cc/kg fluid bolus as patient will be at high risk for development of flash pulmonary edema and patient is not currently hypotensive. Cautious use of baseline medications as patient does have a high risk of becoming hypotensive. 4. Drug-induced coagulopathy Likely secondary to antibiotics in the setting of Coumadin. Given concern of possible upper GI bleed, would recheck INR. If this remains greater than 4, treatment with FFP would be appropriate, especially if there is falling hemoglobin. Patient is also at risk for the need for central line and this will increase the risk of complications. Spontaneous hematoma would also be a consideration, but patient does not have an acute abdomen or significant tachycardia at this time to suggest rapid blood loss 5. Type 2 diabetes mellitus/advanced age/iron deficiency anemia/glaucoma Complicates care, management, recovery and prognosis. Would cover with sliding scale insulin only given acute situation. Okay to continue glaucoma medications. Did discuss patient's CODE STATUS she will be a DNR Comfort Care arrest without intubation. TIME: 35 minutes critical care time spent addressing patient's elevated lactate, acute kidney injury, diastolic CHF, coagulopathy, review of all data and collaboration with care team (2 PM to 3:30 PM) Code Visit 9xxxx: [id number] Critical care first hour
[2019-05-06] MEDS: Ondansetron 4 MG/2 ML Vial IV ×2 (14:57→20:05)
[2019-05-06 15:14] LABS: Absolute Lymphocyte Count 0.57 X10^3/uL (0.83-4.51); Absolute Neutrophil Count 20.6 X10^3/uL (2.0-7.7); Basophil# 0.04 X10^3/uL; Basophil% 0.1 % (0-1); Hematocrit 32.9 % (37-47); Hemoglobin 10.2 g/dL (12.0-15.0); Lymphocyte # 0.57 X10^3/ul (4.0); Lymphocyte % 1.9 % (19-41); Mean Corpuscular Hgb 31.1 pg (27.0-32.0); Mean Corpuscular Volume 100.3 fL (81-99); Mean Platelet Vol. 11.4 fl (6.2-12.0); Monocyte# 7.47 X10^3/uL; Monocyte% 25.2 % (0-10); NRBC Flagged by Analyzer 0.1 % (0-5); Neutrophil # 20.55 X10^3/uL (2.7-7.7); Neutrophil % 69.2 % (47-70); POSITIVE DIFFERENTIAL YES; Platelet Count 193 K/mm3 (150-450); RBC Distribution Width CV 15.9 % (11.6-14.6); RBC Distribution Width SD 58.7 fl (35.1-43.9); Red Blood Count 3.28 M/mm3 (4.2-5.4); White Blood Count 29.7 K/mm3 (4.4-11.0)
--- NOTE | 2019-05-06 15:15 | PN_ITS ---
Patient Problems: Active and Suspected Problems (Last Reviewed 05/05/19 @ 11:20 by Christen Pickering PA-C) Hypokalemia (Acute) Cystitis (Acute) Abdominal pain (Acute) Epigastric pain (Acute) Nausea and vomiting (Acute) Generalized abdominal discomfort (Acute) Generalized weakness (Acute) Subjective: Patient seen and examined. Family at bedside. Patient appears dyspneic. Denies further abdominal pain. Denies fever, chills. Complains of nausea, no emesis. - Physical Exam Vitals/I&O's: Vital Signs Temp Pulse Resp BP Pulse Ox 97.8 F 81 18 118/70 95 05/06/19 13:33 05/06/19 13:33 05/06/19 13:33 05/06/19 13:33 05/06/19 13:33 Oxygen Flow Rate (L/min) 1 Oxygen Delivery Method Nasal Cannula Weight: 209 lb 14.081 oz Body Mass Index (BMI) 33.7 Finger Stick Blood Glucose 141 Intake and Output for Last 24 Hours 05/04/19 05/05/19 05/06/19 23:59 23:59 23:59 Intake Total 2867.01 / 2867.01 375 / 375 Output Total 250 / 250 Balance 2867.01 / 2867.01 125 / 125 General: Alert, Oriented x3, Cooperative HEENT: Atraumatic, PERRLA, EOMI, Normocephalic Oral: Dry Mucosa Neck: Supple, No JVD, Negative Carotid Bruits Lungs: Clear to auscultation, Diminished Cardiovascular: Regular rate, Regular Rhythm, Normal S1, Normal S2, Murmur Abdomen: Bowel Sounds Present, Soft, Non Tender, Non-Distended Extremities: No clubbing, No cyanosis, Capillary Refill Less than 3 Seconds, Edema - non-pitting Skin: No rashes, No breakdown Musculoskeletal: No Tenderness to Palpation of Joints or Extremities Neurological: Cranial nerves II-XII grossly intact, Neuro grossly intact Psych/Mental Status: Normal Affect, Appropriate Microbiology Past 72 Hours 05/05/19 05:00 Urine, Catheterized Urine Culture - Preliminary Presumptive E. coli Laboratory Results 05/06/19 07:00: WBC 29.2 H, RBC 3.26 L, Hgb 10.2 L, Hct 32.6 L, MCV 100.0 H, MCH 31.3, MCHC 31.3 L, RDW Std Deviation 59.2 H, RDW Coeff of Vlad 16.1 H, Plt Count 148 L, MPV 10.9, Immature Gran % (Auto) 2.400 H, Neut % (Auto) 69.8, Lymph % (Auto) 2.1 L, [place] % (Auto) 25.6 H, Eos % (Auto) 0.0, Baso % (Auto) 0.1, Absolute Neuts (auto) 20.4 H, Absolute Lymphs (auto) 0.60 L, Nucleated RBC % 0.1, Differential Comment SCANNED, Diff Path Review September, Reactive Lymphocytes 2+ 05/06/19 07:00: PT 91.9 H, INR 11.5 H* 05/06/19 07:00: Sodium 136, Potassium 3.1 L, Chloride 96 L, Carbon Dioxide 25.0, Anion Gap 15, BUN 19 H, Creatinine 2.18 H, Estim Creat Clear Calc 18.63, Est GFR (MDRD) Af Amer 28 L, Est GFR (MDRD) Non-Af 23 L, BUN/Creatinine Ratio 8.7 L, Glucose 101, Calcium 7.7 L, Total Bilirubin 5.20 H, AST 34, ALT 15, Alkaline Phosphatase 84, Total Protein 7.0, Albumin 3.7, Globulin 3.3, Albumin/Globulin Ratio 1.1 05/06/19 07:00: Lactate Dehydrogenase 321 H 05/06/19 08:53: Lactic Acid 3.2 H* 05/06/19 13:05: Lactic Acid 5.2 H* 05/06/19 14:59: MRSA (PCR) Pending 05/06/19 15:01: CK Isoenzymes Pending, CK-MM (CK-3) Pending, CK-MB (CK-2) Pending, CK-BB (CK-1) Pending 05/06/19 15:01: PT Pending, INR Pending 05/06/19 15:01: WBC Pending, RBC Pending, Hgb Pending, Hct Pending, MCV Pending, MCH Pending, MCHC Pending, RDW Std Deviation Pending, RDW Coeff of Vlad Pending, Plt Count Pending, Neut % (Auto) Pending, Absolute Neuts (auto) Pending 05/06/19 15:01: Blood Type Pending, Antibody Screen Pending Current Medications Acetaminophen (Tylenol) 1,000 mg PO Q6H PRN PRN PRN Reason: Pain Score 1-3/10 Amlodipine Besylate (Norvasc) 10 mg PO DAILY [facility] Last Admin: 05/06/19 09:03 Dose: 10 mg Documented by: Atorvastatin Calcium (Lipitor) 10 mg PO QHS [facility] Last Admin: 05/05/19 22:06 Dose: 10 mg Documented by: Sodium Chloride () 250 mls @ 15 mls/hr IV .[id number] PRN PRN Reason: Saline Flush Piperacillin Sod/Tazobactam (Sod 3.375 gm/ Sodium Chloride) 50 mls @ 12.5 mls/hr IV Q8 AYLA Sodium Chloride () 1,000 mls @ 125 mls/hr IV .Q8H AYLA Latanoprost (Xalatan Opthalmic) 1 drop EACH EYE QHS [facility] Last Admin: 05/05/19 22:08 Dose: 1 drop Documented by: Lorazepam (Ativan) 1 mg PO BID PRN PRN PRN Reason: ANXIETY Losartan Potassium (Cozaar) 100 mg PO DAILY [facility] Last Admin: 05/06/19 09:03 Dose: 100 mg Documented by: Metoprolol Tartrate (Lopressor (Beta Carlos Manuel)) 25 mg PO BID [facility] Last Admin: 05/06/19 09:03 Dose: 25 mg Documented by: Morphine Sulfate () 4 mg IV Q3H PRN PRN PRN Reason: Pain Score 6-10/10 Last Admin: 05/06/19 05:17 Dose: 4 mg Documented by: Nutritional Formula (Lactose Free) (Ensure Clear) 120 ml PO 4X/DAY [facility] Last Admin: 05/06/19 13:38 Dose: 120 ml Documented by: Ondansetron HCl (Zofran) 4 mg IV Q6H PRN PRN PRN Reason: NAUSEA/VOMITING Last Admin: 05/06/19 14:57 Dose: 4 mg Documented by: Pantoprazole Sodium (Protonix) 40 mg PO BID [facility] Last Admin: 05/06/19 09:04 Dose: 40 mg Documented by: Polyethylene Glycol (Miralax) 17 gm PO DAILY [facility] Last Admin: 05/06/19 09:04 Dose: 17 gm Documented by: Polysaccharide [facility]rex 150[facility] Last Admin: 05/06/19 09:03 Dose: 150 mg Documented by: Senna/Docusate Sodium (Senokot-S, Rimma-Colace) 2 tablet PO BID [facility] Last Admin: 05/06/19 09:01 Dose: 2 tablet Documented by: Sodium Chloride () 10 - 40 ml IV UD PRN PRN Reason: SALINE FLUSH Last Admin: 05/05/19 22:16 Dose: 10 ml Documented by: Timolol Maleate (Timoptic) 1 drop OPHTHALMIC BID [facility] Last Admin: 05/06/19 09:02 Dose: 1 drop Documented by: Medical Necessity - Tobacco Use Smoking Status: Unknown if ever smoked Tobacco Use: Non-smoker Assessment/Plan All Active Problems (Last Reviewed 05/05/19 @ 11:20 by Christen Pickering PA-C) Triquetral chip fracture (Resolved) Hypokalemia (Acute) Cystitis (Acute) Abdominal pain (Acute) Epigastric pain (Acute) Nausea and vomiting (Acute) Generalized abdominal discomfort (Acute) Generalized weakness (Acute) Cellulitis of right lower leg (Resolved) 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 Severe sepsis secondary to acute E. coli cystitis-Worsening lactic acidosis and leukocytosis. Antibiotics broadened to IV Zosyn. 2. Nausea, vomiting, abdominal pain/elevated bilirubin-unclear etiology. CT of abdomen and pelvis shows mild thickening of the proximal transverse as well as descending colon, possible colitis. Liver appears small and lobular, possibly due to cirrhosis versus hepatic process. Diffuse body wall edema and mild intra-abdominal or intrapelvic mesenteric edema. ID and general surgery on consult. Liver ultrasound ordered. 3. KURT on chronic kidney disease stage III- IVF, trend BMP. 4. Hypokalemia-replace per protocol. Trend BMP. 5. Supratherapeutic INR-Coumadin on hold. Vitamin K x1. Trend INR. No evidence of active bleeding. 6. Chronic diastolic CHF- no acute CHF, monitor for fluid overload. 7. Chronic iron deficiency anemia- appears at baseline. On iron supplementation. 8. Sick sinus syndrome status post pacemaker placement 9. Chronic atrial fibrillation on anticoagulation with Coumadin-Coumadin on hold. Continue beta-carlos manuel. 10. Hypertension-stable, continue home regimen with hold parameters. 11. Hyperlipidemia- continue statin. DVT prophylaxis- SCDs. This patient was seen by LIDA Enriquez under the supervision of Dr. Barnes.
--- NOTE | 2019-05-06 15:19 | US_ITS ---
STUDY: ABDOMINAL ULTRASOUND - RIGHT UPPER QUADRANT REASON FOR VISIT: Female, 83 years old elevated bilirubin TECHNIQUE: Ultrasound evaluation of the right upper quadrant was performed with real-time and static pat-scale imaging. TECHNICAL QUALITY: Adequate. COMPARISON: CT of abdomen and pelvis dated May 05, 2019 FINDINGS: Liver: The liver measures 15.7 cm. Slightly coarsened echotexture and lobularity of the liver. The bile ducts are within normal limits. There is hepatic color flow. The direction of portal flow is hepatopetal. There is no demonstrated mass lesion. Gallbladder: The patient is status post cholecystectomy. Common Bile Duct (C.B.D.): The common bile duct measures 6 mm. Pancreas: Unremarkable visualized head and proximal body of the pancreas. The tail was not seen. There is normal echogenicity of the pancreas. There is no demonstrated pancreatic mass or cyst. Right Kidney: Normal size of the right kidney. The right kidney measures 11.0 x 4.9 x 3.6 cm. Normal renal cortex. The right cortex measures 1.3 cm. There is no demonstrated renal mass or cyst. There is no right hydronephrosis. US/Liver IMPRESSION: 1. Slightly coarsened echotexture and lobularity of the liver. This can be associated with cirrhosis or another nonspecified hepatic process. Further assessment of the liver and biliary system can be obtained with MRCP/MRI of the abdomen with and without contrast a clinically indicated. Electronically Signed: Daron Dominguez MD at 19:05 EST , Service support ,
[2019-05-06 15:22] LABS: Prothrombin Time (Protime)PT. 58.1 SECONDS (11.7-14.9)
[2019-05-06 15:23] LABS: Differential Indicated SCAN CRITERIA MET
--- NOTE | 2019-05-06 15:28 | PCM.HP.ID ---
Problem List (1) Abdominal pain Status: Acute Reason for Consult: lactic acidosis Consulted by: Dr. Barnes History of Present Illness: The patient is a 83 year old F with h/o CHF, pacemaker, cholecystectomy who presented with 4-5 days of epigastric upset stomach, pain, loss of appetite, nausea, not feeling well. No fever. No diarrhea, no blood in stool. Some dark stools, but does take iron. Pain was intermittent, worse with food. Reports h/o longstanding reflux. No myalgias. No sore throat. Came to ED, admitted, seen by surgery, CT done, started on unasyn/flagyl after dose of ceftriaxone. Denies any dysuria. Pain continues to worsen along with rising Cr, lactate, bili, and wbc. Family at bedside provided additional history. Full ROS performed and neg except as noted above. 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) Debility (Chronic) Frequent falls (Chronic) Chronic diastolic heart failure (Chronic) Atrial fibrillation (Chronic) Pulmonary HTN (Chronic) Hypertension (Chronic) Glaucoma (Chronic) GERD (gastroesophageal reflux disease) (Chronic) Anxiety (Chronic) Osteoarthritis of left knee (Chronic) 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) Chronic atrial fibrillation (Chronic) Non-rheumatic tricuspid valve insufficiency (Chronic) Secondary pulmonary arterial hypertension (Chronic) Sick sinus syndrome (Chronic) 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 2008, gen change 02/02/19 Essential (primary) hypertension (Chronic) Hyperlipidemia (Chronic) Allergies/Adverse Reactions: Allergies adhesive Allergy (Verified 05/05/19 04:00) PULLS SKIN OFF Iodinated Contrast Media [Iodinated Contrast Media - IV Dye] Allergy (Verified 05/05/19 04:00) EYES SWELL SHUT latex Adverse Reaction (Unknown, Verified 05/05/19 04:00) Unknown Home Medications: Ambulatory Orders Medication Instructions Recorded Amlodipine [Norvasc] 10 mg PO DAILY 12/02/15 Bimatoprost 0.01% [Lumigan 0.01%] 1 drp EACH EYE QHS 12/02/15 Furosemide 40 mg PO DAILY 12/02/15 Lansoprazole [Prevacid] 30 mg PO DAILY 12/02/15 Lorazepam [Ativan] 1 mg PO BID PRN 12/02/15 Metoprolol Tartrate [Lopressor 25 mg PO BID 12/02/15 (beta demetrius)] Simvastatin [Zocor] 20 mg PO QHS 12/02/15 Timolol 0.5% 1 drp EACHEYE BID 03/13/19 Losartan Potassium [Cozaar] 100 mg PO DAILY 03/17/19 Warfarin Sodium 2 mg PO MOTUWETHFR 03/17/19 Warfarin Sodium 3 mg PO UD 03/17/19 Acetaminophen [Tylenol] 1,000 mg PO Q6H PRN PRN tab 04/07/19 Iron Polysaccharide Complex 150 mg PO DAILYCM #30 cap 04/07/19 [Ferrex 150] Menthol [Bengay Vanishing Scent] 1 applic TOPICAL TID PRN PRN tube 04/07/19 Menthol/Lanolin/Calamine/Znox 1 applic TOPICAL 0600,2200 tube 04/07/19 [Calmoseptine Ointment] Mineral Oil/Petrolatum,White 1 applic TOPICAL QHS jar 04/07/19 [Eucerin] Nystatin Powder [Mycostatin Powder] 1 applic TOPICAL 0600,2200 bottle 04/07/19 Ondansetron [Zofran Odt] 4 mg PO Q8H PRN PRN #21 tab 04/07/19 Polyethylene Glycol 3350 [Miralax] 17 gm PO DAILY #30 packet 04/07/19 Senna/Docusate Sodium [Senokot-S] 2 tab PO BID #120 tab 04/11/19 Vital Signs Temp Pulse Resp BP Pulse Ox 97.8 F 81 18 118/70 95 05/06/19 13:33 05/06/19 13:33 05/06/19 13:33 05/06/19 13:33 05/06/19 13:33 Oxygen Flow Rate (L/min) 1 Oxygen Delivery Method Nasal Cannula Weight: 95.2 kg Body Mass Index (BMI) 33.7 Finger Stick Blood Glucose 141 Microbiology Past 72 Hours 05/05/19 05:00 Urine Culture - Preliminary Urine, Catheterized Presumptive E. coli Laboratory Tests Past 24 Hrs 05/06/19 05/06/19 05/06/19 07:00 07:00 07:00 WBC 29.2 H RBC 3.26 L Hgb 10.2 L Hct 32.6 L MCV 100.0 H MCH 31.3 MCHC 31.3 L RDW Std Deviation 59.2 H RDW Coeff of Vlad 16.1 H Plt Count 148 L MPV 10.9 Immature Gran % (Auto) 2.400 H Neut % (Auto) 69.8 Lymph % (Auto) 2.1 L [place] % (Auto) 25.6 H Eos % (Auto) 0.0 Baso % (Auto) 0.1 Absolute Neuts (auto) 20.4 H Absolute Lymphs (auto) 0.60 L Nucleated RBC % 0.1 Differential Comment SCANNED Diff Path Review May foll Reactive Lymphocytes 2+ PT 91.9 H INR 11.5 H* Sodium 136 Potassium 3.1 L Chloride 96 L Carbon Dioxide 25.0 Anion Gap 15 BUN 19 H Creatinine 2.18 H Estim Creat Clear Calc 18.63 Est GFR (MDRD) Af Amer 28 L Est GFR (MDRD) Non-Af 23 L BUN/Creatinine Ratio 8.7 L Glucose 101 Lactic Acid Calcium 7.7 L Total Bilirubin 5.20 H AST 34 ALT 15 Alkaline Phosphatase 84 Lactate Dehydrogenase CK Isoenzymes CK-MM (CK-3) CK-MB (CK-2) CK-BB (CK-1) Total Protein 7.0 Albumin 3.7 Globulin 3.3 Albumin/Globulin Ratio 1.1 MRSA (PCR) Blood Type Antibody Screen 05/06/19 05/06/19 05/06/19 07:00 08:53 13:05 WBC RBC Hgb Hct MCV MCH MCHC RDW Std Deviation RDW Coeff of Vlad Plt Count MPV Immature Gran % (Auto) Neut % (Auto) Lymph % (Auto) [place] % (Auto) Eos % (Auto) Baso % (Auto) Absolute Neuts (auto) Absolute Lymphs (auto) Nucleated RBC % Differential Comment Diff Path Review Reactive Lymphocytes PT INR Sodium Potassium Chloride Carbon Dioxide Anion Gap BUN Creatinine Estim Creat Clear Calc Est GFR (MDRD) Af Amer Est GFR (MDRD) Non-Af BUN/Creatinine Ratio Glucose Lactic Acid 3.2 H* 5.2 H* Calcium Total Bilirubin AST ALT Alkaline Phosphatase Lactate Dehydrogenase 321 H CK Isoenzymes CK-MM (CK-3) CK-MB (CK-2) CK-BB (CK-1) Total Protein Albumin Globulin Albumin/Globulin Ratio MRSA (PCR) Blood Type Antibody Screen 05/06/19 05/06/19 05/06/19 14:59 15:01 15:01 WBC RBC Hgb Hct MCV MCH MCHC RDW Std Deviation RDW Coeff of Vlad Plt Count MPV Immature Gran % (Auto) Neut % (Auto) Lymph % (Auto) [place] % (Auto) Eos % (Auto) Baso % (Auto) Absolute Neuts (auto) Absolute Lymphs (auto) Nucleated RBC % Differential Comment Diff Path Review Reactive Lymphocytes PT Pending INR Pending Sodium Potassium Chloride Carbon Dioxide Anion Gap BUN Creatinine Estim Creat Clear Calc Est GFR (MDRD) Af Amer Est GFR (MDRD) Non-Af BUN/Creatinine Ratio Glucose Lactic Acid Calcium Total Bilirubin AST ALT Alkaline Phosphatase Lactate Dehydrogenase CK Isoenzymes Pending CK-MM (CK-3) Pending CK-MB (CK-2) Pending CK-BB (CK-1) Pending Total Protein Albumin Globulin Albumin/Globulin Ratio MRSA (PCR) Pending Blood Type Antibody Screen 05/06/19 05/06/19 15:01 15:01 WBC 29.7 H RBC 3.28 L Hgb 10.2 L Hct 32.9 L MCV 100.3 H MCH 31.1 MCHC 31.0 L RDW Std Deviation 58.7 H RDW Coeff of Vlad 15.9 H Plt Count 193 MPV 11.4 Immature Gran % (Auto) 3.600 H Neut % (Auto) 69.2 Lymph % (Auto) 1.9 L [place] % (Auto) 25.2 H Eos % (Auto) 0.0 Baso % (Auto) 0.1 Absolute Neuts (auto) 20.6 H Absolute Lymphs (auto) 0.57 L Nucleated RBC % 0.1 Differential Comment Diff Path Review Reactive Lymphocytes PT INR Sodium Potassium Chloride Carbon Dioxide Anion Gap BUN Creatinine Estim Creat Clear Calc Est GFR (MDRD) Af Amer Est GFR (MDRD) Non-Af BUN/Creatinine Ratio Glucose Lactic Acid Calcium Total Bilirubin AST ALT Alkaline Phosphatase Lactate Dehydrogenase CK Isoenzymes CK-MM (CK-3) CK-MB (CK-2) CK-BB (CK-1) Total Protein Albumin Globulin Albumin/Globulin Ratio MRSA (PCR) Blood Type Pending Antibody Screen Pending - Other Studies Radiology: [] reviewed Other Studies: [] Route of nutrition/ use of supplements: [] Nutritional Intake: [] IV Site: [] Dewey Catheter: [] - Physical Exam General: Alert - ill appearing, Cooperative, No apparent distress HEENT: Atraumatic, PERRLA, EOMI Neck: Supple, No Nodes Lungs: Clear to auscultation, Normal air movement Cardiovascular: Regular rate, Regular Rhythm, Murmur Abdomen: Soft, Non-Distended, Tender - mild epigastric soreness Extremities: Edema - mild BLE Skin: No rashes IV Site: Peripheral Musculoskeletal: No Tenderness to Palpation of Joints or Extremities Neurological: Cranial nerves II-XII grossly intact - Assessment/Plan Antibiotics: [] Assessment/Plan: [] Active and Suspected Problems (Last Reviewed 05/05/19 @ 11:20 by Christen Pickering PA-C) Hypokalemia (Acute) Cystitis (Acute) Abdominal pain (Acute) Epigastric pain (Acute) Nausea and vomiting (Acute) Generalized abdominal discomfort (Acute) Generalized weakness (Acute) Worsening epigastic pain, leukocytosis, KURT on CKD, bilirubin, lactic acidosis, INR. Ucx with 100k ecoli. Peripheral smear shows monocytosis. Normal alk phos and ALT/AST. CT showed possible cirrhosis. Unclear cause. Has murmur and h/o chf with pacer in place. Will check hep panel, echo, RUQ u/s. Stop unasyn/flagyl, broaden out to zosyn, dosed q12h. Will follow, thank you, d/w Dr. Barnes and Dr. Finley.
[2019-05-06 15:32] LABS: International Normalized Ratio 6.5
[2019-05-06] MEDS: 0.9% Normal Saline 1,000 ML 125 ML IV (15:32)
[2019-05-06 15:37] LABS: Pathologist Review Reviewed
[2019-05-06 15:47] LABS: Anisocytosis RARE; Crenated RBC 1+; Differential Comment SCANNED; Macrocytosis RARE
--- NOTE | 2019-05-06 16:35 | NURSING ---
call placed to Ade in icu and report given for patient
--- NOTE | 2019-05-06 16:46 | PCM.DC.SUM ---
Discharge Date and Diagnosis Date of Admission: 05/05/19 Date of Discharge: 05/06/19 - Primary Discharge Diagnosis Active and Suspected Problems (Last Reviewed 05/05/19 @ 11:20 by Christen Pickering PA-C) 1. Severe sepsis secondary to acute E. coli cystitis-Worsening lactic acidosis and leukocytosis. 2. Nausea, vomiting, abdominal pain/elevated bilirubin-unclear etiology. 3. KURT on chronic kidney disease stage III 4. Hypokalemia 5. Supratherapeutic INR 6. Chronic diastolic CHF 7. Chronic iron deficiency anemia 8. Sick sinus syndrome status post pacemaker placement 9. Chronic atrial fibrillation on anticoagulation with Coumadin 10. Hypertension 11. 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) Debility (Chronic) Frequent falls (Chronic) Chronic diastolic heart failure (Chronic) Atrial fibrillation (Chronic) Pulmonary HTN (Chronic) Hypertension (Chronic) Glaucoma (Chronic) GERD (gastroesophageal reflux disease) (Chronic) Anxiety (Chronic) Osteoarthritis of left knee (Chronic) 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) Chronic atrial fibrillation (Chronic) Non-rheumatic tricuspid valve insufficiency (Chronic) Secondary pulmonary arterial hypertension (Chronic) Sick sinus syndrome (Chronic) 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 2008, gen change 02/02/19 Essential (primary) hypertension (Chronic) Hyperlipidemia (Chronic) Hospital Course and Treatment Imaging Results: Diagnostic Data Abdomen CT 05/05/19 09:10 IMPRESSION: 1. Mild thickening of the mucosa of the wall of the proximal and transverse and some regions of the descending colon compatible with colitis not otherwise specified. 2. The liver appears slightly small and lobular possibly due to cirrhosis or another nonspecified a hepatic process. No obvious lesions seen. 3. Diffuse body wall edema and mild intra-abdominal or intrapelvic mesenteric edema. 4. Small bilateral pleural effusions. Electronically Signed: Daron Dominguez MD at 12:44 EST , Service support , Chest X-Ray 05/06/19 05:55 IMPRESSION: Interval mild CHF with bibasilar atelectasis and blunting of both costophrenic angles. Electronically Signed: Tim Gabriel, at 11:30 EST , Service support , Dr. Jeffers- ID Dr. Finley- Pulmonary Dr. Beltran-general surgery Operations: None, - Procedures: None Summary of Care Provided: The patient is a 83 year old F admitted 05/05/19 due to nausea, vomiting and abdominal pain. 1. Severe sepsis secondary to acute E. coli cystitis-Worsening lactic acidosis and leukocytosis. Antibiotics broadened to IV Zosyn. Given worsening condition and family preference, patient transferred to [facility] for further management. 2. Nausea, vomiting, abdominal pain/elevated bilirubin-unclear etiology. CT of abdomen and pelvis shows mild thickening of the proximal transverse as well as descending colon, possible colitis. Liver appears small and lobular, possibly due to cirrhosis versus hepatic process. Diffuse body wall edema and mild intra-abdominal or intrapelvic mesenteric edema. ID and general surgery on consult. Liver ultrasound ordered, not completed prior to DC. 3. KURT on chronic kidney disease stage III- IVF, trend BMP. 4. Hypokalemia-replace per protocol. Trend BMP. 5. Supratherapeutic INR-Coumadin on hold. Vitamin K x1. Trend INR. No evidence of active bleeding. 6. Chronic diastolic CHF- no acute CHF, monitor for fluid overload. 7. Chronic iron deficiency anemia- appears at baseline. On iron supplementation. 8. Sick sinus syndrome status post pacemaker placement 9. Chronic atrial fibrillation on anticoagulation with Coumadin-Coumadin on hold. Continue beta-carlos manuel. 10. Hypertension-stable, continue home regimen with hold parameters. 11. Hyperlipidemia- continue statin. General: Alert, Oriented x3, Cooperative HEENT: Atraumatic, PERRLA, EOMI, Normocephalic Oral: Dry Mucosa Neck: Supple, No JVD, Negative Carotid Bruits Lungs: Clear to auscultation, Diminished Cardiovascular: Regular rate, Regular Rhythm, Normal S1, Normal S2, Murmur Abdomen: Bowel Sounds Present, Soft, Non Tender, Non-Distended Extremities: No clubbing, No cyanosis, Capillary Refill Less than 3 Seconds, Edema - non-pitting Skin: No rashes, No breakdown Musculoskeletal: No Tenderness to Palpation of Joints or Extremities Neurological: Cranial nerves II-XII grossly intact, Neuro grossly intact Psych/Mental Status: Normal Affect, Appropriate Patient seen and examined prior to discharge. Physical assessment as noted above. Patient is stable for discharge with follow up recommendations as noted above. This patient was seen by LIDA Enriquez under the supervision of Dr. Barnes. - Physical Exam Vitals/I&O's: Vital Signs Temp Pulse Resp BP Pulse Ox 97.3 F L 39 L 18 112/58 L 96 05/06/19 16:03 05/06/19 16:03 05/06/19 16:03 05/06/19 16:03 05/06/19 16:03 Oxygen Flow Rate (L/min) 1 Oxygen Delivery Method Nasal Cannula Weight: 209 lb 14.081 oz Body Mass Index (BMI) 33.7 Finger Stick Blood Glucose 141 Intake and Output for Last 24 Hours 05/04/19 05/05/19 05/06/19 23:59 23:59 23:59 Intake Total 2867.01 / 2867.01 375 / 375 Output Total 250 / 250 Balance 2867.01 / 2867.01 125 / 125 Microbiology Past 72 Hours 05/05/19 05:00 Urine, Catheterized Urine Culture - Preliminary Presumptive E. coli Laboratory Results 05/06/19 07:00: WBC 29.2 H, RBC 3.26 L, Hgb 10.2 L, Hct 32.6 L, MCV 100.0 H, MCH 31.3, MCHC 31.3 L, RDW Std Deviation 59.2 H, RDW Coeff of Vlad 16.1 H, Plt Count 148 L, MPV 10.9, Immature Gran % (Auto) 2.400 H, Neut % (Auto) 69.8, Lymph % (Auto) 2.1 L, [place] % (Auto) 25.6 H, Eos % (Auto) 0.0, Baso % (Auto) 0.1, Absolute Neuts (auto) 20.4 H, Absolute Lymphs (auto) 0.60 L, Nucleated RBC % 0.1, Differential Comment SCANNED, Diff Path Review Reviewed, Reactive Lymphocytes 2+ 05/06/19 07:00: PT 91.9 H, INR 11.5 H* 05/06/19 07:00: Sodium 136, Potassium 3.1 L, Chloride 96 L, Carbon Dioxide 25.0, Anion Gap 15, BUN 19 H, Creatinine 2.18 H, Estim Creat Clear Calc 18.63, Est GFR (MDRD) Af Amer 28 L, Est GFR (MDRD) Non-Af 23 L, BUN/Creatinine Ratio 8.7 L, Glucose 101, Calcium 7.7 L, Total Bilirubin 5.20 H, AST 34, ALT 15, Alkaline Phosphatase 84, Total Protein 7.0, Albumin 3.7, Globulin 3.3, Albumin/Globulin Ratio 1.1 05/06/19 07:00: Lactate Dehydrogenase 321 H 05/06/19 08:53: Lactic Acid 3.2 H* 05/06/19 13:05: Lactic Acid 5.2 H* 05/06/19 14:59: MRSA (PCR) Pending 05/06/19 15:01: CK Isoenzymes Pending, CK-MM (CK-3) Pending, CK-MB (CK-2) Pending, CK-BB (CK-1) Pending 05/06/19 15:01: PT 58.1 H, INR 6.5 H* 05/06/19 15:01: WBC 29.7 H, RBC 3.28 L, Hgb 10.2 L, Hct 32.9 L, MCV 100.3 H, MCH 31.1, MCHC 31.0 L, RDW Std Deviation 58.7 H, RDW Coeff of Vlad 15.9 H, Plt Count 193, MPV 11.4, Immature Gran % (Auto) 3.600 H, Neut % (Auto) 69.2, Lymph % (Auto) 1.9 L, [place] % (Auto) 25.2 H, Eos % (Auto) 0.0, Baso % (Auto) 0.1, Absolute Neuts (auto) 20.6 H, Absolute Lymphs (auto) 0.57 L, Nucleated RBC % 0.1, Differential Comment SCANNED, Diff Path Review May foll, Anisocytosis RARE, Macrocytosis RARE, Crenated Cell 1+ 05/06/19 15:01: Blood Type B POSITIVE, Antibody Screen NEGATIVE Current Medications Acetaminophen (Tylenol) 1,000 mg PO Q6H PRN PRN PRN Reason: Pain Score 1-3/10 Amlodipine Besylate (Norvasc) 10 mg PO DAILY AYLA Last Admin: 05/06/19 09:03 Dose: 10 mg Documented by: Atorvastatin Calcium (Lipitor) 10 mg PO QHS [facility] Last Admin: 05/05/19 22:06 Dose: 10 mg Documented by: Sodium Chloride () 250 mls @ 15 mls/hr IV .[id number] PRN PRN Reason: Saline Flush Sodium Chloride () 1,000 mls @ 125 mls/hr IV .Q8H [facility] Last Admin: 05/06/19 15:32 Dose: 125 mls/hr Documented by: Piperacillin Sod/Tazobactam (Sod 3.375 gm/ Sodium Chloride) 50 mls @ 12.5 mls/hr IV Q12 [facility] Latanoprost (Xalatan Opthalmic) 1 drop EACH EYE QHS [facility] Last Admin: 05/05/19 22:08 Dose: 1 drop Documented by: Lorazepam (Ativan) 1 mg PO BID PRN PRN PRN Reason: ANXIETY Losartan Potassium (Cozaar) 100 mg PO DAILY [facility] Last Admin: 05/06/19 09:03 Dose: 100 mg Documented by: Metoprolol Tartrate (Lopressor (Beta Carlos Manuel)) 25 mg PO BID [facility] Last Admin: 05/06/19 09:03 Dose: 25 mg Documented by: Morphine Sulfate () 4 mg IV Q3H PRN PRN PRN Reason: Pain Score 6-10/10 Last Admin: 05/06/19 05:17 Dose: 4 mg Documented by: Nutritional Formula (Lactose Free) (Ensure Clear) 120 ml PO 4X/DAY [facility] Last Admin: 05/06/19 13:38 Dose: 120 ml Documented by: Ondansetron HCl (Zofran) 4 mg IV Q6H PRN PRN PRN Reason: NAUSEA/VOMITING Last Admin: 05/06/19 14:57 Dose: 4 mg Documented by: Pantoprazole Sodium (Protonix) 40 mg PO BID [facility] Last Admin: 05/06/19 09:04 Dose: 40 mg Documented by: Polyethylene Glycol (Miralax) 17 gm PO DAILY [facility] Last Admin: 05/06/19 09:04 Dose: 17 gm Documented by: Polysaccharide Iron Complex (Ferrex 150) [facility] Last Admin: 05/06/19 09:03 Dose: 150 mg Documented by: Senna/Docusate Sodium (Senokot-S, Rimma-Colace) 2 tablet PO BID [facility] Last Admin: 05/06/19 09:01 Dose: 2 tablet Documented by: Sodium Chloride () 10 - 40 ml IV UD PRN PRN Reason: SALINE FLUSH Last Admin: 05/05/19 22:16 Dose: 10 ml Documented by: Timolol Maleate (Timoptic) 1 drop OPHTHALMIC BID [facility] Last Admin: 05/06/19 09:02 Dose: 1 drop Documented by: Home Medications: Medications to take at Discharge Amlodipine [Norvasc] 10 mg PO DAILY 12/02/15 Bimatoprost 0.01% [Lumigan 0.01%] 1 drp EACH EYE QHS 12/02/15 Furosemide 40 mg PO DAILY 12/02/15 Lansoprazole [Prevacid] 30 mg PO DAILY 12/02/15 Lorazepam [Ativan] 1 mg PO BID PRN 12/02/15 Metoprolol Tartrate [Lopressor (beta carlos manuel)] 25 mg PO BID 12/02/15 Simvastatin [Zocor] 20 mg PO QHS 12/02/15 Timolol 0.5% 1 drp EACHEYE BID 03/13/19 Losartan Potassium [Cozaar] 100 mg PO DAILY 03/17/19 Warfarin Sodium 2 mg PO MOTUWETHFR 03/17/19 Warfarin Sodium 3 mg PO UD 03/17/19 Acetaminophen [Tylenol] 1,000 mg PO Q6H PRN PRN tab 04/07/19 Iron Polysaccharide Complex [Ferrex 150] 150 mg PO DAILYCM #30 cap 04/07/19 Menthol [Bengay Vanishing Scent] 1 applic TOPICAL TID PRN PRN tube 04/07/19 Menthol/Lanolin/Calamine/Znox [Calmoseptine Ointment] 1 applic TOPICAL 0600,2200 tube 04/07/19 Mineral Oil/Petrolatum,White [Eucerin] 1 applic TOPICAL QHS jar 04/07/19 Nystatin Powder [Mycostatin Powder] 1 applic TOPICAL 0600,2200 bottle 04/07/19 Ondansetron [Zofran Odt] 4 mg PO Q8H PRN PRN #21 tab 04/07/19 Polyethylene Glycol 3350 [Miralax] 17 gm PO DAILY #30 packet 04/07/19 Senna/Docusate Sodium [Senokot-S] 2 tab PO BID #120 tab 04/11/19 Primary Care Physician: Radha Sigala DO [Primary Care Provider] - Disposition: Acute care Hospital Minutes spent on discharge:: 35 Patient Condition:: Guarded Medical Necessity - Tobacco Use Smoking Status: Unknown if ever smoked Tobacco Use: Non-smoker Meaningful Use Info Meaningful Use Diagnoses (Choose all that apply): None applicable
--- NOTE | 2019-05-06 17:34 | PCM.PN.BLA ---
Progress Note I have had several ongoing verbal discussions with Dr. Kaur today regarding this patient. Approximately midday I really reviewed the patient with family members present. I suggested to them that it was not clear to me the etiology to her illness. I could not guarantee that she did not have an acute catastrophic intra-abdominal process occurring. I suggested to them that her laboratory suggested a catastrophic evolving event. At that time her INR was 11 prohibiting operative intervention. I had a lengthy discussion with him regarding treatment options of referral to a tertiary center if they wanted to be aggressive in her care versus a more palliative care approach. I also discussed with Dr. Kaur my concerns that this patient may possibly have an acute ischemic bowel perhaps an acute ischemic stomach. I could not correlate her abdominal findings with her complaints of intermittent epigastric pain and inability to vomit and nausea. The patient has been seen by infectious disease and intensive care medicine. I do not feel comfortable with performing surgical intervention locally here in [place]. Family and physicians are aware. Ashwin Beltran M.D., F.A.C.S. STROKE Vital Signs/Narrative: Vital Signs Temp Pulse Resp BP BP Pulse Ox 05/06/19 17:30 69 24 H 113/51 L 97 05/06/19 17:15 77 25 H 107/61 97 05/06/19 17:12 97 05/06/19 17:00 78 24 H 107/66 95 05/06/19 16:45 78 29 H 96/68 97 05/06/19 16:37 82 23 H 118/89 H 96 05/06/19 16:03 97.3 F L 39 L 18 112/58 L 96
[2019-05-06 18:01] LABS: M R Staph aureus DNA By PCR Negative (Negative); Probe Check PASS; Specimen Processing Control PASS
--- NOTE | 2019-05-06 19:30 | NURSING ---
Family came to the nurses station to express concern that they felt they were getting several different stories from different physicians. Family requested to speak to Dr. Finley. Dr. Finley no longer on site, so notified family would like to speak to him. When Dr. Finley called in to speak to the family, they no longer wished to speak to him.
--- NOTE | 2019-05-06 20:30 | NURSING ---
[facility] ambulance here to transport pt to [facility] by ground. Pt's belongings taken by family.
[2019-05-07 12:33] LABS: Pathologist Review Reviewed
[2019-05-08 14:07] LABS: Creatine Kinase MB 1 % (0-3); Creatine Kinase MM 99 % (97-100); Creatine Kinase,Total,Serum 560 U/L (24-173); Macro I 0 % (Not Observed); Macro II 0 % (Not Observed)
[2019-05-08 16:59] LABS: Creatine Kinase BB 0 % (0)
== END 2019-05-06 20:30 | disposition short-term general hospital (02) | DRG 871 ==
LOC: ED 07:21 → PCU 08:52 → MS2 23:26 → ICU 05-06 17:19
PROVIDERS: Admitting Provider Internal Medicine; Emergency Provider Emergency Medicine; Family Provider Family Medicine; PCP Family Medicine; Visit Provider Internal Medicine
DX: A41.9 Sepsis, unspecified organism (principal); N17.0 Acute kidney failure with tubular necrosis; N30.00 Acute cystitis without hematuria; I48.20 Chronic atrial fibrillation, unspecified; I13.0 Hypertensive heart and chronic kidney disease with heart failure and stage 1 through stage 4 chronic kidney disease, or unspecified chronic kidney disease; I50.32 Chronic diastolic (congestive) heart failure; R17 Unspecified jaundice; E87.2 Acidosis; E87.6 Hypokalemia; R65.20 Severe sepsis without septic shock; R79.1 Abnormal coagulation profile; H40.9 Unspecified glaucoma; Z66 Do not resuscitate; Z90.49 Acquired absence of other specified parts of digestive tract; B96.20 Unspecified Escherichia coli [E. coli] as the cause of diseases classified elsewhere; N18.3 Chronic kidney disease, stage 3 (moderate); Z95.0 Presence of cardiac pacemaker; Z79.01 Long term (current) use of anticoagulants; I49.5 Sick sinus syndrome; E78.5 Hyperlipidemia, unspecified; D50.9 Iron deficiency anemia, unspecified; R10.9 Unspecified abdominal pain
CPT/HCPCS: 36415; 71046; 74176; 76705; 80048; 80053; 80076; 81001; 82550; 82552; 83605; 83615; 83690; 84484; 85025; 85610; 86850; 86900; 86901; 87040; 87086; 87088; 87186; 87641; 93005; 97802; 99285; J7030; A4216; J0295; J2405; J3490

== ENCOUNTER 2019-06-09 15:43 | Inpatient (IN) | payer MEDICARE, OTHER, SELFPAY ==
[2019-05-05 10:06] VITALS: BMI 33.7
[2019-06-09] VITALS (10 sets, daily range): BP systolic 107–125; BP diastolic 64–78; PULSE 70–87; RESP 15–25; TEMP 36.2–36.8; O2SAT 96–100; BMI 33.3; BMI 34.9; BMI 35.0
--- NOTE | 2019-06-09 16:14 | EKG12_ITS ---
Test Reason : ABD LABS Blood Pressure : / mmHG Vent. Rate : 139 BPM Atrial Rate : 119 BPM P-R Int : 000 ms QRS Dur : 106 ms QT Int : 228 ms P-R-T Axes : 000 166 240 degrees QTc Int : 346 ms Suspect arm lead reversal, interpretation assumes no reversal Atrial fibrillation with rapid ventricular response with frequent ventricular-paced complexes and wit h premature ventricular or aberrantly conducted complexes Right axis deviation Low voltage QRS Cannot rule out Anterior infarct , age undetermined Abnormal ECG Confirmed by IVELISSE AGUIAR, AVI ([id number]), wiping cloth cutter PRISCILA SEPULVEDA ([id number]) on 06/12/2019 9:57:32 AM Referred By: OSVALDO Confirmed By:DEMIAN OVIEDO MD
--- NOTE | 2019-06-09 16:20 | RAD_ITS ---
STUDY: X-RAY CHEST REASON FOR EXAM: Female, 84 years old. SOB TECHNIQUE: Single AP portable view of the chest. COMPARISON: Prior study of 05/06/2019 FINDINGS: There is a left-sided pacemaker. monitoring engineer leads are present. There is a right basilar airspace disease. There is right costophrenic angle blunting consistent with effusion. Left hemidiaphragm is elevated. There is moderate cardiac enlargement. Normal mediastinum and arnol. Normal visualized pulmonary arteries. There are calcified plaques of the thoracic aorta. There are diffuse degenerative changes of the visualized thoracic spine. Normal visualized ribs, clavicles, and shoulders. There is no demonstrated abnormality of the visualized soft tissue structures of the upper abdomen. RAD/Chest 1 View (Portable) IMPRESSION: Right basilar airspace disease. This appears stable in the interval. Small right-sided pleural effusion. Elevated left hemidiaphragm. Moderate cardiomegaly. Calcified plaques of the aortic arch. Electronically Signed: Bradly Trevino MD at 16:37 EST , Service support ,
--- NOTE | 2019-06-09 16:37 | EKG12_ITS ---
Test Reason : ABD LABS Blood Pressure : / mmHG Vent. Rate : 128 BPM Atrial Rate : 208 BPM P-R Int : 000 ms QRS Dur : 086 ms QT Int : 226 ms P-R-T Axes : 000 159 267 degrees QTc Int : 329 ms Atrial Fibrillation with rapid ventricular response with occasional ventricular-paced complexes and w ith premature ventricular or aberrantly conducted complexes and with ventricular escape complexes Right ventricular hypertrophy with repolarization abnormality Anterolateral infarct , age undetermined Abnormal ECG Confirmed by JESUSITA AGUIAR, DURAN ([id number]), metropolitan editor SAMEERA WATKINS ([id number]) on 06/24/2019 2:13:13 PM Referred By: OSVALDO Confirmed By:DURAN MC MD
[2019-06-09 16:40] LABS: Absolute Lymphocyte Count 0.39 X10^3/uL (0.83-4.51); Absolute Neutrophil Count 3.3 X10^3/uL (2.0-7.7); Basophil# 0.02 X10^3/uL; Basophil% 0.4 % (0-1); Eosinophil# 0.33 X10^3/uL; Hematocrit 28.6 % (37-47); Hemoglobin 8.9 g/dL (12.0-15.0); Lymphocyte # 0.39 X10^3/ul (4.0); Lymphocyte % 7.1 % (19-41); Mean Corp Hgb Conc 31.1 g/dL (32-36); Mean Corpuscular Hgb 31.2 pg (27.0-32.0); Mean Corpuscular Volume 100.4 fL (81-99); Mean Platelet Vol. 10.9 fl (6.2-12.0); Monocyte# 1.37 X10^3/uL; NRBC Flagged by Analyzer 0 % (0-5); Neutrophil # 3.33 X10^3/uL (2.7-7.7); Neutrophil % 60.8 % (47-70); POSITIVE DIFFERENTIAL YES; Platelet Count 108 K/mm3 (150-450); RBC Distribution Width CV 17.3 % (11.6-14.6); RBC Distribution Width SD 62.8 fl (35.1-43.9); Red Blood Count 2.85 M/mm3 (4.2-5.4); White Blood Count 5.5 K/mm3 (4.4-11.0)
--- NOTE | 2019-06-09 16:45 | ED.VISSUMM ---
- ER Visit Summary Date of Service: 06/09/19 Chief Complaint: Abnormal labs History of Present Illness: The patient is a 84 F presenting with abnormal labs. Patient had blood work drawn at rehab today and was found to have elevated creatinine. Her INR has been elevated to 6 and she was given vitamin K today. Her Coumadin has been on hold since Saturday. She had a recent admission to [place] for wrist fracture. She is now in rehab. She complains of shortness of breath and cough. She denies other complaints. Physical Examination: Vitals are stable. Patient is afebrile. Alert no acute distress. HEENT exam is unremarkable. Neck is supple. Lungs are clear and equal bilaterally. Heart is regular rate and rhythm. Abdomen is soft nontender nondistended. Extremities are unremarkable. Skin is warm and dry. No focal neurologic deficit. Remainder of exam is unremarkable. Emergency Department Course and Treatment: EKG is paced with no acute ischemic changes. Chest x-ray shows right basilar airspace disease. This appears stable in the interval. Small right-sided pleural effusion. Elevated left hemidiaphragm. Moderate cardiomegaly. Calcified plaques of the aortic arch. CBC shows hemoglobin 8.9, platelet 108. Chemistries show sodium 129, BUN 95, creatinine 5.07, potassium 6.1, hemolyzed. INR 5.4. She was given albuterol aerosol. Insulin, glucose were ordered. Discussed with the hospitalist for admission. Disposition: Admission Impression: KURT, hyperkalemia, supratherapeutic INR This note was generated with [employer] dictation software. It may contain incorrect words, spelling, and punctuation that were not noted in review of the chart prior to signing ED Disposition - Plan for ED Patient:
[2019-06-09 16:49] LABS: Prothrombin Time (Protime)PT. 49.7 SECONDS (11.7-14.9)
[2019-06-09 17:01] LABS: Differential Indicated SCAN CRITERIA MET
--- NOTE | 2019-06-09 17:12 | ED.RN ---
PT HARD STICK. [address] OSVALDO MC.
[2019-06-09 17:18] LABS: Bacteria 0 SEEN /hpf (None Seen); Mucous, Urine 0 SEEN /hpf (<or=2+); Red Blood Cells-Urine 0 SEEN /hpf (0-5); Squamous Epithelial Cells - UA 0 SEEN /hpf (5-10)
[2019-06-09 17:22] LABS: International Normalized Ratio 5.4
--- NOTE | 2019-06-09 17:31 | ED.RN ---
LAB CALLED WITH RESULT POTASSIUM 6.1 SLIGHTLY HEMOLYZED BOUBACAR ARENAS RN, INFORMED OF SAME.
[2019-06-09 17:32] LABS: Anion Gap 8 (5-15); BUN 95 mg/dL (7-18); BUN/Creat Ratio 18.7 RATIO (10-20); Calcium,Total 9.3 mg/dL (8.5-10.1); Chloride 91 mmol/L (98-107); Creatinine, Serum 5.07 mg/dL (0.55-1.02); EST Glomerular Filtration Rate 9 mL/min (>60); Est Glom Filt Rate - Afr Amer 11 mL/min (>60); Estimated Creatinine Clearance 7.57 ml/min; Glucose 99 mg/dL (74-106); Potassium 6.1 mmol/L (3.5-5.1); Sodium Level 129 mmol/L (136-145)
[2019-06-09 17:35] LABS: Color, Urine Yellow (Yellow); Glucose, Dipstick Normal (Normal); Ketone-Dipstick 5 mg/dl (Negative); Leukocyte Esterase-Dipstick 100 /ul (Negative); Nitrite-Dipstick Negative (Negative); Occult Blood-Urine 10 /ul (Negative); Protein-Dipstick 30 mg/dl (Negative); Specific Gravity, Urine 1.015 (1.002-1.030); Urine Bilirubin Dipstick Negative (Negative); Urine Clarity Sl. Cloudy (Clear); Urine Urobilinogen Normal (Normal)
[2019-06-09 17:58] LABS: White Blood Cells 0-5 SEEN /hpf (0-5); Yeast-Urine RARE /hpf (None Seen)
[2019-06-09] MEDS: Albuterol 2.5 MG/3 ML VIAL.NEB. INHALATION (17:58)
[2019-06-09] MEDS: Dextrose 10%-Water 250 ML 999 ML IV (18:43)
[2019-06-09] MEDS: Insulin Lispro 5 UNIT in Syringe 0 ML 3 UNIT IV (18:43)
--- NOTE | 2019-06-09 18:43 | HP.PCM_ITS ---
<Shawn Sal - Last Filed: 06/09/19 18:43> Problem List (1) Hyperkalemia Status: Acute (2) KURT (acute kidney injury) Status: Acute (3) Chronic anemia Status: Chronic (4) Pulmonary HTN Status: Chronic (5) Hypertension Status: Chronic (6) Glaucoma Status: Chronic (7) GERD (gastroesophageal reflux disease) Status: Chronic (8) Anxiety Status: Chronic (9) Diastolic dysfunction with chronic heart failure Status: Chronic (10) Chronic atrial fibrillation Status: Chronic (11) Secondary pulmonary arterial hypertension Status: Chronic (12) Sick sinus syndrome Status: Chronic (13) Presence of permanent cardiac pacemaker Status: Chronic Comment: Implant 2008, gen change 02/02/19 (14) Essential (primary) hypertension Status: Chronic (15) Hyperlipidemia Status: Chronic History of Present Illness Date of Admission: 06/09/19 Chief Complaint: abnormal labs The patient is a 84 year old F with pmhx as above, notably she was here with in april, she was transferred to [facility], the patient states that this was for a wrist fracture however it appears that she had sepsis for an unknown abdominal problem. While at [place] she underwent dialysis for unclear reasons. She was then discharged to the [facility]. At some point she was also told she had cirrhosis of the liver. She has been doing well at the [facility], however today she was told that she had abnormal labs. She had KURT, hyperkalemia and elevated INR - she does take coumadin for chronic Afib. The patient reports symptoms including all over itching and has scratch soares on her body, and she has had some dysuria. She denies fevers, chills, abdominal pain, nausea, vomiting, diarrhea. She has no SOB. She states she has never had a cost control supervisor in the past. She denies being a drinker in her life. [] Past Medical History Past Medical History (Chronic Problems): Chronic Problems (Last Reviewed 05/05/19 @ 11:20 by Christen Pickering PA-C) Chronic anemia (Chronic) nursing home (current) use of anticoagulants (Chronic) Debility (Chronic) Frequent falls (Chronic) Chronic diastolic heart failure (Chronic) Atrial fibrillation (Chronic) Pulmonary HTN (Chronic) Hypertension (Chronic) Glaucoma (Chronic) GERD (gastroesophageal reflux disease) (Chronic) Anxiety (Chronic) Osteoarthritis of left knee (Chronic) 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) Chronic atrial fibrillation (Chronic) Non-rheumatic tricuspid valve insufficiency (Chronic) Secondary pulmonary arterial hypertension (Chronic) Sick sinus syndrome (Chronic) 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 2008, gen change 02/02/19 Essential (primary) hypertension (Chronic) Hyperlipidemia (Chronic) Medical History: Medical History (Last Reviewed 05/05/19 @ 11:20 by Christen Pickering PA-C) 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) I50.32 Chronic atrial fibrillation (Chronic) I48.2 Non-rheumatic tricuspid valve insufficiency (Chronic) I36.1 Secondary pulmonary arterial hypertension (Chronic) I27.21 Sick sinus syndrome (Chronic) I49.5 Essential (primary) hypertension (Chronic) I10 Hyperlipidemia (Chronic) E78.5 Arthritis M19.90 Chronic diastolic (congestive) heart failure I50.32 Glaucoma H40.9 Nonrheumatic mitral (valve) insufficiency I34.0 Obesity E66.9 Type 2 diabetes mellitus 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 Cellulitis and abscess of leg L03.119, L02.419 Allergies adhesive Allergy (Verified 05/05/19 04:00) PULLS SKIN OFF Iodinated Contrast Media [Iodinated Contrast Media - IV Dye] Allergy (Verified 05/05/19 04:00) EYES SWELL SHUT latex Adverse Reaction (Unknown, Verified 05/05/19 04:00) Unknown Home Medications: Ambulatory Orders Medication Instructions Recorded Metoprolol Tartrate [Lopressor 25 mg PO BID 12/02/15 (beta demetrius)] Atorvastatin Calcium [Lipitor] 10 mg PO QHS 06/09/19 Brinzolamide [Azopt] 1 drp EACH EYE BID 06/09/19 Cetirizine HCl [Zyrtec] 10 mg PO DAILY 06/09/19 Latanoprost 0.005% [Xalatan 1 drp EACH EYE DAILY@0800 06/09/19 Opthalmic] Omeprazole 20 mg PO DAILY 06/09/19 Potassium Chloride [Klor-Con M10] 20 meq PO DAILY@0800 06/09/19 Torsemide 50 mg PO DAILY 06/09/19 Surgical History: Surgical History (Last Reviewed 05/05/19 @ 11:21 by Christen Pickering, PA-C) Presence of permanent cardiac pacemaker (Chronic) Onset Date: 02/02/19 Z95.0 Implant 2008, gen change 02/02/19 History of radiofrequency ablation procedure for cardiac arrhythmia Onset Date: 2008 Z.89 History of herniorrhaphy Z98.890, Z87. Hiatal hernia repair approx 2005, Dr. Sophia Mclain [facility] History of hysterectomy Z90.710 Hx of cholecystectomy Z90.49 Unknown date Surgical History: cholecystectomy, hysterectomy, pacemaker implantation, - - stomach surgery/hiatal hernia, ablation Psychiatric History: Anxiety MITER SAWYER History: No pertinent MITER SAWYER history Lives: [facility] Smoking Status: Never smoker Tobacco Use: Non-smoker Alcohol: None Drugs: None - *Family History Maternal History Items: Diabetes Paternal History Items: Heart Disease Review of Systems Constitutional: Denies: Chills, Fever, Weight Change HEENT: Denies: Head Aches, Sinus Congestion, Sinus Drainage Cardiovascular: Denies: Chest Pain, Palpitations Respiratory: Reports: Cough. Denies: Shortness of Breath, Shortness of breath at rest, Sputum production Gastrointestinal: Denies: Abdominal Pain, Diarrhea, Nausea, Vomiting Genitourinary: Reports: Dysuria. Denies: Frequency, Urgency Musculoskeletal: Denies: Joint Pain, Joint Tenderness Skin: Denies: Rash, Wounds Neurological: Denies: Numbness, Tingling, Focal weakness Psychiatric: Denies: Anxiety, Depression, Homicidal Ideations, Suicidal Ideations Hematologic/ Lymphatic: Denies: Easy Bruising, Easy Bleeding VTE Information - Inpt Only VTE Present on Admission: No VTE Mechan Device Prophylaxis: SCD's VTE Pharm Prophylaxis ordered?: No Reason prophylaxis not ordered:: Medical Contraindication Patient Problems: Active and Suspected Problems (Last Reviewed 05/05/19 @ 11:20 by Christen Pickering PA-C) KURT (acute kidney injury) (Acute) Hyperkalemia (Acute) - Physical Exam Vitals/I&O's: Vital Signs Temp Pulse Resp BP Pulse Ox 97.7 F L 84 16 119/67 100 06/09/19 18:06 06/09/19 18:06 06/09/19 18:06 06/09/19 18:06 06/09/19 18:06 Oxygen Flow Rate (L/min) 2 Oxygen Delivery Method Nasal Cannula Weight: 200 lb Body Mass Index (BMI) 33.3 Finger Stick Blood Glucose 141 General: Alert, Oriented x3, Cooperative, - - frail HEENT: Atraumatic, PERRLA, EOMI, Normocephalic Neck: Supple, No JVD, Negative Carotid Bruits Lungs: Clear to auscultation, Normal air movement Cardiovascular: Regular rate, No murmurs Abdomen: Bowel Sounds Present, Soft, Tender - BL upper quadrant tenderness Extremities: No edema, Capillary Refill Less than 3 Seconds Skin: No rashes, No breakdown, - - excoriations upper ext with pattern c/w nail scratches Musculoskeletal: No Tenderness to Palpation of Joints or Extremities Neurological: Cranial nerves II-XII grossly intact Psych/Mental Status: Normal Affect, Appropriate, Alert and oriented to time, place, person, mood and affect Laboratory Results 06/09/19 14:15: Urine Color Yellow, Urine Clarity Sl. Cloudy, Urine pH 5.0, Ur Specific [place] 1.015, Urine Protein 30 H, Urine Glucose (UA) Normal, Urine Ketones 5 H, Urine Occult Blood 10 H, Urine Nitrite Negative, Urine Bilirubin Negative, Urine Urobilinogen Normal, Ur Leukocyte Esterase 100 H, Urine RBC 0 SEEN, Urine WBC 0-5 SEEN, Ur Squamous Epith Cells 0 SEEN, Urine Bacteria 0 SEEN, Urine Mucus 0 SEEN, Urine Yeast RARE 06/09/19 16:33: WBC 5.5, RBC 2.85 L, Hgb 8.9 L, Hct 28.6 L, MCV 100.4 H, MCH 31.2, MCHC 31.1 L, RDW Std Deviation 62.8 H, RDW Coeff of Vlad 17.3 H, Plt Count 108 L, MPV 10.9, Immature Gran % (Auto) 0.700, Neut % (Auto) 60.8, Lymph % (Auto) 7.1 L, [place] % (Auto) 25.0 H, Eos % (Auto) 6.0 H, Baso % (Auto) 0.4, Absolute Neuts (auto) 3.3, Absolute Lymphs (auto) 0.39 L, Nucleated RBC % 0, Differential Comment 06/09/19 16:33: PT 49.7 H, INR 5.4 H* 06/09/19 16:33: Sodium 129 L, Potassium 6.1 H*, Chloride 91 L, Carbon Dioxide 30.0, Anion Gap 8, BUN 95 H, Creatinine 5.07 H, Estim Creat Clear Calc 7.57, Est GFR (MDRD) Af Amer 11 L, Est GFR (MDRD) Non-Af 9 L, BUN/Creatinine Ratio 18.7, Glucose 99, Calcium 9.3, Troponin I < 0.015 Assessment/Plan All Active Problems (Last Reviewed 05/05/19 @ 11:20 by Christen Pickering PA-C) KURT (acute kidney injury) (Acute) Hyperkalemia (Acute) Triquetral chip fracture (Resolved) Hypokalemia (Acute) Cystitis (Acute) Abdominal pain (Acute) Epigastric pain (Acute) Nausea and vomiting (Acute) Generalized abdominal discomfort (Acute) Generalized weakness (Acute) Cellulitis of right lower leg (Resolved) 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 KURT on suspected CKD III, with hyperkalemia - check liver function. consult nephrology. Gentle diuresis. Provide Kayexalate. Received albuterol in the ER. Currently no IV access. CXR with small pleural effusion and patient has hx diastolic CHF. -Recently had temporary dialysis - obtain records from [facility]:[place]. Hold home potassium, torsemide. -I discussed the case with Dr. Raza who will evaluate the patient. -Check Renal US, urine Na/Cr. Check CK. Trop negative. UA is negative. -prn atarax for itching 2. Elevated INR - vit K given at [facility] unclear how mutch. Recheck in AM. No evidence of acute bleeding. Check liver function - reportedly hx of cirrhosis and pt has generalized itching. Hold statin. Warfarin discontinued. 3. Chronic iron def. anemia - pt not on iron repletion therapy. MCV is elevated. Check iron/tibc/folate/b12. 4. Thrombocytopenia - check liver function 5. Chronic diastolic CHF - no evidence of acute exacerbation. Hold torsemide. Avoid excessive IV fluids. 6. Hx Chronic Afib/SSS - has pacemaker. rate stable. Warfarin stopped. Continue metoprolol 7. HTN - metoprolol continued. 8. HLD - statin held - check LFTs. Check CK. 9. GERD - on ppi DVT ppx: inr supratherapeutic. SCDs DC planning: return to SNF ([facility]) when ready This patient was seen by Shawn Sal PA-C under the supervision of Dr. De Leon. <Marilyn De Leon - Last Filed: 06/09/19 19:35> History of Present Illness The patient is a 84 year old F [] Past Medical History Medical History: Medical History (Last Reviewed 05/05/19 @ 11:20 by Christen Pickering PA-C) 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) I50.32 Chronic atrial fibrillation (Chronic) I48.2 Non-rheumatic tricuspid valve insufficiency (Chronic) I36.1 Secondary pulmonary arterial hypertension (Chronic) I27.21 Sick sinus syndrome (Chronic) I49.5 Essential (primary) hypertension (Chronic) I10 Hyperlipidemia (Chronic) E78.5 Arthritis M19.90 Chronic diastolic (congestive) heart failure I50.32 Glaucoma H40.9 Nonrheumatic mitral (valve) insufficiency I34.0 Obesity E66.9 Type 2 diabetes mellitus 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 Cellulitis and abscess of leg L03.119, L02.419 Allergies adhesive Allergy (Verified 05/05/19 04:00) PULLS SKIN OFF Iodinated Contrast Media [Iodinated Contrast Media - IV Dye] Allergy (Verified 05/05/19 04:00) EYES SWELL SHUT latex Adverse Reaction (Unknown, Verified 05/05/19 04:00) Unknown Surgical History: Surgical History (Last Reviewed 05/05/19 @ 11:21 by Christen Pickering PA-C) Presence of permanent cardiac pacemaker (Chronic) Onset Date: 02/02/19 Z95.0 Implant 2008, gen change 02/02/19 History of radiofrequency ablation procedure for cardiac arrhythmia Onset Date: 2008 Z98.890 History of herniorrhaphy Z98.890, Z87.19 Hiatal hernia repair approx 2005, Dr. Sophia Mclain [facility] History of hysterectomy Z90.710 Hx of cholecystectomy Z90.49 Unknown date - Physical Exam Vitals/I&O's: Vital Signs Temp Pulse Resp BP Pulse Ox 98.3 F 87 16 125/78 H 98 06/09/19 19:12 06/09/19 19:12 06/09/19 19:12 06/09/19 19:12 06/09/19 19:12 Oxygen Flow Rate (L/min) 2 Oxygen Delivery Method Nasal Cannula Weight: 209 lb 14.081 oz Body Mass Index (BMI) 34.9 Finger Stick Blood Glucose 141 Laboratory Results 06/09/19 14:15: Urine Color Yellow, Urine Clarity Sl. Cloudy, Urine pH 5.0, Ur Specific [place] 1.015, Urine Protein 30 H, Urine Glucose (UA) Normal, Urine Ketones 5 H, Urine Occult Blood 10 H, Urine Nitrite Negative, Urine Bilirubin Negative, Urine Urobilinogen Normal, Ur Leukocyte Esterase 100 H, Urine RBC 0 SEEN, Urine WBC 0-5 SEEN, Ur Squamous Epith Cells 0 SEEN, Urine Bacteria 0 SEEN, Urine Mucus 0 SEEN, Urine Yeast RARE 06/09/19 16:33: WBC 5.5, RBC 2.85 L, Hgb 8.9 L, Hct 28.6 L, MCV 100.4 H, MCH 31.2, MCHC 31.1 L, RDW Std Deviation 62.8 H, RDW Coeff of Vlad 17.3 H, Plt Count 108 L, MPV 10.9, Immature Gran % (Auto) 0.700, Neut % (Auto) 60.8, Lymph % (Auto) 7.1 L, [place] % (Auto) 25.0 H, Eos % (Auto) 6.0 H, Baso % (Auto) 0.4, Absolute Neuts (auto) 3.3, Absolute Lymphs (auto) 0.39 L, Nucleated RBC % 0, Differential Comment 06/09/19 16:33: PT 49.7 H, INR 5.4 H* 06/09/19 16:33: Sodium 129 L, Potassium 6.1 H*, Chloride 91 L, Carbon Dioxide 30.0, Anion Gap 8, BUN 95 H, Creatinine 5.07 H, Estim Creat Clear Calc 7.57, Est GFR (MDRD) Af Amer 11 L, Est GFR (MDRD) Non-Af 9 L, BUN/Creatinine Ratio 18.7, Glucose 99, Calcium 9.3, Troponin I < 0.015 Current Medications Sodium Chloride () 10 - 40 ml IV UD PRN PRN Reason: SALINE FLUSH Assessment/Plan Patient seen by Shawn Sal PA-C under my supervision Patient is an 84-year-old female with an extensive past medical history as listed was admitted to the ED to [facility] on 06/09/2019 with a complaint of abnormal labs. Patient states she was recently admitted to [facility] in [place] and the patient states was for a wrist fracture it appears she may have had sepsis for an unknown abdominal problem. While stay she underwent temporary dialysis and she is not sure of the reason why. She was subsequently discharged to the [facility] in [place] and was brought here today because of abnormal labs. Labs done showed that she had elevated creatinine of 5.07 with hyperkalemia and elevated INR as well. Patient does report that she had recently been itching severely and scratching all over. He however denied any fever or chills, nausea vomiting, decreased urination, abdominal pain or any other symptoms. Review of symptoms otherwise negative. In the ED, she was noted to have sodium of 129 and a potassium of 6.1 with creatinine of 5.07. She has a baseline creatinine of around 2. Hematology showed hemoglobin of 8.9. Platelets were 108. Chest x-ray showed right basilar airspace disease which appears stable in the interval and small right-sided pleural effusion as well as elevated left hemidiaphragm and moderate cardiomegaly. She has been managed for KURT on CKD with hyperkalemia and elevated INR o/e: Vital Signs Height 5 ft 4.96 in Weight: 209 lb 14.081 oz Weight in Pounds 209.9 lbs Pulse Ox 98 Temperature 98.3 F Pulse Rate 87 Respiratory Rate 16 Blood Pressure 125/78 General: Alert, Oriented x3, Cooperative, - - frail, morbid obesity HEENT: Atraumatic, PERRLA, EOMI, Normocephalic Neck: Supple, No JVD, Negative Carotid Bruits Lungs: Clear to auscultation, Normal air movement Cardiovascular: Regular rate, No murmurs Abdomen: Bowel Sounds Present, Soft, mild epigastric tenderness, no guarding or rebound tenderness. Extremities: No edema, Capillary Refill Less than 3 Seconds Skin: No rashes, No breakdown, - scratch soares all over upper extremities and torso Musculoskeletal: No Tenderness to Palpation of Joints or Extremities Neurological: Cranial nerves II-XII grossly intact Psych/Mental Status: Normal Affect, Appropriate, Alert and oriented to time, place, person, mood and affect Plan is to monitor for KURT on CKD with hyperkalemia. Will give Kayexalate and potassium depleting cocktail. Consult nephrology. Potassium was 6.1 but there was moderate hemolysis so we will repeat potassium will still go ahead and give Kayexalate and potassium depleting cocktail. Start hydration gently with IV fluid normal saline. Check renal ultrasound. Check FeNa. Hold potassium supplements and torsemide. Even though chest x-ray shows evidence of right lower lobe infiltrate, patient is not symptomatic as she does not have a productive cough has no fever chills or shortness of breath. Will hold off on antibiotics for now. Patient does have a tinge of jaundice and states she think she was diagnosed with cirrhosis. We will therefore check liver enzymes and if they are elevated, will consider checking liver ultrasound. Coumadin on account of elevated INR of 5.4. There is no evidence of bleeding. Trend INR. Rest of management as per Shawn Sal PA-C's notes which I have reviewed and endorsed. Code Visit Inpatient E&M: 22438 Init Hosp L3
--- NOTE | 2019-06-09 18:49 | ED.RN ---
THIS RN CALLED THE AVEN[facility] AND SPOKE WITH SUNNY, NURSE CARING FOR PT TO INFORM HER OF PT ADMISSION.
--- NOTE | 2019-06-09 19:52 | US_ITS ---
STUDY: RENAL ULTRASOUND - COMPLETE REASON FOR EXAM: Female, 84 years old. KURT TECHNIQUE: Ultrasound evaluation of the kidneys was performed with real-time and static granado-scale imaging. COMPARISON: Ultrasound of the abdomen dated 05/06/2019 FINDINGS: RIGHT KIDNEY: Normal location of the right kidney, which is normal in size. The right kidney measures 11.1 x 4.7 x 4.5 cm. There is a normal cortex of the right kidney. The renal cortex measures 1.5 cm. There is no right renal mass or cyst. There are no right renal calculi. There is no right hydronephrosis. DISTAL RIGHT URETER: There is non-visualization of the distal right ureter. There is no demonstrated right ureterovesical junction calculus. There is no demonstrated right ureteral jet. LEFT KIDNEY: Normal location of the left kidney, which is normal in size. The left kidney measures 9.9 x 3.6 x 4.8 cm. There is a normal cortex of the left kidney. The renal cortex measures 1.6 cm. There is no left renal mass or cyst. There are no left renal calculi. There is no left hydronephrosis. DISTAL LEFT URETER: There is non-visualization of the distal left ureter. There is no demonstrated left ureterovesical junction calculus. There is no demonstrated left ureteral jet. BLADDER: The distended urinary bladder has a volume of 12 ml. . There is a normal wall thickness of the distended urinary bladder. Lateral wall thickness is 4 mm. There is no demonstrated mass within the urinary bladder. There are no demonstrated bladder calculi. US/Kidney and Bladder IMPRESSION: Normal ultrasound of the kidneys and urinary bladder. Electronically Signed: Bradly Trevino MD at 22:19 EST , Service support ,
[2019-06-09 21:08] LABS: Urine Sodium 11 mmol/L (Not Establ.)
--- NOTE | 2019-06-09 21:30 | NURSING ---
Pt. daughter, Kori Solis called to obtain pt. status and voice concerns. Kori lives in [place] and would like a physician to call her with update and plan of care. [phone]. Will relay message to morning nurse.
[2019-06-09] MEDS: 0.9% Normal Saline 1,000 ML 100 ML IV (21:32)
[2019-06-09 21:37] LABS: AST(SGOT) 15 U/L (15-37); Alanine Aminotransfer ALT/SGPT 15 U/L (13-56); Albumin, Serum 3.6 g/dL (3.2-5.0); Alkaline Phosphatase 85 U/L (45-117); Bilirubin, Direct 0.82 mg/dL (0.00-0.30); Globulin 3.8 g/dL (2.2-4.2); Potassium 5.3 mmol/L (3.5-5.1); Protein, Total 7.4 g/dL (6.4-8.2)
[2019-06-09 21:50] LABS: Vitamin B12 1764 pg/mL (211-911)
[2019-06-09] MEDS: MELATONIN 3 MG TABLET PO (22:00)
[2019-06-09] MEDS: Sodium Polystyrene Sulfonate 15 GM/60 ML UDC 30 GM PO (22:00)
[2019-06-09] MEDS: Metoprolol Tartrate 25 MG Tablet PO (22:01)
[2019-06-09 22:02] LABS: Iron 49 ug/dL (50-170); Iron Binding Capacity,Total 351 ug/dL (250-450)
[2019-06-09] MEDS: hydrOXYzine 10 MG Tablet PO (22:32)
[2019-06-10] VITALS (21 sets, daily range): BP systolic 96–145; BP diastolic 53–67; PULSE 70–103; RESP 16–20; TEMP 36.3–36.9; O2SAT 93–100
[2019-06-10 06:15] LABS: Hematocrit 26.2 % (37-47); Hemoglobin 8.1 g/dL (12.0-15.0); Mean Corp Hgb Conc 30.9 g/dL (32-36); Mean Corpuscular Hgb 31.3 pg (27.0-32.0); Mean Corpuscular Volume 101.2 fL (81-99); POSITIVE COUNT YES; POSITIVE MORPHOLOGY YES; Platelet Count 96 K/mm3 (150-450); RBC Distribution Width CV 17.6 % (11.6-14.6); RBC Distribution Width SD 65.6 fl (35.1-43.9); Red Blood Count 2.59 M/mm3 (4.2-5.4); White Blood Count 5.1 K/mm3 (4.4-11.0)
[2019-06-10 06:16] LABS: Scan Indicated on CBC? Y/N YES- FLAGS NOTED
[2019-06-10 06:17] LABS: Prothrombin Time (Protime)PT. 37.4 SECONDS (11.7-14.9)
[2019-06-10 06:23] LABS: International Normalized Ratio 3.8
[2019-06-10 06:43] LABS: Differential Comment COMMENT:
[2019-06-10 06:47] LABS: Anion Gap 7 (5-15); BUN 95 mg/dL (7-18); BUN/Creat Ratio 18.8 RATIO (10-20); Chloride 96 mmol/L (98-107); Creatinine, Serum 5.05 mg/dL (0.55-1.02); EST Glomerular Filtration Rate 9 mL/min (>60); Est Glom Filt Rate - Afr Amer 11 mL/min (>60); Estimated Creatinine Clearance 7.29 ml/min; Glucose 95 mg/dL (74-106); Potassium 5.7 mmol/L (3.5-5.1); Sodium Level 132 mmol/L (136-145)
[2019-06-10] MEDS: 0.9% Normal Saline 1,000 ML 100 ML IV (06:50)
--- NOTE | 2019-06-10 09:04 | CON.PCM_ITS ---
Consultation - Renal 06/10/19 PCP/ Referring MD: Requesting physician: [] Primary care physician: Radha Sigala DO Reason for Consultation:: KURT vs ESRD - History of Present Illness History of Present Illness: The patient is a 84 year old AAF who was transferred from [facility] to [facility] for hyperkalemia, KURT, and supratherapeutic INR on coumadin for chronic afib s/p PPM. Potassium 6.1 Creatinine 5.0 on admission. She was on potassium supplement and torsemide daily at [facility]. Creatinine was 3.0 to 3.8, then 4.8 from [facility] prior to admission to [facility]. Her history of disjointed. Extensive chart review of records from [facility], [facility] and [facility] obtained. She was hospitalized in May 05-2018 for sepsis, hypokalemia, UTI. Urine cx positive for Ecoli, blood cx negative. Gen Surgery was consulted for abdominal pain. CT abdomen showed lobulation of liver with elevated Tbili at 5. She was recently diagnosed with cirrhosis. Creatinine on 05/05 was 1.17 increased to 2.18 on 05/06/19 during [facility] hospitalization. Creatinine baseline 1.1 in February,March 2019 when she was hospitalized for rt wrist fx from fall. On 05/06/19 she was transferred to [facility] for further management of abdominal pain due to patient being high risk. There she received temporary hemodialysis for oliguric ATN between 05/09 and 05/15 due to RHF with RV dysfunction, severe TR, LVEF 50% on echo from 05/08/19. Creatinine was elevated at 4.47 on 05/09 then stabilized between 1.7-2.0 prior to discharge from [facility]. Her last hemodialysis was 05/15 with permcath removal on 05/22 at [facility]. She was discharged to [facility] for rehab. Today she remains oliguric despite iv fluids overnight. Urine sodium low at 11, creatinine 189. She has chronic shortness of breath with minimal exertion, chronic leg swelling. Renal US unremarkable. She complains of nausea, poor appetite for weeks. Denies chest pain, tremors. No history of confusion. - Allergies Allergies: Allergies adhesive Allergy (Verified 05/05/19 04:00) PULLS SKIN OFF Iodinated Contrast Media [Iodinated Contrast Media - IV Dye] Allergy (Verified 05/05/19 04:00) EYES SWELL SHUT latex Adverse Reaction (Unknown, Verified 05/05/19 04:00) Unknown - Current Medications Current Medications: Current Medications Brinzolamide (Azopt) 1 drop EACH EYE BID [facility] Hydroxyzine HCl (Atarax Tablet) 10 mg PO TID PRN PRN PRN Reason: ITCHING Last Admin: 06/09/19 22:32 Dose: 10 mg Documented by: Sodium Chloride () 1,000 mls @ 100 mls/hr IV .Q10H [facility] Last Admin: 06/10/19 06:50 Dose: 100 mls/hr Documented by: Iron Sucrose 200 mg/ Sodium (Chloride) 110 mls @ 220 mls/hr IV DAILY AYLA Stop: 06/12/19 10:29 Latanoprost (Xalatan Opthalmic) 1 drop EACH EYE DAILY@0800 [facility] Melatonin (Melatonin) 3 mg PO QHS [facility] Last Admin: 06/09/19 22:00 Dose: 3 mg Documented by: Metoprolol Tartrate (Lopressor (Beta Carlos Manuel)) 25 mg PO BID [facility] Last Admin: 06/09/19 22:01 Dose: 25 mg Documented by: Pantoprazole Sodium (Protonix) 20 mg PO DAILY [facility] Sodium Chloride () 10 - 40 ml IV UD PRN PRN Reason: SALINE FLUSH Sodium Polystyrene Sulfonate (Kayexalate) 30 gm PO X1 ONE Stop: 06/10/19 09:03 - Past Medical History Past Medical History (Chronic Problems): Chronic Problems (Last Reviewed 05/05/19 @ 11:20 by Christen Pickering PA-C) Chronic anemia (Chronic) correction (current) use of anticoagulants (Chronic) Debility (Chronic) Frequent falls (Chronic) Chronic diastolic heart failure (Chronic) Atrial fibrillation (Chronic) Pulmonary HTN (Chronic) Hypertension (Chronic) Glaucoma (Chronic) GERD (gastroesophageal reflux disease) (Chronic) Anxiety (Chronic) Osteoarthritis of left knee (Chronic) 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) Chronic atrial fibrillation (Chronic) Non-rheumatic tricuspid valve insufficiency (Chronic) Secondary pulmonary arterial hypertension (Chronic) Sick sinus syndrome (Chronic) 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 2008, gen change 02/02/19 Essential (primary) hypertension (Chronic) Hyperlipidemia (Chronic) - Past Surgical History Surgical History: cholecystectomy, hysterectomy, pacemaker implantation, - - stomach surgery/hiatal hernia, ablation - Social History Smoking Status: Never smoker Alcohol: None Drugs: None - Family History Maternal History Items: Diabetes Paternal History Items: Heart Disease Review of Systems Constitutional: Reports: Anorexia, Weakness. Denies: Chills, Fever Eyes: Denies: Vision Change HEENT: Denies: Head Aches Cardiovascular: Reports: Edema. Denies: Chest Pain, Syncope Respiratory: Reports: Shortness of breath upon exertion. Denies: Cough Gastrointestinal: Reports: - - anorexia, - - recently diagnosed with cirrhosis. Denies: Constipation, Diarrhea, Nausea, Vomiting Genitourinary: Reports: Dysuria, - - hx UTI Apr 2019 Musculoskeletal: Reports: - - gen weakness Skin: Denies: Rash Neurological: Denies: Balance problems Psychiatric: Denies: Anxiety, Depression Hematologic/ Lymphatic: Reports: Anemia. Denies: Hx of blood clot Patient Problems: Active and Suspected Problems (Last Reviewed 05/05/19 @ 11:20 by Christen Pickering PA-C) KURT (acute kidney injury) (Acute) Hyperkalemia (Acute) - Physical Exam Vitals/I&O's: Vital Signs Temp Pulse Resp BP Pulse Ox 97.5 F L 79 20 H 105/55 L 97 06/10/19 04:05 06/10/19 07:45 06/10/19 04:05 06/10/19 04:05 06/10/19 07:54 Oxygen Flow Rate (L/min) 2 Oxygen Delivery Method Nasal Cannula Weight: 95.2 kg Body Mass Index (BMI) 34.9 Finger Stick Blood Glucose 141 Intake and Output for Last 24 Hours 06/08/19 06/09/19 06/10/19 23:59 23:59 23:59 Intake Total 370.05 / 370.05 1028.33 / 1028.33 Output Total 0 / 0 Balance 370.05 / 370.05 1028.33 / 1028.33 General: Alert, Oriented x3, Cooperative, No apparent distress Oral: Dry Mucosa Lungs: Rales - faint bases Cardiovascular: Murmur, No rub noted, - - pacemaker Abdomen: Bowel Sounds Present, Soft, Non Tender, Non-Distended Extremities: Edema - mild BLE Skin: No rashes Neurological: Cranial nerves II-XII grossly intact, - - no tremor Psych/Mental Status: Normal Affect, Appropriate, Alert and oriented to time, place, person, mood and affect Laboratory Results 06/09/19 14:25: Urine Color Yellow, Urine Clarity Sl. Cloudy, Urine pH 5.0, Ur Specific Nova 1.015, Urine Protein 30 H, Urine Glucose (UA) Normal, Urine Ketones 5 H, Urine Occult Blood 10 H, Urine Nitrite Negative, Urine Bilirubin Negative, Urine Urobilinogen Normal, Ur Leukocyte Esterase 100 H, Urine RBC 0 SEEN, Urine WBC 0-5 SEEN, Ur Squamous Epith Cells 0 SEEN, Urine Bacteria 0 SEEN, Urine Mucus 0 SEEN, Urine Yeast RARE 06/09/19 14:25: Urine Creatinine 189.00 06/09/19 14:25: Ur Random Sodium 11 06/09/19 16:33: WBC 5.5, RBC 2.85 L, Hgb 8.9 L, Hct 28.6 L, MCV 100.4 H, MCH 31.2, MCHC 31.1 L, RDW Std Deviation 62.8 H, RDW Coeff of Vlad 17.3 H, Plt Count 108 L, MPV 10.9, Immature Gran % (Auto) 0.700, Neut % (Auto) 60.8, Lymph % (Auto) 7.1 L, Harlan % (Auto) 25.0 H, Eos % (Auto) 6.0 H, Baso % (Auto) 0.4, Absolute Neuts (auto) 3.3, Absolute Lymphs (auto) 0.39 L, Nucleated RBC % 0, Differential Comment 06/09/19 16:33: PT 49.7 H, INR 5.4 H* 06/09/19 16:33: Sodium 129 L, Potassium 6.1 H*, Chloride 91 L, Carbon Dioxide 30.0, Anion Gap 8, BUN 95 H, Creatinine 5.07 H, Estim Creat Clear Calc 7.57, Est GFR (MDRD) Af Amer 11 L, Est GFR (MDRD) Non-Af 9 L, BUN/Creatinine Ratio 18.7, Glucose 99, Calcium 9.3, Troponin I < 0.015 06/09/19 21:02: Vitamin B12 1764 H 06/09/19 21:02: Iron 49 L, TIBC 351, Iron Saturation 14.0 L, Folate 5.80 06/09/19 21:02: Potassium 5.3 H, Total Bilirubin 1.40 H, Direct Bilirubin 0.82 H , AST 15, ALT 15, Alkaline Phosphatase 85, Total Protein 7.4, Albumin 3.6, Globulin 3.8 06/10/19 05:50: WBC 5.1, RBC 2.59 L, Hgb 8.1 L, Hct 26.2 L, MCV 101.2 H, MCH 31.3, MCHC 30.9 L, RDW Std Deviation 65.6 H, RDW Coeff of Vlad 17.6 H, Plt Count 96 L, MPV 11.0, Differential Comment COMMENT: 06/10/19 05:50: PT 37.4 H, INR 3.8 H* 06/10/19 05:50: Sodium 132 L, Potassium 5.7 H, Chloride 96 L, Carbon Dioxide 29.0, Anion Gap 7, BUN 95 H, Creatinine 5.05 H, Estim Creat Clear Calc 7.29, Est GFR (MDRD) Af Amer 11 L, Est GFR (MDRD) Non-Af 9 L, BUN/Creatinine Ratio 18.8, Glucose 95, Calcium 9.0 Clinical Impression(s) from Imaging Studies Chest X-Ray 06/09/19 16:20 IMPRESSION: Right basilar airspace disease. This appears stable in the interval. Small right-sided pleural effusion. Elevated left hemidiaphragm. Moderate cardiomegaly. Calcified plaques of the aortic arch. Electronically Signed: Bradly Trevino MD at 16:37 EST , Service support , Renal Ultrasound 06/09/19 19:52 IMPRESSION: Normal ultrasound of the kidneys and urinary bladder. Electronically Signed: Bradly Trevino MD at 22:19 EST , Service support , Current Medications Brinzolamide (Azopt) 1 drop EACH EYE BID [facility] Hydroxyzine HCl (Atarax Tablet) 10 mg PO TID PRN PRN PRN Reason: ITCHING Last Admin: 06/09/19 22:32 Dose: 10 mg Documented by: Sodium Chloride () 1,000 mls @ 100 mls/hr IV .Q10H [facility] Last Admin: 06/10/19 06:50 Dose: 100 mls/hr Documented by: Iron Sucrose 200 mg/ Sodium (Chloride) 110 mls @ 220 mls/hr IV DAILY [facility] Stop: 06/12/19 10:29 Latanoprost (Xalatan Opthalmic) 1 drop EACH EYE DAILY@0800 [facility] Melatonin (Melatonin) 3 mg PO QHS [facility] Last Admin: 06/09/19 22:00 Dose: 3 mg Documented by: Metoprolol Tartrate (Lopressor (Beta Carlos Manuel)) 25 mg PO BID [facility] Last Admin: 06/09/19 22:01 Dose: 25 mg Documented by: Pantoprazole Sodium (Protonix) 20 mg PO DAILY [facility] Sodium Chloride () 10 - 40 ml IV UD PRN PRN Reason: SALINE FLUSH Sodium Polystyrene Sulfonate (Kayexalate) 30 gm PO X1 ONE Stop: 06/10/19 09:03 Assessment/Plan All Active Problems (Last Reviewed 05/05/19 @ 11:20 by Christen Pickering PA-C) KURT (acute kidney injury) (Acute) Hyperkalemia (Acute) Triquetral chip fracture (Resolved) Hypokalemia (Acute) Cystitis (Acute) Abdominal pain (Acute) Epigastric pain (Acute) Nausea and vomiting (Acute) Generalized abdominal discomfort (Acute) Generalized weakness (Acute) Cellulitis of right lower leg (Resolved) 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 KURT likely prerenal from right heart failure with severe TR. Currently oliguric. Unresponsive to iv fluids with shortness of breath, fluid retention. Baseline creatinien 2.0 now at 5.0. Urine sodium 11 Ucreatinine 189 consistent with cardiorenal syndrome. Will stop iv fluids and given lasix. will likely need hemodialysis again. Hx temp HD for ATN 05/09- at [facility]. will need catheter placement when elevated INR reversed. consult Dr Beltran. 2. Hyperkalemia due to Kurt, potassium supplements. 3. Hx cirrhosis with elevated Tbili likely from CHF. Check viral hepatitis 4. RHF, severe TR with RV severe dilation on echo from 05/08/19 from [facility]. 5. hyponatremia, fluid retention from excessive ADH secretion from sodium avid state due to RHF 6. Iron def anemia. Check iron studies, iv iron as needed. 7. Chronic afib with supratherapeutic inr 8. Debilitation s/p fall with rt wrist fx Feb 2019 9. Hx ecoli UTI Apr 2019 [facility] hospitalist, Dr. Beltran, nursing staff. Unable to reach pt daughters. Will try again at a later time.
[2019-06-10 09:47] LABS: CPK Total, Creatine Kinase 46 U/L (26-192)
[2019-06-10] MEDS: Metoprolol Tartrate 25 MG Tablet PO ×2 (10:02→21:12)
[2019-06-10] MEDS: Latanoprost 0.005% 1 Bottle 1 DRP EACH EYE (10:03)
[2019-06-10] MEDS: Pantoprazole Sodium 20 MG Tablet PO (10:03)
[2019-06-10] MEDS: Sodium Polystyrene Sulfonate 15 GM/60 ML UDC 30 GM PO (10:06)
--- NOTE | 2019-06-10 12:47 | CASEMGMT ---
Patient is from [facility]. SW faxed clinicals to [place]. SW wrote on fax face sheet that she will likely need dialysis at discharge. SW to continue to follow. Nayla MOJICA MSW
[2019-06-10] MEDS: Furosemide 40 MG/4 ML Vial IV (13:57)
[2019-06-10] MEDS: 0.9% Saline Lock 10 ML Syringe IV (13:58)
--- NOTE | 2019-06-10 14:12 | PCM.PN.HOSP ---
<Shawn Sal - Last Filed: 06/10/19 14:12> Patient Problems: Active and Suspected Problems (Last Reviewed 06/10/19 @ 15:26 by Christen Pickering PA-C) KURT (acute kidney injury) (Acute) Hyperkalemia (Acute) Reason for Visit: KURT Subjective: Ongoing severe all over itching. C/o RUQ pain. No nausea/vomiting, no tremor. C/o dysuria. No fever/chills. No CP/palp. C/o increased SOB today. Ongoing chronic dry cough Vitals/I&O's: Vital Signs Temp Pulse Resp BP Pulse Ox 97.4 F L 76 16 104/53 L 94 06/10/19 09:20 06/10/19 10:54 06/10/19 09:20 06/10/19 09:20 06/10/19 09:20 Oxygen Flow Rate (L/min) 2 Oxygen Delivery Method Nasal Cannula Weight: 209 lb 14.081 oz Body Mass Index (BMI) 34.9 Finger Stick Blood Glucose 141 Intake and Output for Last 24 Hours 06/08/19 06/09/19 06/10/19 23:59 23:59 23:59 Intake Total 370.05 / 370.05 1473.33 / 1473.33 Output Total 0 / 0 Balance 370.05 / 370.05 1473.33 / 1473.33 General: Alert, Oriented x3, Cooperative HEENT: Atraumatic, PERRLA, EOMI, Normocephalic Neck: Supple, No JVD, Negative Carotid Bruits Lungs: No rales - faint bibasilar, Diminished Cardiovascular: Regular rate, No murmurs Abdomen: Bowel Sounds Present, Soft, Tender - RUQ Extremities: No edema, Capillary Refill Less than 3 Seconds Skin: No rashes, No breakdown Musculoskeletal: No Tenderness to Palpation of Joints or Extremities Neurological: Cranial nerves II-XII grossly intact Psych/Mental Status: Normal Affect, Appropriate, Alert and oriented to time, place, person, mood and affect Laboratory Results 06/09/19 14:25: Urine Color Yellow, Urine Clarity Sl. Cloudy, Urine pH 5.0, Ur Specific Mize 1.015, Urine Protein 30 H, Urine Glucose (UA) Normal, Urine Ketones 5 H, Urine Occult Blood 10 H, Urine Nitrite Negative, Urine Bilirubin Negative, Urine Urobilinogen Normal, Ur Leukocyte Esterase 100 H, Urine RBC 0 SEEN, Urine WBC 0-5 SEEN, Ur Squamous Epith Cells 0 SEEN, Urine Bacteria 0 SEEN, Urine Mucus 0 SEEN, Urine Yeast RARE 06/09/19 14:25: Urine Creatinine 189.00 06/09/19 14:25: Ur Random Sodium 11 06/09/19 16:33: WBC 5.5, RBC 2.85 L, Hgb 8.9 L, Hct 28.6 L, MCV 100.4 H, MCH 31.2, MCHC 31.1 L, RDW Std Deviation 62.8 H, RDW Coeff of Vlad 17.3 H, Plt Count 108 L, MPV 10.9, Immature Gran % (Auto) 0.700, Neut % (Auto) 60.8, Lymph % (Auto) 7.1 L, [place] % (Auto) 25.0 H, Eos % (Auto) 6.0 H, Baso % (Auto) 0.4, Absolute Neuts (auto) 3.3, Absolute Lymphs (auto) 0.39 L, Nucleated RBC % 0, Differential Comment 06/09/19 16:33: PT 49.7 H, INR 5.4 H* 06/09/19 16:33: Sodium 129 L, Potassium 6.1 H*, Chloride 91 L, Carbon Dioxide 30.0, Anion Gap 8, BUN 95 H, Creatinine 5.07 H, Estim Creat Clear Calc 7.57, Est GFR (MDRD) Af Amer 11 L, Est GFR (MDRD) Non-Af 9 L, BUN/Creatinine Ratio 18.7, Glucose 99, Calcium 9.3, Troponin I < 0.015 06/09/19 21:02: Vitamin B12 1764 H 06/09/19 21:02: Iron 49 L, TIBC 351, Iron Saturation 14.0 L, Folate 5.80 06/09/19 21:02: Potassium 5.3 H, Total Bilirubin 1.40 H, Direct Bilirubin 0.82 H, AST 15, ALT 15, Alkaline Phosphatase 85, Total Protein 7.4, Albumin 3.6, Globulin 3.8 06/10/19 05:50: WBC 5.1, RBC 2.59 L, Hgb 8.1 L, Hct 26.2 L, MCV 101.2 H, MCH 31.3, MCHC 30.9 L, RDW Std Deviation 65.6 H, RDW Coeff of Vlad 17.6 H, Plt Count 96 L, MPV 11.0, Differential Comment COMMENT: 06/10/19 05:50: PT 37.4 H, INR 3.8 H* 06/10/19 05:50: Sodium 132 L, Potassium 5.7 H, Chloride 96 L, Carbon Dioxide 29.0, Anion Gap 7, BUN 95 H, Creatinine 5.05 H, Estim Creat Clear Calc 7.29, Est GFR (MDRD) Af Amer 11 L, Est GFR (MDRD) Non-Af 9 L, BUN/Creatinine Ratio 18.8, Glucose 95, Calcium 9.0 06/10/19 05:50: Total Creatine Kinase 46 06/10/19 05:55: Hepatitis A IgM Ab Pending, Hepatitis A Ab Total Pending, Hep Bs Antigen Pending, Hep B Core Total Ab Pending, Hep B Core IgM Ab Pending 06/10/19 12:55: Blood Type Pending Current Medications Dorzolamide HCl (Trusopt) 1 drop EACH EYE BID [facility] Last Admin: 06/10/19 13:58 Dose: Not Given Documented by: Hydroxyzine HCl (Atarax Tablet) 10 mg PO TID PRN PRN PRN Reason: ITCHING Last Admin: 06/09/19 22:32 Dose: 10 mg Documented by: Iron Sucrose 200 mg/ Sodium (Chloride) 110 mls @ 220 mls/hr IV DAILY [facility] Stop: 06/12/19 10:29 Last Infusion: 06/10/19 10:31 Dose: Infused Documented by: Latanoprost (Xalatan Opthalmic) 1 drop EACH EYE DAILY@0800 [facility] Last Admin: 06/10/19 10:03 Dose: 1 drop Documented by: Melatonin (Melatonin) 3 mg PO QHS [facility] Last Admin: 06/09/19 22:00 Dose: 3 mg Documented by: Metoprolol Tartrate (Lopressor (Beta Carlos Manuel)) 25 mg PO BID [facility] Last Admin: 06/10/19 10:02 Dose: 25 mg Documented by: Pantoprazole Sodium (Protonix) 20 mg PO DAILY [facility] Last Admin: 06/10/19 10:03 Dose: 20 mg Documented by: Sodium Chloride () 10 - 40 ml IV UD PRN PRN Reason: SALINE FLUSH Last Admin: 06/10/19 13:58 Dose: 10 ml Documented by: STROKE Vital Signs/Narrative: Vital Signs Pulse 06/10/19 10:54 76 Medical Necessity - Tobacco Use Smoking Status: Never smoker Tobacco Use: Non-smoker, Secondhand Assessment/Plan All Active Problems (Last Reviewed 06/10/19 @ 15:26 by Christen Pickering PA-C) KURT (acute kidney injury) (Acute) Hyperkalemia (Acute) Triquetral chip fracture (Resolved) Hypokalemia (Acute) Cystitis (Acute) Abdominal pain (Acute) Epigastric pain (Acute) Nausea and vomiting (Acute) Generalized abdominal discomfort (Acute) Generalized weakness (Acute) Cellulitis of right lower leg (Resolved) 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 KURT on suspected CKD III, with hyperkalemia - recently in [facility] on temporary dialysis for oliguric KURT 2/2 ATN. No improvement in renal function. Possible dialysis today. Dr. Raza following. She discussed with Dr. Beltran. FFP today for elevated INR. -give additional 30 of kayex today. -UA neg. 2. 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 Now off coumadin. INR still elevated. low platelets. FFP ordered. possible hepatorenal syndrome. Statin held. CK negative. Hepatitis panel drawn. She denies significant drinking hx. 3. Chronic iron def. anemia - significant iron deficiency on labs. Venofer x3 ordered. Recent C scope at [facility]. b12 high, folate normal. 4. Thrombocytopenia - check liver function 5. Chronic diastolic CHF - no evidence of acute exacerbation. Hold torsemide. Avoid excessive IV fluids. 6. Hx Chronic Afib/SSS - has pacemaker. rate stable. Warfarin stopped. Continue metoprolol 7. HTN - metoprolol continued. 8. HLD - statin held 9. GERD - on ppi DVT ppx: inr supratherapeutic. SCDs DC planning: return to SNF ([facility]) when ready. Possible dialysis tomorrow. This patient was seen by Shawn Sal PA-C under the supervision of Imer Pruitt - Last Filed: 06/10/19 16:23> Reason for Visit: Acute kidney injury. Patient is chronically short of breath as per inker and opaquer Dr. Raza. Patient also has generalized edema including bilateral lower extremities, abdomen which is chronic for last 3 to 4 years. Patient had temporary dialysis done in [facility] through temporary dialysis catheter which was removed after she did not require dialysis for about 3 weeks. Vitals/I&O's: Vital Signs Temp Pulse Resp BP Pulse Ox 97.4 F L 81 16 111/67 97 06/10/19 15:25 06/10/19 15:33 06/10/19 15:25 06/10/19 15:25 06/10/19 15:25 Oxygen Flow Rate (L/min) 2 Oxygen Delivery Method Nasal Cannula Weight: 209 lb 14.081 oz Body Mass Index (BMI) 34.9 Finger Stick Blood Glucose 141 Intake and Output for Last 24 Hours 06/08/19 06/09/19 06/10/19 23:59 23:59 23:59 Intake Total 370.05 / 370.05 1473.33 / 1473.33 Output Total 0 / 0 Balance 370.05 / 370.05 1473.33 / 1473.33 General: Oriented x3, Cooperative, Lethargic HEENT: Atraumatic, PERRLA, EOMI, Normocephalic Neck: Supple, No JVD, Negative Carotid Bruits Lungs: No rales, Diminished - Air entry diminished in all lung holley., Rhonchi Cardiovascular: Regular rate, Normal S1, Normal S2, No murmurs Abdomen: Soft, Hypoactive Bowel Sounds, Distended, Tender Extremities: Edema - Generalized lower extremity edema Musculoskeletal: No Tenderness to Palpation of Joints or Extremities, Arthritic Changes Neurological: Deep Tendon Reflexes 2+/4 and Symmetrical, Neuro grossly intact Laboratory Results 06/09/19 14:25: Urine Color Yellow, Urine Clarity Sl. Cloudy, Urine pH 5.0, Ur Specific Mize 1.015, Urine Protein 30 H, Urine Glucose (UA) Normal, Urine Ketones 5 H, Urine Occult Blood 10 H, Urine Nitrite Negative, Urine Bilirubin Negative, Urine Urobilinogen Normal, Ur Leukocyte Esterase 100 H, Urine RBC 0 SEEN, Urine WBC 0-5 SEEN, Ur Squamous Epith Cells 0 SEEN, Urine Bacteria 0 SEEN, Urine Mucus 0 SEEN, Urine Yeast RARE 06/09/19 14:25: Urine Creatinine 189.00 06/09/19 14:25: Ur Random Sodium 11 06/09/19 16:33: WBC 5.5, RBC 2.85 L, Hgb 8.9 L, Hct 28.6 L, MCV 100.4 H, MCH 31.2, MCHC 31.1 L, RDW Std Deviation 62.8 H, RDW Coeff of Vlad 17.3 H, Plt Count 108 L, MPV 10.9, Immature Gran % (Auto) 0.700, Neut % (Auto) 60.8, Lymph % (Auto) 7.1 L, [place]enedy % (Auto) 25.0 H, Eos % (Auto) 6.0 H, Baso % (Auto) 0.4, Absolute Neuts (auto) 3.3, Absolute Lymphs (auto) 0.39 L, Nucleated RBC % 0, Differential Comment 06/09/19 16:33: PT 49.7 H, INR 5.4 H* 06/09/19 16:33: Sodium 129 L, Potassium 6.1 H*, Chloride 91 L, Carbon Dioxide 30.0, Anion Gap 8, BUN 95 H, Creatinine 5.07 H, Estim Creat Clear Calc 7.57, Est GFR (MDRD) Af Amer 11 L, Est GFR (MDRD) Non-Af 9 L, BUN/Creatinine Ratio 18.7, Glucose 99, Calcium 9.3, Troponin I < 0.015 06/09/19 21:02: Vitamin B12 1764 H 06/09/19 21:02: Iron 49 L, TIBC 351, Iron Saturation 14.0 L, Folate 5.80 06/09/19 21:02: Potassium 5.3 H, Total Bilirubin 1.40 H, Direct Bilirubin 0.82 H, AST 15, ALT 15, Alkaline Phosphatase 85, Total Protein 7.4, Albumin 3.6, Globulin 3.8 06/10/19 05:50: WBC 5.1, RBC 2.59 L, Hgb 8.1 L, Hct 26.2 L, MCV 101.2 H, MCH 31.3, MCHC 30.9 L, RDW Std Deviation 65.6 H, RDW Coeff of Vlad 17.6 H, Plt Count 96 L, MPV 11.0, Differential Comment COMMENT: 06/10/19 05:50: PT 37.4 H, INR 3.8 H* 06/10/19 05:50: Sodium 132 L, Potassium 5.7 H, Chloride 96 L, Carbon Dioxide 29.0, Anion Gap 7, BUN 95 H, Creatinine 5.05 H, Estim Creat Clear Calc 7.29, Est GFR (MDRD) Af Amer 11 L, Est GFR (MDRD) Non-Af 9 L, BUN/Creatinine Ratio 18.8, Glucose 95, Calcium 9.0 06/10/19 05:50: Total Creatine Kinase 46 06/10/19 05:55: Hepatitis A IgM Ab Pending, Hepatitis A Ab Total Pending, Hep Bs Antigen Pending, Hep B Core Total Ab Pending, Hep B Core IgM Ab Pending 06/10/19 12:55: Blood Type B POSITIVE Current Medications Dorzolamide HCl (Trusopt) 1 drop EACH EYE BID [facility] Last Admin: 06/10/19 13:58 Dose: Not Given Documented by: Hydroxyzine HCl (Atarax Tablet) 10 mg PO TID PRN PRN PRN Reason: ITCHING Last Admin: 06/09/19 22:32 Dose: 10 mg Documented by: Iron Sucrose 200 mg/ Sodium (Chloride) 110 mls @ 220 mls/hr IV DAILY [facility] Stop: 06/12/19 10:29 Last Infusion: 06/10/19 10:31 Dose: Infused Documented by: Cefazolin Sodium 2 gm/ Sodium (Chloride) 110 mls @ 150 mls/hr IV X1 ONE Stop: 06/11/19 14:43 Phytonadione 10 mg/ Sodium (Chloride) 51 mls @ 150 mls/hr IV X1 ONE Stop: 06/10/19 16:36 Latanoprost (Xalatan Opthalmic) 1 drop EACH EYE DAILY@0800 [facility] Last Admin: 06/10/19 10:03 Dose: 1 drop Documented by: Melatonin (Melatonin) 3 mg PO QHS [facility] Last Admin: 06/09/19 22:00 Dose: 3 mg Documented by: Metoprolol Tartrate (Lopressor (Beta Carlos Manuel)) 25 mg PO BID [facility] Last Admin: 06/10/19 10:02 Dose: 25 mg Documented by: Pantoprazole Sodium (Protonix) 20 mg PO DAILY [facility] Last Admin: 06/10/19 10:03 Dose: 20 mg Documented by: Sodium Chloride () 10 - 40 ml IV UD PRN PRN Reason: SALINE FLUSH Last Admin: 06/10/19 13:58 Dose: 10 ml Documented by: STROKE Vital Signs/Narrative: Vital Signs Temp Pulse Resp BP Pulse Ox 06/10/19 15:33 81 06/10/19 15:25 97.4 F L 100 16 111/67 97 06/10/19 15:10 98.5 F 103 H 16 96/62 97 Assessment/Plan This patient was seen in conjunction with Shawn MCADAMS. I have independently interviewed and examined the patient and reviewed pertinent history, examination findings, laboratory and plan of management. I have reviewed the note and agree with the documented findings with the few additional points. In brief, patient is admitted for acute kidney injury on CKD stage III: Discussed with inker and opaquer. UA with WBC 0-5 LE 100, ketones 5. Urine protein 30. CK 46. Plan for tunneled dialysis catheter tomorrow a.m. Patient has coagulopathy even though she is off Coumadin for last 5 days. Last INR 3.8. 2 units of FFP and 10 mg of vitamin K ordered. Patient also has anemia of chronic disease most probably CKD. Has macrocytic anemia. B12 1764. H&H 8.06/21. Iron study is consistent with anemia of chronic disease. I have discussed my assessment with Shawn MCADAMS and orders have been reviewed. Laboratory Results 06/09/19 14:25: Urine Color Yellow, Urine Clarity Sl. Cloudy, Urine pH 5.0, Ur Specific Mize 1.015, Urine Protein 30 H, Urine Glucose (UA) Normal, Urine Ketones 5 H, Urine Occult Blood 10 H, Urine Nitrite Negative, Urine Bilirubin Negative, Urine Urobilinogen Normal, Ur Leukocyte Esterase 100 H, Urine RBC 0 SEEN, Urine WBC 0-5 SEEN, Ur Squamous Epith Cells 0 SEEN, Urine Bacteria 0 SEEN, Urine Mucus 0 SEEN, Urine Yeast RARE 06/09/19 14:25: Urine Creatinine 189.00 06/09/19 14:25: Ur Random Sodium 11 06/09/19 16:33: WBC 5.5, RBC 2.85 L, Hgb 8.9 L, Hct 28.6 L, MCV 100.4 H, MCH 31.2, MCHC 31.1 L, RDW Std Deviation 62.8 H, RDW Coeff of Vlad 17.3 H, Plt Count 108 L, MPV 10.9, Immature Gran % (Auto) 0.700, Neut % (Auto) 60.8, Lymph % (Auto) 7.1 L, [place]y % (Auto) 25.0 H, Eos % (Auto) 6.0 H, Baso % (Auto) 0.4, Absolute Neuts (auto) 3.3, Absolute Lymphs (auto) 0.39 L, Nucleated RBC % 0, Differential Comment 06/09/19 16:33: PT 49.7 H, INR 5.4 H* 06/09/19 16:33: Sodium 129 L, Potassium 6.1 H*, Chloride 91 L, Carbon Dioxide 30.0, Anion Gap 8, BUN 95 H, Creatinine 5.07 H, Estim Creat Clear Calc 7.57, Est GFR (MDRD) Af Amer 11 L, Est GFR (MDRD) Non-Af 9 L, BUN/Creatinine Ratio 18.7, Glucose 99, Calcium 9.3, Troponin I < 0.015 06/09/19 21:02: Vitamin B12 1764 H 06/09/19 21:02: Iron 49 L, TIBC 351, Iron Saturation 14.0 L, Folate 5.80 06/09/19 21:02: Potassium 5.3 H, Total Bilirubin 1.40 H, Direct Bilirubin 0.82 H, AST 15, ALT 15, Alkaline Phosphatase 85, Total Protein 7.4, Albumin 3.6, Globulin 3.8 06/10/19 05:50: WBC 5.1, RBC 2.59 L, Hgb 8.1 L, Hct 26.2 L, MCV 101.2 H, MCH 31.3, MCHC 30.9 L, RDW Std Deviation 65.6 H, RDW Coeff of Vlad 17.6 H, Plt Count 96 L, MPV 11.0, Differential Comment COMMENT: 06/10/19 05:50: PT 37.4 H, INR 3.8 H* 06/10/19 05:50: Sodium 132 L, Potassium 5.7 H, Chloride 96 L, Carbon Dioxide 29.0, Anion Gap 7, BUN 95 H, Creatinine 5.05 H, Estim Creat Clear Calc 7.29, Est GFR (MDRD) Af Amer 11 L, Est GFR (MDRD) Non-Af 9 L, BUN/Creatinine Ratio 18.8, Glucose 95, Calcium 9.0 06/10/19 05:50: Total Creatine Kinase 46 06/10/19 05:55: Hepatitis A IgM Ab Pending, Hepatitis A Ab Total Pending, Hep Bs Antigen Pending, Hep B Core Total Ab Pending, Hep B Core IgM Ab Pending 06/10/19 12:55: Blood Type B POSITIVE Clinical Impression(s) from Imaging Studies Chest X-Ray 06/09/19 16:20 IMPRESSION: Right basilar airspace disease. This appears stable in the interval. Small right-sided pleural effusion. Elevated left hemidiaphragm. Moderate cardiomegaly. Calcified plaques of the aortic arch. Renal Ultrasound 06/09/19 19:52 IMPRESSION: Normal ultrasound of the kidneys and urinary bladder. Code Visit Inpatient E&M: 37329 Subs Hosp L3
--- NOTE | 2019-06-10 15:13 | PCM.CONS.GEN ---
Problem List (1) KURT (acute kidney injury) Status: Acute (2) Hyperkalemia Status: Acute Reason for Consult Date of Consultation: 06/10/19 Reason for Consultation: Acute renal failure. In need of tunneled dialysis catheters. History of Present Illness: The patient is a 84 year old F who presented from the long-term with abnormal labs. She was hospitalized recently at [facility] for severe sepsis. She was discharge on 05/28/2019. Patient was discharged to the [place] rehab facility. She had follow-up labs which demonstrated high potassium, increased creatinine, low platelets, and elevated INR. Patient was placed on dialysis during her hospitalization at [facility]. She had right chest tunneled dialysis catheters placed on 05/15 and removed on 05/22. She does have a pacemaker placed in the left chest. She is maintained on Coumadin, however per report has been off of her Coumadin since last Saturday. Past Medical History Past Medical History (Chronic Problems): Chronic Problems (Last Reviewed 06/10/19 @ 15:26 by Christen Pickering PA-C) Chronic anemia (Chronic) CHCF (current) use of anticoagulants (Chronic) Debility (Chronic) Frequent falls (Chronic) Chronic diastolic heart failure (Chronic) Atrial fibrillation (Chronic) Pulmonary HTN (Chronic) Hypertension (Chronic) Glaucoma (Chronic) GERD (gastroesophageal reflux disease) (Chronic) Anxiety (Chronic) Osteoarthritis of left knee (Chronic) 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) Chronic atrial fibrillation (Chronic) Non-rheumatic tricuspid valve insufficiency (Chronic) Secondary pulmonary arterial hypertension (Chronic) Sick sinus syndrome (Chronic) 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 2008, gen change 02/02/19 Essential (primary) hypertension (Chronic) Hyperlipidemia (Chronic) Medical History: Medical History (Last Reviewed 06/10/19 @ 15:26 by Christen Pickering PA-C) 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) I50.32 Chronic atrial fibrillation (Chronic) I48.2 Non-rheumatic tricuspid valve insufficiency (Chronic) I36.1 Secondary pulmonary arterial hypertension (Chronic) I27.21 Sick sinus syndrome (Chronic) I49.5 Essential (primary) hypertension (Chronic) I10 Hyperlipidemia (Chronic) E78.5 Arthritis M19.90 Chronic diastolic (congestive) heart failure I50.32 Glaucoma H40.9 Nonrheumatic mitral (valve) insufficiency I34.0 Obesity E66.9 Type 2 diabetes mellitus 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 Cellulitis and abscess of leg L03.119, L02.419 Allergies adhesive Allergy (Verified 05/05/19 04:00) PULLS SKIN OFF Iodinated Contrast Media [Iodinated Contrast Media - IV Dye] Allergy (Verified 05/05/19 04:00) EYES SWELL SHUT latex Adverse Reaction (Unknown, Verified 05/05/19 04:00) Unknown Home Medications: Ambulatory Orders Medication Instructions Recorded Metoprolol Tartrate [Lopressor 25 mg PO BID 12/02/15 (beta carlos manuel)] Atorvastatin Calcium [Lipitor] 10 mg PO QHS 06/09/19 Brinzolamide [Azopt] 1 drp EACH EYE BID 06/09/19 Cetirizine HCl [Zyrtec] 10 mg PO DAILY 06/09/19 Latanoprost 0.005% [Xalatan 1 drp EACH EYE DAILY@0800 06/09/19 Opthalmic] Omeprazole 20 mg PO DAILY 06/09/19 Potassium Chloride [Klor-Con M10] 20 meq PO DAILY@0800 06/09/19 Torsemide 50 mg PO DAILY 06/09/19 Surgical History: Surgical History (Last Reviewed 06/10/19 @ 15:26 by Christen Pickering PA-C) Presence of permanent cardiac pacemaker (Chronic) Onset Date: 02/02/19 Z95.0 Implant 2008, gen change 02/02/19 History of radiofrequency ablation procedure for cardiac arrhythmia Onset Date: 2008 Z98.890 History of herniorrhaphy Z98.890, Z87.19 Hiatal hernia repair approx 2005, [facility]. 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 Lives: Detention Smoking Status: Never smoker Tobacco Use: Non-smoker, Secondhand Alcohol: None Drugs: None - *Family History Maternal History Items: Diabetes Paternal History Items: Heart Disease Review of Systems Constitutional: Reports: Anorexia, Weakness, Fatigue HEENT: Denies: Head Aches, Sinus Congestion, Sinus Drainage Cardiovascular: Denies: Chest Pain, Palpitations Respiratory: Denies: Cough, Shortness of breath at rest, Sputum production Gastrointestinal: Denies: Abdominal Pain, Nausea, Vomiting Genitourinary: Denies: Dysuria Musculoskeletal: Denies: Joint Pain, Joint Tenderness Skin: Reports: Jaundice, Pruritis Neurological: Denies: Numbness, Tingling, Focal weakness Psychiatric: Denies: Anxiety, Depression, Homicidal Ideations, Suicidal Ideations Hematologic/ Lymphatic: Reports: Anemia, Easy Bruising, Easy Bleeding Patient Problems: Active and Suspected Problems (Last Reviewed 06/10/19 @ 15:26 by Christen Pickering PA-C) KURT (acute kidney injury) (Acute) Hyperkalemia (Acute) - Physical Exam Vitals/I&O's: Vital Signs Temp Pulse Resp BP Pulse Ox 97.4 F L 76 16 104/53 L 94 06/10/19 09:20 06/10/19 10:54 06/10/19 09:20 06/10/19 09:20 06/10/19 09:20 Oxygen Flow Rate (L/min) 2 Oxygen Delivery Method Nasal Cannula Weight: 209 lb 14.081 oz Body Mass Index (BMI) 34.9 Finger Stick Blood Glucose 141 Intake and Output for Last 24 Hours 06/08/19 06/09/19 06/10/19 23:59 23:59 23:59 Intake Total 370.05 / 370.05 1473.33 / 1473.33 Output Total 0 / 0 Balance 370.05 / 370.05 1473.33 / 1473.33 General: Alert, Oriented x3, Cooperative HEENT: Atraumatic, PERRLA, EOMI, Normocephalic Neck: Supple, No JVD, Negative Carotid Bruits, - - Pacemaker left chest Lungs: Clear to auscultation, Normal air movement Cardiovascular: Regular rate, No murmurs Abdomen: Bowel Sounds Present, Soft, Non Tender Extremities: Edema Skin: Excoriated Musculoskeletal: No Tenderness to Palpation of Joints or Extremities Neurological: Neuro grossly intact Psych/Mental Status: Normal Affect, Appropriate Laboratory Results 06/09/19 14:25: Urine Color Yellow, Urine Clarity Sl. Cloudy, Urine pH 5.0, Ur Specific [place] 1.015, Urine Protein 30 H, Urine Glucose (UA) Normal, Urine Ketones 5 H, Urine Occult Blood 10 H, Urine Nitrite Negative, Urine Bilirubin Negative, Urine Urobilinogen Normal, Ur Leukocyte Esterase 100 H, Urine RBC 0 SEEN, Urine WBC 0-5 SEEN, Ur Squamous Epith Cells 0 SEEN, Urine Bacteria 0 SEEN, Urine Mucus 0 SEEN, Urine Yeast RARE 06/09/19 14:25: Urine Creatinine 189.00 06/09/19 14:25: Ur Random Sodium 11 06/09/19 16:33: WBC 5.5, RBC 2.85 L, Hgb 8.9 L, Hct 28.6 L, MCV 100.4 H, MCH 31.2, MCHC 31.1 L, RDW Std Deviation 62.8 H, RDW Coeff of Vlad 17.3 H, Plt Count 108 L, MPV 10.9, Immature Gran % (Auto) 0.700, Neut % (Auto) 60.8, Lymph % (Auto) 7.1 L, [place] % (Auto) 25.0 H, Eos % (Auto) 6.0 H, Baso % (Auto) 0.4, Absolute Neuts (auto) 3.3, Absolute Lymphs (auto) 0.39 L, Nucleated RBC % 0, Differential Comment 06/09/19 16:33: PT 49.7 H, INR 5.4 H* 06/09/19 16:33: Sodium 129 L, Potassium 6.1 H*, Chloride 91 L, Carbon Dioxide 30.0, Anion Gap 8, BUN 95 H, Creatinine 5.07 H, Estim Creat Clear Calc 7.57, Est GFR (MDRD) Af Amer 11 L, Est GFR (MDRD) Non-Af 9 L, BUN/Creatinine Ratio 18.7, Glucose 99, Calcium 9.3, Troponin I < 0.015 06/09/19 21:02: Vitamin B12 1764 H 06/09/19 21:02: Iron 49 L, TIBC 351, Iron Saturation 14.0 L, Folate 5.80 06/09/19 21:02: Potassium 5.3 H, Total Bilirubin 1.40 H, Direct Bilirubin 0.82 H, AST 15, ALT 15, Alkaline Phosphatase 85, Total Protein 7.4, Albumin 3.6, Globulin 3.8 06/10/19 05:50: WBC 5.1, RBC 2.59 L, Hgb 8.1 L, Hct 26.2 L, MCV 101.2 H, MCH 31.3, MCHC 30.9 L, RDW Std Deviation 65.6 H, RDW Coeff of Vlad 17.6 H, Plt Count 96 L, MPV 11.0, Differential Comment COMMENT: 06/10/19 05:50: PT 37.4 H, INR 3.8 H* 06/10/19 05:50: Sodium 132 L, Potassium 5.7 H, Chloride 96 L, Carbon Dioxide 29.0, Anion Gap 7, BUN 95 H, Creatinine 5.05 H, Estim Creat Clear Calc 7.29, Est GFR (MDRD) Af Amer 11 L, Est GFR (MDRD) Non-Af 9 L, BUN/Creatinine Ratio 18.8, Glucose 95, Calcium 9.0 06/10/19 05:50: Total Creatine Kinase 46 06/10/19 05:55: Hepatitis A IgM Ab Pending, Hepatitis A Ab Total Pending, Hep Bs Antigen Pending, Hep B Core Total Ab Pending, Hep B Core IgM Ab Pending 06/10/19 12:55: Blood Type B POSITIVE Current Medications Dorzolamide HCl (Trusopt) 1 drop EACH EYE BID COUNTS INCLUDE 234 BEDS AT THE [facility] Last Admin: 06/10/19 13:58 Dose: Not Given Documented by: Hydroxyzine HCl (Atarax Tablet) 10 mg PO TID PRN PRN PRN Reason: ITCHING Last Admin: 06/09/19 22:32 Dose: 10 mg Documented by: Iron Sucrose 200 mg/ Sodium (Chloride) 110 mls @ 220 mls/hr IV DAILY COUNTS INCLUDE 234 BEDS AT THE [facility] Stop: 06/12/19 10:29 Last Infusion: 06/10/19 10:31 Dose: Infused Documented by: Latanoprost (Xalatan Opthalmic) 1 drop EACH EYE DAILY@0800 COUNTS INCLUDE 234 BEDS AT THE [facility] Last Admin: 06/10/19 10:03 Dose: 1 drop Documented by: Melatonin (Melatonin) 3 mg PO QHS COUNTS INCLUDE 234 BEDS AT THE [facility] Last Admin: 06/09/19 22:00 Dose: 3 mg Documented by: Metoprolol Tartrate (Lopressor (Beta Carlos Manuel)) 25 mg PO BID COUNTS INCLUDE 234 BEDS AT THE [facility] Last Admin: 06/10/19 10:02 Dose: 25 mg Documented by: Pantoprazole Sodium (Protonix) 20 mg PO DAILY COUNTS INCLUDE 234 BEDS AT THE [facility] Last Admin: 06/10/19 10:03 Dose: 20 mg Documented by: Sodium Chloride () 10 - 40 ml IV UD PRN PRN Reason: SALINE FLUSH Last Admin: 06/10/19 13:58 Dose: 10 ml Documented by: Assessment/Plan All Active Problems (Last Reviewed 06/10/19 @ 15:26 by Christen Pickering PA-C) KURT (acute kidney injury) (Acute) Hyperkalemia (Acute) Triquetral chip fracture (Resolved) Hypokalemia (Acute) Cystitis (Acute) Abdominal pain (Acute) Epigastric pain (Acute) Nausea and vomiting (Acute) Generalized abdominal discomfort (Acute) Generalized weakness (Acute) Cellulitis of right lower leg (Resolved) Diabetic ulcer 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 (Resolved) Hematoma (Resolved) Nonhealing ulcer 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 (Resolved) Open wound of right lower leg (Resolved) Traumatic hematoma of right lower leg with infection (Resolved) I have been consulted in conjunction with Dr. Beltran. Per patient's daughter's request, she would prefer to have another surgeon to preform the procedure. Dr. Lozada is in agreement to place the tunneled dialysis catheter tomorrow. Impression: Acute renal failure. In need of dialysis. Plan: Patient was discussed with Dr. Lozada, who is in agreement to place the tunneled dialysis catheters, right chest. Procedure was discussed with the patient and family in the room. Details, risks and benefits have been reviewed. Patient continues to have elevated INR of 3.8. Patient's INR will need to be at 1.5 or below in order for Dr. Lozada to safely preform the procedure tomorrow. Patient and family have had the opportunity to ask and have questions answered. Patient verbally understands and agrees with the plan. Will place patient at NPO after midnight. Thank you for allowing us to participate in this patient's care. Code Visit Office Visits / Consults: [id number] IP Consult L3
[2019-06-10] MEDS: Albuterol 2.5 MG/3 ML VIAL.NEB. INHALATION (17:00)
--- NOTE | 2019-06-10 17:23 | CHAPLAIN ---
Type of Pastoral Visit __x_ Initial Visit ___ Follow-up Visit ___ On-call Visit ___ General Patient Visit ___ Spiritual Assessment ___ Family Conference ___ Bereavement ___ Rapid Response ___ Code Blue ___ Other (describe below) Pastoral Care Referral From __x_ Patient ___ Family ___ Nurse ___ Physician ___ Head Strength And Conditioning Coach ___ Stummel Selector ___ Other (describe below) Sacrament/Intervention ___ Active listening ___ Anointing ___ Church ___ Bereavement ___ Communion ___ Cate exploration ___ ___ Life review __x_ Prayer ___ Reconciliation ___ Sacrament of Sick _x_ Supportive presence ___ Wedding ___ Other (describe below) Pastoral Comments
[2019-06-10] MEDS: MELATONIN 3 MG TABLET PO (21:12)
[2019-06-10] MEDS: Dorzolamide 2% 10ml Bottle 1 DRP EACH EYE (21:13)
[2019-06-11] VITALS (28 sets, daily range): BP systolic 99–161; BP diastolic 48–82; PULSE 60–100; RESP 18–36; TEMP 36–37; O2SAT 95–100; BMI 33.5; BMI 35.0
[2019-06-11] MEDS: Acetaminophen 325 MG Tablet 650 MG PO ×3 (00:17→21:07)
[2019-06-11 00:59] LABS: International Normalized Ratio 2.1; Prothrombin Time (Protime)PT. 23.1 SECONDS (11.7-14.9)
[2019-06-11 07:48] LABS: Absolute Lymphocyte Count 0.29 X10^3/uL (0.83-4.51); Absolute Neutrophil Count 3.7 X10^3/uL (2.0-7.7); Basophil# 0.01 X10^3/uL; Basophil% 0.2 % (0-1); Eosinophil# 0.14 X10^3/uL; Eosinophils% 2.4 % (0-5); Hematocrit 26.7 % (37-47); Hemoglobin 8.2 g/dL (12.0-15.0); Lymphocyte # 0.29 X10^3/ul (4.0); Mean Corp Hgb Conc 30.7 g/dL (32-36); Mean Corpuscular Hgb 31.7 pg (27.0-32.0); Mean Corpuscular Volume 103.1 fL (81-99); Mean Platelet Vol. 10.3 fl (6.2-12.0); Monocyte% 27.5 % (0-10); NRBC Flagged by Analyzer 0.5 % (0-5); Neutrophil # 3.71 X10^3/uL (2.7-7.7); Neutrophil % 63.9 % (47-70); POSITIVE DIFFERENTIAL YES; POSITIVE MORPHOLOGY YES; Platelet Count 103 K/mm3 (150-450); RBC Distribution Width CV 17.6 % (11.6-14.6); RBC Distribution Width SD 66.1 fl (35.1-43.9); Red Blood Count 2.59 M/mm3 (4.2-5.4); White Blood Count 5.8 K/mm3 (4.4-11.0)
[2019-06-11 07:51] LABS: Differential Indicated SCAN CRITERIA MET
[2019-06-11 07:55] LABS: International Normalized Ratio 1.7; Prothrombin Time (Protime)PT. 20.1 SECONDS (11.7-14.9)
[2019-06-11 07:57] LABS: AST(SGOT) 18 U/L (15-37); Alanine Aminotransfer ALT/SGPT 18 U/L (13-56); Albumin, Serum 3.9 g/dL (3.2-5.0); Alkaline Phosphatase 89 U/L (45-117); Anion Gap 10 (5-15); BUN 88 mg/dL (7-18); BUN/Creat Ratio 17.7 RATIO (10-20); Chloride 96 mmol/L (98-107); Creatinine, Serum 4.98 mg/dL (0.55-1.02); EST Glomerular Filtration Rate 9 mL/min (>60); Est Glom Filt Rate - Afr Amer 11 mL/min (>60); Estimated Creatinine Clearance 7.39 ml/min; Globulin 3.9 g/dL (2.2-4.2); Glucose 112 mg/dL (74-106); Phosphorus 5.4 mg/dL (2.5-4.9); Potassium 4.4 mmol/L (3.5-5.1); Protein, Total 7.8 g/dL (6.4-8.2); Sodium Level 135 mmol/L (136-145)
[2019-06-11 08:47] LABS: Anisocytosis 1+; Red Cell Morphology NORM C+C NORMAL (NORM C&C)
[2019-06-11] MEDS: Latanoprost 0.005% 1 Bottle 1 DRP EACH EYE (09:14)
[2019-06-11] MEDS: Dorzolamide 2% 10ml Bottle 1 DRP EACH EYE ×2 (09:32→21:21)
[2019-06-11] MEDS: Pantoprazole Sodium 20 MG Tablet PO (09:33)
[2019-06-11] MEDS: Metoprolol Tartrate 25 MG Tablet PO ×2 (09:33→21:07)
--- NOTE | 2019-06-11 10:46 | CASEMGMT ---
ALLEGRA spoke with patient's daughter, Kori. She expressed concern with patient returning to [facility] as she feels they may not be meeting patient's care. The hospital she was at previously was going to send her to an LTACH. ALLEGRA told her SW can talk with the physician and see what she thinks. ALLEGRA spoke with Dr Raza and it was decided patient does not qualify for an LTACH. Patient tends to decompensate fast. ALLEGRA called patient's daughter Kori. SW explained after talking with physician a senior care is an appropriate level of care for patient, but she tends to go downhill fast. She said she spoke with her sister who is in the room right now with patient. Apparently Dr Raza talked with them about Hospice as the dialysis is just prolonging her life and will not fix anything. She is on her way to the hospital to talk with her mom and family. ALLEGRA told her SW will let them talk and then get back with them. Nayla MOJICA MSW
[2019-06-11 13:34] LABS: International Normalized Ratio 1.6; Prothrombin Time (Protime)PT. 18.8 SECONDS (11.7-14.9)
--- NOTE | 2019-06-11 14:05 | PCM.PN.REN ---
Patient Problems: Active and Suspected Problems (Last Reviewed 06/10/19 @ 15:26 by Christen Pickering PA-C) KURT (acute kidney injury) (Acute) Hyperkalemia (Acute) Subjective: Remains oligoanuric with shortness of breath despite Lasix and Dewey catheter insertion. Patient daughter Sommer at bedside. Discussed plans to initiate hemodialysis today after tunnel dialysis catheter placed for worsening renal function and fluid retention. Overall prognosis is poor with her decompensated right heart failure with severe tricuspid regurgitation. This is likely causing her renal failure along with the fluid retention symptoms and liver cirrhosis. Hepatitis studies pending. There is a high chance that she will need continued chronic dialysis. patient wants to proceed with dialysis. She is not ready for hospice. - Physical Exam Vitals/I&O's: Vital Signs Temp Pulse Resp BP Pulse Ox 98.0 F 81 18 121/63 H 100 06/11/19 11:00 06/11/19 11:00 06/11/19 11:00 06/11/19 11:00 06/11/19 11:00 Oxygen Flow Rate (L/min) 2 Oxygen Delivery Method Nasal Cannula Weight: 94.3 kg Body Mass Index (BMI) 33.5 Finger Stick Blood Glucose 141 Intake and Output for Last 24 Hours 06/09/19 06/10/19 06/11/19 23:59 23:59 23:59 Intake Total 370.05 / 370.05 2023.33 / 2023.33 510 / 510 Output Total 0 / 0 85 / 85 45 / 45 Balance 370.05 / 370.05 1939.33 / 193.33 465 / 465 General: Alert, Oriented x3, - - mild dyspnea Neck: Supple Lungs: Diminished Cardiovascular: Irregular Rate, Murmur Abdomen: Bowel Sounds Present, Soft, Non Tender, Non-Distended, Obese Extremities: Edema Skin: No rashes Musculoskeletal: Muscle Wasting Neurological: - - no tremor Psych/Mental Status: Normal Affect, Appropriate, Alert and oriented to time, place, person, mood and affect Laboratory Results 06/10/19 12:55: Blood Type B POSITIVE 06/11/19 00:33: PT 23.1 H, INR 2.1 06/11/19 07:20: WBC 5.8, RBC 2.59 L, Hgb 8.2 L, Hct 26.7 L, MCV 103.1 H, MCH 31.7, MCHC 30.7 L, RDW Std Deviation 66.1 H, RDW Coeff of Vlad 17.6 H, Plt Count 103 L, MPV 10.3, Immature Gran % (Auto) 1.000 H, Neut % (Auto) 63.9, Lymph % (Auto) 5.0 L, [place] % (Auto) 27.5 H, Eos % (Auto) 2.4, Baso % (Auto) 0.2, Absolute Neuts (auto) 3.7, Absolute Lymphs (auto) 0.29 L, Nucleated RBC % 0.5, Differential Comment COMMENT, RBC Morphology NORM C+C, Anisocytosis 1+ 06/11/19 07:20: Sodium 135 L, Potassium 4.4, Chloride 96 L, Carbon Dioxide 29.0, Anion Gap 10, BUN 88 H, Creatinine 4.98 H, Estim Creat Clear Calc 7.39, Est GFR (MDRD) Af Amer 11 L, Est GFR (MDRD) Non-Af 9 L, BUN/Creatinine Ratio 17.7, Glucose 112 H, Calcium 9.0, Phosphorus 5.4 H, Total Bilirubin 1.80 H, AST 18, ALT 18, Alkaline Phosphatase 89, Total Protein 7.8, Albumin 3.9, Globulin 3.9, Albumin/Globulin Ratio 1.0 06/11/19 07:20: PT 20.1 H, INR 1.7 06/11/19 13:17: PT 18.8 H, INR 1.6 Current Medications Acetaminophen (Tylenol) 650 mg PO Q4H PRN PRN PRN Reason: Pain Score 1-10/10/FEVER Last Admin: 06/11/19 13:07 Dose: 650 mg Documented by: Albuterol Sulfate (Ventolin Aerosols) 2.5 mg INHALATION Q4H PRN PRN Reason: SOB &/OR WHEEZING Last Admin: 06/10/19 17:00 Dose: 2.5 mg Documented by: Dorzolamide HCl (Trusopt) 1 drop EACH EYE BID AYLA Last Admin: 06/11/19 09:32 Dose: 1 drop Documented by: Hydroxyzine HCl (Atarax Tablet) 10 mg PO TID PRN PRN PRN Reason: ITCHING Last Admin: 06/09/19 22:32 Dose: 10 mg Documented by: Iron Sucrose 200 mg/ Sodium (Chloride) 110 mls @ 220 mls/hr IV DAILY [facility] Stop: 06/12/19 10:29 Last Infusion: 06/11/19 13:00 Dose: Infused Documented by: Cefazolin Sodium 2 gm/ Sodium (Chloride) 110 mls @ 150 mls/hr IV X1 ONE Stop: 06/11/19 14:43 Latanoprost (Xalatan Opthalmic) 1 drop EACH EYE DAILY@0800 [facility] Last Admin: 06/11/19 09:14 Dose: 1 drop Documented by: Melatonin (Melatonin) 3 mg PO QHS [facility] Last Admin: 06/10/19 21:12 Dose: 3 mg Documented by: Metoprolol Tartrate (Lopressor (Beta Carlos Manuel)) 25 mg PO BID [facility] Last Admin: 06/11/19 09:33 Dose: 25 mg Documented by: Pantoprazole Sodium (Protonix) 20 mg PO DAILY [facility] Last Admin: 06/11/19 09:33 Dose: 20 mg Documented by: Sodium Chloride () 10 - 40 ml IV UD PRN PRN Reason: SALINE FLUSH Last Admin: 06/10/19 13:58 Dose: 10 ml Documented by: Medical Necessity - Tobacco Use Smoking Status: Never smoker Tobacco Use: Non-smoker, Secondhand Assessment/Plan All Active Problems (Last Reviewed 06/10/19 @ 15:26 by Christen Pickering PA-C) KURT (acute kidney injury) (Acute) Hyperkalemia (Acute) Triquetral chip fracture (Resolved) Hypokalemia (Acute) Cystitis (Acute) Abdominal pain (Acute) Epigastric pain (Acute) Nausea and vomiting (Acute) Generalized abdominal discomfort (Acute) Generalized weakness (Acute) Cellulitis of right lower leg (Resolved) 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 KURT likely prerenal from decompensated severe right heart failure with severe TR. Currently oligoanuric. Unresponsive to iv fluids and lasix with shortness of breath, fluid retention. Creatinine remains elevated. Tunneled dialysis catheter placement today then dialysis today. Long discussion with pt and pt dtr at bedside re dialysis, poor prognosis. Dialysis may be permanent. 2. Hyperkalemia due to Kurt, potassium supplements resolved. 3. Hx cirrhosis with elevated Tbili likely from CHF. Check viral hepatitis 4. RHF, severe TR with RV severe dilation on echo from 05/08/19 from [facility]. 5. hyponatremia, fluid retention from excessive ADH secretion from sodium avid state due to RHF 6. Iron def anemia. Check iron studies, iv iron as needed. 7. Chronic afib with supratherapeutic inr. INR reversed with FFP, vit K. Ok to resume after dialysis catheter placement 8. Debilitation s/p fall with rt wrist fx Feb 2019 9. Hx ecoli UTI Apr 2019
--- NOTE | 2019-06-11 14:35 | PCM.PROGNOTE ---
<Medina Vallejo - Last Filed: 06/11/19 14:42> Patient Problems: Active and Suspected Problems (Last Reviewed 06/10/19 @ 15:26 by Christen Pickering PA-C) KURT (acute kidney injury) (Acute) Hyperkalemia (Acute) Subjective: Patient seen and examined. Denies current complaints. Denies significant shortness of breath. To undergo tunneled dialysis catheter placement this afternoon. - Physical Exam Vitals/I&O's: Vital Signs Temp Pulse Resp BP Pulse Ox 98.0 F 81 18 121/63 H 100 06/11/19 11:00 06/11/19 11:00 06/11/19 11:00 06/11/19 11:00 06/11/19 11:00 Oxygen Flow Rate (L/min) 2 Oxygen Delivery Method Nasal Cannula Weight: 207 lb 14.334 oz Body Mass Index (BMI) 33.5 Finger Stick Blood Glucose 141 Intake and Output for Last 24 Hours 06/09/19 06/10/19 06/11/19 23:59 23:59 23:59 Intake Total 370.05 / 370.05 4.33 / 2023.33 510 / 510 Output Total 0 / 0 85 / 85 45 / 45 Balance 370.05 / 370.05 1939.33 / 1938.33 465 / 465 General: Alert, Oriented x3, Cooperative HEENT: Atraumatic, PERRLA, EOMI, Normocephalic Neck: Supple, No JVD, Negative Carotid Bruits Lungs: Clear to auscultation, Diminished Cardiovascular: Regular rate, Regular Rhythm, Normal S1, Normal S2, No murmurs Abdomen: Bowel Sounds Present, Soft, Non Tender, Non-Distended, Obese Extremities: No clubbing, No cyanosis, No edema, Capillary Refill Less than 3 Seconds Skin: No rashes, No breakdown Musculoskeletal: No Tenderness to Palpation of Joints or Extremities Neurological: Cranial nerves II-XII grossly intact, Neuro grossly intact Psych/Mental Status: Normal Affect, Appropriate Laboratory Results 06/10/19 12:55: Blood Type B POSITIVE 06/11/19 00:33: PT 23.1 H, INR 2.1 06/11/19 07:20: WBC 5.8, RBC 2.59 L, Hgb 8.2 L, Hct 26.7 L, MCV 103.1 H, MCH 31.7, MCHC 30.7 L, RDW Std Deviation 66.1 H, RDW Coeff of Vlad 17.6 H, Plt Count 103 L, MPV 10.3, Immature Gran % (Auto) 1.000 H, Neut % (Auto) 63.9, Lymph % (Auto) 5.0 L, Vernon % (Auto) 27.5 H, Eos % (Auto) 2.4, Baso % (Auto) 0.2, Absolute Neuts (auto) 3.7, Absolute Lymphs (auto) 0.29 L, Nucleated RBC % 0.5, Differential Comment COMMENT, RBC Morphology NORM C+C, Anisocytosis 1+ 06/11/19 07:20: Sodium 135 L, Potassium 4.4, Chloride 96 L, Carbon Dioxide 29.0, Anion Gap 10, BUN 88 H, Creatinine 4.98 H, Estim Creat Clear Calc 7.39, Est GFR (MDRD) Af Amer 11 L, Est GFR (MDRD) Non-Af 9 L, BUN/Creatinine Ratio 17.7, Glucose 112 H, Calcium 9.0, Phosphorus 5.4 H, Total Bilirubin 1.80 H, AST 18, ALT 18, Alkaline Phosphatase 89, Total Protein 7.8, Albumin 3.9, Globulin 3.9, Albumin/Globulin Ratio 1.0 06/11/19 07:20: PT 20.1 H, INR 1.7 06/11/19 13:17: PT 18.8 H, INR 1.6 Current Medications Acetaminophen (Tylenol) 650 mg PO Q4H PRN PRN PRN Reason: Pain Score 1-10/10/FEVER Last Admin: 06/11/19 13:07 Dose: 650 mg Documented by: Albuterol Sulfate (Ventolin Aerosols) 2.5 mg INHALATION Q4H PRN PRN Reason: SOB &/OR WHEEZING Last Admin: 06/10/19 17:00 Dose: 2.5 mg Documented by: Dorzolamide HCl (Trusopt) 1 drop EACH EYE BID [facility] Last Admin: 06/11/19 09:32 Dose: 1 drop Documented by: Hydroxyzine HCl (Atarax Tablet) 10 mg PO TID PRN PRN PRN Reason: ITCHING Last Admin: 06/09/19 22:32 Dose: 10 mg Documented by: Iron Sucrose 200 mg/ Sodium (Chloride) 110 mls @ 220 mls/hr IV DAILY [facility] Stop: 06/12/19 10:29 Last Infusion: 06/11/19 13:00 Dose: Infused Documented by: Cefazolin Sodium 2 gm/ Sodium (Chloride) 110 mls @ 150 mls/hr IV X1 ONE Stop: 06/11/19 14:43 Latanoprost (Xalatan Opthalmic) 1 drop EACH EYE DAILY@0800 [facility] Last Admin: 06/11/19 09:14 Dose: 1 drop Documented by: Melatonin (Melatonin) 3 mg PO QHS [facility] Last Admin: 06/10/19 21:12 Dose: 3 mg Documented by: Metoprolol Tartrate (Lopressor (Beta Carlos Manuel)) 25 mg PO BID [facility] Last Admin: 06/11/19 09:33 Dose: 25 mg Documented by: Pantoprazole Sodium (Protonix) 20 mg PO DAILY [facility] Last Admin: 06/11/19 09:33 Dose: 20 mg Documented by: Sodium Chloride () 10 - 40 ml IV UD PRN PRN Reason: SALINE FLUSH Last Admin: 06/10/19 13:58 Dose: 10 ml Documented by: Medical Necessity - Tobacco Use Smoking Status: Never smoker Tobacco Use: Non-smoker, Secondhand Assessment/Plan All Active Problems (Last Reviewed 06/10/19 @ 15:26 by Christen Pickering PA-C) KURT (acute kidney injury) (Acute) Hyperkalemia (Acute) Triquetral chip fracture (Resolved) Hypokalemia (Acute) Cystitis (Acute) Abdominal pain (Acute) Epigastric pain (Acute) Nausea and vomiting (Acute) Generalized abdominal discomfort (Acute) Generalized weakness (Acute) Cellulitis of right lower leg (Resolved) 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 Acute kidney injury on chronic kidney disease stage III with hyperkalemia-recent temporary dialysis at [facility] for oliguric KURT secondary to ATN. Nephrology, Dr. Raza following. Plan for tunneled dialysis catheter placement this afternoon. Renal ultrasound normal. 2. 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 Resume Coumadin following dialysis catheter placement. Liver profile normal. Hepatitis panel pending. Bilirubin elevated. 3. Chronic iron deficiency anemia-status post Venofer x3. Then transition to oral iron supplementation. Trend CBC. 4. Chronic diastolic CHF-no acute exacerbation. Echocardiogram July 2017 with EF 60%, stage III diastolic dysfunction, mild to moderate mitral valve insufficiency. Torsemide currently on hold given acute kidney injury. 5. Chronic atrial fibrillation/sick sinus syndrome status post pacemaker-continue metoprolol. 6. Hypertension-stable, continue metoprolol regimen. 7. Hyperlipidemia-continue statin. 8. GERD- Continue PPI. DVT prophylaxis-SCDs, resume Coumadin following dialysis catheter placement Discharge planning: SNF when medically ready This patient was seen by LIDA Enriquez under the supervision of Dr. Zabala. <Imer Zabala - Last Filed: 06/11/19 16:00> Subjective: Seen and examined. Patient is scheduled for tunneled dialysis catheter. Patient had FFP in the morning as INR in the morning was 1.7. Shortness of breath is better than yesterday but she has chronic shortness of breath and wheezing. Diffuse lower extremity edema possible ascites and upper extremity edema, anasarca. Objective: General: Oriented x3, Cooperative, awake and alert HEENT: Atraumatic, PERRLA, EOMI, Normocephalic Neck: Supple, No JVD, Negative Carotid Bruits Lungs: No rales, Air entry diminished in all lung holley., Bilateral inspiratory and expiratory rhonchi Cardiovascular: Regular rate, Normal S1, Normal S2, No murmurs Abdomen: Soft, Hypoactive Bowel Sounds, Distended, possible ascites, nontender Extremities: Generalized lower extremity edema at upper extremity edema Musculoskeletal: No Tenderness to Palpation of Joints or Extremities, Arthritic Changes Neurological: Deep Tendon Reflexes 2+/4 and Symmetrical, Neuro grossly intact Psych/Mental Status: Normal Affect, Appropriate - Physical Exam Vitals/I&O's: Vital Signs Temp Pulse Resp BP Pulse Ox 98.0 F 81 18 121/63 H 100 06/11/19 12:00 06/11/19 12:00 06/11/19 12:00 06/11/19 12:06/11/19 12:00 Oxygen Flow Rate (L/min) 2 Oxygen Delivery Method Nasal Cannula Weight: 207 lb 14.334 oz Body Mass Index (BMI) 33.5 Finger Stick Blood Glucose 141 Intake and Output for Last 24 Hours 06/09/19 06/10/19 06/11/19 23:59 23:59 23:59 Intake Total 370.05 / 370.05 2023.33 / 2023.33 510 / 510 Output Total 0 / 0 85 / 85 45 / 45 Balance 370.05 / 370.05 1939.33 / 1938.33 465 / 465 Microbiology Past 72 Hours 06/10/19 16:50 Urine Catheter - Dewey Urine Culture - Preliminary Yeast Like Organism Laboratory Results 06/11/19 00:33: PT 23.1 H, INR 2.1 06/11/19 07:20: WBC 5.8, RBC 2.59 L, Hgb 8.2 L, Hct 26.7 L, MCV 103.1 H, MCH 31.7, MCHC 30.7 L, RDW Std Deviation 66.1 H, RDW Coeff of Vlad 17.6 H, Plt Count 103 L, MPV 10.3, Immature Gran % (Auto) 1.000 H, Neut % (Auto) 63.9, Lymph % (Auto) 5.0 L, Vernon % (Auto) 27.5 H, Eos % (Auto) 2.4, Baso % (Auto) 0.2, Absolute Neuts (auto) 3.7, Absolute Lymphs (auto) 0.29 L, Nucleated RBC % 0.5, Differential Comment COMMENT, RBC Morphology NORM C+C, Anisocytosis 1+ 06/11/19 07:20: Sodium 135 L, Potassium 4.4, Chloride 96 L, Carbon Dioxide 29.0, Anion Gap 10, BUN 88 H, Creatinine 4.98 H, Estim Creat Clear Calc 7.39, Est GFR (MDRD) Af Amer 11 L, Est GFR (MDRD) Non-Af 9 L, BUN/Creatinine Ratio 17.7, Glucose 112 H, Calcium 9.0, Phosphorus 5.4 H, Total Bilirubin 1.80 H, AST 18, ALT 18, Alkaline Phosphatase 89, Total Protein 7.8, Albumin 3.9, Globulin 3.9, Albumin/Globulin Ratio 1.0 06/11/19 07:20: PT 20.1 H, INR 1.7 06/11/19 13:17: PT 18.8 H, INR 1.6 Current Medications Acetaminophen (Tylenol) 650 mg PO Q4H PRN PRN PRN Reason: Pain Score 1-10/10/FEVER Last Admin: 06/11/19 13:07 Dose: 650 mg Documented by: Albuterol Sulfate (Ventolin Aerosols) 2.5 mg INHALATION Q4H PRN PRN Reason: SOB &/OR WHEEZING Last Admin: 06/10/19 17:00 Dose: 2.5 mg Documented by: Dorzolamide HCl (Trusopt) 1 drop EACH EYE BID [facility] Last Admin: 06/11/19 09:32 Dose: 1 drop Documented by: Hydroxyzine HCl (Atarax Tablet) 10 mg PO TID PRN PRN PRN Reason: ITCHING Last Admin: 06/09/19 22:32 Dose: 10 mg Documented by: Iron Sucrose 200 mg/ Sodium (Chloride) 110 mls @ 220 mls/hr IV DAILY [facility] Stop: 06/12/19 10:29 Last Infusion: 06/11/19 13:00 Dose: Infused Documented by: Latanoprost (Xalatan Opthalmic) 1 drop EACH EYE DAILY@0800 [facility] Last Admin: 06/11/19 09:14 Dose: 1 drop Documented by: Melatonin (Melatonin) 3 mg PO QHS [facility] Last Admin: 06/10/19 21:12 Dose: 3 mg Documented by: Metoprolol Tartrate (Lopressor (Beta Carlos Manuel)) 25 mg PO BID [facility] Last Admin: 06/11/19 09:33 Dose: 25 mg Documented by: Pantoprazole Sodium (Protonix) 20 mg PO DAILY [facility] Last Admin: 06/11/19 09:33 Dose: 20 mg Documented by: Sodium Chloride () 10 - 40 ml IV UD PRN PRN Reason: SALINE FLUSH Last Admin: 06/10/19 13:58 Dose: 10 ml Documented by: Assessment/Plan This patient was seen in conjunction with DIRECTOR PROCESS IMPROVEMENTMedina. I have independently interviewed and examined the patient and reviewed pertinent history, examination findings, laboratory and plan of management. I have reviewed the note and agree with the documented findings with the few additional points. In brief, patient is admitted for acute kidney injury on CKD stage III with hyperkalemia: Discussed with system archive analyst. UA with WBC 0-5 LE 100, ketones 5. Urine protein 30. CK 46. Plan for tunneled dialysis catheter tomorrow a.m. Patient has coagulopathy even though she is off Coumadin for last 5 days. Last INR 3.8. 2 units of FFP and 10 mg of vitamin K ordered. 06/11/2019: Patient had INR 1.7 and had FFP. When INR 1.6, patient taken to the OR for tunneled dialysis catheter insertion. K4.4. Discussed with system archive analyst. Patient also has cirrhosis mostly secondary to cardiac cirrhosis from CHF failure with preserved EF. Albumin 3.9, total bili 1.8. Mild thrombocytopenia, 103,000. Echo in July 2017 reported as EF 60% with a stage III diastolic dysfunction, mild to moderate MR. Patient also has anemia of chronic disease most probably CKD. Has macrocytic anemia. B12 1764. H&H 8.06/21. Iron study is consistent with anemia of chronic disease. Other comorbidities as mentioned above Total time of the visit including total time spent in counseling or coordination of care, (more than 50% of the total time, spent in obtaining medical information from nurses and other ancillary care providers) and discussion with biometrics consultant is 30 minutes I have discussed my assessment with DIRECTOR PROCESS IMPROVEMENTMedina and orders have been reviewed. Code Visit Inpatient E&M: 30010 Subs Hosp L2
--- NOTE | 2019-06-11 14:54 | CASEMGMT ---
TYE CM Note: Plan is for tunnel cath placement today, then first dialysis run. Hep panel pending. Will send clinical information to [facility] tomorrow with updated dialysis sheets. Isamar MARTINS RN ACM
[2019-06-11] MEDS: 0.9% Normal Saline 500 ML IV.SOLN. IV (15:30)
[2019-06-11] MEDS: Cefazolin 2 GM in 0.9% Normal Saline 100 ML IV (15:55)
[2019-06-11] MEDS: Heparin 10,000 UNITS/10 ML Vial 10000 UNITS (16:45)
--- NOTE | 2019-06-11 17:15 | RAD_ITS ---
STUDY: X-RAY CHEST REASON FOR EXAM: Female, 84 years old. Dialysis catheter placement. TECHNIQUE: Single AP portable view of the chest. COMPARISON: June 09, 2019. FINDINGS: There is a right jugular hemodialysis catheter with its tip at the atriocaval junction. There is no pneumothorax. There is persistent density at both lung bases suggesting pleural effusions and atelectasis. The apices appear clear. The heart remains enlarged. Stable cardiac pacemaker. Normal mediastinum. Decreased hilar vascular prominence when compared to the prior study. There is atherosclerotic calcification of the aortic arch with tortuosity. The thoracic spine is obscured by the mediastinum. There is degenerative osteoarthritis of the bilateral shoulders. There is no demonstrated abnormality of the visualized soft tissue structures of the upper abdomen. RAD/CXR for Line Placement IMPRESSION: 1. Right jugular hemodialysis catheter without pneumothorax. 2. Persistent bilateral pleural effusions and atelectasis. 3. Persistent cardiomegaly with cardiac pacemaker. 4. Mild decrease in hilar vascular prominence. Electronically Signed: Gerardo Valera DO at 17:59 EST Tel [phone], Service support ,
--- NOTE | 2019-06-11 17:15 | CASEMGMT ---
SW spent an extensive amount of time with patient's daughter, Kori. She is frustrated and worried about her mom getting the appropriate care at discharge. She does not feel [facility] right [facility] her mom. SW listened and provided emotional support. She was asking about an LTACH and SW explained she would likely not qualify for LTACH level of care. ALLEGRA told her the best suggestion SW can offer is for her to go and check out the facilities on the list. She asked about facilities that do dialysis on at the retirement. ALLEGRA told her that the closest would be [facility]. She asked if those facilities offer more care. ALLEGRA told her to SW's knowledge the only difference is they do dialysis on site and it does not necessarily mean they provide more care. It was decided that she would get lists of both local facilities and a list of the facilities that offer dialysis at the retirement and she would visit places and talk with patient. Nayla MOJICA MSW
--- NOTE | 2019-06-11 17:45 | PCM.OPRPT ---
Problem List (1) KURT (acute kidney injury) Status: Acute Report of Operation Date of Procedure: 06/11/19 Pre-Operative Diagnosis: Acute on chronic kidney injury and need for vascular dialysis catheter access Post-Operative Diagnosis: Same Surgery/Procedure Performed:: Ultrasound and fluoroscopy guided right IJ tunneled temporary dialysis catheter placement Description of Procedure: Patient was brought back the operating room and MAC anesthesia was induced the right neck was prepped and draped in usual sterile fashion. Using ultrasound guidance the right IJ was identified. The patient had significant pressure in the venous system with a dilated EJ as well. The skin was anesthetized with lidocaine and as well as an area of skin on the chest. Tunnel site was also injected with local anesthetic. Next an 11 blade scalpel was used to make a skin incision on the right neck. A skin incision was also made in the right chest. Access needle was used to access the right IJ under ultrasound guidance. There was heavy pressure and a lot of blood return. Contrast was injected through the IJ under fluoroscopy guidance to ensure that it was in the vein and it was adequately in the IJ. Next the guidewire was placed through the needle under fluoroscopy guidance. The needle was removed and serial dilators were placed and then the peel-away sheath was placed under fluoroscopic guidance. The guidewire was removed next the catheter was placed on a tunneling device and tunneled from the chest up to the neck and then placed into the peel-away sheath and the peel-away sheath was peeled away. It appeared to be in good position on fluoroscopy. Pressure was held on the neck incision site and the catheter was sutured in place to the chest wall with the cuff under the skin. Next there was good blood return from both catheters and they were flushed with saline. There were then flushed with 1.6 cc of heparin into each catheter. They were clamped and capped. Pressure was held on the skin site in the neck and interrupted nylon sutures were placed over the skin incision. A pressure dressing was applied. Patient tolerated the procedure well was brought to PACU in stable condition. Grafts/Implants Used: Palindrome curved
--- NOTE | 2019-06-11 20:38 | DIALYSIS ---
HD x2 hours completed at 2014 on a 3K bath, patient tolerated well, UF 1800mL, CritLine ended profile B, accessed via new right chest tunneled dialysis catheter, worked well, next treatment planned for tomorrow
[2019-06-11] MEDS: MELATONIN 3 MG TABLET PO (21:07)
[2019-06-11] MEDS: Heparin 10,000 UNITS/10 ML Vial IV (21:15)
[2019-06-12] VITALS (15 sets, daily range): BP systolic 91–138; BP diastolic 54–71; PULSE 62–89; RESP 16–18; TEMP 36–37.2; O2SAT 98–100
[2019-06-12] MEDS: Acetaminophen 325 MG Tablet 650 MG PO ×2 (01:52→07:49)
[2019-06-12 06:18] LABS: Hemoglobin 8.1 g/dL (12.0-15.0); Mean Corpuscular Hgb 31.3 pg (27.0-32.0); Mean Corpuscular Volume 104.2 fL (81-99); POSITIVE COUNT YES; POSITIVE MORPHOLOGY YES; Platelet Count 89 K/mm3 (150-450); RBC Distribution Width CV 17.5 % (11.6-14.6); RBC Distribution Width SD 67.1 fl (35.1-43.9); Red Blood Count 2.59 M/mm3 (4.2-5.4); White Blood Count 7.4 K/mm3 (4.4-11.0)
[2019-06-12 06:19] LABS: Scan Indicated on CBC? Y/N YES- FLAGS NOTED
[2019-06-12 06:26] LABS: Anion Gap 9 (5-15); BUN 61 mg/dL (7-18); BUN/Creat Ratio 14.8 RATIO (10-20); Chloride 93 mmol/L (98-107); Creatinine, Serum 4.13 mg/dL (0.55-1.02); EST Glomerular Filtration Rate 11 mL/min (>60); Est Glom Filt Rate - Afr Amer 13 mL/min (>60); Estimated Creatinine Clearance 9.66 ml/min; Glucose 79 mg/dL (74-106); Potassium 4.3 mmol/L (3.5-5.1); Sodium Level 132 mmol/L (136-145)
[2019-06-12 06:49] LABS: Differential Comment SCANNED
[2019-06-12] MEDS: Latanoprost 0.005% 1 Bottle 1 DRP EACH EYE (07:54)
[2019-06-12] MEDS: hydrOXYzine 10 MG Tablet PO (07:55)
[2019-06-12] MEDS: oxyCODONE 5 MG Tablet PO (10:52)
--- NOTE | 2019-06-12 11:19 | PN.RENAL_ITS ---
Patient Problems: Active and Suspected Problems (Last Reviewed 06/10/19 @ 15:26 by Christen Pickering PA-C) KURT (acute kidney injury) (Acute) Hyperkalemia (Acute) Subjective: dialysis last night without incident with 1.5L fluid removed. Currently on dialysis. Breathing improved. Drop in BP transiently. - Physical Exam Vitals/I&O's: Vital Signs Temp Pulse Resp BP Pulse Ox 97.8 F 76 18 113/71 100 06/12/19 10:45 06/12/19 10:56 06/12/19 10:45 06/12/19 10:45 06/12/19 10:45 Oxygen Flow Rate (L/min) 2 Oxygen Delivery Method Nasal Cannula Weight: 94.6 kg Body Mass Index (BMI) 33.5 Finger Stick Blood Glucose 141 Intake and Output for Last 24 Hours 06/10/19 06/11/19 06/12/19 23:59 23:59 23:59 Intake Total 2023.33 / 2023.33 620 / 620 Output Total 85 / 85 1845 / 1865 70 / 70 Balance 1939.33 / 1939.33 -1225 / -1245 -70 / -70 General: Alert, Oriented x3, Cooperative Lungs: Clear to auscultation, Diminished Cardiovascular: Irregular Rate - afib, Murmur Abdomen: Bowel Sounds Present, Soft, Non Tender, Non-Distended, Obese Extremities: Edema - mild Musculoskeletal: - - debilitated Neurological: - - no tremor Psych/Mental Status: Normal Affect, Appropriate, Alert and oriented to time, place, person, mood and affect Microbiology Past 72 Hours 06/10/19 16:50 Urine Catheter - Dewey Urine Culture - Preliminary Yeast Like Organism Laboratory Results 06/11/19 13:17: PT 18.8 H, INR 1.6 06/12/19 06:00: WBC 7.4, RBC 2.59 L, Hgb 8.1 L, Hct 27.0 L, MCV 104.2 H, MCH 31.3, MCHC 30.0 L, RDW Std Deviation 67.1 H, RDW Coeff of Vlad 17.5 H, Plt Count 89 L, MPV 11.0, Differential Comment SCANNED 06/12/19 06:00: Sodium 132 L, Potassium 4.3, Chloride 93 L, Carbon Dioxide 30.0, Anion Gap 9, BUN 61 H, Creatinine 4.13 H, Estim Creat Clear Calc 9.66, Est GFR (MDRD) Af Amer 13 L, Est GFR (MDRD) Non-Af 11 L, BUN/Creatinine Ratio 14.8, Glucose 79, Calcium 9.0 Current Medications Acetaminophen (Tylenol) 650 mg PO Q4H PRN PRN PRN Reason: Pain Score 1-10/10/FEVER Last Admin: 06/12/19 07:49 Dose: 650 mg Documented by: Albuterol Sulfate (Ventolin Aerosols) 2.5 mg INHALATION Q4H PRN PRN Reason: SOB &/OR WHEEZING Last Admin: 06/10/19 17:00 Dose: 2.5 mg Documented by: Dorzolamide HCl (Trusopt) 1 drop EACH EYE BID [facility] Last Admin: 06/11/19 21:21 Dose: 1 drop Documented by: Hydroxyzine HCl (Atarax Tablet) 10 mg PO TID PRN PRN PRN Reason: ITCHING Last Admin: 06/12/19 07:55 Dose: 10 mg Documented by: Latanoprost (Xalatan Opthalmic) 1 drop EACH EYE DAILY@0800 [facility] Last Admin: 06/12/19 07:54 Dose: 1 drop Documented by: Melatonin (Melatonin) 3 mg PO QHS [facility] Last Admin: 06/11/19 21:07 Dose: 3 mg Documented by: Metoprolol Tartrate (Lopressor (Beta Carlos Manuel)) 25 mg PO BID [facility] Last Admin: 06/11/19 21:07 Dose: 25 mg Documented by: Ondansetron HCl (Zofran) 4 mg IV Q6H PRN PRN PRN Reason: nausea/emesis Oxycodone HCl (Oxyir) 5 mg PO Q6H PRN PRN PRN Reason: Pain Score 6-10/10 Last Admin: 06/12/19 10:52 Dose: 5 mg Documented by: Pantoprazole Sodium (Protonix) 20 mg PO DAILY [facility] Last Admin: 06/11/19 09:33 Dose: 20 mg Documented by: Sodium Chloride () 10 - 40 ml IV UD PRN PRN Reason: SALINE FLUSH Last Admin: 06/10/19 13:58 Dose: 10 ml Documented by: Medical Necessity - Tobacco Use Smoking Status: Never smoker Tobacco Use: Non-smoker, Secondhand Assessment/Plan All Active Problems (Last Reviewed 06/10/19 @ 15:26 by Christen Pickering PA-C) KURT (acute kidney injury) (Acute) Hyperkalemia (Acute) Triquetral chip fracture (Resolved) Hypokalemia (Acute) Cystitis (Acute) Abdominal pain (Acute) Epigastric pain (Acute) Nausea and vomiting (Acute) Generalized abdominal discomfort (Acute) Generalized weakness (Acute) Cellulitis of right lower leg (Resolved) 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 KURT likely prerenal from decompensated severe right heart failure with severe TR. Currently receiving hemodialysis #2. Will schedule dialysis #3 tomorrow. Remains anuric. DC teresa. Will need outpt dialysis arranged prior to discharge. Baseline creatinine 2.0. 2. Hx cirrhosis with elevated Tbili likely from CHF. viral hepatitis pending 3. RHF, severe TR with RV severe dilation on echo from 05/08/19 from [facility]. 4. Chronic afib with supratherapeutic inr. INR reversed with FFP, vit K. Ok to resume coumadin after dialysis catheter placement 5. Debilitation s/p fall will need ECF placement on discharge 6. Hx ecoli UTI Apr 2019 7. Iron def anemia iv iron on dialysis
[2019-06-12] MEDS: Heparin 10,000 UNITS/10 ML Vial IV (12:15)
--- NOTE | 2019-06-12 12:29 | DIALYSIS ---
HD x 2.5 hours complete. Tolerated tx well. Ran on 3k bath. UF of 1500ml. Used right chest wall catheter. Catheter closed with heparin per fill volume. Report was given to TYE Alvarado.
--- NOTE | 2019-06-12 13:06 | CASEMGMT ---
Social Work SW met with pt daughter. Dgt stating she cannot locate the retirement list that was given to her yesterday and she has not yet looked into facilities. SW provided new lists of area SNFS and SNF with inhouse dialysis. SW encouraged dgt to check out facilities today and let SW know as soon as possible of choice. Dgt expressing understanding. FRANCES Webber
[2019-06-12] MEDS: 0.9% Saline Lock 10 ML Syringe IV ×2 (13:09→17:05)
[2019-06-12] MEDS: Metoprolol Tartrate 25 MG Tablet PO ×2 (13:10→22:38)
[2019-06-12] MEDS: Pantoprazole Sodium 20 MG Tablet PO (13:10)
[2019-06-12] MEDS: Dorzolamide 2% 10ml Bottle 1 DRP EACH EYE ×2 (13:11→22:38)
--- NOTE | 2019-06-12 15:30 | PN_ITS ---
<Medina Vallejo - Last Filed: 06/12/19 15:33> Patient Problems: Active and Suspected Problems (Last Reviewed 06/10/19 @ 15:26 by Christen Pickering PA-C) KURT (acute kidney injury) (Acute) Hyperkalemia (Acute) Subjective: Patient seen and examined. Reports improvement in breathing and overall swelling. Tolerated dialysis well last evening, to undergo additional dialysis today. Denies current complaints. - Physical Exam Vitals/I&O's: Vital Signs Temp Pulse Resp BP Pulse Ox 97.7 F L 62 18 91/56 L 100 06/12/19 13:00 06/12/19 14:59 06/12/19 13:00 06/12/19 13:10 06/12/19 13:00 Oxygen Flow Rate (L/min) 2 Oxygen Delivery Method Nasal Cannula Weight: 208 lb 8.917 oz Body Mass Index (BMI) 33.5 Finger Stick Blood Glucose 141 Intake and Output for Last 24 Hours 06/10/19 06/11/19 06/12/19 23:59 23:59 23:59 Intake Total 2023.33 / 2023.33 620 / 620 210 / 210 Output Total 85 / 85 1845 / 1865 95 / 95 Balance 1939.33 / 1939.33 -1225 / -1245 115 / 115 General: Alert, Oriented x3, Cooperative HEENT: Atraumatic Neck: Supple, No JVD, Negative Carotid Bruits Lungs: Clear to auscultation, Diminished Cardiovascular: Regular rate, Regular Rhythm, Normal S1, Normal S2, No murmurs Abdomen: Bowel Sounds Present, Soft, Non Tender, Non-Distended, Obese Extremities: No clubbing, No cyanosis, No edema, Capillary Refill Less than 3 Seconds Skin: No rashes, No breakdown Musculoskeletal: No Tenderness to Palpation of Joints or Extremities Neurological: Cranial nerves II-XII grossly intact, Neuro grossly intact Psych/Mental Status: Normal Affect, Appropriate Microbiology Past 72 Hours 06/10/19 16:50 Urine Catheter - Dewey Urine Culture - Final Yeast, not Lily albicans Laboratory Results 06/12/19 06:00: WBC 7.4, RBC 2.59 L, Hgb 8.1 L, Hct 27.0 L, MCV 104.2 H, MCH 31.3, MCHC 30.0 L, RDW Std Deviation 67.1 H, RDW Coeff of Vlad 17.5 H, Plt Count 89 L, MPV 11.0, Differential Comment SCANNED 06/12/19 06:00: Sodium 132 L, Potassium 4.3, Chloride 93 L, Carbon Dioxide 30.0, Anion Gap 9, BUN 61 H, Creatinine 4.13 H, Estim Creat Clear Calc 9.66, Est GFR (MDRD) Af Amer 13 L, Est GFR (MDRD) Non-Af 11 L, BUN/Creatinine Ratio 14.8, Glucose 79, Calcium 9.0 Current Medications Acetaminophen (Tylenol) 650 mg PO Q4H PRN PRN PRN Reason: Pain Score 1-10/10/FEVER Last Admin: 06/12/19 07:49 Dose: 650 mg Documented by: Albuterol Sulfate (Ventolin Aerosols) 2.5 mg INHALATION Q4H PRN PRN Reason: SOB &/OR WHEEZING Last Admin: 06/10/19 17:00 Dose: 2.5 mg Documented by: Dorzolamide HCl (Trusopt) 1 drop EACH EYE BID COUNT INCLUDES THE [facility] Last Admin: 06/12/19 13:11 Dose: 1 drop Documented by: Hydroxyzine HCl (Atarax Tablet) 10 mg PO TID PRN PRN PRN Reason: ITCHING Last Admin: 06/12/19 07:55 Dose: 10 mg Documented by: Latanoprost (Xalatan Opthalmic) 1 drop EACH EYE DAILY@0800 COUNT INCLUDES THE [facility] Last Admin: 06/12/19 07:54 Dose: 1 drop Documented by: Melatonin (Melatonin) 3 mg PO QHS COUNT INCLUDES THE [facility] Last Admin: 06/11/19 21:07 Dose: 3 mg Documented by: Metoprolol Tartrate (Lopressor (Beta Carlos Manuel)) 25 mg PO BID COUNT INCLUDES THE [facility] Last Admin: 06/12/19 13:10 Dose: 25 mg Documented by: Ondansetron HCl (Zofran) 4 mg IV Q6H PRN PRN PRN Reason: nausea/emesis Oxycodone HCl (Oxyir) 5 mg PO Q6H PRN PRN PRN Reason: Pain Score 6-10/10 Last Admin: 06/12/19 10:52 Dose: 5 mg Documented by: Pantoprazole Sodium (Protonix) 20 mg PO DAILY COUNT INCLUDES THE [facility] Last Admin: 06/12/19 13:10 Dose: 20 mg Documented by: Sodium Chloride () 10 - 40 ml IV UD PRN PRN Reason: SALINE FLUSH Last Admin: 06/12/19 13:09 Dose: 10 ml Documented by: Medical Necessity - Tobacco Use Smoking Status: Never smoker Tobacco Use: Non-smoker, Secondhand Assessment/Plan All Active Problems (Last Reviewed 06/10/19 @ 15:26 by Christen Pickering PA-C) KURT (acute kidney injury) (Acute) Hyperkalemia (Acute) Triquetral chip fracture (Resolved) Hypokalemia (Acute) Cystitis (Acute) Abdominal pain (Acute) Epigastric pain (Acute) Nausea and vomiting (Acute) Generalized abdominal discomfort (Acute) Generalized weakness (Acute) Cellulitis of right lower leg (Resolved) 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 Acute kidney injury on chronic kidney disease stage III with hyperkalemia- recent temporary dialysis at [facility] for oliguric KURT secondary to ATN. Nephrology, Dr. Raza following. Tunneled dialysis catheter placement 06/11/2019. Renal ultrasound normal. Undergoing dialysis for second time today. 2. 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 Liver profile normal. Hepatitis panel pending. Bilirubin elevated. 3. Chronic iron deficiency anemia-status post Venofer x3. Then transition to oral iron supplementation. Trend CBC. 4. Chronic diastolic CHF-no acute exacerbation. Echocardiogram July 2017 with EF 60%, stage III diastolic dysfunction, mild to moderate mitral valve insufficiency. Torsemide currently on hold given acute kidney injury. 5. Chronic atrial fibrillation/sick sinus syndrome status post pacemaker- continue metoprolol. 6. Hypertension-stable, continue metoprolol regimen. 7. Hyperlipidemia-continue statin. 8. GERD- Continue PPI. DVT prophylaxis-Coumadin Discharge planning: SNF pending family decision on facility and acceptance. This patient was seen by LIDA Enriquez under the supervision of Dr. Zabala. <Imer Zabala - Last Filed: 06/12/19 16:14> Subjective: Seen and examined. Patient overall shortness of breath, generalized edema and anasarca has improved after dialysis. Currently on hemodialysis. Patient daughter wants prolonged SNF stay/LTAC and she is not able to take care of her at home. Objective: General: Oriented x3, Cooperative, awake and alert HEENT: Atraumatic, PERRLA, EOMI, Normocephalic Neck: Supple, No JVD, Negative Carotid Bruits Lungs: No rales, Air entry diminished in all lung holley, slightly improved after dialysis.Bilateral expiratory rhonchi Cardiovascular: Regular rate, Normal S1, Normal S2, No murmurs Abdomen: Soft, Hypoactive Bowel Sounds, Distended, possible ascites, nontender Extremities: Generalized lower extremity edema at upper extremity edema Musculoskeletal: No Tenderness to Palpation of Joints or Extremities, Arthritic Changes Neurological: Deep Tendon Reflexes 2+/4 and Symmetrical, Neuro grossly intact Psych/Mental Status: Normal Affect, Appropriate - Physical Exam Vitals/I&O's: Vital Signs Temp Pulse Resp BP Pulse Ox 97.7 F L 62 18 91/56 L 100 06/12/19 13:00 06/12/19 14:59 06/12/19 13:00 06/12/19 13:10 06/12/19 13:00 Oxygen Flow Rate (L/min) 2 Oxygen Delivery Method Nasal Cannula Weight: 208 lb 8.917 oz Body Mass Index (BMI) 33.5 Finger Stick Blood Glucose 141 Intake and Output for Last 24 Hours 06/10/19 06/11/19 06/12/19 23:59 23:59 23:59 Intake Total 4.33 / 4.33 620 / 620 210 / 210 Output Total 85 / 85 1845 / 1865 95 / 95 Balance 1939.33 / 1939.33 -1225 / -1245 115 / 115 Microbiology Past 72 Hours 06/10/19 16:50 Urine Catheter - Dewey Urine Culture - Final Yeast, not Lily albicans Laboratory Results 06/12/19 06:00: WBC 7.4, RBC 2.59 L, Hgb 8.1 L, Hct 27.0 L, MCV 104.2 H, MCH 31.3, MCHC 30.0 L, RDW Std Deviation 67.1 H, RDW Coeff of Vlad 17.5 H, Plt Count 89 L, MPV 11.0, Differential Comment SCANNED 06/12/19 06:00: Sodium 132 L, Potassium 4.3, Chloride 93 L, Carbon Dioxide 30.0, Anion Gap 9, BUN 61 H, Creatinine 4.13 H, Estim Creat Clear Calc 9.66, Est GFR (MDRD) Af Amer 13 L, Est GFR (MDRD) Non-Af 11 L, BUN/Creatinine Ratio 14.8, Glucose 79, Calcium 9.0 Current Medications Acetaminophen (Tylenol) 650 mg PO Q4H PRN PRN PRN Reason: Pain Score 1-10/10/FEVER Last Admin: 06/12/19 07:49 Dose: 650 mg Documented by: Albuterol Sulfate (Ventolin Aerosols) 2.5 mg INHALATION Q4H PRN PRN Reason: SOB &/OR WHEEZING Last Admin: 06/10/19 17:00 Dose: 2.5 mg Documented by: Dorzolamide HCl (Trusopt) 1 drop EACH EYE BID COUNT INCLUDES THE [facility] Last Admin: 06/12/19 13:11 Dose: 1 drop Documented by: Ferrous Sulfate (Ferrous Sulfate) 325 mg PO 1200,1700 COUNT INCLUDES THE [facility] Hydroxyzine HCl (Atarax Tablet) 10 mg PO TID PRN PRN PRN Reason: ITCHING Last Admin: 06/12/19 07:55 Dose: 10 mg Documented by: Latanoprost (Xalatan Opthalmic) 1 drop EACH EYE DAILY@0800 COUNT INCLUDES THE [facility] Last Admin: 06/12/19 07:54 Dose: 1 drop Documented by: Melatonin (Melatonin) 3 mg PO QHS COUNT INCLUDES THE [facility] Last Admin: 06/11/19 21:07 Dose: 3 mg Documented by: Metoprolol Tartrate (Lopressor (Beta Carlos Manuel)) 25 mg PO BID COUNT INCLUDES THE [facility] Last Admin: 06/12/19 13:10 Dose: 25 mg Documented by: Ondansetron HCl (Zofran) 4 mg IV Q6H PRN PRN PRN Reason: nausea/emesis Oxycodone HCl (Oxyir) 5 mg PO Q6H PRN PRN PRN Reason: Pain Score 6-10/10 Last Admin: 06/12/19 10:52 Dose: 5 mg Documented by: Pantoprazole Sodium (Protonix) 20 mg PO DAILY COUNT INCLUDES [facility] Last Admin: 06/12/19 13:10 Dose: 20 mg Documented by: Sodium Chloride () 10 - 40 ml IV UD PRN PRN Reason: SALINE FLUSH Last Admin: 06/12/19 13:09 Dose: 10 ml Documented by: Warfarin Sodium (Coumadin (Pbkc)) 5 mg PO DAILY@1700 COUNT INCLUDES THE [facility] Assessment/Plan This patient was seen in conjunction with Medina PETTY. I have independently interviewed and examined the patient and reviewed pertinent history, examination findings, laboratory and plan of management. I have reviewed the note and agree with the documented findings with the few additional points. In brief, patient is admitted for acute kidney injury on CKD stage III with hyperkalemia: Discussed with outlet manager. UA with WBC 0-5 LE 100, ketones 5. Urine protein 30. CK 46. Plan for tunneled dialysis catheter tomorrow a.m. Patient has coagulopathy even though she is off Coumadin for last 5 days. Last INR 3.8. 2 units of FFP and 10 mg of vitamin K ordered. 06/11/2019: Patient had INR 1.7 and had FFP. When INR 1.6, patient taken to the OR for tunneled dialysis catheter insertion. K4.4. Discussed with outlet manager. 06/12/2019: Patient had dialysis yesterday and currently having dialysis. Patient had some bleeding during catheter placement yesterday. This has stopped. Patient also has cirrhosis mostly secondary to cardiac cirrhosis from CHF failure with preserved EF. Albumin 3.9, total bili 1.8. Mild thrombocytopenia, 103,000. Echo in July 2017 reported as EF 60% with a stage III diastolic dysfunction, mild to moderate MR. Patient also has anemia of chronic disease most probably CKD. Has macrocytic anemia. B12 1764. H&H 8.06/21. Iron study is consistent with anemia of chronic disease. Anemia of chronic disease: H&H is stable. Platelet count 89,000 Other comorbidities as mentioned above Total time of the visit including total time spent in counseling or coordination of care, (more than 50% of the total time, spent in obtaining medical information from nurses and other ancillary care providers) and discussion with food consultant is 30 minutes I have discussed my assessment with Medina PETTY and orders have been reviewed. Code Visit Inpatient E&M: 82902 Subs Hosp L2
[2019-06-12] MEDS: Ferrous Sulfate 325 MG Tablet PO (16:31)
[2019-06-12] MEDS: Ondansetron 4 MG/2 ML Vial IV (17:05)
[2019-06-12] MEDS: MELATONIN 3 MG TABLET PO (22:38)
[2019-06-13] VITALS (14 sets, daily range): BP systolic 89–116; BP diastolic 47–67; PULSE 60–81; RESP 16–22; TEMP 36.4–36.9; O2SAT 95–100
[2019-06-13] MEDS: Ondansetron 4 MG/2 ML Vial IV (02:17)
[2019-06-13] MEDS: Acetaminophen 325 MG Tablet 650 MG PO (02:17)
[2019-06-13] MEDS: 0.9% Saline Lock 10 ML Syringe IV (02:18)
[2019-06-13 07:02] LABS: Hematocrit 27.2 % (37-47); Hemoglobin 8.4 g/dL (12.0-15.0); Mean Corp Hgb Conc 30.9 g/dL (32-36); Mean Corpuscular Hgb 32.3 pg (27.0-32.0); Mean Corpuscular Volume 104.6 fL (81-99); Mean Platelet Vol. 11.2 fl (6.2-12.0); POSITIVE COUNT YES; Platelet Count 98 K/mm3 (150-450); RBC Distribution Width CV 17.2 % (11.6-14.6); RBC Distribution Width SD 64.6 fl (35.1-43.9); White Blood Count 7.9 K/mm3 (4.4-11.0)
[2019-06-13 07:04] LABS: Scan Indicated on CBC? Y/N YES- FLAGS NOTED
[2019-06-13 07:07] LABS: HEPATITIS B SURFACE AG Negative (Negative); Hepatitis A AB, Total Positive (Negative); Hepatitis A IgM Antibody Negative (Negative); Hepatitis B Core AB IgM Negative (Negative); Hepatitis B Core Ab Total Negative (Negative); Hepatitis C Ab 0.2 s/co ratio (0.0-0.9)
[2019-06-13 07:25] LABS: Anion Gap 9 (5-15); BUN 44 mg/dL (7-18); BUN/Creat Ratio 12.1 RATIO (10-20); Calcium,Total 9.1 mg/dL (8.5-10.1); Chloride 97 mmol/L (98-107); Creatinine, Serum 3.64 mg/dL (0.55-1.02); EST Glomerular Filtration Rate 13 mL/min (>60); Est Glom Filt Rate - Afr Amer 15 mL/min (>60); Estimated Creatinine Clearance 10.96 ml/min; Glucose 94 mg/dL (74-106); Potassium 4.3 mmol/L (3.5-5.1); Sodium Level 132 mmol/L (136-145)
[2019-06-13] MEDS: Latanoprost 0.005% 1 Bottle 1 DRP EACH EYE (08:16)
[2019-06-13] MEDS: Metoprolol Tartrate 25 MG Tablet PO (12:12)
[2019-06-13] MEDS: Ferrous Sulfate 325 MG Tablet PO ×2 (12:12→17:19)
[2019-06-13] MEDS: Pantoprazole Sodium 20 MG Tablet PO (12:12)
[2019-06-13] MEDS: Dorzolamide 2% 10ml Bottle 1 DRP EACH EYE ×2 (12:12→22:53)
[2019-06-13] MEDS: Heparin 10,000 UNITS/10 ML Vial 3200 UNITS IV (12:14)
--- NOTE | 2019-06-13 12:19 | PN_ITS ---
<Medina Vallejo - Last Filed: 06/13/19 12:29> Patient Problems: Active and Suspected Problems (Last Reviewed 06/10/19 @ 15:26 by Christen Pickering PA-C) KURT (acute kidney injury) (Acute) Hyperkalemia (Acute) Subjective: Patient seen and examined. Resting comfortably in bed. Undergoing dialysis. Denies current complaints. - Physical Exam Vitals/I&O's: Vital Signs Temp Pulse Resp BP Pulse Ox 97.5 F L 81 16 104/49 L 99 06/13/19 07:30 06/13/19 12:12 06/13/19 07:30 06/13/19 07:30 06/13/19 07:30 Oxygen Flow Rate (L/min) 2 Oxygen Delivery Method Nasal Cannula Weight: 208 lb 8.917 oz Body Mass Index (BMI) 33.5 Finger Stick Blood Glucose 141 Intake and Output for Last 24 Hours 06/11/19 06/12/19 06/13/19 23:59 23:59 23:59 Intake Total 620 / 620 330 / 330 Output Total 1845 / 1865 95 / 95 Balance -1225 / -1245 235 / 235 General: Alert, Oriented x3, Cooperative HEENT: Atraumatic, PERRLA, EOMI, Normocephalic Neck: Supple, No JVD, Negative Carotid Bruits Lungs: Clear to auscultation, Normal air movement Cardiovascular: Regular rate, Regular Rhythm, Normal S1, Normal S2, No murmurs Abdomen: Bowel Sounds Present, Soft, Non Tender, Non-Distended Extremities: No clubbing, No cyanosis, No edema, Capillary Refill Less than 3 Seconds Skin: No rashes, No breakdown Musculoskeletal: No Tenderness to Palpation of Joints or Extremities Neurological: Cranial nerves II-XII grossly intact, Neuro grossly intact Psych/Mental Status: Normal Affect, Appropriate Microbiology Past 72 Hours 06/10/19 16:50 Urine Catheter - Dewey Urine Culture - Final Yeast, not Lily albicans Laboratory Results 06/13/19 06:40: WBC 7.9, RBC 2.60 L, Hgb 8.4 L, Hct 27.2 L, MCV 104.6 H, MCH 32.3 H, MCHC 30.9 L, RDW Std Deviation 64.6 H, RDW Coeff of Vlad 17.2 H, Plt Count 98 L, MPV 11.2 06/13/19 06:40: Sodium 132 L, Potassium 4.3, Chloride 97 L, Carbon Dioxide 26.0, Anion Gap 9, BUN 44 H, Creatinine 3.64 H, Estim Creat Clear Calc 10.96, Est GFR (MDRD) Af Amer 15 L, Est GFR (MDRD) Non-Af 13 L, BUN/Creatinine Ratio 12.1, Glucose 94, Calcium 9.1 Current Medications Acetaminophen (Tylenol) 650 mg PO Q4H PRN PRN PRN Reason: Pain Score 1-10/10/FEVER Last Admin: 06/13/19 02:17 Dose: 650 mg Documented by: Albuterol Sulfate (Ventolin Aerosols) 2.5 mg INHALATION Q4H PRN PRN Reason: SOB &/OR WHEEZING Last Admin: 06/10/19 17:00 Dose: 2.5 mg Documented by: Dorzolamide HCl (Trusopt) 1 drop EACH EYE BID [facility] Last Admin: 06/13/19 12:12 Dose: 1 drop Documented by: Ferrous Sulfate (Ferrous Sulfate) 325 mg PO 1200,1700 [facility] Last Admin: 06/13/19 12:12 Dose: 325 mg Documented by: Hydroxyzine HCl (Atarax Tablet) 10 mg PO TID PRN PRN PRN Reason: ITCHING Last Admin: 06/12/19 07:55 Dose: 10 mg Documented by: Latanoprost (Xalatan Opthalmic) 1 drop EACH EYE DAILY@0800 [facility] Last Admin: 06/13/19 08:16 Dose: 1 drop Documented by: Melatonin (Melatonin) 3 mg PO QHS [facility] Last Admin: 06/12/19 22:38 Dose: 3 mg Documented by: Metoprolol Tartrate (Lopressor (Beta Carlos Manuel)) 25 mg PO BID [facility] Last Admin: 06/13/19 12:12 Dose: 25 mg Documented by: Ondansetron HCl (Zofran) 4 mg IV Q6H PRN PRN PRN Reason: nausea/emesis Last Admin: 06/13/19 02:17 Dose: 4 mg Documented by: Oxycodone HCl (Oxyir) 5 mg PO Q6H PRN PRN PRN Reason: Pain Score 6-10/10 Last Admin: 06/12/19 10:52 Dose: 5 mg Documented by: Pantoprazole Sodium (Protonix) 20 mg PO DAILY [facility] Last Admin: 06/13/19 12:12 Dose: 20 mg Documented by: Sodium Chloride () 10 - 40 ml IV UD PRN PRN Reason: SALINE FLUSH Last Admin: 06/13/19 02:18 Dose: 10 ml Documented by: Warfarin Sodium (Coumadin (Pbkc)) 5 mg PO DAILY@1700 [facility] Last Admin: 06/12/19 16:32 Dose: 5 mg Documented by: Medical Necessity - Tobacco Use Smoking Status: Never smoker Tobacco Use: Non-smoker, Secondhand Assessment/Plan All Active Problems (Last Reviewed 06/10/19 @ 15:26 by Christen Pickering PA-C) KURT (acute kidney injury) (Acute) Hyperkalemia (Acute) Triquetral chip fracture (Resolved) Hypokalemia (Acute) Cystitis (Acute) Abdominal pain (Acute) Epigastric pain (Acute) Nausea and vomiting (Acute) Generalized abdominal discomfort (Acute) Generalized weakness (Acute) Cellulitis of right lower leg (Resolved) 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 Acute kidney injury on chronic kidney disease stage III with hyperkalemia- recent temporary dialysis at [facility] for oliguric KURT secondary to ATN. Nephrology, Dr. Raza following. Tunneled dialysis catheter placement 06/11/2019. Renal ultrasound normal. Undergoing third dialysis treatment today. 2. 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 Liver profile normal. Hepatitis panel pending. Bilirubin elevated. 3. Chronic iron deficiency anemia-status post Venofer x3. Then transition to oral iron supplementation. Trend CBC. 4. Chronic diastolic CHF-no acute exacerbation. Echocardiogram July 2017 with EF 60%, stage III diastolic dysfunction, mild to moderate mitral valve insufficiency. Torsemide currently on hold given acute kidney injury. 5. Chronic atrial fibrillation/sick sinus syndrome status post pacemaker- continue metoprolol. 6. Hypertension-stable, continue metoprolol regimen. 7. Hyperlipidemia-continue statin. 8. GERD- Continue PPI. DVT prophylaxis-Coumadin Discharge planning: SNF pending family decision on facility and acceptance. This patient was seen by LIDA Enriquez under the supervision of Dr. Zabala. <Imer Zabala - Last Filed: 06/13/19 13:15> Subjective: Patient is undergoing dialysis. She looks dehydrated. Blood pressure is on the lower side during dialysis although before it was 160s/67. - Physical Exam Vitals/I&O's: Vital Signs Temp Pulse Resp BP Pulse Ox 97.6 F L 81 22 H 116/67 99 06/13/19 12:00 06/13/19 12:12 06/13/19 12:00 06/13/19 12:00 06/13/19 12:00 Oxygen Flow Rate (L/min) 2 Oxygen Delivery Method Nasal Cannula Weight: 208 lb 8.917 oz Body Mass Index (BMI) 33.5 Finger Stick Blood Glucose 141 Intake and Output for Last 24 Hours 06/11/19 06/12/19 06/13/19 23:59 23:59 23:59 Intake Total 620 / 620 330 / 330 Output Total 1845 / 1865 95 / 95 1500 / 1500 Balance -1225 / -1245 235 / 235 -1500 / -1500 General: Alert, Oriented x3, Cooperative HEENT: Atraumatic, PERRLA, EOMI, Normocephalic Oral: Dry Mucosa Neck: Supple, No JVD, Negative Carotid Bruits Lungs: Clear to auscultation, No rhonchi, No wheeze, No rales, Diminished Cardiovascular: Regular rate, Regular Rhythm, Normal S1, Normal S2, No murmurs Abdomen: Bowel Sounds Present, Soft, Non Tender Extremities: Capillary Refill Less than 3 Seconds, Edema Skin: No rashes, No breakdown Musculoskeletal: No Tenderness to Palpation of Joints or Extremities, Arthritic Changes Neurological: Cranial nerves II-XII grossly intact, Deep Tendon Reflexes 2+/4 and Symmetrical, Neuro grossly intact Psych/Mental Status: Normal Affect, Appropriate Microbiology Past 72 Hours 06/10/19 16:50 Urine Catheter - Dewey Urine Culture - Final Yeast, not Lily albicans Laboratory Results 06/13/19 06:40: WBC 7.9, RBC 2.60 L, Hgb 8.4 L, Hct 27.2 L, MCV 104.6 H, MCH 32.3 H, MCHC 30.9 L, RDW Std Deviation 64.6 H, RDW Coeff of Vlad 17.2 H, Plt Count 98 L, MPV 11.2 06/13/19 06:40: Sodium 132 L, Potassium 4.3, Chloride 97 L, Carbon Dioxide 26.0, Anion Gap 9, BUN 44 H, Creatinine 3.64 H, Estim Creat Clear Calc 10.96, Est GFR (MDRD) Af Amer 15 L, Est GFR (MDRD) Non-Af 13 L, BUN/Creatinine Ratio 12.1, Glucose 94, Calcium 9.1 Current Medications Acetaminophen (Tylenol) 650 mg PO Q4H PRN PRN PRN Reason: Pain Score 1-10/10/FEVER Last Admin: 06/13/19 02:17 Dose: 650 mg Documented by: Albuterol Sulfate (Ventolin Aerosols) 2.5 mg INHALATION Q4H PRN PRN Reason: SOB &/OR WHEEZING Last Admin: 06/10/19 17:00 Dose: 2.5 mg Documented by: Dorzolamide HCl (Trusopt) 1 drop EACH EYE BID [facility] Last Admin: 06/13/19 12:12 Dose: 1 drop Documented by: Ferrous Sulfate (Ferrous Sulfate) 325 mg PO 1200,1700 [facility] Last Admin: 06/13/19 12:12 Dose: 325 mg Documented by: Hydroxyzine HCl (Atarax Tablet) 10 mg PO TID PRN PRN PRN Reason: ITCHING Last Admin: 06/12/19 07:55 Dose: 10 mg Documented by: Latanoprost (Xalatan Opthalmic) 1 drop EACH EYE DAILY@0800 [facility] Last Admin: 06/13/19 08:16 Dose: 1 drop Documented by: Melatonin (Melatonin) 3 mg PO QHS [facility] Last Admin: 06/12/19 22:38 Dose: 3 mg Documented by: Metoprolol Tartrate (Lopressor (Beta Carlos Manuel)) 25 mg PO BID [facility] Last Admin: 06/13/19 12:12 Dose: 25 mg Documented by: Ondansetron HCl (Zofran) 4 mg IV Q6H PRN PRN PRN Reason: nausea/emesis Last Admin: 06/13/19 02:17 Dose: 4 mg Documented by: Oxycodone HCl (Oxyir) 5 mg PO Q6H PRN PRN PRN Reason: Pain Score 6-10/10 Last Admin: 06/12/19 10:52 Dose: 5 mg Documented by: Pantoprazole Sodium (Protonix) 20 mg PO DAILY [facility] Last Admin: 06/13/19 12:12 Dose: 20 mg Documented by: Sodium Chloride () 10 - 40 ml IV UD PRN PRN Reason: SALINE FLUSH Last Admin: 06/13/19 02:18 Dose: 10 ml Documented by: Warfarin Sodium (Coumadin (Pbkc)) 5 mg PO DAILY@1700 [facility] Last Admin: 06/12/19 16:32 Dose: 5 mg Documented by: Assessment/Plan his patient was seen in conjunction with FLIGHT SUPERINTENDENT, Medina. I have independently interviewed and examined the patient and reviewed pertinent history, examination findings, laboratory and plan of management. I have reviewed the note and agree with the documented findings with the few additional points. In brief, patient is admitted for acute kidney injury on CKD stage III with hyperkalemia: Discussed with zigzag elastic attacher. UA with WBC 0-5 LE 100, ketones 5. Urine protein 30. CK 46. Plan for tunneled dialysis catheter tomorrow a.m. Patient has coagulopathy even though she is off Coumadin for last 5 days. Last INR 3.8. 2 units of FFP and 10 mg of vitamin K ordered. 06/11/2019: Patient had INR 1.7 and had FFP. When INR 1.6, patient taken to the OR for tunneled dialysis catheter insertion. K4.4. Discussed with zigzag elastic attacher. 06/12/2019: Patient had dialysis yesterday and currently having dialysis. Patient had some bleeding during catheter placement yesterday. This has stopped. 06/13/2019: Patient is undergoing dialysis daily for last 3 days. Currently blood pressure is low during dialysis. Advise dialysis nurse to follow-up with zigzag elastic attacher. Patient also has cirrhosis mostly secondary to cardiac cirrhosis from CHF failu re with preserved EF. Albumin 3.9, total bili 1.8. Mild thrombocytopenia, 103,000. Echo in July 2017 reported as EF 60% with a stage III diastolic dysfunction, mild to moderate MR. Patient also has anemia of chronic disease most probably CKD. Has macrocytic anemia. B12 1764. H&H 8.06/21. Iron study is consistent with anemia of chronic disease. Anemia of chronic disease: H&H is stable. Platelet count 89,000 Other comorbidities as mentioned above Total time of the visit including total time spent in counseling or coordination of care, (more than 50% of the total time, spent in obtaining medical information from nurses and other ancillary care providers) and discussion with php consultant is 30 minutes I have discussed my assessment with FLIGHT SUPERINTENDENTMedina and orders have been reviewed. Code Visit Inpatient E&M: 75517 Subs Hosp L2
--- NOTE | 2019-06-13 13:10 | DIALYSIS ---
HD x3 hours completed at 1155 on a 3K bath, tolerated fair, unable to remove fluid for first 30 mins of tx then BP improved and able to complete tx w/ UF of 750mL, Venofer 100mg given with dialysis, Venofer to be given each treatment for a total of 4 doses (1st dose being given today), dressing changed pre-treatment, site benign, before dialysis patient stated I'm gonna today, emotional support provided, patient calm and stable during dialysis treatment, accessed via right chest tunneled dialysis catheter, worked well, next treatment per nephrology
[2019-06-13 15:23] LABS: Hep B Surface Antibodies Non Reactive (.)
--- NOTE | 2019-06-13 15:45 | NURSING ---
This RN is taking over care of this pt at this time. Verbal report from Veronika GAMBLE
[2019-06-13 16:46] LABS: International Normalized Ratio 2.1; Prothrombin Time (Protime)PT. 23.1 SECONDS (11.7-14.9)
[2019-06-13] MEDS: Albuterol 2.5 MG/3 ML VIAL.NEB. INHALATION (17:57)
[2019-06-13] MEDS: Menthol/Lanolin/Calamine/Znox 113 GM Tube 1 APPLIC TOPICAL (22:52)
[2019-06-13] MEDS: MELATONIN 3 MG TABLET PO (22:53)
[2019-06-14] VITALS (15 sets, daily range): BP systolic 91–108; BP diastolic 35–66; PULSE 60–70; RESP 18–20; TEMP 36.5–37.3; O2SAT 93–100
[2019-06-14 06:30] LABS: Bedside Glucose 90 mg/dL (70-110)
[2019-06-14 06:37] LABS: Anion Gap 13 (5-15); BUN 30 mg/dL (7-18); BUN/Creat Ratio 9.1 RATIO (10-20); Calcium,Total 9.2 mg/dL (8.5-10.1); Chloride 97 mmol/L (98-107); Creatinine, Serum 3.31 mg/dL (0.55-1.02); EST Glomerular Filtration Rate 14 mL/min (>60); Est Glom Filt Rate - Afr Amer 17 mL/min (>60); Estimated Creatinine Clearance 12.06 ml/min; Glucose 89 mg/dL (74-106); Potassium 4.3 mmol/L (3.5-5.1); Sodium Level 134 mmol/L (136-145)
--- NOTE | 2019-06-14 09:52 | PN_ITS ---
<Medina Vallejo - Last Filed: 06/14/19 10:13> Patient Problems: Active and Suspected Problems (Last Reviewed 06/10/19 @ 15:26 by Christen Pickering PA-C) UKRT (acute kidney injury) (Acute) Hyperkalemia (Acute) Subjective: Patient seen and examined. Nursing reports patient lethargic overnight. Patient denies shortness of breath or other current symptoms. - Physical Exam Vitals/I&O's: Vital Signs Temp Pulse Resp BP Pulse Ox 98.3 F 60 20 H 108/49 L 100 06/14/19 07:32 06/14/19 07:32 06/14/19 07:32 06/14/19 07:32 06/14/19 07:32 Oxygen Flow Rate (L/min) 2 Oxygen Delivery Method Nasal Cannula Weight: 205 lb 0.478 oz Body Mass Index (BMI) 33.5 Finger Stick Blood Glucose 141 Intake and Output for Last 24 Hours 06/12/19 06/13/19 06/14/19 23:59 23:59 23:59 Intake Total 330 / 330 120 / 120 720 / 720 Output Total 95 / 95 1500 / 1500 Balance 235 / 235 -1380 / -1380 720 / 720 General: Cooperative, No apparent distress, - - Drowsy HEENT: Atraumatic, PERRLA, EOMI, Normocephalic Oral: Dry Mucosa Neck: Supple, No JVD, Negative Carotid Bruits Lungs: Clear to auscultation, Diminished Cardiovascular: Regular rate, Regular Rhythm, Normal S1, Normal S2, No murmurs Abdomen: Bowel Sounds Present, Soft, Non Tender, Non-Distended Extremities: No clubbing, No cyanosis, No edema, Capillary Refill Less than 3 Seconds Skin: No rashes, No breakdown Musculoskeletal: No Tenderness to Palpation of Joints or Extremities Neurological: Cranial nerves II-XII grossly intact, Neuro grossly intact Psych/Mental Status: Normal Affect, Appropriate Microbiology Past 72 Hours 06/10/19 16:50 Urine Catheter - Dewey Urine Culture - Final Yeast, not Lily albicans Laboratory Results 06/10/19 05:55: Hepatitis A IgM Ab Negative, Hepatitis A Ab Total Positive H, Hep Bs Antigen Negative, Hep B Core Total Ab Negative, Hep B Core IgM Ab Negative, Hepatitis C Ab Confirm 0.2, Hep C Confirm Com 1 Comment 06/13/19 16:20: PT 23.1 H, INR 2.1 06/14/19 06:02: Sodium 134 L, Potassium 4.3, Chloride 97 L, Carbon Dioxide 24.0, Anion Gap 13, BUN 30 H, Creatinine 3.31 H, Estim Creat Clear Calc 12.06, Est GFR (MDRD) Af Amer 17 L, Est GFR (MDRD) Non-Af 14 L, BUN/Creatinine Ratio 9.1 L, Glucose 89, Calcium 9.2 06/14/19 06:27: POC Glucose 90 Current Medications Acetaminophen (Tylenol) 650 mg PO Q4H PRN PRN PRN Reason: Pain Score 1-10/10/FEVER Last Admin: 06/13/19 02:17 Dose: 650 mg Documented by: Albuterol Sulfate (Ventolin Aerosols) 2.5 mg INHALATION Q4H PRN PRN Reason: SOB &/OR WHEEZING Last Admin: 06/13/19 17:57 Dose: 2.5 mg Documented by: Calamine/Phenol (Calmoseptine Ointment) 1 applic TOPICAL BID [facility]; Protocol Last Admin: 06/13/19 22:52 Dose: 1 applicatio Documented by: Dorzolamide HCl (Trusopt) 1 drop EACH EYE BID [facility] Last Admin: 06/13/19 22:53 Dose: 1 drop Documented by: Ferrous Sulfate (Ferrous Sulfate) 325 mg PO 1200,1700 [facility] Last Admin: 06/13/19 17:19 Dose: 325 mg Documented by: Hydroxyzine HCl (Atarax Tablet) 10 mg PO TID PRN PRN PRN Reason: ITCHING Last Admin: 06/12/19 07:55 Dose: 10 mg Documented by: Latanoprost (Xalatan Opthalmic) 1 drop EACH EYE DAILY@0800 [facility] Last Admin: 06/13/19 08:16 Dose: 1 drop Documented by: Melatonin (Melatonin) 3 mg PO QHS [facility] Last Admin: 06/13/19 22:53 Dose: 3 mg Documented by: Metoprolol Tartrate (Lopressor (Beta Carlos Manuel)) 25 mg PO BID [facility] Last Admin: 06/13/19 22:53 Dose: Not Given Documented by: Ondansetron HCl (Zofran) 4 mg IV Q6H PRN PRN PRN Reason: nausea/emesis Last Admin: 06/13/19 02:17 Dose: 4 mg Documented by: Oxycodone HCl (Oxyir) 5 mg PO Q6H PRN PRN PRN Reason: Pain Score 6-10/10 Last Admin: 06/12/19 10:52 Dose: 5 mg Documented by: Pantoprazole Sodium (Protonix) 20 mg PO DAILY [facility] Last Admin: 06/13/19 12:12 Dose: 20 mg Documented by: Sodium Chloride () 10 - 40 ml IV UD PRN PRN Reason: SALINE FLUSH Last Admin: 06/13/19 02:18 Dose: 10 ml Documented by: Warfarin Sodium (Coumadin (Pbkc)) 5 mg PO DAILY@1700 [facility] Last Admin: 06/13/19 17:19 Dose: 5 mg Documented by: Medical Necessity - Tobacco Use Smoking Status: Never smoker Tobacco Use: Non-smoker, Secondhand Assessment/Plan All Active Problems (Last Reviewed 06/10/19 @ 15:26 by Christen Pickering PA-C) KURT (acute kidney injury) (Acute) Hyperkalemia (Acute) Triquetral chip fracture (Resolved) Hypokalemia (Acute) Cystitis (Acute) Abdominal pain (Acute) Epigastric pain (Acute) Nausea and vomiting (Acute) Generalized abdominal discomfort (Acute) Generalized weakness (Acute) Cellulitis of right lower leg (Resolved) 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 Acute kidney injury on chronic kidney disease stage III-recent temporary dialysis at [facility] for oliguric KURT secondary to ATN. Nephrology, Dr. Raza following. Tunneled dialysis catheter placement 06/11/2019. Renal ultrasound normal. Underwent dialysis x3. 2. 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 Liver profile normal. Hepatitis panel pending. 3. Chronic iron deficiency anemia-status post Venofer x3. Continue oral iron supplementation. Trend CBC. 4. Chronic diastolic CHF-no acute exacerbation. Echocardiogram July 2017 with EF 60%, stage III diastolic dysfunction, mild to moderate mitral valve insufficiency. Torsemide currently on hold given acute kidney injury. 5. Chronic atrial fibrillation/sick sinus syndrome status post pacemaker- continue metoprolol. 6. Hypertension-stable, continue metoprolol regimen. 7. Hyperlipidemia-continue statin. 8. GERD- Continue PPI. DVT prophylaxis-Coumadin Discharge planning: SNF pending family decision on facility and acceptance. This patient was seen by LIDA Enriquez under the supervision of Dr. Zabala. <Imer Zabala - Last Filed: 06/14/19 11:01> Subjective: Seen and examined. Patient is more lethargic. No fever. No shortness of breath. Blood pressure was low last evening, 89/51 and was given 500 normal saline bolus. Blood pressure is still on lower side 108/49, 99/35 and 1 more 500 normal saline bolus ordered. - Physical Exam Vitals/I&O's: Vital Signs Temp Pulse Resp BP Pulse Ox 98.0 F 60 20 H 99/35 L 100 06/14/19 10:31 06/14/19 10:31 06/14/19 10:31 06/14/19 10:31 06/14/19 10:31 Oxygen Flow Rate (L/min) 2 Oxygen Delivery Method Nasal Cannula Weight: 205 lb 0.478 oz Body Mass Index (BMI) 33.5 Finger Stick Blood Glucose 141 Intake and Output for Last 24 Hours 06/12/19 06/13/19 06/14/19 23:59 23:59 23:59 Intake Total 330 / 330 120 / 120 720 / 720 Output Total 95 / 95 1500 / 1500 Balance 235 / 235 -1380 / -1380 720 / 720 General: Cooperative, No apparent distress, Lethargic, - - Drowsy Somnolent with eyes closed. HEENT: Atraumatic, PERRLA, EOMI, Normocephalic Oral: Dry Mucosa Neck: Supple, No JVD, Negative Carotid Bruits Lungs: Clear to auscultation, No rhonchi, No wheeze, No rales, Diminished, - - No respiratory distress Cardiovascular: Regular rate, Regular Rhythm, Normal S1, Normal S2, No murmurs Abdomen: Bowel Sounds Present, Soft, Non Tender, Non-Distended Extremities: Capillary Refill Less than 3 Seconds, Edema Skin: - - Right-sided permacath site is dry no redness or bleeding or hematoma. Musculoskeletal: Arthritic Changes Lymphatic: No Cervical, Supraclavicular, or Inguinal Adenopathy Neurological: Neuro grossly intact, Motor Exam 5/5 strength throughout Microbiology Past 72 Hours 06/10/19 16:50 Urine Catheter - Dewey Urine Culture - Final Yeast, not Lily albicans Laboratory Results 06/10/19 05:55: Hepatitis A IgM Ab Negative, Hepatitis A Ab Total Positive H, Hep Bs Antigen Negative, Hep B Core Total Ab Negative, Hep B Core IgM Ab Negative, Hepatitis C Ab Confirm 0.2, Hep C Confirm Com 1 Comment 06/13/19 16:20: PT 23.1 H, INR 2.1 06/14/19 06:02: Sodium 134 L, Potassium 4.3, Chloride 97 L, Carbon Dioxide 24.0, Anion Gap 13, BUN 30 H, Creatinine 3.31 H, Estim Creat Clear Calc 12.06, Est GFR (MDRD) Af Amer 17 L, Est GFR (MDRD) Non-Af 14 L, BUN/Creatinine Ratio 9.1 L, Glucose 89, Calcium 9.2 06/14/19 06:27: POC Glucose 90 Current Medications Acetaminophen (Tylenol) 650 mg PO Q4H PRN PRN PRN Reason: Pain Score 1-10/10/FEVER Last Admin: 06/13/19 02:17 Dose: 650 mg Documented by: Albuterol Sulfate (Ventolin Aerosols) 2.5 mg INHALATION Q4H PRN PRN Reason: SOB &/OR WHEEZING Last Admin: 06/13/19 17:57 Dose: 2.5 mg Documented by: Calamine/Phenol (Calmoseptine Ointment) 1 applic TOPICAL BID [facility]; Protocol Last Admin: 06/14/19 10:24 Dose: 1 applicatio Documented by: Dorzolamide HCl (Trusopt) 1 drop EACH EYE BID [facility] Last Admin: 06/14/19 10:25 Dose: Not Given Documented by: Ferrous Sulfate (Ferrous Sulfate) 325 mg PO 1200,1700 [facility] Last Admin: 06/13/19 17:19 Dose: 325 mg Documented by: Hydroxyzine HCl (Atarax Tablet) 10 mg PO TID PRN PRN PRN Reason: ITCHING Last Admin: 06/12/19 07:55 Dose: 10 mg Documented by: Sodium Chloride () 500 mls @ 999 mls/hr IV .Q31M ONE Stop: 06/14/19 11:05 Latanoprost (Xalatan Opthalmic) 1 drop EACH EYE DAILY@0800 [facility] Last Admin: 06/14/19 10:25 Dose: Not Given Documented by: Melatonin (Melatonin) 3 mg PO QHS [facility] Last Admin: 06/13/19 22:53 Dose: 3 mg Documented by: Metoprolol Tartrate (Lopressor (Beta Carlos Manuel)) 25 mg PO BID [facility] Last Admin: 06/14/19 10:25 Dose: Not Given Documented by: Ondansetron HCl (Zofran) 4 mg IV Q6H PRN PRN PRN Reason: nausea/emesis Last Admin: 06/13/19 02:17 Dose: 4 mg Documented by: Oxycodone HCl (Oxyir) 5 mg PO Q6H PRN PRN PRN Reason: Pain Score 6-10/10 Last Admin: 06/12/19 10:52 Dose: 5 mg Documented by: Pantoprazole Sodium (Protonix) 20 mg PO DAILY [facility] Last Admin: 06/14/19 10:25 Dose: Not Given Documented by: Sodium Chloride () 10 - 40 ml IV UD PRN PRN Reason: SALINE FLUSH Last Admin: 06/13/19 02:18 Dose: 10 ml Documented by: Warfarin Sodium (Coumadin (Pbkc)) 5 mg PO DAILY@1700 [facility] Last Admin: 06/13/19 17:19 Dose: 5 mg Documented by: Assessment/Plan This patient was seen in conjunction with CELERY WRAPPER, [place]. I have independently interviewed and examined the patient and reviewed pertinent history, examination findings, laboratory and plan of management. I have reviewed the note and agree with the documented findings with the few additional points. In brief, patient is admitted for acute kidney injury on CKD stage III with hyperkalemia: Discussed with cutting and splicing supervisor. UA with WBC 0-5 LE 100, ketones 5. Urine protein 30. CK 46. Plan for tunneled dialysis catheter tomorrow a.m. Patient has coagulopathy even though she is off Coumadin for last 5 days. Last INR 3.8. 2 units of FFP and 10 mg of vitamin K ordered. 06/11/2019: Patient had INR 1.7 and had FFP. When INR 1.6, patient taken to the OR for tunneled dialysis catheter insertion. K4.4. Discussed with cutting and splicing supervisor. 06/12/2019: Patient had dialysis yesterday and currently having dialysis. Patient had some bleeding during catheter placement yesterday. This has stopped. 06/13/2019: Patient is undergoing dialysis daily for last 3 days. Currently blood pressure is low during dialysis. Advise dialysis nurse to follow-up with cutting and splicing supervisor. 06/14: Blood pressure is on the lower side. Patient is clinically dehydrated/hypovolemic. 500 mL normal saline bolus ordered. Hypovolemia secondary to over fluid removal from dialysis. Patient was on dialysis for 3 contributory days. Patient also has cirrhosis mostly secondary to cardiac cirrhosis from CHF failure with preserved EF. Albumin 3.9, total bili 1.8. Mild thrombocytopenia, 103,000. Echo in July 2017 reported as EF 60% with a stage III diastolic dysfunction, mild to moderate MR. Patient also has anemia of chronic disease most probably CKD. Has macrocytic anemia. B12 1764. H&H 8.06/21. Iron study is consistent with anemia of chronic disease. Anemia of chronic disease: H&H is stable. Platelet count 89,000. Repeat CBC ordered. Other comorbidities as mentioned above Total time of the visit including total time spent in counseling or coordination of care, (more than 50% of the total time, spent in obtaining medical information from nurses and other ancillary care providers) and discussion with patient's daughter and son-in-law near the bedside with it architecture consultant is 40 minutes I have discussed my assessment with CELERY WRAPPERMedina and orders have been reviewed. Code Visit Inpatient E&M: 78722 Subs Hosp L3
[2019-06-14] MEDS: Menthol/Lanolin/Calamine/Znox 113 GM Tube 1 APPLIC TOPICAL ×2 (10:24→23:24)
[2019-06-14] MEDS: 0.9% Saline Lock 10 ML Syringe IV (11:08)
[2019-06-14 11:34] LABS: Absolute Lymphocyte Count 0.46 X10^3/uL (0.83-4.51); Absolute Neutrophil Count 8.1 X10^3/uL (2.0-7.7); Basophil# 0.03 X10^3/uL; Basophil% 0.3 % (0-1); Eosinophil# 0.05 X10^3/uL; Eosinophils% 0.4 % (0-5); Hematocrit 26.9 % (37-47); Lymphocyte # 0.46 X10^3/ul (4.0); Mean Corp Hgb Conc 29.7 g/dL (32-36); Mean Corpuscular Hgb 31.4 pg (27.0-32.0); Mean Corpuscular Volume 105.5 fL (81-99); Mean Platelet Vol. 11.2 fl (6.2-12.0); Monocyte# 2.35 X10^3/uL; Monocyte% 20.5 % (0-10); NRBC Flagged by Analyzer 2.5 % (0-5); Neutrophil # 8.08 X10^3/uL (2.7-7.7); Neutrophil % 70.3 % (47-70); POSITIVE DIFFERENTIAL YES; POSITIVE MORPHOLOGY YES; Platelet Count 107 K/mm3 (150-450); RBC Distribution Width SD 65.9 fl (35.1-43.9); Red Blood Count 2.55 M/mm3 (4.2-5.4); White Blood Count 11.5 K/mm3 (4.4-11.0)
[2019-06-14 11:35] LABS: Differential Indicated SCAN CRITERIA MET
[2019-06-14 12:04] LABS: Anisocytosis 1+; Hypochromasia 2+; Macrocytosis 1+; Platelet Estimate SLT DEC (ADEQ); Polychromasia 1+
[2019-06-14 12:06] LABS: Magnesium 2.1 mg/dL (1.6-2.6); Phosphorus 3.3 mg/dL (2.5-4.9)
[2019-06-14] MEDS: Acetaminophen 650 MG Suppository RECTAL (23:16)
[2019-06-14] MEDS: Ondansetron 4 MG/2 ML Vial IV (23:24)
--- NOTE | 2019-06-14 23:39 | PCM.HOSP.N ---
Hospitalist Note Called by staff with concern for patient increased confusion. Evaluated patient, awakens to stimuli, answering some questions but not purposely, following some commands. From review of records has been similar during the day. Encouraged HOB, aspiration and fall precautions, will transition to IV GI prophylaxis, FL tylenol, hold oral regimen w/ ST consultation.
[2019-06-15] VITALS (15 sets, daily range): BP systolic 84–108; BP diastolic 42–58; PULSE 62–79; RESP 26–36; TEMP 36.7–38.2; O2SAT 97–100
[2019-06-15 02:15] LABS: Bedside Glucose 106 mg/dL (70-110)
[2019-06-15 06:55] LABS: Hematocrit 26.8 % (37-47); Hemoglobin 7.9 g/dL (12.0-15.0); Mean Corp Hgb Conc 29.5 g/dL (32-36); Mean Corpuscular Hgb 31.2 pg (27.0-32.0); Mean Corpuscular Volume 105.9 fL (81-99); Mean Platelet Vol. 10.1 fl (6.2-12.0); POSITIVE MORPHOLOGY YES; Platelet Count 113 K/mm3 (150-450); RBC Distribution Width CV 19.2 % (11.6-14.6); RBC Distribution Width SD 67.3 fl (35.1-43.9); Red Blood Count 2.53 M/mm3 (4.2-5.4); White Blood Count 12.4 K/mm3 (4.4-11.0)
[2019-06-15 07:02] LABS: International Normalized Ratio 2.7; Prothrombin Time (Protime)PT. 28.7 SECONDS (11.7-14.9)
[2019-06-15 07:13] LABS: Anion Gap 12 (5-15); BUN 37 mg/dL (7-18); BUN/Creat Ratio 8.5 RATIO (10-20); Calcium,Total 9.3 mg/dL (8.5-10.1); Chloride 98 mmol/L (98-107); Creatinine, Serum 4.33 mg/dL (0.55-1.02); EST Glomerular Filtration Rate 10 mL/min (>60); Est Glom Filt Rate - Afr Amer 13 mL/min (>60); Estimated Creatinine Clearance 9.22 ml/min; Glucose 93 mg/dL (74-106); Potassium 4.2 mmol/L (3.5-5.1); Sodium Level 134 mmol/L (136-145)
[2019-06-15 07:18] LABS: Scan Indicated on CBC? Y/N YES- FLAGS NOTED
[2019-06-15 07:26] LABS: Differential Comment SCANNED
--- NOTE | 2019-06-15 07:50 | RAD_ITS ---
STUDY: X-RAY CHEST REASON FOR EXAM: Female, 84 years old. SOB, LETHARGIC, ETC. TECHNIQUE: Single AP portable view of the chest. COMPARISON: Comparison is made with prior study dated June 11, 2019. FINDINGS: EKG electrodes are seen. The right-sided hemodialysis catheter is seen with the tip in the right atrium. This is unchanged. Persistent mild degree vascular congestion with small bilateral pleural effusions and bibasilar atelectasis. There has been moderate improvement as compared to prior study. There is borderline cardiomegaly. A left-sided dual-chamber pacemaker is seen. Normal mediastinum and arnol. Normal visualized pulmonary arteries. There is atherosclerotic calcification of the aortic arch with tortuosity. Normal visualized thoracic spine. There is degenerative osteoarthritis of the bilateral shoulders. There is no demonstrated abnormality of the visualized soft tissue structures of the upper abdomen. RAD/Chest 1 View (Portable) IMPRESSION: Residual mild degree of CHF although there has been a moderate degree of improvement as compared to prior study. Electronically Signed: Tim Gabriel, at 9:43 EST , Service support ,
[2019-06-15 08:16] LABS: Base Excess -1 mmol/L (-2 to +2); Bicarbonate 24.5 mmol/L (22-26); Blood Gas Specimen Type ART; O2 Delivery Device Nasal Can; PO2 48 mmHG (75-100); SITE R Radial; SO2 82 % (95-99); Time Given 820; Total Carbon Dioxide 26 mmol/L; pCO2 42.2 mmHg (35-45); pH 7.37 (7.35-7.45)
--- NOTE | 2019-06-15 08:54 | CPS ---
NAHID obtained. Dr Wilkerson cortexted results with a note to inform him result may be mixed and to call this therapists number if he would like pt re-stuck. Follow up was made with charge nurse also to confirm Dr Wilkerson did receive results.
--- NOTE | 2019-06-15 09:33 | PCM.PN.BLA ---
Progress Note Spoke with primary service, pt dtr Kori regarding status of pt over telephone. Pt received fluid bolus last night and today for hypotension likely due to severe RHF, severe TR. BP meds held. Now with low grade fever. Cultures sent. Discussed DNR status. Family to discuss option of hospice, discontinuation of dialysis. Next dialysis tentatively scheduled for tomorrow. Oxygenation stable currently. Overall prognosis poor. STROKE Vital Signs/Narrative: Vital Signs Temp Pulse Resp BP Pulse Ox 06/15/19 08:25 100 06/15/19 07:37 100.8 F H 74 36 H 103/56 L 100 06/15/19 06:54 67 06/15/19 06:45 99.3 F H 74 32 H 88/46 L 98 06/15/19 05:45 98.8 F 70 30 H 90/58 L 100
--- NOTE | 2019-06-15 09:55 | CASEMGMT ---
DERRICKMAN HELPER, Millie spoke with family and with Dr Raza and family is discussing Hospice. ALLEGRA spoke with patient's daughter, Kori per her request. She said they are looking for patient to go Hospice. She said a nurse told them over the weekend Hospice can see patient at home and care for her. Family interpreted whatever the nurse told them to mean that Hospice provides 24/7 care for patient at home. SW told her that is incorrect. Hospice can see patient at home, but they do not provide 24/7 care, family would have to provide this. Kori was very upset as it took a long time for them to come to this decision, now they have to figure something else out. ALLEGRA explained other options of [facility], but patient would have to pay room and board which can be $[address] up to $270's a day. ALLEGRA also explained Hospice has an Inpatient Unit that a nurse could evaluate her to see if she qualifies. Patient's sister then came up and provided support to Kori when she tried to explain what they had been told was incorrect. Patient's other daughter then said to have Hospice come and evaluate patient for inpatient unit. ALLEGRA told them SW will call right now and let them know how soon they can be here. ALLEGRA called [facility] and spoke with Sunitha regarding referral. She said someone could be here at 1030. She is aware family would like her evaluated for the inpatient unit. ALLEGRA notified patient's family, RN, and charge coordinator. ALLEGRA also faxed information to Hospice. Nayla SANTOYO
[2019-06-15] MEDS: Menthol/Lanolin/Calamine/Znox 113 GM Tube 1 APPLIC TOPICAL (10:53)
[2019-06-15] MEDS: Latanoprost 0.005% 1 Bottle 1 DRP EACH EYE (10:54)
[2019-06-15] MEDS: Dorzolamide 2% 10ml Bottle 1 DRP EACH EYE (10:54)
--- NOTE | 2019-06-15 11:46 | CASEMGMT ---
Hospice was here and talked with family. Patient will be going to the Inpatient Hospice Facility. Nayla MOJICA MSW
--- NOTE | 2019-06-15 11:48 | CASEMGMT ---
RN CM Note: Call to [facility]. Rep Donte x [phone]. Updated that referral for outpt dialysis cancelled. Isamar LEEN RN ACM
--- NOTE | 2019-06-15 11:53 | PCM.DC.SUM ---
<Medina Vallejo - Last Filed: 06/15/19 12:04> Discharge Date and Diagnosis Date of Admission: 06/09/19 Date of Discharge: 06/15/19 - Primary Discharge Diagnosis Active and Suspected Problems (Last Reviewed 06/10/19 @ 15:26 by Christen Pickering PA-C) 1. Acute kidney injury on chronic kidney disease stage III 2. 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 3. Chronic iron deficiency anemia 4. Chronic diastolic CHF 5. Chronic atrial fibrillation/sick sinus syndrome status post pacemaker 6. Hypertension 7. Hyperlipidemia 8. GERD 9. Hospice transition - Secondary Discharge Diagnosis Chronic Problems (Last Reviewed 06/10/19 @ 15:26 by Christen Pickering PA-C) Chronic anemia (Chronic) intermediate (current) use of anticoagulants (Chronic) Debility (Chronic) Frequent falls (Chronic) Chronic diastolic heart failure (Chronic) Atrial fibrillation (Chronic) Pulmonary HTN (Chronic) Hypertension (Chronic) Glaucoma (Chronic) GERD (gastroesophageal reflux disease) (Chronic) Anxiety (Chronic) Osteoarthritis of left knee (Chronic) 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) Chronic atrial fibrillation (Chronic) Non-rheumatic tricuspid valve insufficiency (Chronic) Secondary pulmonary arterial hypertension (Chronic) Sick sinus syndrome (Chronic) 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 2008, gen change 02/02/19 Essential (primary) hypertension (Chronic) Hyperlipidemia (Chronic) Hospital Course and Treatment Imaging Results: Diagnostic Data Renal Ultrasound 06/09/19 19:52 IMPRESSION: Normal ultrasound of the kidneys and urinary bladder. Electronically Signed: Bradly Trevino MD at 22:19 EST , Service support , Chest X-Ray 06/15/19 07:50 IMPRESSION: Residual mild degree of CHF although there has been a moderate degree of improvement as compared to prior study. Electronically Signed: Tim Gabriel, at 9:43 EST , Service support , Dr. Raza- Nephrology Dr. Lozada- General surgery Hospice consult Operations: None, - Procedures: - - Right IJ tunneled temporary dialysis catheter placement Summary of Care Provided: The patient is a 84 year old F admitted 06/09/2019 due to abnormal labs. 1. Acute kidney injury on chronic kidney disease stage III-recent temporary dialysis at [facility] for oliguric KURT secondary to ATN. Nephrology, Dr. Raza consulted during admission. Tunneled dialysis catheter placement 06/11/2019. Renal ultrasound normal. Underwent dialysis x3. Patient did not tolerate dialysis well and subsequently had hypotension and significant lethargy. Given general decline, family decided to transition to comfort measures and patient evaluated by hospice and found to be appropriate for inpatient hospice unit. 2. 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 Liver profile normal. Hepatitis panel showed hepatitis A Ab- indicating recent infection. 3. Chronic iron deficiency anemia-continue iron supplementation. 4. Chronic diastolic CHF-no acute exacerbation. Echocardiogram July 2017 with EF 60%, stage III diastolic dysfunction, mild to moderate mitral valve insufficiency. Torsemide discontinued. 5. Chronic atrial fibrillation/sick sinus syndrome status post pacemaker-metoprolol held due to hypotension. 6. Hypertension-metoprolol discontinued as noted above. 7. Hyperlipidemia-continue statin. 8. GERD- Continue PPI. General: Lethargic HEENT: Atraumatic, PERRLA, EOMI, Normocephalic Oral: Dry Mucosa Neck: Supple, No JVD, Negative Carotid Bruits Lungs: Clear to auscultation, Diminished Cardiovascular: Regular rate, Regular Rhythm, Normal S1, Normal S2, No murmurs Abdomen: Bowel Sounds Present, Soft, Non Tender, Non-Distended Extremities: No clubbing, No cyanosis, No edema, Capillary Refill Less than 3 Seconds Skin: No rashes, No breakdown Musculoskeletal: No Tenderness to Palpation of Joints or Extremities Neurological: Cranial nerves II-XII grossly intact, Neuro grossly intact Psych/Mental Status: Normal Affect, Appropriate Patient seen and examined prior to discharge. Physical assessment as noted above. Family collectively decided to transition to comfort measures and patient was discharged to inpatient hospice facility. This patient was seen by LIDA Enriquez under the supervision of Dr. Singer. - Physical Exam Vitals/I&O's: Vital Signs Temp Pulse Resp BP Pulse Ox 98.0 F 68 28 H 108/54 L 98 06/15/19 09:00 06/15/19 09:00 06/15/19 09:00 06/15/19 09:00 06/15/19 09:00 Oxygen Flow Rate (L/min) 2 Oxygen Delivery Method Nasal Cannula Weight: 205 lb 0.478 oz Body Mass Index (BMI) 33.5 Finger Stick Blood Glucose 141 Intake and Output for Last 24 Hours 06/13/19 06/14/19 06/15/19 23:59 23:59 23:59 Intake Total 120 / 120 1270.00 / 1270.00 500 / 500 Output Total 1500 / 1500 Balance -1380 / -1380 1270.00 / 1270.00 500 / 500 Microbiology Past 72 Hours 06/10/19 16:50 Urine Catheter - Dewey Urine Culture - Final Yeast, not Lily albicans Laboratory Results 06/14/19 11:07: Diff Path Review September, Platelet Estimate SLT DEC, Polychromasia 1+, Hypochromasia 2+, Anisocytosis 1+, Macrocytosis 1+ 06/14/19 11:07: Phosphorus 3.3, Magnesium 2.1 06/15/19 02:10: POC Glucose 106 06/15/19 06:40: WBC 12.4 H, RBC 2.53 L, Hgb 7.9 L, Hct 26.8 L, MCV 105.9 H, MCH 31.2, MCHC 29.5 L, RDW Std Deviation 67.3 H, RDW Coeff of Vlad 19.2 H, Plt Count 113 L, MPV 10.1, Differential Comment SCANNED 06/15/19 06:40: Sodium 134 L, Potassium 4.2, Chloride 98, Carbon Dioxide 24.0, Anion Gap 12, BUN 37 H, Creatinine 4.33 H, Estim Creat Clear Calc 9.22, Est GFR (MDRD) Af Amer 13 L, Est GFR (MDRD) Non-Af 10 L, BUN/Creatinine Ratio 8.5 L, Glucose 93, Calcium 9.3 06/15/19 06:40: PT 28.7 H, INR 2.7 06/15/19 08:12: Specimen Type ART, Sample Site R Radial, pH 7.37, Bicarbonate Actual 24.5, POC Total CO2 26, Base Excess -1, O2 Saturation 82 L, ABG pCO2 42.2, ABG pO2 48 L, O2 Delivery Device Nasal Can, Liter Flow 2.0, Blood Gas Notified Whom KELL AGUIAR, Blood Gas Notified Time 820 Current Medications Acetaminophen (Tylenol) 650 mg PO Q4H PRN PRN PRN Reason: Pain Score 1-10/10/FEVER Last Admin: 06/13/19 02:17 Dose: 650 mg Documented by: Acetaminophen (Tylenol) 650 mg RECTAL Q4H PRN PRN PRN Reason: fever, pain Last Admin: 06/14/19 23:16 Dose: 650 mg Documented by: Albuterol Sulfate (Ventolin Aerosols) 2.5 mg INHALATION Q4H PRN PRN Reason: SOB &/OR WHEEZING Last Admin: 06/13/19 17:57 Dose: 2.5 mg Documented by: Calamine/Phenol (Calmoseptine Ointment) 1 applic TOPICAL BID [facility]; Protocol Last Admin: 06/15/19 10:53 Dose: 1 applicatio Documented by: Dorzolamide HCl (Trusopt) 1 drop EACH EYE BID [facility] Last Admin: 06/15/19 10:54 Dose: 1 drop Documented by: Ferrous Sulfate (Ferrous Sulfate) 325 mg PO 1200,1700 [facility] Last Admin: 06/14/19 17:08 Dose: Not Given Documented by: Pantoprazole Sodium 40 mg/ (Sodium Chloride) 110 mls @ 330 mls/hr IV Q24 AYLA Last Admin: 06/15/19 10:57 Dose: 330 mls/hr Documented by: Latanoprost (Xalatan Opthalmic) 1 drop EACH EYE DAILY@0800 [facility] Last Admin: 06/15/19 10:54 Dose: 1 drop Documented by: Midodrine (Proamatine) 10 mg PO X1 ONE Stop: 06/15/19 14:01 Sodium Chloride () 10 - 40 ml IV UD PRN PRN Reason: SALINE FLUSH Last Admin: 06/14/19 11:08 Dose: 10 ml Documented by: Warfarin Sodium (Coumadin (Pbkc)) 5 mg PO DAILY@1700 [facility] Last Admin: 06/14/19 17:08 Dose: Not Given Documented by: Home Medications: Medications to take at Discharge Atorvastatin Calcium [Lipitor] 10 mg PO QHS 06/09/19 Brinzolamide [Azopt] 1 drp EACH EYE BID 06/09/19 Cetirizine HCl [Zyrtec] 10 mg PO DAILY 06/09/19 Latanoprost 0.005% [Xalatan Opthalmic] 1 drp EACH EYE DAILY@0800 06/09/19 Omeprazole 20 mg PO DAILY 06/09/19 Potassium Chloride [Klor-Con M10] 20 meq PO DAILY@0800 06/09/19 Warfarin [Coumadin] 5 mg PO DAILY 06/11/19 Primary Care Physician: Radha Sigala DO [Primary Care Provider] - Disposition: Hospice Medical Facility Minutes spent on discharge:: 35 Patient Condition:: Guarded Medical Necessity - Tobacco Use Smoking Status: Never smoker Tobacco Use: Non-smoker, Secondhand Meaningful Use Info Meaningful Use Diagnoses (Choose all that apply): None applicable <Robbin Singer E - Last Filed: 06/16/19 12:00> Discharge Date and Diagnosis - Secondary Discharge Diagnosis Chronic Problems (Last Reviewed 06/10/19 @ 15:26 by Christen Pickering PA-C) Chronic anemia (Chronic) intermediate (current) use of anticoagulants (Chronic) Debility (Chronic) Frequent falls (Chronic) Chronic diastolic heart failure (Chronic) Atrial fibrillation (Chronic) Pulmonary HTN (Chronic) Hypertension (Chronic) Glaucoma (Chronic) GERD (gastroesophageal reflux disease) (Chronic) Anxiety (Chronic) Osteoarthritis of left knee (Chronic) 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) Chronic atrial fibrillation (Chronic) Non-rheumatic tricuspid valve insufficiency (Chronic) Secondary pulmonary arterial hypertension (Chronic) Sick sinus syndrome (Chronic) 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 2008, gen change 02/02/19 Essential (primary) hypertension (Chronic) Hyperlipidemia (Chronic) Hospital Course and Treatment Imaging Results: 06/15/19 07:50 Xray Chest [Chest 1 View (Portable)] [RAD] Stat Summary of Care Provided: Hospitalist note: Discharge summary above reviewed and I concur with the above discharge plan. This patient was presented to the emergency room because of abnormal labs, found to have elevated creatinine as well as INR of 6 upon admission. She was found to have acute kidney injury on top of stage III chronic kidney disease. Patient received temporary hemodialysis at [facility] for acute renal failure secondary to acute tubular necrosis. During this admission, tunneled dialysis catheter placed, nephrology consulted and patient underwent dialysis x3. Kidney ultrasound revealed no evidence of kidney stones or obstruction, no hydronephrosis or hydroureter. Patient did not tolerate dialysis well and she was hypotensive and significantly lethargic during hemodialysis. Initially, kidney function slightly improved but again, kidney function worsened. Patient continued to be very lethargic and sleepy. On the day of discharge, I saw the patient in the morning and she was very lethargic, difficult to arouse but later, she was able to wake up after sternal rub. Her condition has been declining. His family decided to transition patient to hospice and palliative care for comfort measures. Hospice and palliative care team consulted and evaluated the patient and patient was appropriate for inpatient hospice placement. Patient discharged to inpatient hospice unit in a guarded condition. - Physical Exam General: Sleepy, lethargic, difficult to arouse, moderately short of breath. HEENT: Atraumatic, PERRLA, EOMI. Neck: Supple, No JVD, Negative Carotid Bruits, Trachea Midline, Thyroid Normal. Lungs decreased breath sounds bilateral, scattered rhonchi, no wheeze, No rales. Cardiovascular: Regular rate, Regular Rhythm, Normal S1, Normal S2, PMI Normal. Abdomen: Bowel Sounds Present, Soft, Non Tender, Non-Distended, No Hepato-splenomegaly. Extremities: No clubbing, No cyanosis, No edema Skin: No rashes, No breakdown Neurological: Cranial nerves are intact, neuro grossly intact This note was generated with [employer] dictation software. It may contain incorrect words, spelling, and punctuation that were not noted in checking the note before signing. - Physical Exam Vitals/I&O's: Vital Signs Temp Pulse Resp BP Pulse Ox 98.6 F 71 36 H 100/55 L 98 06/15/19 11:00 06/15/19 11:00 06/15/19 11:00 06/15/19 11:06/15/19 11:00 Oxygen Flow Rate (L/min) 2 Oxygen Delivery Method Nasal Cannula Weight: 205 lb 0.478 oz Body Mass Index (BMI) 33.5 Finger Stick Blood Glucose 141 Intake and Output for Last 24 Hours 06/13/19 06/14/19 06/15/19 23:59 23:59 23:59 Intake Total 120 / 120 1270.00 / 1270.00 610 / 610 Output Total 1500 / 1500 Balance -1380 / -1380 1270.00 / 1270.00 610 / 610 Microbiology Past 72 Hours 06/10/19 16:50 Urine Catheter - Dewey Urine Culture - Final Yeast, not Lily albicans Laboratory Results 06/14/19 11:07: Diff Path Review Reviewed 06/15/19 02:10: POC Glucose 106 06/15/19 06:40: WBC 12.4 H, RBC 2.53 L, Hgb 7.9 L, Hct 26.8 L, MCV 105.9 H, MCH 31.2, MCHC 29.5 L, RDW Std Deviation 67.3 H, RDW Coeff of Vlad 19.2 H, Plt Count 113 L, MPV 10.1, Differential Comment SCANNED 06/15/19 06:40: Sodium 134 L, Potassium 4.2, Chloride 98, Carbon Dioxide 24.0, Anion Gap 12, BUN 37 H, Creatinine 4.33 H, Estim Creat Clear Calc 9.22, Est GFR (MDRD) Af Amer 13 L, Est GFR (MDRD) Non-Af 10 L, BUN/Creatinine Ratio 8.5 L, Glucose 93, Calcium 9.3 06/15/19 06:40: PT 28.7 H, INR 2.7 06/15/19 08:12: Specimen Type ART, Sample Site R Radial, pH 7.37, Bicarbonate Actual 24.5, POC Total CO2 26, Base Excess -1, O2 Saturation 82 L, ABG pCO2 42.2, ABG pO2 48 L, O2 Delivery Device Nasal Can, Liter Flow 2.0, Blood Gas Notified Whom HOSP , Blood Gas Notified Time 820 Disposition: Hospice Medical Facility Minutes spent on discharge:: 33 Patient Condition:: Guarded Meaningful Use Info Meaningful Use Diagnoses (Choose all that apply): None applicable Code Visit Inpatient E&M: 38682 Disch Hosp
--- NOTE | 2019-06-15 12:12 | NURSING ---
report called to [facility]
[2019-06-15 14:18] LABS: Pathologist Review Reviewed
== END 2019-06-15 12:28 | disposition hospice, inpatient (51) | DRG 674 ==
LOC: ED 16:40 → PCU 17:57
PROVIDERS: Internal Medicine; Internal Medicine Nephrology; Nurse Practitioner Family; Physician Assistant; Surgery; Admitting Provider Student in an Organized Health Care Education/Training Program; Emergency Provider Emergency Medicine; Family Provider Family Medicine; PCP Family Medicine; Visit Provider Hospitalist
PROC: 0JH63XZ Insertion of Tunneled Vascular Access Device into Chest Subcutaneous Tissue and Fascia, Percutaneous Approach (ICD-10-PCS; principal; 2019-06-11 14:45)
DX: N17.9 Acute kidney failure, unspecified (principal); I50.32 Chronic diastolic (congestive) heart failure; I13.0 Hypertensive heart and chronic kidney disease with heart failure and stage 1 through stage 4 chronic kidney disease, or unspecified chronic kidney disease; I48.20 Chronic atrial fibrillation, unspecified; E87.1 Hypo-osmolality and hyponatremia; D68.9 Coagulation defect, unspecified; E87.5 Hyperkalemia; D50.9 Iron deficiency anemia, unspecified; E78.5 Hyperlipidemia, unspecified; K21.9 Gastro-esophageal reflux disease without esophagitis; Z51.5 Encounter for palliative care; I49.5 Sick sinus syndrome; H40.9 Unspecified glaucoma; F41.9 Anxiety disorder, unspecified; D69.6 Thrombocytopenia, unspecified; K76.1 Chronic passive congestion of liver; Z95.0 Presence of cardiac pacemaker; Z79.01 Long term (current) use of anticoagulants; R53.81 Other malaise; I36.1 Nonrheumatic tricuspid (valve) insufficiency; I27.21 Secondary pulmonary arterial hypertension; R29.6 Repeated falls
CPT/HCPCS: 36415; 36600; 71045; 76000; 76770; 80048; 80053; 80076; 81001; 82550; 82570; 82607; 82746; 82803; 82962; 83540; 83550; 83735; 84100; 84132; 84300; 84484; 85025; 85027; 85610; 86704; 86705; 86706; 86708; 86709; 86803; 86900; 86901; 87086; 87088; 87340; 90937; 92526; 92610; 93005; 94640; 97162; 97166; 97802; 99285; J1756; J7030; J7040; P9017; A4216; C1750; G0257; J1940; J2405; J3490